=== PATIENT | male | born 1950 | race Caucasian/White ===

== ENCOUNTER 2017-08-28 18:33 | Emergency (ER) | payer MEDICARE, SELFPAY ==
[2017-08-28 20:48] VITALS: BP 115/68; PULSE 116; RESP 24; TEMP 37.7; O2SAT 94; BMI 42.4
--- NOTE | 2017-08-28 20:50 | HMH.EDUTC ---
[facility] – [place] Dis[place] Clinical Impression: Influenza, Bronchitis Disposition: Home, Self-Care Condition on Discharge: Good Instructions: Cough, Influenza, DI for Nasal Congestion Additional Instructions: * Monitor Temp. Tylenol and/or Ibuprofen as needed. ER if fever is no less than 101 despite alternating Tylenol and Ibuprofen * Encourage fluids, water, Gatorade, powerade, pedialyte if infant/toddler/or child * Warm salt water gargles for throat irritation *Warm fluids *Sore throat lozenges *Sleep elevated *humidifier or vaporizer Lots of rest Increase fluids, water, Gatorade, powerade Follow up IMMEDIATELY for new or worsening of symptoms OR no noticeable improvement over the next 48-72 hours. 911 immediately for any life threatening symptoms such as chest pain or difficulty breathing Take medication as prescribed Return if needed Over the counter Motrin or Tylenol as needed for fever or pain Follow up with family doctor if symptoms worsen Prescriptions: Azithromycin [Z-Axel 250mg Tab] 250 mg PO UD DOSE PK #6 tab Oseltamivir Phosphate [Tamiflu 75mg Capsule] 75 mg PO BID #10 capsule Referrals: Abbey Manrique APRN [Primary Care Provider] - Time of Disposition: 21:29 Medical Decision Making Vital Signs: 08/28/17 20:48 Temperature 99.8 F H Temperature Source Oral Pulse Rate [Right Radial] 116 H Respiratory Rate 24 Blood Pressure [Right Arm] 115/68 Blood Pressure Mean [Right Arm] 83 Blood Pressure Source [Right Arm] Automatic Cuff Blood Pressure Position [Right Arm] Sitting 02 Sat by Pulse Oximetry 94 L Oxygen Delivery Method Room Air Orders (Tests/Meds): ORDERS Category Date Time Status Chest XR 2 view (NOT portable) [XR chest 2V] Stat Exams 08/28/17 20:55 Taken - Radiology Data #1 Image(s): Chest Image Reviewed: Yes I reviewed the patient's radiology results Preliminary Findings: No Infiltrates Seen (Discussed with Dr Johnson, possible bronchitis) - Evin Inquiry Pt receiving controlled substance: No Evin was queried for this patient: No [facility] [place] HPI - General Stated complaint: SOB,FLU - History of Present Illness Provider Complaint: Patient state that he thinks he may have the flu Family member was worried that he may have pneumonia again too so they brought him in to get him checked out Onset (ago): day(s) (1) Relieving factors: none Exacerbating factors: none Associated symptoms: cough, fever/chills Treatments prior to arrival: none - Related Data Previous Rx's Medication Instructions Recorded Azithromycin [Z-Axel 250mg Tab] 250 mg PO UD DOSE PK #6 tab 08/28/17 Oseltamivir Phosphate [Tamiflu 75 mg PO BID #10 cap 08/28/17 75mg Capsule] Allergies Allergy/AdvReac Type Severity Reaction Status Date / Time pregabalin [From LYRICA] Allergy Unknown Verified 08/28/17 20:59 - Constitutional Reports body ache(s), Reports chills, Reports fever(s) - ENT Reports sore throat - Respiratory Reports chest congestion, Reports cough Physical Exam - General General appearance: alert, in no apparent distress - Expanded ENT Exam Comment: Throat irritated, red - Chest Chest inspection: Present: normal inspection, symmetric chest wall rise - Respiratory Respiratory exam: Present: normal lung sounds bilaterally. Absent: respiratory distress - Cardiovascular Cardiovascular exam: Present: regular rate. Absent: JVD - Abdominal Exam Abdominal exam: Present: soft, normal bowel sounds. Absent: distention, tenderness, guarding - Neurological Exam Neurological exam: Present: alert, oriented X3 - Skin Skin exam: Present: warm, dry, intact, normal color
--- NOTE | 2017-08-28 20:54 | ED_ITS ---
[facility] [place] Clinical Impression: Influenza, Bronchitis Disposition: Home, Self-Care Condition on Discharge: Good Instructions: Cough, Influenza, DI for Nasal Congestion Additional Instructions: * Monitor Temp. Tylenol and/or Ibuprofen as needed. ER if fever is no less than 101 despite alternating Tylenol and Ibuprofen * Encourage fluids, water, Gatorade, powerade, pedialyte if infant/toddler/or child * Warm salt water gargles for throat irritation *Warm fluids *Sore throat lozenges *Sleep elevated *humidifier or vaporizer Lots of rest Increase fluids, water, Gatorade, powerade Follow up IMMEDIATELY for new or worsening of symptoms OR no noticeable improvement over the next 48-72 hours. 911 immediately for any life threatening symptoms such as chest pain or difficulty breathing Take medication as prescribed Return if needed Over the counter Motrin or Tylenol as needed for fever or pain Follow up with family doctor if symptoms worsen Prescriptions: Azithromycin [Z-Axel 250mg Tab] 250 mg PO UD DOSE PK #6 tab Oseltamivir Phosphate [Tamiflu 75mg Capsule] 75 mg PO BID #10 capsule Referrals: Abbey Manrique APRN [Primary Care Provider] - Time of Disposition: 21:29 Medical Decision Making Vital Signs: 08/28/17 20:48 Temperature 99.8 F H Temperature Source Oral Pulse Rate [Right Radial] 116 H Respiratory Rate 24 Blood Pressure [Right Arm] 115/68 Blood Pressure Mean [Right Arm] 83 Blood Pressure Source [Right Arm] Automatic Cuff Blood Pressure Position [Right Arm] Sitting 02 Sat by Pulse Oximetry 94 L Oxygen Delivery Method Room Air Orders (Tests/Meds): ORDERS Category Date Time Status Chest XR 2 view (NOT portable) [XR chest 2V] Stat Exams 08/28/17 20:55 Taken - Radiology Data #1 Image(s): Chest Image Reviewed: Yes I reviewed the patient's radiology results Preliminary Findings: No Infiltrates Seen (Discussed with Dr Johnson, possible bronchitis) - Evin Inquiry Pt receiving controlled substance: No Evin was queried for this patient: No [facility] [facility] [place] - General Stated complaint: SOB,FLU - History of Present Illness Provider Complaint: Patient state that he thinks he may have the flu Family member was worried that he may have pneumonia again too so they brought him in to get him checked out Onset (ago): day(s) (1) Relieving factors: none Exacerbating factors: none Associated symptoms: cough, fever/chills Treatments prior to arrival: none - Related Data Previous Rx's Medication Instructions Recorded Azithromycin [Z-Axel 250mg Tab] 250 mg PO UD DOSE PK #6 tab 08/28/17 Oseltamivir Phosphate [Tamiflu 75 mg PO BID #10 cap 08/28/17 75mg Capsule] Allergies Allergy/AdvReac Type Severity Reaction Status Date / Time pregabalin [From LYRICA] Allergy Unknown Verified 08/28/17 20:59 - Constitutional Reports body ache(s), Reports chills, Reports fever(s) - ENT Reports sore throat - Respiratory Reports chest congestion, Reports cough Physical Exam - General General appearance: alert, in no apparent distress - Expanded ENT Exam Comment: Throat irritated, red - Chest Chest inspection: Present: normal inspection, symmetric chest wall rise - Respiratory Respiratory exam: Present: normal lung sounds robina
--- NOTE | 2017-08-28 20:55 | XR_ITS ---
XR chest 2V HISTORY: ITS.REASON: COUGH ORDERING PHYSICIAN: Sue Green PATIENT AGE: 66 years COMPARISON: 07/12/2017 FINDINGS: Unremarkable cardiovascular structures. There is chronic coarsening of bronchovascular markings as previously described somewhat more prominent in the left lung compared to the right lung. There is slight increased density in the left lung base in the retrocardiac region. Underlying patchy infiltrate is a consideration. No effusions. No acute bony anomalies. IMPRESSION: Chronic coarsening of the bronchovascular markings suggesting chronic peribronchial inflammatory change with possible infiltrate in the left lung base versus a developing nodule. Follow-up recommended to confirm stability and/or resolution
[2017-08-28 21:39] LABS: UTC Influenza A Antigen Positive (Negative); UTC Influenza B Antigen Negative (Negative)
== END 2017-08-28 21:36 | disposition home or self-care (01) ==
PROVIDERS: Emergency Provider Nurse Practitioner; Family Provider Nurse Practitioner Family; PCP Nurse Practitioner Family
DX: J10.1 Influenza due to other identified influenza virus with other respiratory manifestations (principal)
CPT/HCPCS: 71046; 87276; 87804; 99201

== ENCOUNTER → 2017-09-20 13:45 | Outpatient (CLI) | payer MEDICARE, SELFPAY ==
--- NOTE | 2017-09-20 13:52 | XR_ITS ---
XR chest 2V HISTORY: ITS.REASON: COUGH ORDERING PHYSICIAN: Abbey Manrique PATIENT AGE: 66 years COMPARISON: 08/28/2017 FINDINGS: Unremarkable cardiovascular structures. No lobar consolidation or collapse. There is slight increased density overlying the left chest compared to the right probably technical and somewhat similar appearance on older portable chest 07/12/2017. There is chronic coarsening of the bronchovascular markings as previously described faint opacity is once again noted in the left lower lobe atelectasis millimeters nonspecific and could be related to summation artifact or developing nodule. There is an additional 9 mm nodule just lateral to this overlying the anterior aspect of the fifth rib. Continued follow-up recommended. IMPRESSION: 1. Chronic changes with chronic coarsening of the bronchovascular markings. 2. Possible nodular opacities in the left lung base. Continued follow-up recommended
== END ==
PROVIDERS: PCP Nurse Practitioner Family; Visit Provider Nurse Practitioner Family
DX: R05 Cough (principal)
CPT/HCPCS: 71046

== ENCOUNTER 2019-09-02 10:25 | Outpatient (CLI) | payer MEDICARE, SELFPAY ==
[2019-09-02 10:52] VITALS: BP 91/52; PULSE 104; RESP 18; O2SAT 96
[2019-09-02 11:50] VITALS: BP 96/50; PULSE 91; RESP 18
== END 2019-09-02 11:50 | disposition home or self-care (01) ==
PROVIDERS: Visit Provider Nurse Practitioner Critical Care Medicine
DX: L03.115 Cellulitis of right lower limb (principal)
CPT/HCPCS: 96365

== ENCOUNTER 2019-09-03 16:05 | Outpatient (CLI) | payer MEDICARE, SELFPAY ==
[2019-09-03 16:45] VITALS: BP 94/47; PULSE 98; RESP 20; TEMP 36.6; O2SAT 95
[2019-09-03 17:16] VITALS: BP 113/56; PULSE 97; RESP 18; O2SAT 96
== END 2019-09-03 17:25 | disposition home or self-care (01) ==
LOC: INF 16:09
PROVIDERS: Visit Provider Internal Medicine Infectious Disease
DX: L03.115 Cellulitis of right lower limb (principal)
CPT/HCPCS: 96365

== ENCOUNTER 2019-09-04 10:20 | Outpatient (CLI) | payer MEDICARE, SELFPAY ==
[2019-09-04 10:35] VITALS: BP 100/57; PULSE 96; RESP 20; TEMP 35.8
[2019-09-04 11:05] VITALS: BP 115/69; PULSE 88; RESP 20
== END 2019-09-04 11:20 | disposition home or self-care (01) ==
LOC: INF 10:20
PROVIDERS: Visit Provider Internal Medicine Infectious Disease
DX: L03.115 Cellulitis of right lower limb (principal)
CPT/HCPCS: 96365

== ENCOUNTER 2019-09-05 10:10 | Outpatient (CLI) | payer MEDICARE, SELFPAY ==
[2019-09-05 10:18] VITALS: BMI 37.4
[2019-09-05 10:49] LABS: Basophils # 0.1 K/mm3 (0-0.2); Basophils % 0.7 % (0.1-2.0); Eosinophils # 0.1 K/mm3 (0.0-0.4); Eosinophils % 0.9 % (0.1-12.0); Hematocrit 45.5 % (42.0-52.0); Hemoglobin 14.5 g/dL (14.1-18.0); Lymphocytes # 1.4 K/mm3 (0.7-4.5); Lymphocytes % 14.4 % (10-50); Mean Corpuscular HGB Conc 31.9 g/dL (31.8-35.4); Mean Corpuscular Hemoglobin 29.4 pg (27.0-31.2); Mean Corpuscular Volume 92.2 fl (80-94); Mean Platelet Volume 7.8 fl (7.4-10.4); Monocytes # 0.5 K/mm3 (0.1-1.0); Monocytes % 5.2 % (1.7-9.3); Neutrophils # 7.8 K/mm3 (1.8-7.8); Neutrophils % 78.8 % (37.0-80.0); Platelet Count 302 K/mm3 (142-424); Red Blood Count 4.94 M/mm3 (4.60-6.20); Red Cell Distribution Width 12.5 % (11.5-17.5); White Blood Count 9.9 K/mm3 (4.8-10.8)
[2019-09-05 11:00] VITALS: BP 104/58; PULSE 82; RESP 18; O2SAT 93
[2019-09-05 11:13] LABS: Alanine Aminotransferase 25 U/L (12-78); Albumin Level 2.9 gm/dL (3.4-5.0); Albumin/Globulin Ratio 0.7 (1.1-1.8); Alkaline Phosphatase 84 U/L (46-116); Anion Gap 12.5 mEq/L (5-15); Aspartate Amino Transferase 12 U/L (15-37); Bilirubin,Total 0.5 mg/dL (0.2-1.0); Blood Urea Nitrogen 18 mg/dL (7-18); C-Reactive Protein 2.5 mg/dL (0.0-0.9); Calcium 8.8 mg/dL (8.5-10.1); Carbon Dioxide 27 mmol/L (21.0-32.0); Chloride 104 mmol/L (98-107); Creatinine Clearance Estimated 113 mL/min (50-200); Estimated Glomerular Filt Rate 75 ml/min (>60); GFR (African American) 90 ML/MIN (>60); Globulin 4.2 gm/dl (1.3-3.2); Glucose 102 mg/dL (74-106); Potassium 4.5 mmoL/L (3.5-5.1); Sodium 139 mmol/L (136-145); Total Protein,Serum 7.1 gm/dL (6.4-8.2)
[2019-09-05 11:30] VITALS: BP 116/62; PULSE 79; RESP 18
[2019-09-05 11:37] LABS: Erythrocyte Sedimentation Rate 36 mm/hr (0-20)
--- NOTE | 2019-09-05 14:20 | PC.NURSE ---
1035 - SUZETTE BELTRAN FROM LAB PRESENT TO DRAW CBC, CMP, CRP, ESR AT THIS TIME.
== END 2019-09-05 11:40 | disposition home or self-care (01) ==
LOC: INF 10:15
PROVIDERS: Visit Provider Internal Medicine Infectious Disease
DX: L03.115 Cellulitis of right lower limb (principal)
CPT/HCPCS: 36415; 80053; 85025; 85651; 86140; 96365

== ENCOUNTER 2019-09-12 13:04 | Outpatient (CLI) | payer MEDICARE, SELFPAY ==
[2019-09-12 13:58] VITALS: BMI 38.6
--- NOTE | 2019-09-12 13:58 | XR_ITS ---
PROCEDURE: XR CHEST PORTABLE CLINICAL HISTORY: CHECK PICC PLACEMENT COMPARISON: CXR2V XR chest 2V from 08/28/2017 CXR2V XR chest 2V from 09/20/2017 XR CHEST 2V from 08/23/2019 CT ANGIO CHEST from 08/23/2019 FINDINGS: Right upper extremity PICC line has been inserted. The tip is in good position in the proximal SVC region. Unremarkable cardiovascular structures. There is an opacity noted in the left midline at the end of the 4th rib could be related to costochondral calcification or fibrosis. IMPRESSION: PICC line tip in good position. No acute abnormalities evident Dictated by: Rohit Roper MD 09/12/2019 14:14 Electronically signed by Rohit Roper MD in [place] 09/12/2019 14:14
[2019-09-12 14:20] VITALS: BP 125/45; PULSE 84; RESP 20; O2SAT 98
[2019-09-12 14:50] VITALS: BP 118/52; PULSE 80; RESP 20
== END 2019-09-12 15:10 | disposition home or self-care (01) ==
LOC: INF 13:04
PROVIDERS: Visit Provider Internal Medicine Infectious Disease
DX: L03.115 Cellulitis of right lower limb (principal); I50.22 Chronic systolic (congestive) heart failure; I11.0 Hypertensive heart disease with heart failure; I25.10 Atherosclerotic heart disease of native coronary artery without angina pectoris
CPT/HCPCS: 36569; 71045; 96365; C1751

== ENCOUNTER → 2019-09-13 10:37 | Outpatient (CLI) | payer MEDICARE, SELFPAY ==
[2019-09-13 10:43] VITALS: BP 130/70; PULSE 83; RESP 20; TEMP 36.8; O2SAT 92
[2019-09-13 11:15] VITALS: BP 130/68; PULSE 76; RESP 19; TEMP 36.9; O2SAT 93
== END ==
PROVIDERS: PCP Nurse Practitioner Family; Visit Provider Internal Medicine Infectious Disease
DX: L03.115 Cellulitis of right lower limb (principal)
CPT/HCPCS: 96365; G0463

== ENCOUNTER 2019-09-14 10:36 | Outpatient (CLI) | payer MEDICARE, SELFPAY ==
[2019-09-14 10:47] VITALS: BP 143/76; PULSE 94; RESP 22; TEMP 36.6; O2SAT 97
[2019-09-14 10:53] VITALS: BMI 38.6
[2019-09-14 11:36] VITALS: BP 114/66; PULSE 88; RESP 20; TEMP 36.6; O2SAT 94
== END 2019-09-14 11:40 | disposition home or self-care (01) ==
LOC: INF 10:37
PROVIDERS: PCP Nurse Practitioner Family; Visit Provider Internal Medicine Infectious Disease
DX: L03.115 Cellulitis of right lower limb (principal)
CPT/HCPCS: 96365

== ENCOUNTER 2019-09-15 10:51 | Outpatient (CLI) | payer MEDICARE, SELFPAY ==
[2019-09-15 10:53] VITALS: BP 127/76; PULSE 96; RESP 18; TEMP 36.6; O2SAT 98
[2019-09-15 11:23] VITALS: BP 122/72; PULSE 94; RESP 18; O2SAT 97
[2019-09-15 11:40] VITALS: BP 129/74; PULSE 89; RESP 18; O2SAT 97
== END 2019-09-15 11:40 | disposition home or self-care (01) ==
LOC: INF 10:51
PROVIDERS: Visit Provider Internal Medicine Infectious Disease
DX: L03.115 Cellulitis of right lower limb (principal); I50.22 Chronic systolic (congestive) heart failure; I11.0 Hypertensive heart disease with heart failure; I25.10 Atherosclerotic heart disease of native coronary artery without angina pectoris
CPT/HCPCS: 96365

== ENCOUNTER 2019-09-16 10:41 | Outpatient (CLI) | payer MEDICARE, SELFPAY ==
[2019-09-16 10:56] VITALS: BP 127/69; PULSE 82; RESP 18; TEMP 36.8; O2SAT 96
[2019-09-16 11:35] VITALS: BP 123/68; PULSE 72; RESP 18; TEMP 36.8; O2SAT 95
== END 2019-09-16 11:35 | disposition home or self-care (01) ==
LOC: INF 10:41
PROVIDERS: Visit Provider Internal Medicine Infectious Disease
DX: L03.115 Cellulitis of right lower limb (principal); I50.22 Chronic systolic (congestive) heart failure; I11.0 Hypertensive heart disease with heart failure; I25.10 Atherosclerotic heart disease of native coronary artery without angina pectoris
CPT/HCPCS: 96365

== ENCOUNTER 2019-09-17 10:40 | Outpatient (CLI) | payer MEDICARE, SELFPAY ==
[2019-09-17 10:43] VITALS: BMI 38.6
[2019-09-17 10:55] VITALS: BP 115/67; PULSE 95; RESP 20; TEMP 36.6; O2SAT 94
[2019-09-17 10:57] LABS: Basophils # 0.1 K/mm3 (0-0.2); Basophils % 0.6 % (0.1-2.0); Eosinophils # 0.2 K/mm3 (0.0-0.4); Eosinophils % 2.1 % (0.1-12.0); Hematocrit 43.2 % (42.0-52.0); Hemoglobin 13.9 g/dL (14.1-18.0); Lymphocytes # 1.5 K/mm3 (0.7-4.5); Lymphocytes % 16.3 % (10-50); Mean Corpuscular HGB Conc 32.1 g/dL (31.8-35.4); Mean Corpuscular Hemoglobin 29.2 pg (27.0-31.2); Mean Corpuscular Volume 90.8 fl (80-94); Mean Platelet Volume 7.3 fl (7.4-10.4); Monocytes # 0.5 K/mm3 (0.1-1.0); Monocytes % 5.4 % (1.7-9.3); Neutrophils # 6.9 K/mm3 (1.8-7.8); Neutrophils % 75.6 % (37.0-80.0); Platelet Count 349 K/mm3 (142-424); Red Blood Count 4.76 M/mm3 (4.60-6.20); Red Cell Distribution Width 12.6 % (11.5-17.5); White Blood Count 9.1 K/mm3 (4.8-10.8)
[2019-09-17 11:11] LABS: Alanine Aminotransferase 12 U/L (12-78); Albumin Level 2.9 gm/dL (3.4-5.0); Albumin/Globulin Ratio 0.6 (1.1-1.8); Alkaline Phosphatase 74 U/L (46-116); Anion Gap 12.3 mEq/L (5-15); Aspartate Amino Transferase 10 U/L (15-37); Bilirubin,Total 0.4 mg/dL (0.2-1.0); Blood Urea Nitrogen 12 mg/dL (7-18); C-Reactive Protein 11.9 mg/dL (0.0-0.9); Calcium 8.7 mg/dL (8.5-10.1); Carbon Dioxide 30 mmol/L (21.0-32.0); Chloride 104 mmol/L (98-107); Creatinine Clearance Estimated 109 mL/min (50-200); Creatinine,Serum 1.07 mg/dL (0.70-1.30); Estimated Glomerular Filt Rate 69 ml/min (>60); GFR (African American) 83 ML/MIN (>60); Globulin 4.5 gm/dl (1.3-3.2); Glucose 99 mg/dL (74-106); Potassium 4.3 mmoL/L (3.5-5.1); Sodium 142 mmol/L (136-145); Total Protein,Serum 7.4 gm/dL (6.4-8.2)
[2019-09-17 11:13] LABS: Creatine Kinase 30 U/L (39-308)
[2019-09-17 11:45] VITALS: BP 118/57; PULSE 89; RESP 20; O2SAT 93
[2019-09-17 11:46] LABS: Erythrocyte Sedimentation Rate 100 mm/hr (0-20)
== END 2019-09-17 11:45 | disposition home or self-care (01) ==
LOC: INF 10:40
PROVIDERS: Visit Provider Internal Medicine Infectious Disease
DX: L03.115 Cellulitis of right lower limb (principal); I50.22 Chronic systolic (congestive) heart failure; I25.10 Atherosclerotic heart disease of native coronary artery without angina pectoris
CPT/HCPCS: 80053; 82550; 85025; 85651; 86140; 96365

== ENCOUNTER 2019-09-18 10:43 | Outpatient (CLI) | payer MEDICARE, SELFPAY ==
[2019-09-18 11:01] VITALS: BP 130/85; PULSE 93; RESP 18; TEMP 36.6; O2SAT 95
[2019-09-18 11:50] VITALS: BP 136/79; PULSE 82; RESP 18; TEMP 36.6; O2SAT 95
== END 2019-09-18 11:50 | disposition home or self-care (01) ==
LOC: INF 10:43
PROVIDERS: Visit Provider Internal Medicine Infectious Disease
DX: I89.0 Lymphedema, not elsewhere classified (principal); L03.115 Cellulitis of right lower limb; I50.22 Chronic systolic (congestive) heart failure; I11.0 Hypertensive heart disease with heart failure; I25.10 Atherosclerotic heart disease of native coronary artery without angina pectoris
CPT/HCPCS: 96365

== ENCOUNTER 2019-09-19 10:40 | Outpatient (CLI) | payer MEDICARE, SELFPAY ==
[2019-09-19 10:42] VITALS: BP 133/70; PULSE 92; RESP 20; TEMP 37.1; O2SAT 95
[2019-09-19 11:25] VITALS: BP 135/74; PULSE 68; RESP 20; TEMP 37.1; O2SAT 95
== END 2019-09-19 11:25 | disposition home or self-care (01) ==
LOC: INF 10:40
PROVIDERS: Visit Provider Internal Medicine Infectious Disease
DX: I89.0 Lymphedema, not elsewhere classified (principal); L03.115 Cellulitis of right lower limb; I50.22 Chronic systolic (congestive) heart failure; I25.10 Atherosclerotic heart disease of native coronary artery without angina pectoris; I11.0 Hypertensive heart disease with heart failure
CPT/HCPCS: 96365

== ENCOUNTER → 2019-09-20 10:38 | Outpatient (CLI) | payer MEDICARE, SELFPAY ==
[2019-09-20 10:42] VITALS: BP 137/70; PULSE 104; RESP 16; TEMP 36.7; O2SAT 95
[2019-09-20 11:44] VITALS: BP 122/60; PULSE 60; RESP 16; TEMP 36.8; O2SAT 93
== END ==
PROVIDERS: PCP Nurse Practitioner Family; Visit Provider Internal Medicine Infectious Disease
DX: I89.0 Lymphedema, not elsewhere classified (principal); L03.115 Cellulitis of right lower limb; I50.22 Chronic systolic (congestive) heart failure; I11.0 Hypertensive heart disease with heart failure; I25.10 Atherosclerotic heart disease of native coronary artery without angina pectoris
CPT/HCPCS: 96365

== ENCOUNTER → 2019-09-21 10:30 | Outpatient (CLI) | payer MEDICARE, SELFPAY ==
[2019-09-21 11:05] VITALS: BP 144/73; PULSE 94; RESP 18; TEMP 36.8; O2SAT 96
[2019-09-21 11:44] VITALS: BP 148/75; PULSE 88; RESP 18; TEMP 36.9; O2SAT 97
== END ==
PROVIDERS: PCP Nurse Practitioner Family; Visit Provider Internal Medicine Infectious Disease
DX: L03.115 Cellulitis of right lower limb (principal)
CPT/HCPCS: 96365

== ENCOUNTER 2019-09-22 10:32 | Outpatient (CLI) | payer MEDICARE, SELFPAY ==
[2019-09-22 10:33] VITALS: BMI 37.7
[2019-09-22 10:58] VITALS: BP 152/73; PULSE 98; RESP 20; TEMP 36.8; O2SAT 95
[2019-09-22 11:01] LABS: Basophils % 0.3 % (0.1-2.0); Eosinophils # 0.2 K/mm3 (0.0-0.4); Eosinophils % 1.8 % (0.1-12.0); Hematocrit 42.9 % (42.0-52.0); Hemoglobin 13.8 g/dL (14.1-18.0); Lymphocytes # 1.7 K/mm3 (0.7-4.5); Lymphocytes % 18.6 % (10-50); Mean Corpuscular HGB Conc 32.3 g/dL (31.8-35.4); Mean Corpuscular Hemoglobin 28.8 pg (27.0-31.2); Mean Corpuscular Volume 89.4 fl (80-94); Mean Platelet Volume 7.2 fl (7.4-10.4); Monocytes # 0.4 K/mm3 (0.1-1.0); Monocytes % 4.9 % (1.7-9.3); Neutrophils # 6.6 K/mm3 (1.8-7.8); Neutrophils % 74.4 % (37.0-80.0); Platelet Count 327 K/mm3 (142-424); Red Cell Distribution Width 13.5 % (11.5-17.5); White Blood Count 8.9 K/mm3 (4.8-10.8)
[2019-09-22 11:05] LABS: Alanine Aminotransferase 14 U/L (12-78); Albumin Level 2.9 gm/dL (3.4-5.0); Albumin/Globulin Ratio 0.7 (1.1-1.8); Alkaline Phosphatase 71 U/L (46-116); Anion Gap 14.9 mEq/L (5-15); Aspartate Amino Transferase 11 U/L (15-37); Bilirubin,Total 0.4 mg/dL (0.2-1.0); Blood Urea Nitrogen 16 mg/dL (7-18); Calcium 8.7 mg/dL (8.5-10.1); Carbon Dioxide 29 mmol/L (21.0-32.0); Chloride 105 mmol/L (98-107); Creatinine Clearance Estimated 104 mL/min (50-200); Estimated Glomerular Filt Rate 67 ml/min (>60); GFR (African American) 81 ML/MIN (>60); Globulin 4.4 gm/dl (1.3-3.2); Glucose 135 mg/dL (74-106); Potassium 3.9 mmoL/L (3.5-5.1); Sodium 145 mmol/L (136-145); Total Protein,Serum 7.3 gm/dL (6.4-8.2)
[2019-09-22 11:28] VITALS: BP 150/78; PULSE 94; RESP 20; O2SAT 96
[2019-09-22 11:37] LABS: Erythrocyte Sedimentation Rate 50 mm/hr (0-20)
[2019-09-22 11:40] VITALS: BP 146/67; PULSE 86; RESP 20; O2SAT 95
== END 2019-09-22 11:40 | disposition home or self-care (01) ==
LOC: INF 10:32
PROVIDERS: Visit Provider Internal Medicine Infectious Disease
DX: L03.115 Cellulitis of right lower limb (principal); I50.22 Chronic systolic (congestive) heart failure; I11.0 Hypertensive heart disease with heart failure; I25.10 Atherosclerotic heart disease of native coronary artery without angina pectoris
CPT/HCPCS: 80053; 85025; 85651; 86140; 96365

== ENCOUNTER 2019-09-23 10:30 | Outpatient (CLI) | payer MEDICARE, SELFPAY ==
[2019-09-23 10:49] VITALS: BP 140/82; PULSE 88; RESP 18; TEMP 36.6; O2SAT 95
[2019-09-23 11:19] VITALS: BP 138/80; PULSE 81; RESP 18; O2SAT 95
[2019-09-23 11:35] VITALS: BP 131/69; PULSE 86; RESP 20; O2SAT 97
== END 2019-09-23 11:35 | disposition home or self-care (01) ==
LOC: INF 10:30
PROVIDERS: Visit Provider Internal Medicine Infectious Disease
DX: I89.0 Lymphedema, not elsewhere classified (principal); L03.115 Cellulitis of right lower limb; I50.22 Chronic systolic (congestive) heart failure; I11.0 Hypertensive heart disease with heart failure; I25.10 Atherosclerotic heart disease of native coronary artery without angina pectoris
CPT/HCPCS: 96365

== ENCOUNTER 2019-09-24 10:30 | Outpatient (CLI) | payer MEDICARE, SELFPAY ==
[2019-09-24 10:50] VITALS: BP 122/69; PULSE 89; RESP 20; O2SAT 94
[2019-09-24 11:20] VITALS: BP 135/67; PULSE 80; RESP 20
== END 2019-09-24 11:35 | disposition home or self-care (01) ==
LOC: INF 10:35
PROVIDERS: Visit Provider Internal Medicine Infectious Disease
DX: I89.0 Lymphedema, not elsewhere classified (principal); L03.115 Cellulitis of right lower limb; I50.22 Chronic systolic (congestive) heart failure; I11.0 Hypertensive heart disease with heart failure; I25.10 Atherosclerotic heart disease of native coronary artery without angina pectoris
CPT/HCPCS: 96365

== ENCOUNTER → 2020-03-30 15:26 | Outpatient (CLI) | payer MEDICARE, SELFPAY ==
--- NOTE | 2020-03-30 15:31 | CT_ITS ---
PROCEDURE: CT CHEST W CON CLINCAL INDICATION: 6 M F/UP FOR RML LUNG NODULE Follow-up pulmonary nodule COMPARISON: CT CHWO CT CHEST W/O CONTRAST from 03/04/[address] ANGIO CHEST from 08/23/2019 TECHNIQUE: IV Contrast: 75ml Optiray 350 Axial images obtained with sagittal and coronal reformats. All CT scans at the facility use one or more dose reduction, viz: automated exposure control, ma/kV adjustment per patient size (including targeted exams where dose is matched to indication, i.e. head), or iterative reconstruction technique. FINDINGS: HEART AND MEDIASTINAL STRUCTURES: There is some atherosclerotic calcification of the aortic root. Normal heart size. No evidence mediastinal or hilar adenopathy. LUNGS AND PLEURAL SPACES: Changes of COPD. There remains a 10 mm nodule in the right middle lobe which is not significantly changed. No new nodules are evident. No lobar consolidation or collapse is apparent. BONY STRUCTURES: There are multiple old left-sided rib fractures UPPER ABDOMEN: Nodularity once again noted of the adrenal glands not significantly changed ADDITIONAL FINDINGS: No other significant abnormalities. IMPRESSION: Overall stable CT appearance of the chest. No change in the size of the right middle lobe nodule with COPD and old left-sided rib fractures Dictated b Rohit Roper MD 03/31/2020 12:52 Rohit Roper MD in [place] 03/31/2020 12:52
== END ==
PROVIDERS: PCP Nurse Practitioner Family; Visit Provider Nurse Practitioner Family
DX: R91.1 Solitary pulmonary nodule (principal)
CPT/HCPCS: 71260; Q9967

== ENCOUNTER → 2020-11-11 11:28 | Outpatient (CLI) | payer MEDICARE, SELFPAY ==
[2020-11-11 12:14] LABS: Basophils % 0.4 % (0.1-2.0); Eosinophils # 0.1 K/mm3 (0.0-0.4); Hematocrit 55.3 % (42.0-52.0); Lymphocytes # 1.5 K/mm3 (0.7-4.5); Lymphocytes % 14.9 % (10-50); Mean Corpuscular HGB Conc 32.8 g/dL (31.8-35.4); Mean Corpuscular Hemoglobin 29.7 pg (27.0-31.2); Mean Corpuscular Volume 90.7 fl (80-94); Mean Platelet Volume 8.1 fl (7.4-10.4); Monocytes # 0.4 K/mm3 (0.1-1.0); Monocytes % 4.3 % (1.7-9.3); Neutrophils # 7.9 K/mm3 (1.8-7.8); Neutrophils % 79.4 % (37.0-80.0); Platelet Count 208 K/mm3 (142-424); Red Cell Distribution Width 13.4 % (11.5-17.5)
[2020-11-11 12:38] LABS: Chloride 106 mmol/L (98-107)
[2020-11-11 12:39] LABS: Potassium 4.4 mmoL/L (3.5-5.1); Sodium 142 mmol/L (136-145)
[2020-11-11 12:41] LABS: Alanine Aminotransferase 24 U/L (12-78); Anion Gap 12.4 mEq/L (5-15); Aspartate Amino Transferase 22 U/L (17-59); Blood Urea Nitrogen 13 mg/dl (9-20); Carbon Dioxide 28 mmol/L (22.0-30.0); Estimated Glomerular Filt Rate 84 ml/min (>60); GFR (African American) 102 ML/MIN (>60)
[2020-11-11 12:42] LABS: Albumin Level 4.6 g/dl (3.5-5.0); Albumin/Globulin Ratio 1.5 (1.1-1.8); Alkaline Phosphatase 85 U/L (38-126); Bilirubin,Total 1.6 mg/dl (0.2-1.3); Calcium 9.7 mg/dl (8.4-10.2); Chol/HDL Ratio 4.2 (1-3.5); Cholesterol 183 mg/dl (140-200); Globulin 3.1 g/dL (1.3-3.2); Glucose 109 mg/dl (74-100); HDL Cholesterol 44 mg/dl (40-60); Total Protein,Serum 7.7 g/dl (6.3-8.2); Triglycerides 197 mg/dl (30-150); VLDL Cholesterol 39 mg/dL (0-40)
[2020-11-11 12:51] LABS: NT Pro Brain Natriuretic Pep. 1730 pg/mL (0-125)
[2020-11-11 12:53] LABS: Direct LDL Cholesterol 108.54 mg/dL (100-129)
[2020-11-11 13:13] LABS: Thyroid Stimulating Hormone 2.46 uIU/mL (0.465-4.68)
[2020-11-11 16:14] LABS: Hemoglobin 18.1 g/dL (14.1-18.0)
== END ==
PROVIDERS: Visit Provider Internal Medicine Adolescent Medicine
DX: I42.9 Cardiomyopathy, unspecified (principal); E78.5 Hyperlipidemia, unspecified; J43.9 Emphysema, unspecified; R79.1 Abnormal coagulation profile
CPT/HCPCS: 36415; 80053; 80061; 83880; 84443; 85025

== ENCOUNTER → 2021-01-20 17:01 | Outpatient (CLI) | payer MEDICARE, SELFPAY ==
--- NOTE | 2021-01-20 17:11 | XR_ITS ---
PROCEDURE: XR CHEST 2V CLINICAL HISTORY: BRONCHOPNEUMONIA COMPARISON: DX CXR2V XR chest 2V from 09/20/2017 CR XR CHEST 2V from 08/23/2019 CR XR CHEST PORTABLE from 09/12/[address] CHEST W CON from 03/30/2020 FINDINGS: The cardiomediastinal silhouette and pulmonary vascularity are within normal limits. Slight increased markings are present in the left lower lobe suggestive of pneumonia. There is minimal blunting of the left CP angle which is chronic. No acute bony abnormalities. IMPRESSION: Left lower lobe pneumonia Dictated by: Rohit Roper MD 01/20/2021 17:41 Rohit Roper MD in [place] 01/20/2021 17:41
== END ==
LOC: RAD 17:03
PROVIDERS: PCP Internal Medicine Adolescent Medicine; Visit Provider Internal Medicine Adolescent Medicine
DX: J18.0 Bronchopneumonia, unspecified organism (principal)
CPT/HCPCS: 71046

== ENCOUNTER → 2021-02-09 12:00 | Outpatient (CLI) | payer MEDICARE, SELFPAY ==
[2021-02-09 12:37] LABS: Basophils # 0.1 K/mm3 (0-0.2); Basophils % 0.5 % (0.1-2.0); Eosinophils # 0.1 K/mm3 (0.0-0.4); Eosinophils % 0.5 % (0.1-12.0); Hematocrit 50.8 % (42.0-52.0); Hemoglobin 17.1 g/dL (14.1-18.0); Lymphocytes # 1.9 K/mm3 (0.7-4.5); Lymphocytes % 18.9 % (10-50); Mean Corpuscular HGB Conc 33.6 g/dL (31.8-35.4); Mean Corpuscular Hemoglobin 29.9 pg (27.0-31.2); Mean Platelet Volume 7.7 fl (7.4-10.4); Monocytes # 0.6 K/mm3 (0.1-1.0); Monocytes % 5.8 % (1.7-9.3); Neutrophils # 7.5 K/mm3 (1.8-7.8); Neutrophils % 74.3 % (37.0-80.0); Platelet Count 271 K/mm3 (142-424); Red Blood Count 5.71 M/mm3 (4.60-6.20); Red Cell Distribution Width 13.3 % (11.5-17.5); White Blood Count 10.1 K/mm3 (4.8-10.8)
[2021-02-09 13:08] LABS: Alanine Aminotransferase 23 U/L (12-78); Albumin Level 4.4 g/dl (3.5-5.0); Albumin/Globulin Ratio 1.7 (1.1-1.8); Alkaline Phosphatase 86 U/L (38-126); Anion Gap 14.5 mEq/L (5-15); Aspartate Amino Transferase 26 U/L (17-59); Bilirubin,Total 1.5 mg/dl (0.2-1.3); Blood Urea Nitrogen 23 mg/dl (9-20); Calcium 9.3 mg/dl (8.4-10.2); Carbon Dioxide 24 mmol/L (22.0-30.0); Chloride 105 mmol/L (98-107); Estimated Glomerular Filt Rate 60 ml/min (>60); GFR (African American) 73 ML/MIN (>60); Globulin 2.6 g/dL (1.3-3.2); Glucose 93 mg/dl (74-100); Magnesium 2.1 mg/dl (1.6-2.3); Potassium 5.5 mmoL/L (3.5-5.1); Sodium 138 mmol/L (136-145)
[2021-02-09 13:38] LABS: Thyroid Stimulating Hormone 2.09 uIU/mL (0.465-4.68)
== END ==
PROVIDERS: Visit Provider Internal Medicine Adolescent Medicine
DX: J43.9 Emphysema, unspecified (principal); R63.4 Abnormal weight loss
CPT/HCPCS: 36415; 80053; 83735; 84443; 85025

== ENCOUNTER 2021-06-08 06:21 | Emergency (ER) | payer MEDICARE, SELFPAY ==
[2021-06-08] VITALS (11 sets, daily range): BP systolic 98–161; BP diastolic 57–80; PULSE 81–125; RESP 17–36; TEMP 36.4–36.5; O2SAT 90–94; BMI 36.0
--- NOTE | 2021-06-08 06:31 | XR_ITS ---
PROCEDURE: XR CHEST 2V CLINICAL HISTORY: SOA COMPARISON: CR XR CHEST 2V from 08/23/2019 CR XR CHEST PORTABLE from 09/12/[address] CHEST W CON from 03/30/2020 CR XR CHEST 2V from 01/20/2021 FINDINGS: Borderline cardiomegaly. Pulmonary vessels are somewhat engorged on the left but not on the right. This could be seen with right-sided pulmonary embolus. CT angiogram of the chest could provide further evaluation. There are mild atelectatic changes in the left lower lobe. No lobar consolidation or collapse. No acute bony abnormalities. IMPRESSION: Asymmetry in the pulmonary vessels slightly engorged on the left and unremarkable on the right which could be seen with right-sided pulmonary embolus. CT angiogram may provide further evaluation. Mild left basilar atelectasis Dictated by: Rohit Roper MD 06/08/2021 08:12 Rohit Roper MD in [place] 06/08/2021 08:12
--- NOTE | 2021-06-08 06:37 | PC.NURSE ---
Pt refused to be swabbed. This RN asked why he did not want to be swabbed and he said that stick isn't go up in my nose . MD nicholas
--- NOTE | 2021-06-08 06:41 | ECG_ITS ---
APPROVED REPORT Exam: Resting ECG HR:117 bpm ECG Measurements Heart Rate 117 AXES NV 138 P 45 QRSd 114 QRS 12 QT 350 T 104 QTc 488 Conclusion Sinus tachycardia with premature atrial complexes with aberrant conduction Possible Left atrial enlargement Incomplete left bundle branch block Nonspecific ST and T wave abnormality Abnormal ECG Electronically signed by : Tadeo Moore MD 06/08/2021 21:16:57
[2021-06-08 07:03] LABS: Basophils % 0.4 % (0.1-2.0); Eosinophils # 0.1 K/mm3 (0.0-0.4); Eosinophils % 0.5 % (0.1-12.0); Hematocrit 50.8 % (42.0-52.0); Hemoglobin 16.4 g/dL (14.1-18.0); Lymphocytes # 1.3 K/mm3 (0.7-4.5); Lymphocytes % 15.3 % (10-50); Mean Corpuscular HGB Conc 32.3 g/dL (31.8-35.4); Mean Corpuscular Hemoglobin 30.3 pg (27.0-31.2); Mean Corpuscular Volume 93.7 fl (80-94); Mean Platelet Volume 9.4 fl (7.4-10.4); Monocytes # 0.4 K/mm3 (0.1-1.0); Monocytes % 4.7 % (1.7-9.3); Neutrophils # 6.9 K/mm3 (1.8-7.8); Platelet Count 183 K/mm3 (142-424); Red Blood Count 5.42 M/mm3 (4.60-6.20); Red Cell Distribution Width 12.8 % (11.5-17.5); White Blood Count 8.7 K/mm3 (4.8-10.8)
[2021-06-08 07:15] LABS: Chloride 103 mmol/L (98-107); Potassium 3.9 mmoL/L (3.5-5.1); Sodium 140 mmol/L (136-145)
[2021-06-08 07:17] LABS: Alanine Aminotransferase 25 U/L (12-78); Aspartate Amino Transferase 24 U/L (17-59)
[2021-06-08 07:18] LABS: Alkaline Phosphatase 90 U/L (38-126); Anion Gap 10.9 mEq/L (5-15); Bilirubin,Direct 0.5 mg/dl (0.0-0.4); Bilirubin,Total 1.5 mg/dl (0.2-1.3); Calcium 8.9 mg/dl (8.4-10.2); Carbon Dioxide 30 mmol/L (22.0-30.0); Creatinine Clearance Estimated 106 mL/min (50-200); Estimated Glomerular Filt Rate 96 ml/min (>60); GFR (African American) 116 ML/MIN (>60); Glucose 129 mg/dl (74-100); Total Protein,Serum 7.2 g/dl (6.3-8.2)
[2021-06-08 07:20] LABS: Blood Urea Nitrogen 12 mg/dl (9-20)
[2021-06-08 07:24] LABS: C-Reactive Protein 57.4 mg/L (0-4)
[2021-06-08 07:32] LABS: Erythrocyte Sedimentation Rate 5 mm/hr (0-20)
[2021-06-08 07:33] LABS: NT Pro Brain Natriuretic Pep. 3460 pg/mL (0-125)
[2021-06-08 07:37] LABS: Troponin I < 0.01 ng/ml (0.00-0.034)
--- NOTE | 2021-06-08 07:37 | PC.NURSE ---
contacted radiology about chest xray order, spoke with Sundeep
--- NOTE | 2021-06-08 07:48 | PC.NURSE ---
Pt with rad
--- NOTE | 2021-06-08 07:49 | PC.NURSE ---
pt return from xray
--- NOTE | 2021-06-08 07:56 | HMH.EDSOB ---
ED Disposition Clinical Impression: Acute exacerbation of chronic obstructive airways disease Congestive heart failure Qualifiers: Heart failure type: unspecified Heart failure chronicity: unspecified Qualified Code(s): I50.9 - Heart failure, unspecified Disposition: Home, Self-Care Condition on Discharge: Good Instructions: Heart Failure Additional Instructions: call pcp and card for follow up Referrals: Tadeo Moore MD [Primary Care Provider] - - Critical Care Critical Care Time: No Attestation: On 06/08/21, the high probability of a clinically significant, sudden or life threatening deterioration of the following system(s) required my full and direct attention, intervention and personal management. The time I documented below is in addition to time spent performing reported procedures but includes the following listed in this critical care notation. Medical Decision Making - Medical Records Medical records reviewed: Yes: I reviewed the patient's medical records. - Evin Inquiry Pt receiving controlled substance: No Vital Signs: 06/08/21 06:23 06/08/21 06:45 06/08/21 07:32 Temperature 97.5 F L Temperature Source Oral Pulse Rate 92 H 100 H Pulse Rate [Right Radial] 125 H Respiratory Rate 36 H Blood Pressure 134/77 111/64 Blood Pressure [Right Arm] 161/80 H Blood Pressure Mean 96 79 Blood Pressure Mean [Right Arm] 107 Blood Pressure Source [Right Arm] Automatic Cuff Blood Pressure Position [Right Arm] Sitting 02 Sat by Pulse Oximetry 93 L 92 L 92 L Oxygen Delivery Method Room Air Nasal Cannula Nasal Cannula - Lab Data Lab results reviewed: Yes: I reviewed the patient's lab results. Lab Results 06/08/21 06:38: WBC 8.7, RBC 5.42, Hgb 16.4, Hct 50.8, MCV 93.7, MCH 30.3, MCHC 32.3, RDW 12.8, Plt Count 183, MPV 9.4, Neut % (Auto) 79.0, Lymph % (Auto) 15.3, [place] % (Auto) 4.7, Eos % (Auto) 0.5, Baso % (Auto) 0.4, Neut # (Auto) 6.9, Lymph # (Auto) 1.3, [place] # (Auto) 0.4, Eos # (Auto) 0.1, Baso # (Auto) 0.0, ESR 5 06/08/21 06:38: Sodium 140, Potassium 3.9, Chloride 103, Carbon Dioxide 30, Anion Gap 10.9, BUN 12, Creatinine 0.80, Estimated Creat Clear 106, Estimated GFR 96, Est GFR ( Amer) 116, Glucose 129 H, Calcium 8.9, Troponin I < 0.01, C-Reactive Protein 57.4 H, Procalcitonin 0.046 06/08/21 06:38: Lactate 1.0 06/08/21 06:38: Total Bilirubin 1.5 H, Direct Bilirubin 0.5 H, Conjugated Bilirubin 0.0, Indirect Bilirubin 1.0 H, Unconjugated Bilirubin 1.0, AST 24, ALT 25, Alkaline Phosphatase 90, Total Protein 7.2, Albumin 4.0 06/08/21 06:38: NT-Pro-B Natriuret Pep 3460 H 06/08/21 11:10: Troponin I 0.03 Result diagrams: 06/08/21 06:38 06/08/21 06:38 Orders (Tests/Meds): ED MEDICATIONS Discontinued Medications Generic Name Dose Route Start Last Admin Trade Name Messi PRN Reason Stop Dose Admin Furosemide 40 mg 06/08/21 07:57 06/08/21 08:14 Furosemide 40mg/4ml Vial IV 06/08/21 07:58 40 mg ONCE ONE Administration Iopamidol 70 ml 06/08/21 11:13 06/08/21 11:14 Iopamidol-370 (76%);100ml Bottle IV 06/08/21 11:14 70 ml ONCE ONE Administration Sodium Chloride 10 ml 06/08/21 11:13 06/08/21 11:14 Sodium Chloride 0.9% 10ml Syr (Rad Only) IV 06/08/21 11:14 10 ml ONCE ONE Administration Sodium Chloride 50 ml 06/08/21 11:13 06/08/21 11:14 0.9 % Sodium Chloride 50 Ml Vial IV 06/08/21 11:14 50 ml ONCE ONE Administration ORDERS Category Date Time Status Rapid PCR Covid and Flu A/B Stat Lab 06/08/21 06:31 Ordered Troponin I Q3H Lab 06/08/21 12:45 Ordered Blood Culture Stat Micro 06/08/21 06:38 Received - Radiology Data #1 Image(s): Chest Image Reviewed: Yes I have reviewed radiologist's interpretation Preliminary Findings: Abnormal - CT Data CT Scan: Chest Time Received: 12:[address] Reviewed: Yes: I have viewed the radiologist's interpretation Preliminary Findings: Normal/NAD (no pul emboli) - ECG Data
[2021-06-08 08:16] LABS: Procalcitonin 0.046 ng/mL (0.0-2.0)
--- NOTE | 2021-06-08 10:27 | CT_ITS ---
PROCEDURE: CT ANGIO CHEST PE PROTOCOL CLINCIAL INDICATION: r/o pe Shortness of air, cough, COPD, abnormal chest x-ray COMPARISON: CT CHWO CT CHEST W/O CONTRAST from 03/04/[address] CHEST W CON from 03/30/2020 TECHNIQUE: IV Contrast: 70ML Isovue 370 Axial images obtained with sagittal and coronal reformats. All CT scans at the facility use one or more dose reduction, viz: automated exposure control, ma/kV adjustment per patient size (including targeted exams where dose is matched to indication, i.e. head), or iterative reconstruction technique. FINDINGS: HEART AND MEDIASTINAL STRUCTURES: No evidence of pulmonary embolus, aortic aneurysm, or aortic dissection. No mediastinal or hilar mass. There is a mildly prominent right paratracheal lymph node at 2 x 1 cm nonspecific. Hypodensity is present in the right thyroid lobe at 13 mm suggesting a small nodule. LUNGS AND PLEURAL SPACES: No lobar consolidation or collapse. Minimal atelectatic changes are present in the lung bases with trace right-sided effusion. There is a 10 mm nodule in the right middle lobe medially not significantly changed. There is mild right basilar atelectasis BONY STRUCTURES: Degenerative changes thoracic spine. Hyperostosis with cortical thickening involving the medial aspect of the left 1st through 10th ribs with old ununited fractures of the posterior aspect of the left 10th rib and cortical thickening of the 1st through 10th ribs posteriorly. This is not significantly changed consistent with old multiple rib fractures UPPER ABDOMEN: There is some mild nonspecific thickening at the GE junction. 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 The right adrenal gland is slightly enlarged also consistent with an adenoma. ADDITIONAL FINDINGS: No other significant abnormalities. IMPRESSION: 1. No acute finding. 2. No evidence of pulmonary embolus. 3. Trace right effusion with mild right basilar atelectasis. 4. Stable 10 mm right middle lobe nodule 5. Multiple old left-sided rib fractures. Dictated by: Rohit Roper MD 06/08/2021 11:35 Rohit Roper MD in [place] 06/08/2021 11:35
--- NOTE | 2021-06-08 11:01 | PC.NURSE ---
Pt back from CT.
--- NOTE | 2021-06-08 11:03 | PC.NURSE ---
pt back from CT
[2021-06-08 12:06] LABS: Troponin I 0.03 ng/ml (0.00-0.034)
== END 2021-06-08 13:01 | disposition home or self-care (01) ==
PROVIDERS: Emergency Provider Emergency Medicine; PCP Internal Medicine Adolescent Medicine
DX: J44.9 Chronic obstructive pulmonary disease, unspecified (principal); I25.10 Atherosclerotic heart disease of native coronary artery without angina pectoris; I50.9 Heart failure, unspecified; I10 Essential (primary) hypertension; E78.5 Hyperlipidemia, unspecified; F17.210 Nicotine dependence, cigarettes, uncomplicated; Z79.899 Other long term (current) drug therapy
CPT/HCPCS: 71046; 71275; 80048; 80076; 83605; 83880; 84145; 84484; 85025; 85651; 86140; 87040; 93005; 93041; 96374; 99283; Q9967

== ENCOUNTER → 2021-06-15 13:25 | Outpatient (CLI) | payer MEDICARE, SELFPAY ==
[2021-06-15 15:21] LABS: Anion Gap 12.1 mEq/L (5-15); Blood Urea Nitrogen 22 mg/dl (9-20); Calcium 8.9 mg/dl (8.4-10.2); Carbon Dioxide 28 mmol/L (22.0-30.0); Chloride 104 mmol/L (98-107); Estimated Glomerular Filt Rate 96 ml/min (>60); GFR (African American) 116 ML/MIN (>60); Glucose 93 mg/dl (74-100); Magnesium 1.8 mg/dl (1.6-2.3); Potassium 4.1 mmoL/L (3.5-5.1); Sodium 140 mmol/L (136-145)
== END ==
PROVIDERS: Visit Provider Internal Medicine Adolescent Medicine
DX: I50.9 Heart failure, unspecified (principal)
CPT/HCPCS: 36415; 80048; 83735

== ENCOUNTER → 2021-06-22 13:03 | Outpatient (CLI) | payer MEDICARE, SELFPAY | LOC: RT 13:05 | PROVIDERS: PCP Internal Medicine Adolescent Medicine; Visit Provider Internal Medicine Adolescent Medicine | DX: R06.02 Shortness of breath; I50.23 Acute on chronic systolic (congestive) heart failure | CPT/HCPCS: 93306 ==

== ENCOUNTER 2021-09-07 22:35 | Emergency (ER) | payer MEDICARE, SELFPAY ==
[2021-09-07 22:35] VITALS: O2SAT 87
[2021-09-07 22:36] VITALS: BP 130/95; PULSE 84; RESP 28; TEMP 36.8; O2SAT 97; BMI 37.4
[2021-09-07 22:37] VITALS: BMI 37.4
--- NOTE | 2021-09-07 22:45 | XR_ITS ---
PROCEDURE INFORMATION: Exam: XR Chest Exam date and time: 09/07/2021 10:45 PM Age: 70 years old Clinical indication: Shortness of breath; Additional info: SOA TECHNIQUE: Imaging protocol: XR of the chest. Views: 2 views. COMPARISON: CR XR CHEST 2V 06/08/2021 7:37 AM FINDINGS: Lungs: Bilateral apical scarring. Bibasilar atelectasis. Pleural spaces: Unremarkable. No pleural effusion. No pneumothorax. Heart/Mediastinum: Unremarkable. No cardiomegaly. Bones/joints: Unremarkable. IMPRESSION: No acute findings.
[2021-09-07 23:02] LABS: ABG Base Excess 1.9 mmol/L (-2.4-2.3); ABG HCO3 27.3 mmhg (22.0-26.0); ABG Oxygen Saturation 95 % (90-100); ABG PCO2 48.9 mmhg (35.0-45.0); ABG PH 7.36 mmol/L (7.35-7.45); ABG PO2 74.3 mmhg (80-100); ABG TCO2 28.8 mmhg (23-27); Allen's Test Acceptable; Oxygen 3LPM %; Source Left Radial
--- NOTE | 2021-09-07 23:16 | PC.NURSE ---
PT GONE FOR CXR
[2021-09-07 23:21] VITALS: O2SAT 95
[2021-09-07 23:22] VITALS: BP 121/75; PULSE 114; RESP 20; O2SAT 96
[2021-09-07 23:28] LABS: Chloride 102 mmol/L (98-107); Potassium 3.9 mmoL/L (3.5-5.1); Sodium 136 mmol/L (136-145)
[2021-09-07 23:31] LABS: Anion Gap 11.9 mEq/L (5-15); Blood Urea Nitrogen 14 mg/dl (9-20); Carbon Dioxide 26 mmol/L (22.0-30.0); Creatinine Clearance Estimated 110 mL/min (50-200); Estimated Glomerular Filt Rate 96 ml/min (>60); GFR (African American) 116 ML/MIN (>60)
[2021-09-07 23:32] LABS: Calcium 8.8 mg/dl (8.4-10.2); Glucose 126 mg/dl (74-100); Lactic Acid 0.7 mmol/L (0.7-2.1)
[2021-09-07 23:36] LABS: Basophils # 0.1 K/mm3 (0-0.2); Basophils % 0.7 % (0.1-2.0); C-Reactive Protein 37.1 mg/L (0-4); Eosinophils # 0.1 K/mm3 (0.0-0.4); Hemoglobin 16.1 g/dL (14.1-18.0); Lymphocytes # 1.4 K/mm3 (0.7-4.5); Lymphocytes % 12.1 % (10-50); Mean Corpuscular HGB Conc 32.8 g/dL (31.8-35.4); Mean Corpuscular Hemoglobin 30.4 pg (27.0-31.2); Mean Corpuscular Volume 92.8 fl (80-94); Mean Platelet Volume 8.8 fl (7.4-10.4); Monocytes # 0.6 K/mm3 (0.1-1.0); Monocytes % 5.2 % (1.7-9.3); Neutrophils # 9.1 K/mm3 (1.8-7.8); Platelet Count 269 K/mm3 (142-424); Red Blood Count 5.28 M/mm3 (4.60-6.20); Red Cell Distribution Width 13.9 % (11.5-17.5); White Blood Count 11.2 K/mm3 (4.8-10.8)
--- NOTE | 2021-09-07 23:39 | HMH.EDSOB ---
ED Disposition Clinical Impression: CHF (congestive heart failure) Qualifiers: Heart failure type: unspecified Heart failure chronicity: acute on chronic Qualified Code(s): I50.9 - Heart failure, unspecified Disposition: Left Against Medical Advice Condition on Discharge: Good Instructions: DI for Shortness of Breath Additional Instructions: call pcp for follow up Referrals: Tadeo Moore MD [Primary Care Provider] - - Critical Care Critical Care Time: No Attestation: On 09/07/21, the high probability of a clinically significant, sudden or life threatening deterioration of the following system(s) required my full and direct attention, intervention and personal management. The time I documented below is in addition to time spent performing reported procedures but includes the following listed in this critical care notation. Medical Decision Making - Medical Records Medical records reviewed: Yes: I reviewed the patient's medical records. - Evin Inquiry Pt receiving controlled substance: No Vital Signs: 09/07/21 22:35 09/07/21 22:36 09/07/21 23:21 Temperature 98.3 F Temperature Source Oral Pulse Rate Pulse Rate [Right] 84 Respiratory Rate 28 H Blood Pressure Blood Pressure [Right Arm] 130/95 H Blood Pressure Mean [Right Arm] 106 Blood Pressure Source Blood Pressure Position 02 Sat by Pulse Oximetry 87 L 97 95 Oxygen Delivery Method Room Air Room Air Nasal Cannula Oxygen Flow Rate (LPM) 3 09/07/21 23:22 Temperature Temperature Source Pulse Rate 114 H Pulse Rate [Right] Respiratory Rate 20 Blood Pressure 121/75 Blood Pressure [Right Arm] Blood Pressure Mean [Right Arm] Blood Pressure Source Automatic Cuff Blood Pressure Position Supine 02 Sat by Pulse Oximetry 96 Oxygen Delivery Method Nasal Cannula Oxygen Flow Rate (LPM) 3 - Lab Data Lab results reviewed: Yes: I reviewed the patient's lab results. Lab Results 09/07/21 22:59: Specimen Source Left radial, O2 % 3lpm, ABG pH 7.36, ABG pCO2 48.9 H, ABG pO2 74.3 L, ABG HCO3 27.3 H, ABG Total CO2 28.8 H, ABG O2 Saturation 95, ABG Base Excess 1.9, Rohit Test Acceptable 09/07/21 23:05: Sodium 136, Potassium 3.9, Chloride 102, Carbon Dioxide 26, Anion Gap 11.9, BUN 14, Creatinine 0.80, Estimated Creat Clear 110, Estimated GFR 96, Est GFR ( Amer) 116, Glucose 126 H, Calcium 8.8, Troponin I 0.01 09/07/21 23:05: WBC 11.2 H, RBC 5.28, Hgb 16.1, Hct 49.0, MCV 92.8, MCH 30.4, MCHC 32.8, RDW 13.9, Plt Count 269, MPV 8.8, Neut % (Auto) 81.0 H, Lymph % (Auto) 12.1, [place] % (Auto) 5.2, Eos % (Auto) 1.0, Baso % (Auto) 0.7, Neut # (Auto) 9.1 H, Lymph # (Auto) 1.4, [place] # (Auto) 0.6, Eos # (Auto) 0.1, Baso # (Auto) 0.1 09/07/21 23:05: Lactate 0.7 09/07/21 23:05: C-Reactive Protein 37.1 H, NT-Pro-B Natriuret Pep 4140 H 09/07/21 23:05: Procalcitonin 0.056 Result diagrams: 09/07/21 23:05 09/07/21 23:05 Orders (Tests/Meds): ED MEDICATIONS Generic Name Dose Route Start Last Admin Trade Name Freq PRN Reason Stop Dose Admin Sodium Chloride 3 ml 09/07/21 22:45 Sodium Chloride 3% 15ml [facility] 10/07/21 22:44 ONCE PRN INDUCE SPUTUM COLLECTION Discontinued Medications Generic Name Dose Route Start Last Admin Trade Name Freq PRN Reason Stop Dose Admin Albuterol/Ipratropium 3 ml 09/07/21 22:38 09/07/21 23:21 Ipratropium/Albuterol 3 Ml [facility] 09/07/21 22:39 3 ml ONCE ONE Administration Furosemide 40 mg 09/07/21 23:41 09/07/21 23:48 Furosemide 40mg/4ml Vial IV 09/07/21 23:42 40 mg ONCE ONE Administration Methylprednisolone Sodium Succinate 125 mg 09/07/21 22:38 09/07/21 23:14 Methylprednisolone Sod Succ 125mg Vial IM 09/07/21 22:39 Not Given ONCE ONE Methylprednisolone Sodium Succinate 125 mg 09/07/21 23:14 09/07/21 23:15 Methylprednisolone Sod Succ 125mg Vial IV 09/07/21 23:15 125 mg ONCE ONE Administration ORDERS Category Date Time Status Erythrocyte
[2021-09-07 23:42] LABS: NT Pro Brain Natriuretic Pep. 4140 pg/mL (0-125)
[2021-09-07 23:46] LABS: Troponin I 0.01 ng/ml (0.00-0.034)
[2021-09-07 23:52] LABS: Procalcitonin 0.056 ng/mL (0.0-2.0)
--- NOTE | 2021-09-07 23:57 | ECG_ITS ---
APPROVED REPORT Exam: Resting ECG HR:113 bpm ECG Measurements Heart Rate 113 AXES MS 116 P 84 QRSd 102 QRS 27 QT 370 T 155 QTc 507 Conclusion Sinus tachycardia with occasional premature ventricular complexes Possible Left atrial enlargement Left ventricular hypertrophy ST & T wave abnormality, consider inferolateral ischemia Abnormal ECG Electronically signed by : Tadeo Moore MD 09/08/2021 13:43:43
--- NOTE | 2021-09-08 00:06 | PC.NURSE ---
[facility] CALLED FOR HOME O2
--- NOTE | 2021-09-08 00:10 | PC.NURSE ---
Pt is refusing to be swabbed for COVID as well as being admitted.
--- NOTE | 2021-09-08 00:20 | PC.NURSE ---
Dr. Johnson s/w Dr. Moore
[2021-09-08 00:23] LABS: Erythrocyte Sedimentation Rate 14 mm/hr (0-20)
[2021-09-08 00:36] VITALS: BP 114/61; PULSE 112; RESP 24; TEMP 36.9; O2SAT 96
[2021-09-08 00:38] VITALS: BP 114/61; PULSE 110; RESP 21; TEMP 36.6; O2SAT 96
== END 2021-09-08 00:54 | disposition left against medical advice (07) ==
PROVIDERS: Emergency Provider Emergency Medicine; PCP Internal Medicine Adolescent Medicine
DX: R07.89 Other chest pain (principal); I50.9 Heart failure, unspecified; I10 Essential (primary) hypertension; E78.5 Hyperlipidemia, unspecified; F17.210 Nicotine dependence, cigarettes, uncomplicated; Z79.899 Other long term (current) drug therapy
CPT/HCPCS: 71046; 80048; 82803; 83605; 83880; 84145; 84484; 85025; 85651; 86140; 87040; 93005; 96374; 96375; 99284

== ENCOUNTER 2022-02-07 07:36 | Observation (INO) | payer MEDICARE, SELFPAY ==
[2022-02-07] VITALS (12 sets, daily range): BP systolic 96–126; BP diastolic 42–73; PULSE 83–105; RESP 16–22; TEMP 36.4–36.7; O2SAT 94–98; BMI 36.5; BMI 34.8; BMI 34.7
--- NOTE | 2022-02-07 07:45 | ECG_ITS ---
APPROVED REPORT Exam: Resting ECG HR:100 bpm ECG Measurements Heart Rate 100 AXES MN 152 P 38 QRSd 125 QRS -10 QT 355 T 114 QTc 412 Conclusion SINUS TACHYCARDIA POSSIBLE LEFT ATRIAL ENLARGEMENT [-0.1mV P-WAVE IN V1/V2] MODERATE INTRAVENTRICULAR CONDUCTION DELAY [105+ ms QRS DURATION, 80+ ms Q/S IN V1/V2, NO Q AND 60+ ms R IN I/aVL/V5/V6] MODERATE T-WAVE ABNORMALITY, CONSIDER LATERAL ISCHEMIA [-0.1+ mV T-WAVE IN I/aVL/V5/V6] ABNORMAL ECG UNCONFIRMED REPORT Electronically signed by : Tadeo Moore MD 02/07/2022 22:16:18
--- NOTE | 2022-02-07 08:01 | PC.NURSE ---
ER MD campa at
--- NOTE | 2022-02-07 08:12 | HMH.EDSOB ---
ED Disposition Clinical Impression: CHF exacerbation Qualifiers: Heart failure type: unspecified Qualified Code(s): I50.9 - Heart failure, unspecified Disposition: Admitted as Observation Condition on Discharge: Good Referrals: Tadeo Moore MD [Primary Care Provider] - - Critical Care Critical Care Time: No Attestation: On 02/07/22, the high probability of a clinically significant, sudden or life threatening deterioration of the following system(s) required my full and direct attention, intervention and personal management. The time I documented below is in addition to time spent performing reported procedures but includes the following listed in this critical care notation. Medical Decision Making - Medical Records Medical records reviewed: Yes: I reviewed the patient's medical records. - Evin Inquiry Pt receiving controlled substance: No Vital Signs: 02/07/22 07:37 02/07/22 08:30 Temperature 97.5 F L Temperature Source Oral Pulse Rate 105 H Pulse Rate [Left Radial] 103 H Respiratory Rate 22 22 Blood Pressure 120/73 Blood Pressure [Right Arm] 118/62 Blood Pressure Mean 86 Blood Pressure Mean [Right Arm] 80 Blood Pressure Source [Right Arm] Automatic Cuff Blood Pressure Position [Right Arm] Sitting 02 Sat by Pulse Oximetry 96 98 Oxygen Delivery Method Nasal Cannula Oxygen Flow Rate (LPM) 2 - Lab Data Lab Results 02/07/22 07:55: WBC 9.0, RBC 5.27, Hgb 16.3, Hct 49.1, MCV 93.1, MCH 31.0, MCHC 33.3, RDW 12.4, Plt Count 270, MPV 8.1, Neut % (Auto) 76.1, Lymph % (Auto) 16.3, [place] % (Auto) 5.8, Eos % (Auto) 0.6, Baso % (Auto) 1.2, Neut # (Auto) 6.9, Lymph # (Auto) 1.5, [place] # (Auto) 0.5, Eos # (Auto) 0.1, Baso # (Auto) 0.1 02/07/22 07:55: Sodium 139, Potassium 4.1, Chloride 97 L, Carbon Dioxide 38 H, Anion Gap 8.1, BUN 15, Creatinine 0.90, Estimated Creat Clear 106, Estimated GFR 83, Est GFR ( Amer) 101, Glucose 114 H, Calcium 9.2, Total Bilirubin 1.2, AST 25, ALT 19, Alkaline Phosphatase 84, Troponin I 0.02, Total Protein 7.3, Albumin 4.1, Globulin 3.2, Albumin/Globulin Ratio 1.3 02/07/22 07:55: Lactate 1.8 02/07/22 07:55: NT-Pro-B Natriuret Pep 2990 H Result diagrams: 02/07/22 07:55 02/07/22 07:55 Orders (Tests/Meds): ED MEDICATIONS Generic Name Dose Route Start Last Admin Trade Name Freq PRN Reason Stop Dose Admin Sodium Chloride 10 ml 02/07/22 08:10 Sodium Chloride 0.9% 10ml Flush Syringe IV 03/09/22 08:09 NEEDED PRN Maintain IV Site Discontinued Medications Generic Name Dose Route Start Last Admin Trade Name Freq PRN Reason Stop Dose Admin Albuterol/Ipratropium 3 ml 02/07/22 08:11 02/07/22 08:12 Ipratropium/Albuterol 3 Ml Neb IH 02/07/22 08:12 3 ml ONCE ONE Administration Furosemide 40 mg 02/07/22 08:11 02/07/22 08:34 Furosemide 40mg/4ml Vial IV 02/07/22 08:12 40 mg ONCE ONE Administration Methylprednisolone Sodium Succinate 125 mg 02/07/22 08:11 02/07/22 08:12 Methylprednisolone Sod Succ 125mg Vial IV 02/07/22 08:12 125 mg ONCE ONE Administration ORDERS Category Date Time Status Chest XR -- portable [XR chest portable] Stat Exams 02/07/22 08:59 Taken Rapid PCR Covid and Flu A/B Stat Lab 02/07/22 08:12 Ordered Troponin I Q3H Lab 02/07/22 11:15 Ordered Troponin I Q3H Lab 02/07/22 14:15 Ordered Blood Culture Stat Micro 02/07/22 07:55 Received - ECG Data Tracing #1 I reviewed this ECG and interpreted as documented below: ekg by me sinus 100, poss lae, ns iv delay, no st elev - Physician Consults Physician Consulted: dr guerrier accepts obs Resp/SOB HPI - General Chief Complaint: Shortness of Breath/Dyspnea Stated Complaint: SOA Time Seen by Provider: 02/07/22 08:12 Mode of Arrival: Ambulatory Limitations: No Limitations Description of Symptoms (Recalled from ER Triage Doc. by RN): c/o soa for 2 years but more soa for the past 2-3 days. States his mouth is hurting and he nee
[2022-02-07 08:19] LABS: Chloride 97 mmol/L (98-107); Potassium 4.1 mmoL/L (3.5-5.1); Sodium 139 mmol/L (136-145)
[2022-02-07 08:22] LABS: Alanine Aminotransferase 19 U/L (12-78); Albumin Level 4.1 g/dl (3.5-5.0); Albumin/Globulin Ratio 1.3 (1.1-1.8); Alkaline Phosphatase 84 U/L (38-126); Anion Gap 8.1 mEq/L (5-15); Aspartate Amino Transferase 25 U/L (17-59); Bilirubin,Total 1.2 mg/dl (0.2-1.3); Blood Urea Nitrogen 15 mg/dl (9-20); Calcium 9.2 mg/dl (8.4-10.2); Carbon Dioxide 38 mmol/L (22.0-30.0); Creatinine Clearance Estimated 106 mL/min (50-200); Estimated Glomerular Filt Rate 83 ml/min (>60); GFR (African American) 101 ML/MIN (>60); Globulin 3.2 g/dL (1.3-3.2); Glucose 114 mg/dl (74-100); Total Protein,Serum 7.3 g/dl (6.3-8.2)
[2022-02-07 08:29] LABS: Basophils # 0.1 K/mm3 (0-0.2); Basophils % 1.2 % (0.1-2.0); Eosinophils # 0.1 K/mm3 (0.0-0.4); Eosinophils % 0.6 % (0.1-12.0); Hematocrit 49.1 % (42.0-52.0); Hemoglobin 16.3 g/dL (14.1-18.0); Lactic Acid 1.8 mmol/L (0.7-2.1); Lymphocytes # 1.5 K/mm3 (0.7-4.5); Lymphocytes % 16.3 % (10-50); Mean Corpuscular HGB Conc 33.3 g/dL (31.8-35.4); Mean Corpuscular Volume 93.1 fl (80-94); Mean Platelet Volume 8.1 fl (7.4-10.4); Monocytes # 0.5 K/mm3 (0.1-1.0); Monocytes % 5.8 % (1.7-9.3); Neutrophils # 6.9 K/mm3 (1.8-7.8); Neutrophils % 76.1 % (37.0-80.0); Platelet Count 270 K/mm3 (142-424); Red Blood Count 5.27 M/mm3 (4.60-6.20); Red Cell Distribution Width 12.4 % (11.5-17.5)
[2022-02-07 08:32] LABS: NT Pro Brain Natriuretic Pep. 2990 pg/mL (0-125)
--- NOTE | 2022-02-07 08:33 | PC.NURSE ---
Called for meal tray per Sujey
[2022-02-07 08:34] LABS: Troponin I 0.02 ng/ml (0.00-0.034)
--- NOTE | 2022-02-07 08:59 | XR_ITS ---
FINAL REPORT CLINICAL HISTORY: chf, soa COMPARISON: September 07, 2021 FINDINGS: A single portable view of the chest was obtained. There is cardiomegaly. There is mild pulmonary vascular congestion. The mediastinum is within normal limits. There is worsening bibasilar opacity representing atelectasis or pneumonia. The bony thorax is intact. IMPRESSION: Worsening bibasilar atelectasis or pneumonia. Reviewed, Interpreted and Dictated by Hank Salomon III, MD Transcribed by Leslie Moon Authenticated and [facility]
--- NOTE | 2022-02-07 09:05 | PC.NURSE ---
rad at BS for portable xray
--- NOTE | 2022-02-07 09:17 | PC.NURSE ---
Dr Lux speaking with Dr Lovell
--- NOTE | 2022-02-07 09:43 | PC.NURSE ---
administrative representative currently at speaking with pt, pt refusing covid swab, cussing and yelling at staff. Pt states to staff how do I know your not just going to give me covid . Explained to pt that we are only trying to follow hospital policy by performing covid swab prior to admission. Pt asks for staff to step out of the room he wants to think about it. Myself and ashlyn echols stepped out of room.
--- NOTE | 2022-02-07 09:49 | PC.NURSE ---
pt consented to covid swab at this time, pt swabbed per ashlyn echols and sent to lab at this time.
[2022-02-07 09:51] LABS: Coronavirus 19, PCR Not Detected (NotDetected); Influenza A, PCR Not Detected (NotDetected); Influenza B, PCR Not Detected (NotDetected)
--- NOTE | 2022-02-07 10:03 | HMH.PHAINT ---
MEDICATION RECONCILIATION COMPLETED ON PATIENT USING EXTERNAL FILL HISTORY FROM PHARMACY. -FEI COWAN, NIXOND
--- NOTE | 2022-02-07 11:39 | PC.NURSE ---
ER MD at , pt reporting hand cramping
--- NOTE | 2022-02-07 11:41 | PC.NURSE ---
Report given to Madiha KING
[2022-02-07 12:22] LABS: Troponin I 0.02 ng/ml (0.00-0.034)
--- NOTE | 2022-02-07 14:27 | HMH.HP ---
*Admission Date: 02/07/22 *Chief complaint: SOA, edema *History of present illness: Mariposa Cerda is a 71-year-old male with history of CHF, obesity, COPD, tobacco use disorder, and hypertension who presented to the ER with worsening shortness of breath over the past 1 to 2 weeks. He reports that he has felt more short of breath for the past 2 years, is on chronic oxygen. Has had variable adjustments in his Lasix over the past year. Has noted increased swelling in his legs, weeping from his shins, and dyspnea with any exertion. On arrival, he felt dyspneic with exertion, complained of orthopnea. Labs obtained. Elevated BNP to almost 3000. CXR with worsening bibasilar atelectasis. Normal WBCs. Electrolytes normal. Admitted for CHF exacerbation. Patient initiated on Lasix (IV x1) After arriving to the floor, patient examined after rounds. States he is breathing a little bit better and has had good diuresis response to initial Lasix dose. Having some mild cramping. Feels significant congestion in his nasal passages. Is quite grouchy and frustrated that he has had shortness of breath for over 2 years and is not doing better. Review of chart shows echo obtained June 16 with EF approximately 20%. On lisinopril, carvedilol, Lasix in the outpatient setting. [facility] History I have reviewed the patient's past medical history: Yes Medical History: Reports:: Congestive Heart Failure, Coronary Artery Disease, Hyperlipidemia, Hypertension Denies:: Cancer, Diabetes Mellitus Type 1, Diabetes Mellitus Type 2, MRSA *Have you ever received a pneumonia vaccine?: No *Have you received a flu vaccine this season?: No Other Medical History: Reports: Arthritis, Other (SHORT OF BREATH,HEART PROBLEMS) Other Surgeries: Yes: No Previous Surgery, Colonoscopy Amputation: No Fractures: No - *Social History Smoking Status: Current every day smoker Tobacco Type: cigarettes # Packs/Day (cigarettes): 1 Alcohol Intake: never Substance Use Type: denies use *Occupational Status:: disabled Housing: apartment Household Members: spouse *Travel in the last 8 weeks: None Family Hx:: Unable to obtain Review of Systems - Review of Systems Review of systems:: pertinent systems reviewed and negative unless documented below (14 point review of systems performed, pertinent positives and negatives as per HPI) Meds Home Medications Medication Instructions Recorded Confirmed Type tamsulosin 0.4 mg capsule 0.4 mg PO BID cap 09/20/17 02/07/22 History carvedilol 3.125 mg tablet 3.125 mg PO BID 10/19/20 02/07/22 History Budesonide/Glycopyr/Formoterol 2 puff IH BID 09/07/21 02/07/22 History [Breztri Aerosphere Inhaler] Finasteride [Proscar 5mg Tablet] 5 mg PO DAILY 09/07/21 02/07/22 History Budesonide [Pulmicort 0.5mg/2mL 0.5 mg IH Q6H 02/07/22 02/07/22 History neb] Furosemide [Furosemide 40MG tAB*] 40 mg PO DAILY 02/07/22 02/07/22 History Oxybutynin Chloride [Oxybutynin 10 mg PO DAILY 02/07/22 02/07/22 History Chloride ER] Allergies Allergy/AdvReac Type Severity Reaction Status Date / Time pregabalin [From LYRICA] Allergy Unknown Verified 10/19/20 13:11 Exam Vital signs and Labs for Last 24 Hours: Temp Pulse Resp BP Pulse Ox 97.5 F L 90 22 114/61 96 02/07/22 12:14 02/07/22 12:14 02/07/22 12:14 02/07/22 12:14 02/07/22 12:00 Laboratory Results - last 24 hr 02/07/22 07:55: WBC 9.0, RBC 5.27, Hgb 16.3, Hct 49.1, MCV 93.1, MCH 31.0, MCHC 33.3, RDW 12.4, Plt Count 270, MPV 8.1, Neut % (Auto) 76.1, Lymph % (Auto) 16.3, [place] % (Auto) 5.8, Eos % (Auto) 0.6, Baso % (Auto) 1.2, Neut # (Auto) 6.9, Lymph # (Auto) 1.5, [place] # (Auto) 0.5, Eos # (Auto) 0.1, Baso # (Auto) 0.1 02/07/22 07:55: Sodium 139, Potassium 4.1, Chloride 97 L, Carbon Dioxide 38 H, Anion Gap 8.1, BUN 15, Creatinine 0.90, Estimated Creat Clear 106, Estimated GFR 83, Est GFR ( Amer) 101, Glucose 114 H, Calcium 9.2, Total Bilirubin 1.2, AST 25, ALT 19, Alkaline Phosphatase 84
--- NOTE | 2022-02-07 14:54 | P.CONPHA_ITS ---
[facility] Pharmacy VTE Monitoring - Patient Demographics Admission date: 02/07/22 Report Date: 02/07/22 Time: 14:54 Allergies/Adverse Reactions: Patient Allergies pregabalin [From LYRICA] Allergy (Unknown, Verified 10/19/20 13:11) Height: 1.73 m Weight: 103.873 kg Patient Problems: Current Active Problems CHF exacerbation (Acute) - VTE Risk Labs: VTE Related Lab Results Hgb 16.3 g/dL (14.1-18.0) 02/07/22 07:55 Hct 49.1 % (42.0-52.0) 02/07/22 07:55 Plt Count 270 K/mm3 (142-424) 02/07/22 07:55 BUN 15 mg/dl (9-20) 02/07/22 07:55 Creatinine 0.90 mg/dl (0.66-1.25) 02/07/22 07:55 Estimated Creat Clear 106 mL/min (50-200) 02/07/22 07:55 Was VTE Risk Assessment Performed: Yes VTE Score: 5 VTE Risk Level: Low Risk - Prophylaxis VTE Prophylaxis Ordered?: Yes Types of VTE Prophylaxis: TEDS Knee High Location of Applied Device: Bilateral Lower Extremeties
--- NOTE | 2022-02-07 15:19 | PC.NURSE ---
rounded on patient. some complaints of a stuffed up nose, hands were cramping and cold feet. offered patient humidification for oxygen, and given warm blankets. also retrieved a drink and ice for patient. did ask if they could use a vicks salve for his nose and educated of the risks using petrolium with oxygen and told them to not do that. after education and interventions to improve patient comfort mood improved. asked about home meds and educated that once md made rounds again (usually in the evening) he would reorder any meds that were needed. encouraged to patient to ring out with any questions or needs.
[2022-02-07 18:59] LABS: Alanine Aminotransferase 24 U/L (12-78); Albumin Level 3.6 g/dl (3.5-5.0); Albumin/Globulin Ratio 1.3 (1.1-1.8); Alkaline Phosphatase 71 U/L (38-126); Anion Gap 10.8 mEq/L (5-15); Aspartate Amino Transferase 24 U/L (17-59); Bilirubin,Total 0.8 mg/dl (0.2-1.3); Blood Urea Nitrogen 17 mg/dl (9-20); Calcium 8.8 mg/dl (8.4-10.2); Carbon Dioxide 35 mmol/L (22.0-30.0); Chloride 94 mmol/L (98-107); Creatinine Clearance Estimated 101 mL/min (50-200); Estimated Glomerular Filt Rate 83 ml/min (>60); GFR (African American) 101 ML/MIN (>60); Globulin 2.8 g/dL (1.3-3.2); Glucose 178 mg/dl (74-100); Magnesium 1.7 mg/dl (1.6-2.3); Potassium 3.8 mmoL/L (3.5-5.1); Sodium 136 mmol/L (136-145); Total Protein,Serum 6.4 g/dl (6.3-8.2)
[2022-02-07 21:37] LABS: POC Glucose,Bedside 135 (70-110)
[2022-02-08 03:43] VITALS: BP 91/45; PULSE 84; RESP 18; TEMP 36.6; O2SAT 96
--- NOTE | 2022-02-08 04:24 | PC.NURSE ---
Pt has c/o discomfort to BLE. Describes it as cramping. Pt has 3+ pitting edema with small open area to LLE. DSG placed. MD notified of pt complaint. New orders received and carried out. VSS. No other concerns. Will continue to monitor.
[2022-02-08 05:00] VITALS: BMI 35.4
[2022-02-08 05:58] VITALS: PULSE 87; PULSE 89; O2SAT 98
[2022-02-08 06:04] LABS: POC Glucose,Bedside 104 (70-110)
--- NOTE | 2022-02-08 07:00 | CA_ITS ---
APPROVED REPORT EXAM: Comprehensive 2D, Doppler, and color-flow Echocardiogram Extended Day Teacher: Keeley Sarmiento CRT Ht: 5 ft 8 in Wt: 228lbs BSA: 2.16 BP: 114/61 mmHg Indications: Congestive Heart Failure, COPD, Obesity, Hyperlipidemia, Hypertension/HDD, smoker 2D Dimensions LVOT 1.81 cm (M/F) 1.5-2.5 LA Volume 47.80 mL LA Volume Index 22.10 mL/m2 (M/F) 16-34 M-Mode Dimensions RVDd 3.73 cm (0.9-2.6) LA Diam 3.98 cm (1.9-4.0) LVDd 7.38 cm (3.5-5.7) Ao Diam 4.30 cm (2.0-3.7) LVDs 6.74 cm (3.5-5.7) IVSd 0.92 cm (0.6-1.1) PWd 0.92 cm (0.6-1.1) EF (Teich) 18.50% FS 8.70% EDV (Teich) 287.70 mL TAPSE 1.88 (<1.7) ESV (Teich) 234.50 mL LV Diastology E Decel Time 150.00 (160-240 msec) E/A Ratio 1.20 MED E' 4.30 (< 7 cm/sec) MED A' 7.70 cm/s E'/MED E' Ratio 22.79 (>14) LAT E' 5.50 (<10 cm/sec) LAT A' 6.20 cm/s E/LAT E' Ratio 17.82 (>14) Aortic Valve AO Peak GR. 6.10 mmHg Mitral Valve MV E Max Conner. 98.00 (40-130 cm/s) MV A Velocity 82.00 (40-130 cm/s) E/A Ratio 1.20 MV Decel. Time 150.00 (160-240 ms) MV PHT 44.00 ms Pulmonary Valve PV Peak Velocity 146.00 (50-150 cm/s) Tricuspid Valve TR P. Velocity 233.00 cm/s RAP Estimate 10.00 mmHg RVSP 31.70 mmHg Left Ventricle Left atrium is moderately enlarged, left ventricle is mildly dilated, severe reduced left ventricular systolic function, estimated ejection fraction 25% with left ventricular global hypokinesis, Doppler evidence of raise left atrial pressure. Right Ventricle Right atrium and right ventricle mildly enlarged with normal contractility. Aortic Valve Aortic valve is thickened and calcified without aortic stenosis or aortic insufficiency. Mitral Valve Mitral valve grossly normal, there is mild mitral regurgitation. Tricuspid Valve Tricuspid valve grossly normal, there is mild tricuspid regurgitation, tricuspid regurgitation jet velocity is inadequate for calculation of the right ventricular systolic pressure. Pulmonic Valve Pulmonic valve is poorly visualized. Great Vessels Aortic root is normal size. Inferior vena cava is mildly dilated without significant inspiratory collapse. Pericardium No significant pericardial effusion noted. Conclusion 1. Moderately enlarged left atrium, dilated left ventricle with severely reduced left ventricular systolic function, estimated ejection fraction 45% left ventricle is globally hypokinetic, Doppler evidence of reduced left atrial pressure. 2. Mildly enlarged right ventricle with normal contractility. 3. Mild mitral and and tricuspid regurgitation. 4. No significant pericardial effusion. 5. Inferior vena cava is dilated without significant inspiratory collapse. Electronically signed by : Marcio Palacios MD 02/08/2022 15:58:38
[2022-02-08 07:53] VITALS: BP 107/56; PULSE 64; RESP 17; TEMP 37.1; O2SAT 97
[2022-02-08 07:56] LABS: Chloride 96 mmol/L (98-107); Potassium 4.2 mmoL/L (3.5-5.1); Sodium 135 mmol/L (136-145)
[2022-02-08 07:58] LABS: Alanine Aminotransferase 15 U/L (12-78); Alkaline Phosphatase 54 U/L (38-126); Anion Gap 9.2 mEq/L (5-15); Aspartate Amino Transferase 27 U/L (17-59); Bilirubin,Total 1.3 mg/dl (0.2-1.3); Blood Urea Nitrogen 17 mg/dl (9-20); Carbon Dioxide 34 mmol/L (22.0-30.0); Creatinine Clearance Estimated 103 mL/min (50-200); Estimated Glomerular Filt Rate 96 ml/min (>60); GFR (African American) 116 ML/MIN (>60)
[2022-02-08 07:59] LABS: Albumin Level 3.5 g/dl (3.5-5.0); Albumin/Globulin Ratio 1.3 (1.1-1.8); Calcium 8.7 mg/dl (8.4-10.2); Globulin 2.6 g/dL (1.3-3.2); Glucose 106 mg/dl (74-100); Magnesium 1.9 mg/dl (1.6-2.3); Total Protein,Serum 6.1 g/dl (6.3-8.2)
[2022-02-08 08:07] LABS: Basophils # 0.1 K/mm3 (0-0.2); Eosinophils # 0.1 K/mm3 (0.0-0.4); Eosinophils % 0.7 % (0.1-12.0); Hematocrit 49.1 % (42.0-52.0); Hemoglobin 16.1 g/dL (14.1-18.0); Lymphocytes # 1.2 K/mm3 (0.7-4.5); Lymphocytes % 11.8 % (10-50); Mean Corpuscular HGB Conc 32.7 g/dL (31.8-35.4); Mean Corpuscular Hemoglobin 30.6 pg (27.0-31.2); Mean Corpuscular Volume 93.7 fl (80-94); Mean Platelet Volume 10.3 fl (7.4-10.4); Monocytes # 0.8 K/mm3 (0.1-1.0); Monocytes % 8.4 % (1.7-9.3); Neutrophils # 7.6 K/mm3 (1.8-7.8); Neutrophils % 78.1 % (37.0-80.0); Platelet Count 192 K/mm3 (142-424); Red Blood Count 5.24 M/mm3 (4.60-6.20); Red Cell Distribution Width 12.6 % (11.5-17.5); White Blood Count 9.7 K/mm3 (4.8-10.8)
--- NOTE | 2022-02-08 08:31 | HMH.DCSUM ---
General - General Admission date:: 02/07/22 Discharge date: 02/08/22 HPI HPI: Mariposa Cerda is a 71-year-old male with history of CHF, obesity, COPD, tobacco use disorder, and hypertension who presented to the ER with worsening shortness of breath over the past 1 to 2 weeks. He reports that he has felt more short of breath for the past 2 years, is on chronic oxygen. Has had variable adjustments in his Lasix over the past year. Has noted increased swelling in his legs, weeping from his shins, and dyspnea with any exertion. On arrival, he felt dyspneic with exertion, complained of orthopnea. Labs obtained. Elevated BNP to almost 3000. CXR with worsening bibasilar atelectasis. Normal WBCs. Electrolytes normal. Admitted for CHF exacerbation. Patient initiated on Lasix (IV x1) After arriving to the floor, patient examined after rounds. States he is breathing a little bit better and has had good diuresis response to initial Lasix dose. Having some mild cramping. Feels significant congestion in his nasal passages. Is quite grouchy and frustrated that he has had shortness of breath for over 2 years and is not doing better. Review of chart shows echo obtained June 16 with EF approximately 20%. On lisinopril, carvedilol, Lasix in the outpatient setting. Hospital Course Hospital Course: Patient was admitted, diuresed with IV Lasix along with Bumex. Did well with this. Feeling much better this morning. I had a long talk with him about his heart situation. He has been offered AICD placement in the past and has refused. I also tried to start him on Entresto in the outpatient setting he has declined because of perceived cost issues. He has been intermittently noncompliant with his blood pressure medication and his Lasix. 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 We talked about his poor ejection fraction and his overall poor prognosis. He also has significant lymphedema and I think he would do well with referral to the lymphedema clinic that would enable him to be more ambulatory if his swelling and pain was somewhat relieved. He is willing to do this although his odds of coming back are fairly low based on my experience with his multiple social layers of dysfunction. Objective Vital signs: Temp Pulse Resp BP Pulse Ox 98.8 F 64 17 107/56 L 97 02/08/22 07:53 02/08/22 07:53 02/08/22 07:53 02/08/22 07:53 02/08/22 07:53 Narrative: Alert, pleasant and without respiratory distress mild distress, obese, chronically ill appearing - *Routine HEENT Exam Head: Present: normocephalic Eye: Present: EOMI, PERRL ENT: Present: mucous membranes moist - *Routine Neck Exam Present: supple - *Routine Respiratory Exam Present: rhonchi - *Routine Cardiovascular Exam Present: RRR, murmur, gallop - *Routine Abdominal Exam Present: soft, normoactive bowel sounds. Absent: tenderness - *Routine Extremities Exam Present: edema. Absent: cyanosis, clubbing Comments: Bilateral lymphedema. Only wounds with chronic changes and scarring in both anterior shins, worse on the left - *Routine Skin Exam Present: warm, lesions. Absent: rash - Detailed Eye Exam Eyelids: Bilateral normal inspection Results Labs on day of discharge: Labs from last 24 hours 02/08/22 02/08/22 02/08/22 07:25 07:25 05:24 WBC 9.7 RBC 5.24 Hgb 16.1 Hct 49.1 MCV 93.7 MCH 30.6 MCHC 32.7 RDW 12.6 Plt Count 192 D MPV 10.3 Neut % (Auto) 78.1 Lymph % (Auto) 11.8 [place] % (Auto) 8.4 Eos % (Auto) 0.7 Baso % (Auto) 1.0 Neut # (Auto) 7.6 Lymph # (Auto) 1.2 [place] # (Auto) 0.8 Eos # (Auto) 0.1 Baso # (Auto) 0.1 Sodium 135 L Potassium 4.2 Chloride 96 L Carbon Dioxide 34 H Anion Gap 9.2 BUN 17 Creatinine 0.80 Estimated Creat Clear 103 Estimated GFR 96 Est GFR ( Amer)
[2022-02-08 09:59] VITALS: PULSE 87; PULSE 91; O2SAT 94
--- NOTE | 2022-02-08 10:19 | PC.NURSE ---
patient is to be meds to beds before discharge' eneida brought new tank for patient
--- NOTE | 2022-02-08 10:49 | PC.NURSE ---
pharmacy called stating patient copay would be >100$, patient is unable to afford this. did get patient a free 30 day trial card, pharmacy is running this now.
--- NOTE | 2022-02-08 11:36 | PC.NURSE ---
pharmacy dropped off meds at this time
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
--- NOTE | 2022-02-08 11:55 | PC.NURSE ---
PT IS BEING DISCHARGED HOME WITH [facility] AND FOLLOW UP APPOINTMENT WITH [facility]. PT WILL NEED TO FOLLOW UP WITH LYMPHEDEMA CLINIC 02/15. PT WAS SEEN BY CLINIC AND PHYSICAL THERAPY AT BEDSIDE AND WAS INSTRUCTED ON HOW TO APPLY DRESSINGS TO BLE AND HE STATED SHE WOULD NOT BE ABLE TO REMOVE DRESSINGS ONCE THEY WERE ON. JENNIFER PEREZ STATED IT WOULD NOT BE SAFE TO APPLY DRESSINGS IF PT IS NOT ABLE TO REMOVE THEM. JENNIFER STATED THEY WILL FOLLOW UP WITH PT IN CLINIC ON 02/15.
[2022-02-08 17:00] LABS: POC Glucose,Bedside 109 (70-110)
--- NOTE | 2022-02-09 14:50 | CARE MANAGER ---
Contacted patient related to hospital discharge yesterday. He states he was able to get his Entresto yesterday but not sure if he will be able to continue to afford it. He is taking everything as prescribed. He denies feeling bad. Denies questions but does have concerns regarding affording the food that is best for him. He states he does the best he can. FERNANDO Lin
== END 2022-02-08 12:42 | disposition home or self-care (01) ==
LOC: ER 09:24 → 2ND 09:35
PROVIDERS: Emergency Medicine; Admitting Provider Internal Medicine Adolescent Medicine; Emergency Provider Emergency Medicine; PCP Internal Medicine Adolescent Medicine; Visit Provider Internal Medicine Adolescent Medicine
DX: I11.0 Hypertensive heart disease with heart failure; I50.23 Acute on chronic systolic (congestive) heart failure; J44.1 Chronic obstructive pulmonary disease with (acute) exacerbation; I89.0 Lymphedema, not elsewhere classified; I25.10 Atherosclerotic heart disease of native coronary artery without angina pectoris; F17.200 Nicotine dependence, unspecified, uncomplicated; E78.5 Hyperlipidemia, unspecified; Z79.899 Other long term (current) drug therapy; J20.9 Acute bronchitis, unspecified; Z99.81 Dependence on supplemental oxygen; Z20.822 Contact with and (suspected) exposure to COVID-19
CPT/HCPCS: G0378; 36415; 71045; 80053; 82962; 83605; 83735; 83880; 84484; 85025; 87040; 93005; 93306; 94640; 94760; 99285; C9803; J3475; U0003; U0005

== ENCOUNTER 2022-08-07 14:20 | Emergency (ER) | payer MEDICARE, SELFPAY ==
[2022-08-07 14:30] VITALS: BP 124/50; PULSE 60; RESP 20; TEMP 36.7; O2SAT 97; BMI 36.8
--- NOTE | 2022-08-07 15:09 | EXP.UTC ---
Discharge Plan Disposition Patient Disposition: Home, Self-Care Condition: Good Prescriptions Prescriptions: New doxycycline hyclate [doxycycline hyclate] 100 mg capsule 100 mg PO Q12 10 Days Qty: 20 0RF No Action tamsulosin 0.4 mg capsule,extended release 24hr 0.4 mg PO BID carvedilol 3.125 mg tablet 3.125 mg PO BID spironolactone 25 mg tablet 25 mg PO finasteride 5 MG tablet 5 mg PO DAILY einuahadwx-boaxcyel-nfcslfouix 10.7 GM HFA aerosol inhaler 2 puff IH BID budesonide 0.5 MG/2 ML suspension for nebulization 0.5 mg IH Q6H furosemide 40 MG tablet 40 mg PO DAILY oxybutynin chloride 10 MG tablet extended release 24 hr 10 mg PO DAILY sacubitril-valsartan 1 EACH tablet 1 each PO BID Qty: 60 0RF Referrals Follow up/Referrals: Tadeo Moore MD [Primary Care Provider] - See instructions Activity Restrictions/Add. Instructions Additional Instructions/Restrictions: Drink plenty of fluids. Take tylenol or ibuprofen for pain or fever. Take the medications as directed. Follow up with your regular doctor. GO TO THE ER FOR ANY WORSENING SYMPTOMS Throw your tooth brush away and get a new one. Quarantine until you know the results of your covid-19 test. Notify your school or workplace of your results and follow their instructions regarding return to work/school. Clinical Impressions Clinical Impression: Exposure to STD, Urethritis Instructions Patient Instructions: Chlamydia: The Silent STD Discharge ED Provider: Kyler Darling [facility] General Stated complaint: possible STD Mode of Arrival: Wheelchair Source of Information: Patient Limitations: No Limitations Time Seen by Provider: 08/07/22 15:09 Description of Symptoms (Recalled from Triage Doc. by RN): PT REPORTS RAISED AREAS AND REDNESS TO [place]IN X 2 WEEKS, BURNING WITH URINATION. 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 He denies any fever or chills. He states that he has been exposed to chlamydia. Related Data Home Medications Medication Instructions Recorded Confirmed tamsulosin 0.4 mg capsule 0.4 mg PO BID prostate 09/20/17 02/07/22 carvedilol 3.125 mg tablet 3.125 mg PO BID Hypertension 10/19/20 02/07/22 budesonide 160 mcg-glycopyr 9 2 puff IH BID COPD 09/07/21 02/07/22 mcg-formot 4.8 mcg/actuation HFA inhaler finasteride 5 mg tablet 5 mg PO DAILY PROSTATE 09/07/21 02/07/22 budesonide 0.5 mg/2 mL suspension 0.5 mg inhalation Q6H Breathing 02/07/22 02/07/22 for nebulization problems furosemide 40 mg tablet 40 mg PO DAILY Fluid 02/07/22 02/07/22 oxybutynin chloride 10 mg 10 mg PO DAILY BLADDER 02/07/22 02/07/22 tablet,extended release 24 hr spironolactone 25 mg tablet 25 mg PO 06/09/22 06/09/22 Previous Rx's Medication Instructions Recorded sacubitril 24 mg-valsartan 26 mg 1 each PO BID #60 tabs 02/08/22 tablet doxycycline hyclate 100 mg capsule 100 mg PO Q12 10 days #20 caps 08/07/22 Allergies Allergy/AdvReac Type Severity Reaction Status Date / Time pregabalin [From LYRICA] Allergy Unknown Verified 08/07/22 15:24 [facility] Disclaimer: The information contained in this section may have been updated after the patient was seen, as this information can be updated by other users. Social History Smoking Status: Current every day smoker tobacco type: cigarettes packs per day: 1 alcohol intake: never substance use type: denies use current occupational status: disabled Travel in the last 8 weeks: None household members: spouse housing: apartment caffeine: Yes ROS Obtained: Yes All systems reviewed & no additional complaints except as documented Constitutional Constitutional: Denies chills and Denies fever(s) Eyes Eyes: Denies eye discharge ENT Ea
[2022-08-07 15:21] VITALS: BP 124/50; PULSE 60; RESP 20; TEMP 36.7; O2SAT 97; BMI 36.6
[2022-08-07 15:44] LABS: Apearance,Urine Clear (Clear); Blood, Urine Trace (Negative); Color,Urine Dark Yellow (Yellow); Glucose,Urine (UA) Negative (Negative); Ketones,Urine Negative (Negative); Protein,Urine Negative (Negative); Specific Gravity, Urine 1.015 (1.005-1.030)
[2022-08-07 15:45] LABS: Bilirubin,Urine Negative (Negative); UTC Leukocyte Esterase,Urine 1+ (Negative); UTC Nitrate,Urine Negative (Negative); Urobilinogen,Urine 1 EU/dl (0.2)
[2022-08-07 16:21] VITALS: BP 124/50; PULSE 60; RESP 20; TEMP 36.7
[2022-08-09 22:12] LABS: Neisseria gonorrhoeae, NAA Negative (Negative)
== END 2022-08-07 16:22 | disposition home or self-care (01) ==
PROVIDERS: Emergency Provider Nurse Practitioner Family; PCP Internal Medicine Adolescent Medicine
DX: N34.2 Other urethritis (principal); Z20.2 Contact with and (suspected) exposure to infections with a predominantly sexual mode of transmission
CPT/HCPCS: 81003; 87086; 87491; 87591; 96372; 99212; G0463; J0696

== ENCOUNTER 2022-09-06 11:36 | Emergency (ER) | payer MEDICARE, SELFPAY ==
[2022-09-06 11:36] VITALS: BP 95/56; PULSE 82; RESP 18; TEMP 36.7; O2SAT 99; BMI 36.9
[2022-09-06 12:35] LABS: Basophils # 0.1 K/mm3 (0-0.2); Basophils % 0.9 % (0.1-2.0); Eosinophils # 0.1 K/mm3 (0.0-0.4); Eosinophils % 1.6 % (0.1-12.0); Hematocrit 48.7 % (42.0-52.0); Hemoglobin 15.8 g/dL (14.1-18.0); Lymphocytes # 1.3 K/mm3 (0.7-4.5); Lymphocytes % 18.6 % (10-50); Mean Corpuscular HGB Conc 32.5 g/dL (31.8-35.4); Mean Corpuscular Hemoglobin 30.6 pg (27.0-31.2); Mean Corpuscular Volume 94.2 fl (80-94); Mean Platelet Volume 8.8 fl (7.4-10.4); Monocytes # 0.3 K/mm3 (0.1-1.0); Monocytes % 4.9 % (1.7-9.3); Neutrophils # 5.2 K/mm3 (1.8-7.8); Platelet Count 179 K/mm3 (142-424); Red Blood Count 5.17 M/mm3 (4.60-6.20); Red Cell Distribution Width 14.1 % (11.5-17.5)
--- NOTE | 2022-09-06 12:38 | XR_ITS ---
FINAL REPORT CLINICAL HISTORY: low bp COMPARISON: 12/08/2021 FINDINGS: SINGLE-VIEW CHEST There is mild cardiomegaly. The mediastinum is normal. There are mild left base opacities, may represent atelectasis or pneumonia. There is no pneumothorax. IMPRESSION: Left base atelectasis versus pneumonia. Reviewed, Interpreted and Dictated by Hank Salomon III, MD Transcribed by Ericka Nieto Authenticated and [facility]
[2022-09-06 12:39] LABS: Alanine Aminotransferase 13 U/L (12-78); Albumin Level 3.8 g/dl (3.5-5.0); Albumin/Globulin Ratio 1.4 (1.1-1.8); Alkaline Phosphatase 58 U/L (38-126); Anion Gap 9.3 mEq/L (5-15); Aspartate Amino Transferase 28 U/L (17-59); Bilirubin,Total 1.6 mg/dl (0.2-1.3); Blood Urea Nitrogen 17 mg/dl (9-20); Calcium 8.3 mg/dl (8.4-10.2); Carbon Dioxide 30 mmol/L (22.0-30.0); Chloride 103 mmol/L (98-107); Creatinine Clearance Estimated 97 mL/min (50-200); Estimated Glomerular Filt Rate 66 ml/min (>60); GFR (African American) 80 ML/MIN (>60); Globulin 2.7 g/dL (1.3-3.2); Glucose 96 mg/dl (74-100); Potassium 4.3 mmoL/L (3.5-5.1); Sodium 138 mmol/L (136-145); Total Protein,Serum 6.5 g/dl (6.3-8.2)
--- NOTE | 2022-09-06 12:42 | HMH.EDGENADL ---
Discharge Plan Disposition Patient Disposition: Home, Self-Care Condition: Good Chief Complaint: Recheck/Abnormal Lab/Rx Prescriptions Prescriptions: No Action tamsulosin 0.4 mg capsule,extended release 24hr 0.4 mg PO BID carvedilol 3.125 mg tablet 3.125 mg PO BID spironolactone 25 mg tablet 25 mg PO montelukast 10 mg tablet 10 mg PO DAILY finasteride 5 MG tablet 5 mg PO DAILY bfjkjkhkmm-skcwjdit-rtydovxwbt 10.7 GM HFA aerosol inhaler 2 puff IH BID budesonide 0.5 MG/2 ML suspension for nebulization 0.5 mg IH Q6H furosemide 40 MG tablet 40 mg PO DAILY oxybutynin chloride 10 MG tablet extended release 24 hr 10 mg PO DAILY sacubitril-valsartan 1 EACH tablet 1 each PO BID Qty: 60 0RF doxycycline hyclate [doxycycline hyclate] 100 mg capsule 100 mg PO Q12 10 Days Qty: 20 0RF Referrals Follow up/Referrals: Tadeo Moore MD [Primary Care Provider] - See instructions Activity Restrictions/Add. Instructions Additional Instructions/Restrictions: Do not take spironolactone or furosemide until further instructed by your doctor. See Helga in Dr. Moore's office on Sunday09/09/2022 at 9 AM. Return to the emergency department if dizzy or faint, chest pain, or shortness of breath. Clinical Impressions Clinical Impression: Acute hypotension Discharge ED Provider: Truong Crain General Adult HPI General Chief complaint: Recheck/Abnormal Lab/Rx Stated complaint: Low pulse, low bp Physican referral Time Seen by Provider: 09/06/22 12:34 Mode of Arrival: Wheelchair Limitations: No Limitations Description of Symptoms (Recalled from ER Triage Doc. by RN): PT SENT FROM DR. SELLERS'S OFFICE. PT HAD APPOINTMENT TO HAVE TOENAIL TRIMMED. 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 He said he had an appointment to have his toenails trimmed but they would not do so because his heart rate and blood pressure were low. Patient states that he feels like he normally does, no current complaints. Denies any recent illness, no URI, GI, or UTI symptoms. He is always short of breath, states currently unchanged. States he was taken off of a blood pressure medication a couple of months ago by his primary care provider, he is not sure of the details. Related Data Home Medications Medication Instructions Recorded Confirmed tamsulosin 0.4 mg capsule 0.4 mg PO BID prostate 09/20/17 02/07/22 carvedilol 3.125 mg tablet 3.125 mg PO BID Hypertension 10/19/20 02/07/22 budesonide 160 mcg-glycopyr 9 2 puff IH BID COPD 09/07/21 02/07/22 mcg-formot 4.8 mcg/actuation HFA inhaler finasteride 5 mg tablet 5 mg PO DAILY PROSTATE 09/07/21 02/07/22 budesonide 0.5 mg/2 mL suspension 0.5 mg inhalation Q6H Breathing 02/07/22 02/07/22 for nebulization problems furosemide 40 mg tablet 40 mg PO DAILY Fluid 02/07/22 02/07/22 oxybutynin chloride 10 mg 10 mg PO DAILY BLADDER 02/07/22 02/07/22 tablet,extended release 24 hr spironolactone 25 mg tablet 25 mg PO 06/09/22 06/09/22 montelukast 10 mg tablet 10 mg PO DAILY 09/06/22 09/06/22 Previous Rx's Medication Instructions Recorded sacubitril 24 mg-valsartan 26 mg 1 each PO BID #60 tabs 02/08/22 tablet doxycycline hyclate 100 mg capsule 100 mg PO Q12 10 days #20 caps 08/07/22 Allergies Allergy/AdvReac Type Severity Reaction Status Date / Time pregabalin [From LYRICA] Allergy Unknown Verified 09/06/22 11:12 [facility] Disclaimer: The information contained in this section may have been updated after the patient was seen, as this information can be updated by other users. Medical History Cellulitis of right lower leg CHF exacerbation Congestive heart failure COPD (chronic obstructive pulmonary disease) with acute bronchi
--- NOTE | 2022-09-06 12:50 | ECG_ITS ---
APPROVED REPORT Exam: Resting ECG HR:73 bpm ECG Measurements Heart Rate 73 AXES CO 144 P 10 QRSd 119 QRS 18 QT 391 T 128 QTc 418 Conclusion SINUS RHYTHM WITH FREQUENT VENTRICULAR PREMATURE COMPLEXES MODERATE INTRAVENTRICULAR CONDUCTION DELAY [105+ ms QRS DURATION, 80+ ms Q/S IN V1/V2, NO Q AND 60+ ms R IN I/aVL/V5/V6] NONSPECIFIC T-WAVE ABNORMALITY ABNORMAL ECG UNCONFIRMED REPORT Electronically signed by : Tadeo Moore MD 09/06/2022 21:46:36
[2022-09-06 13:06] LABS: NT Pro Brain Natriuretic Pep. 1340 pg/mL (0-125)
[2022-09-06 13:14] LABS: Troponin I < 0.01 ng/ml (0.00-0.034)
[2022-09-06 13:16] LABS: Lactic Acid 0.7 mmol/L (0.7-2.1)
[2022-09-06 13:31] VITALS: BP 80/45; PULSE 60; RESP 22; O2SAT 98
[2022-09-06 13:44] VITALS: BP 87/51; PULSE 64; RESP 20; O2SAT 98
[2022-09-06 14:00] VITALS: BP 82/59; PULSE 60; RESP 18; O2SAT 98
[2022-09-06 14:31] VITALS: BP 97/48; PULSE 80; RESP 20; O2SAT 98
[2022-09-06 15:50] LABS: Troponin I < 0.01 ng/ml (0.00-0.034)
--- NOTE | 2022-09-06 16:05 | PC.NURSE ---
DR. ARCINIEGA SPEAKING WITH DR. UMANZOR
[2022-09-06 16:15] VITALS: BP 106/51; PULSE 75; RESP 18; TEMP 36.7; O2SAT 98
== END 2022-09-06 16:15 | disposition home or self-care (01) ==
PROVIDERS: Emergency Provider Emergency Medicine; PCP Internal Medicine Adolescent Medicine
DX: I95.9 Hypotension, unspecified (principal); I50.9 Heart failure, unspecified; J44.9 Chronic obstructive pulmonary disease, unspecified; I11.0 Hypertensive heart disease with heart failure; E66.9 Obesity, unspecified; F17.210 Nicotine dependence, cigarettes, uncomplicated
CPT/HCPCS: 71045; 80053; 83605; 83880; 84484; 85025; 87040; 87077; 87186; 93005; 99285

== ENCOUNTER → 2022-09-15 11:04 | Outpatient (CLI) | payer MEDICARE, SELFPAY ==
--- NOTE | 2022-09-15 11:06 | CA_ITS ---
APPROVED REPORT EXAM: Comprehensive 2D, Doppler, and color-flow Echocardiogram Project Planner: Rebeca Purcell RVT Ht: 5 ft 8 in Wt: 228lbs BSA: 2.16 BP: 87/51 mmHg Indications: CHF,BRADYCARDIA,CM,COPD,SMOKER,HOME O2,OBESITY TDS-PT BODY HABITUS 2D Dimensions LVOT 2.48 cm (M/F) 1.5-2.5 LA Volume 56.50 mL LA Volume Index 26.16 mL/m2 (M/F) 16-34 M-Mode Dimensions RVDd 2.61 cm (0.9-2.6) LA Diam 4.32 cm (1.9-4.0) LVDd 7.82 cm (3.5-5.7) Ao Diam 3.33 cm (2.0-3.7) LVDs 6.49 cm (3.5-5.7) IVSd 0.74 cm (0.6-1.1) PWd 0.98 cm (0.6-1.1) EF (Teich) 34.30% FS 17.00% EDV (Teich) 327.50 mL TAPSE 1.91 (<1.7) ESV (Teich) 215.20 mL LV Diastology E Decel Time 197.00 (160-240 msec) E/A Ratio 0.8 MED E' 2.40 (< 7 cm/sec) E'/MED E' Ratio 31.83 (>14) LAT E' 4.50 (<10 cm/sec) E/LAT E' Ratio 16.98 (>14) Aortic Valve AO Peak GR. 3.90 mmHg Mitral Valve MV E Max Conner. 76.00 (40-130 cm/s) MV A Velocity 98.00 (40-130 cm/s) E/A Ratio 0.78 MV Decel. Time 197.00 (160-240 ms) MV PHT 58.00 ms Pulmonary Valve PV Peak Velocity 66.00 (50-150 cm/s) Tricuspid Valve TR P. Velocity 213.00 cm/s RAP Estimate 10.00 mmHg RVSP 28.20 mmHg Left Ventricle Left atrium is mildly enlarged, left ventricle is mildly dilated, severe reduced left ventricular systolic function, estimated ejection fraction 30%, left ventricle is globally hypokinetic. Grade 1 diastolic dysfunction seen with tissue Doppler of raise left atrial pressure, low cardiac output state is also seen. Right Ventricle Right atrium and right ventricle are mildly enlarged with normal contractility. Aortic Valve Aortic valve is minimally thickened and fibrosed there is no aortic stenosis or aortic insufficiency. Mitral Valve Mitral valve leaflets are minimally thickened, there is mild mitral regurgitation. Tricuspid Valve Tricuspid valve grossly normal, there is mild tricuspid regurgitation, tricuspid regurgitation jet velocity is inadequate for calculation of the right ventricular systolic pressure. Pulmonic Valve Pulmonic valve is poorly visualized. Great Vessels Aortic root is normal size. Inferior vena cava is mildly dilated with less than 50% inspiratory collapse. Pericardium No significant pericardial effusion noted. Conclusion 1. Dilated left ventricle, severe reduced left ventricular systolic function, estimated ejection fraction 30% left ventricle is globally hypokinetic, Doppler evidence of raise left atrial pressure, low cardiac output state is also seen. 2. Mild mitral and tricuspid regurgitation. 3. No significant pericardial effusion. 4. Inferior vena cava is mildly dilated with less than 50% inspiratory collapse. Electronically signed by : Marcio Palacios MD 09/15/2022 17:31:56
== END ==
PROVIDERS: PCP Internal Medicine Adolescent Medicine; Visit Provider Nurse Practitioner Family
DX: I50.22 Chronic systolic (congestive) heart failure (principal)
CPT/HCPCS: 93306

== ENCOUNTER 2023-05-18 20:22 | Observation (INO) | payer MEDICARE, SELFPAY ==
--- NOTE | 2023-05-18 20:43 | PC.NURSE ---
blood obtained and sent to lab
--- NOTE | 2023-05-18 20:46 | XR_ITS ---
PROCEDURE INFORMATION: Exam: XR Chest Exam date and time: 05/18/2023 9:36 PM Age: 72 years old Clinical indication: Shortness of breath; Additional info: SOA, cough TECHNIQUE: Imaging protocol: Radiologic exam of the chest. Views: 1 view. COMPARISON: CR XR CHEST PORTABLE 06/27/2023 13:08 FINDINGS: Lungs: Left hemidiaphragm elevation likely related to left lung volume loss. Left lung opacities are new compared to prior study and may represent a combination of pneumonia and atelectasis. Pleural spaces: Unremarkable. No pleural effusion. No pneumothorax. Heart/Mediastinum: Unremarkable. No cardiomegaly. Bones/joints: Unremarkable. IMPRESSION: Left lung opacities are new compared to prior study and may represent a combination of pneumonia and atelectasis. Consider contrast-enhanced CT to exclude underlying mass lesion versus 6 week follow-up chest radiographs to confirm complete resolution.
[2023-05-18 20:48] VITALS: BP 107/49; PULSE 95; RESP 20; O2SAT 95; BMI 36.5
--- NOTE | 2023-05-18 20:49 | HMH.EDGENADL ---
Discharge Plan Disposition Patient Disposition: Admitted Chief Complaint: Shortness of Breath/Dyspnea Prescriptions Prescriptions: No Action tamsulosin 0.4 mg capsule,extended release 24hr 0.4 mg PO BID silver sulfadiazine [Silvadene] 1 % cream 1 applic topical DAILY Qty: 25 0RF Rx Instructions: apply a 1.5 mm thickness carvedilol 3.125 mg tablet 3.125 mg PO BID spironolactone 25 mg tablet 25 mg PO montelukast 10 mg tablet 10 mg PO DAILY finasteride 5 MG tablet 5 mg PO DAILY wronrlsxdi-domiufvf-pnwpmhudle 10.7 GM HFA aerosol inhaler 2 puff inhalation BID budesonide 0.5 MG/2 ML suspension for nebulization 0.5 mg IH Q6H furosemide 40 MG tablet 40 mg PO DAILY oxybutynin chloride 10 MG tablet extended release 24 hr 10 mg PO DAILY sacubitril-valsartan 1 EACH tablet 1 each PO BID Qty: 60 0RF Referrals Follow up/Referrals: Tadeo Moore MD [Primary Care Provider] - See instructions Clinical Impressions Clinical Impression: Pneumonia, Adenopathy, hilar Discharge ED Provider: Bronson Gonzalez General Adult HPI General Chief complaint: Shortness of Breath/Dyspnea Stated complaint: SOB, problems with kidneys Time Seen by Provider: 05/18/23 20:30 History of Present Illness HPI narrative: Patient is a 72-year-old with past medical history of COPD on 2 L nasal cannula at home, hypertension, CHF who presents emergency department for evaluation of shortness of breath. Over the last 24 to 48 hours patient has had worsening shortness of breath at productive cough. Denies chest pain. Patient has had decreased urine output compared to his baseline is concerned about his kidney function. Due to this he presents here for continued evaluation. Related Data Home Medications Medication Instructions Recorded Confirmed tamsulosin 0.4 mg capsule 0.4 mg PO BID prostate 09/20/17 01/31/23 carvedilol 3.125 mg tablet 3.125 mg PO BID Hypertension 10/19/20 01/31/23 budesonide 160 mcg-glycopyr 9 2 puff inhalation BID COPD 09/07/21 01/31/23 mcg-formot 4.8 mcg/actuation HFA inhaler finasteride 5 mg tablet 5 mg PO DAILY PROSTATE 09/07/21 01/31/23 budesonide 0.5 mg/2 mL suspension 0.5 mg inhalation Q6H Breathing 02/07/22 01/31/23 for nebulization problems furosemide 40 mg tablet 40 mg PO DAILY Fluid 02/07/22 01/31/23 oxybutynin chloride 10 mg 10 mg PO DAILY BLADDER 02/07/22 01/31/23 tablet,extended release 24 hr spironolactone 25 mg tablet 25 mg PO 06/09/22 01/31/23 montelukast 10 mg tablet 10 mg PO DAILY 09/06/22 01/31/23 Previous Rx's Medication Instructions Recorded sacubitril 24 mg-valsartan 26 mg 1 each PO BID #60 tabs 02/08/22 tablet silver sulfadiazine 1 % topical 1 applic topical DAILY #25 grams 01/31/23 cream (Silvadene) Allergies Allergy/AdvReac Type Severity Reaction Status Date / Time ceftriaxone [From Rocephin] Allergy Severe Hives Verified 05/18/23 23:28 pregabalin [From LYRICA] Allergy Unknown Verified 05/18/23 20:52 [facility] Disclaimer: The information contained in this section may have been updated after the patient was seen, as this information can be updated by other users. Medical History Cellulitis of right lower leg CHF exacerbation Congestive heart failure COPD (chronic obstructive pulmonary disease) with acute bronchitis Essential hypertension Obesity (BMI 30.0-34.9) Social History Smoking Status: Current every day smoker tobacco type: cigarettes packs per day: 1 alcohol intake: never substance use type: denies use current occupational status: disabled Travel in the last 8 weeks: None household members: spouse housing: apartment caffeine: Yes ROS Obtained: Yes Systems reviewed as appropriate & no additional complaints except as documented Physical Exam General General
--- NOTE | 2023-05-18 20:53 | PC.NURSE ---
called re: nebs 3x and vbg order
[2023-05-18 20:55] LABS: Basophils # 0.1 K/mm3 (0-0.2); Basophils % 0.2 % (0.1-2.0); Chloride 96 mmol/L (98-107); Eosinophils # 0.3 K/mm3 (0.0-0.4); Eosinophils % 1.1 % (0.1-12.0); Hematocrit 54.5 % (42.0-52.0); Hemoglobin 17.7 g/dL (14.1-18.0); Lymphocytes # 0.5 K/mm3 (0.7-4.5); Lymphocytes % 1.6 % (10-50); Mean Corpuscular HGB Conc 32.4 g/dL (31.8-35.4); Mean Corpuscular Hemoglobin 29.4 pg (27.0-31.2); Mean Corpuscular Volume 90.8 fl (80-94); Mean Platelet Volume 9.2 fl (7.4-10.4); Monocytes # 0.8 K/mm3 (0.1-1.0); Neutrophils # 26.2 K/mm3 (1.8-7.8); Platelet Count 188 K/mm3 (142-424); Red Blood Count 6.01 M/mm3 (4.60-6.20); Red Cell Distribution Width 12.6 % (11.5-17.5); Sodium 130 mmol/L (136-145); White Blood Count 27.8 K/mm3 (4.8-10.8)
[2023-05-18 20:56] LABS: MANUAL DIFFERENTIAL MANUAL DIFFERENTIAL (MANUAL DIFF); Potassium 4.4 mmoL/L (3.5-5.1)
[2023-05-18 20:58] LABS: Alanine Aminotransferase 22 U/L (12-78); Albumin Level 4.3 g/dl (3.5-5.0); Albumin/Globulin Ratio 1.4 (1.1-1.8); Alkaline Phosphatase 44 U/L (38-126); Anion Gap 14.4 mEq/L (5-15); Aspartate Amino Transferase 28 U/L (17-59); Bilirubin,Total 2.9 mg/dl (0.2-1.3); Blood Urea Nitrogen 18 mg/dl (9-20); Carbon Dioxide 24 mmol/L (22.0-30.0); Creatinine Clearance Estimated 87 mL/min (50-200); Estimated Glomerular Filt Rate 60 ml/min (>60); GFR (African American) 72 ML/MIN (>60); Globulin 3.1 g/dL (1.3-3.2); Total Protein,Serum 7.4 g/dl (6.3-8.2)
[2023-05-18 20:59] LABS: Calcium 8.9 mg/dl (8.4-10.2); Glucose 119 mg/dl (74-100)
[2023-05-18 21:08] LABS: NT Pro Brain Natriuretic Pep. 5660 pg/mL (0-125)
[2023-05-18 21:11] LABS: Troponin I < 0.01 ng/ml (0.00-0.034)
[2023-05-18 21:18] LABS: VBG Base Excess -2.5 mmol/L (-2.4-2.3); VBG HCO3 24.1 mmol/L (23-30); VBG Oxygen Saturation 57.5 % (50-70); VBG PCO2 50.7 mmol/L (35-51); VBG PH 7.29 mmol/L (7.31-7.41); VBG PO2 30.1 mmol/L (28-40); VBG Total CO2 25.6 mmol/L (23-27)
[2023-05-18 21:18] LABS: Lymphocytes % 9 % (10-50); Monocytes % 1 % (2-9); Neutrophils % 90 % (42-76); Total Cells Counted 100
[2023-05-18 21:19] LABS: Platelet Estimate Normal
--- NOTE | 2023-05-18 21:50 | CT_ITS ---
PROCEDURE INFORMATION: Exam: CTA Chest With Contrast Exam date and time: 05/18/2023 10:52 PM Age: 72 years old Clinical indication: Shortness of breath; Additional info: Atelectasis, concern for post obstructive pna TECHNIQUE: Imaging protocol: Computed tomographic angiography of the chest with contrast. Exam focused on the arteries. 3D rendering (Not supervised by radiologist): MIP and/or 3D reconstructed images were created by the technologist. Radiation optimization: All CT scans at this facility use at least one of these dose optimization techniques: automated exposure control; mA and/or kV adjustment per patient size (includes targeted exams where dose is matched to clinical indication); or iterative reconstruction. Contrast material: ISOVUE; Contrast volume: 70 ml; Contrast route: INTRAVENOUS (IV); REPORTING DATA: Count of CT and Cardiac NM exams in prior 12 months: This patient has received 0 known CTs and 0 known cardiac nuclear medicine studies in the 12 months prior to the current study. COMPARISON: CT ANGIO CHEST PE PROTOCOL 08/06/2021 10:55 FINDINGS: Pulmonary arteries: No pulmonary emboli. Aorta: The aorta demonstrates moderate atherosclerotic disease. Lungs: Left lower lobe and lingula consolidations most likely represent pneumonia. Left hilar lymphadenopathy with mild extrinsic compression of the proximal left lower lobe bronchi. Tree-in-bud right upper lobe nodular opacities are most likely related to aspiration, less likely endobronchial spread of infection. Pleural spaces: Unremarkable. No pneumothorax. No pleural effusion. Heart: Redemonstration of dilated left ventricle. Lymph nodes: See Lungs finding. Gallbladder and bile ducts: Contracted gallbladder. Pancreas: Mild pancreatic atrophy. There is the 1.8 cm right adrenal lipid rich adenoma. Adrenal glands: There is a 3 cm left adrenal lipid rich adenoma. Bones/joints: Subtle cortical thinning of the right 6th rib on image 74 series 5 is unchanged. Soft tissues: Unremarkable. IMPRESSION: 1. No pulmonary emboli. 2. Left lower lobe and lingula consolidations most likely represent pneumonia. 3. Left hilar lymphadenopathy with mild extrinsic compression of the proximal left lower lobe bronchi. This could be reactive to infection. A three-month follow-up contrast-enhanced chest CT is recommended to exclude a component of bronchogenic carcinoma.
--- NOTE | 2023-05-18 21:50 | PC.NURSE ---
call received via vrad for md re: cxr. New orders noted for CT scan. rad notified
--- NOTE | 2023-05-18 22:00 | PC.NURSE ---
Rounded on patient , no needs voiced at this time.
[2023-05-18 22:05] LABS: Coronavirus 19, PCR Not Detected (NotDetected); Influenza A, PCR Not Detected (NotDetected); Influenza B, PCR Not Detected (NotDetected)
--- NOTE | 2023-05-18 22:25 | ECG_ITS ---
APPROVED REPORT Exam: Resting ECG HR:105 bpm ECG Measurements Heart Rate 105 AXES OK 160 P 54 QRSd 120 QRS 12 QT 346 T 119 QTc 407 Conclusion SINUS TACHYCARDIA WITH FREQUENT VENTRICULAR PREMATURE COMPLEXES MODERATE INTRAVENTRICULAR CONDUCTION DELAY [105+ ms QRS DURATION, 80+ ms Q/S IN V1/V2, NO Q AND 60+ ms R IN I/aVL/V5/V6] NONSPECIFIC ST & T-WAVE ABNORMALITY ABNORMAL ECG UNCONFIRMED REPORT Electronically signed by : Tadeo Moore MD 05/20/2023 07:34:56
--- NOTE | 2023-05-18 22:46 | PC.NURSE ---
patient gone to CT at this time.
--- NOTE | 2023-05-18 22:56 | PC.NURSE ---
patient back in room at this time.
[2023-05-19] VITALS (8 sets, daily range): BP systolic 107–136; BP diastolic 51–69; PULSE 81–97; RESP 16–23; TEMP 36.4–37.2; O2SAT 94–98; BMI 36.3
--- NOTE | 2023-05-19 00:16 | EXP.HP ---
History of Present Illness *Admission Date: 05/19/23 *Reason for visit:: SOB *History of present illness: This is a 72-year-old with PMHx of CHF, COPD on 2 L nasal cannula at home, hypertension, tobacco user who presented to emergency department for evaluation of increased shortness of breath. Over the last 24 to 48 hours patient has had worsening shortness of breath at productive cough. Denies chest pain. Patient has had decreased urine output compared to his baseline is concerned about his kidney function. Admitted for further management. [facility] Disclaimer: The information contained in this section may have been updated after the patient was seen, as this information can be updated by other users. Medical History (Updated 05/19/23 @ 06:54 by Joni De Anda APRN) Cellulitis of right lower leg CHF exacerbation Congestive heart failure COPD (chronic obstructive pulmonary disease) with acute bronchitis Essential hypertension Obesity (BMI 30.0-34.9) Prostate enlargement Social History (Updated 05/19/23 @ 01:39 by Lisset Hicks RN) Smoking Status: Current every day smoker tobacco type: cigarettes packs per day: 1 alcohol intake: never substance use type: denies use current occupational status: disabled Travel in the last 8 weeks: None household members: spouse housing: apartment caffeine: Yes Review of Systems Review of Systems Review of systems:: pertinent systems reviewed and negative unless documented below Meds Home Medications and Allergies Home Medications Medication Instructions Recorded Confirmed Type tamsulosin 0.4 mg capsule 0.8 mg PO HS prostate 09/20/17 05/19/23 History carvedilol 3.125 mg tablet 3.125 mg PO BID Hypertension 10/19/20 05/19/23 History finasteride 5 mg tablet 5 mg PO DAILY PROSTATE 09/07/21 05/19/23 History albuterol sulfate 90 mcg/actuation 2 puff inhalation Q6HP PRN 05/19/23 05/19/23 History aerosol inhaler Shortness Of Breath oxybutynin chloride 10 mg 10 mg PO DAILY URINARY SYMPTOMS 05/19/23 05/19/23 History tablet,extended release 24 hr sacubitril 24 mg-valsartan 26 mg 1 tab PO BID High Blood Pressure 05/19/23 05/19/23 History tablet (Entresto) New Prescriptions to Start Prescriptions: Allergies Allergy/AdvReac Type Severity Reaction Status Date / Time ceftriaxone [From Rocephin] Allergy Severe Hives Verified 05/18/23 23:28 pregabalin [From LYRICA] Allergy Unknown Verified 05/18/23 20:52 Exam Data for Last 24 hours Vital signs and Labs for Last 24 Hours: Pulse Resp BP Pulse Ox O2 Del Method O2 Flow Rate 95 H 20 107/49 L 95 Nasal Cannula 2 05/18/23 20:48 05/18/23 20:48 05/18/23 20:48 05/18/23 20:48 05/18/23 20:48 05/18/23 20:48 Laboratory Results - last 24 hr 05/18/23 20:39: WBC 27.8 H*, RBC 6.01, Hgb 17.7, Hct 54.5 H, MCV 90.8, MCH 29.4, MCHC 32.4, RDW 12.6, Plt Count 188, MPV 9.2, Neut % (Auto) 94.0 H, Lymph % (Auto) 1.6 L, [place] % (Auto) 3.0, Eos % (Auto) 1.1, Baso % (Auto) 0.2, Neut # (Auto) 26.2 H, Lymph # (Auto) 0.5 L, [place] # (Auto) 0.8, Eos # (Auto) 0.3, Baso # (Auto) 0.1, Total Counted 100, Neutrophils % (Manual) 90 H, Lymphocytes % (Manual) 9 L, Monocytes % (Manual) 1 L, Platelet Estimate Normal, RBC Morphology Not Reportable, Sodium 130 L, Potassium 4.4, Chloride 96 L, Carbon Dioxide 24, Anion Gap 14.4, BUN 18, Creatinine 1.20, Estimated Creat Clear 87, Estimated GFR 60, Est GFR ( Amer) 72, Glucose 119 H, Calcium 8.9, Total Bilirubin 2.9 H, AST 28, ALT 22, Alkaline Phosphatase 44, Troponin I < 0.01, NT-Pro-B Natriuret Pep 5660 H, Total Protein 7.4, Albumin 4.3, Globulin 3.1, Albumin/Globulin Ratio 1.4 05/18/23 20:46: VBG pH 7.29 L, VBG pCO2 50.7, VBG pO2 30.1, VBG HCO3 24.1, VBG Total CO2 25.6, VBG O2 Saturation 57.5, VBG Base Excess -2.5 L 05/18/23 21:25: SARS-CoV-2 (PCR) Not detected, Influenza A Untype (PCR) Not detected, Influenza Type B (PCR) Not detected I & O for Last 24 hours: Intake & Output
--- NOTE | 2023-05-19 00:48 | PC.NURSE ---
Patient arrived to floor via wheelchair at 00:40.
[2023-05-19 01:04] LABS: Troponin I < 0.01 ng/ml (0.00-0.034)
[2023-05-19 03:12] LABS: Lactic Acid 1.7 mmol/L (0.7-2.1)
[2023-05-19 03:36] LABS: Troponin I < 0.01 ng/ml (0.00-0.034)
--- NOTE | 2023-05-19 08:00 | PC.NURSE ---
COURTESY NOTE: pt provided with fresh ice water. pt had no further requests.
[2023-05-19 08:05] LABS: Basophils % 0.1 % (0.1-2.0); Eosinophils % 0.1 % (0.1-12.0); Hematocrit 49.9 % (42.0-52.0); Hemoglobin 16.3 g/dL (14.1-18.0); Lymphocytes # 0.6 K/mm3 (0.7-4.5); Lymphocytes % 2.5 % (10-50); Mean Corpuscular HGB Conc 32.7 g/dL (31.8-35.4); Mean Corpuscular Hemoglobin 29.8 pg (27.0-31.2); Mean Corpuscular Volume 91.1 fl (80-94); Mean Platelet Volume 8.7 fl (7.4-10.4); Monocytes # 0.4 K/mm3 (0.1-1.0); Monocytes % 1.8 % (1.7-9.3); Neutrophils # 22.7 K/mm3 (1.8-7.8); Neutrophils % 95.5 % (37.0-80.0); Platelet Count 181 K/mm3 (142-424); Red Blood Count 5.48 M/mm3 (4.60-6.20); Red Cell Distribution Width 12.8 % (11.5-17.5); White Blood Count 23.7 K/mm3 (4.8-10.8)
[2023-05-19 08:10] LABS: MANUAL DIFFERENTIAL MANUAL DIFFERENTIAL (MANUAL DIFF)
[2023-05-19 08:12] LABS: Chloride 93 mmol/L (98-107); Potassium 4.6 mmoL/L (3.5-5.1); Sodium 130 mmol/L (136-145)
[2023-05-19 08:15] LABS: Alanine Aminotransferase 18 U/L (12-78); Albumin/Globulin Ratio 1.5 (1.1-1.8); Alkaline Phosphatase 55 U/L (38-126); Anion Gap 16.6 mEq/L (5-15); Aspartate Amino Transferase 18 U/L (17-59); Bilirubin,Total 1.5 mg/dl (0.2-1.3); Blood Urea Nitrogen 22 mg/dl (9-20); Calcium 8.6 mg/dl (8.4-10.2); Carbon Dioxide 25 mmol/L (22.0-30.0); Creatinine Clearance Estimated 80 mL/min (50-200); Estimated Glomerular Filt Rate 54 ml/min (>60); GFR (African American) 66 ML/MIN (>60); Globulin 2.7 g/dL (1.3-3.2); Glucose 115 mg/dl (74-100); Total Protein,Serum 6.7 g/dl (6.3-8.2)
[2023-05-19 08:16] LABS: Magnesium 1.8 mg/dl (1.6-2.3)
[2023-05-19 08:25] LABS: Lymphocytes % 1 % (10-50); Monocytes % 1 % (2-9); Neutrophils % 98 % (42-76); Platelet Estimate Normal; RBC Morphology Normal; Total Cells Counted 100
--- NOTE | 2023-05-19 10:45 | PC.NURSE ---
SRNA NOTE: pt c/o back and neck pain. ordered K-pad for pt. K-pad set up in pt room and educated on usage. Lakshmi SRNA
--- NOTE | 2023-05-19 10:57 | HMH.PHAINT1 ---
Pharmacy Intervention Comments: MEDICATION RECONCILIATION COMPLETE USING LIST FROM MD OFFICE (NOÉ) AND EXTERNAL PHARMACY FILL HISTORY.
--- NOTE | 2023-05-19 12:00 | PC.NURSE ---
COURTESY NOTE: pt provided with lunch tray. pt requested fresh ice water. ice water delivered to pt. no further requests at this time.
--- NOTE | 2023-05-19 16:22 | PC.NURSE ---
A&OX4. TOLERATING 2LNC WELL. PT HAS A VERY AUDIBLE AND WHEEZY BREATHING PATTERN. REMAINS LEANED OVER BEDSIDE TABLE MAJORITY OF SHIFT. STATES THIS IS HOW HE ALWAYS IS AT HOME WELL. PT HAS C/O CONTINUOUS NECK PAIN TO THE L SIDE. TX PER OCT AND K PAD. PT CONTINUES TO C/O NECK PAIN. MD AWARE. PT HAD A SPELL OF NA/VO-ZOFRAN ADMINISTERED PER OCT. EFFECTIVENESS NOTED. HOME MEDS IN DRAWER. NO OTHER NEEDS OR C/O AT THIS MOMENT. VSS.
[2023-05-20] VITALS (10 sets, daily range): BP systolic 89–136; BP diastolic 43–56; PULSE 52–103; RESP 18–22; TEMP 36.7–37.2; O2SAT 91–99; BMI 37.0
--- NOTE | 2023-05-20 05:10 | PC.NURSE ---
notified ezio reid of + blood culture. NNO
--- NOTE | 2023-05-20 07:00 | PC.NURSE ---
0700 paged nataliya sow. verified inital vanc dose. increased to 2g dose and hospital pharm will f/u
[2023-05-20 07:29] LABS: Basophils % 0.1 % (0.1-2.0); Eosinophils # 0.1 K/mm3 (0.0-0.4); Eosinophils % 0.3 % (0.1-12.0); Hematocrit 49.7 % (42.0-52.0); Hemoglobin 16.3 g/dL (14.1-18.0); Lymphocytes # 1.2 K/mm3 (0.7-4.5); Lymphocytes % 7.1 % (10-50); Mean Corpuscular HGB Conc 32.9 g/dL (31.8-35.4); Mean Corpuscular Hemoglobin 29.7 pg (27.0-31.2); Mean Corpuscular Volume 90.5 fl (80-94); Mean Platelet Volume 8.7 fl (7.4-10.4); Monocytes # 0.7 K/mm3 (0.1-1.0); Neutrophils # 15.3 K/mm3 (1.8-7.8); Neutrophils % 88.6 % (37.0-80.0); Platelet Count 205 K/mm3 (142-424); Red Blood Count 5.49 M/mm3 (4.60-6.20); Red Cell Distribution Width 12.6 % (11.5-17.5); White Blood Count 17.3 K/mm3 (4.8-10.8)
[2023-05-20 07:33] LABS: MANUAL DIFFERENTIAL MANUAL DIFFERENTIAL (MANUAL DIFF)
[2023-05-20 07:41] LABS: Alanine Aminotransferase 17 U/L (12-78); Albumin Level 4.1 g/dl (3.5-5.0); Albumin/Globulin Ratio 1.4 (1.1-1.8); Alkaline Phosphatase 58 U/L (38-126); Anion Gap 15.3 mEq/L (5-15); Aspartate Amino Transferase 24 U/L (17-59); Bilirubin,Total 0.9 mg/dl (0.2-1.3); Blood Urea Nitrogen 26 mg/dl (9-20); Calcium 8.7 mg/dl (8.4-10.2); Carbon Dioxide 24 mmol/L (22.0-30.0); Chloride 90 mmol/L (98-107); Creatinine Clearance Estimated 97 mL/min (50-200); Estimated Glomerular Filt Rate 66 ml/min (>60); GFR (African American) 80 ML/MIN (>60); Glucose 90 mg/dl (74-100); Magnesium 1.9 mg/dl (1.6-2.3); Potassium 4.3 mmoL/L (3.5-5.1); Sodium 125 mmol/L (136-145); Total Protein,Serum 7.1 g/dl (6.3-8.2)
[2023-05-20 08:20] LABS: Lymphocytes % 7 % (10-50); Monocytes % 3 % (2-9); Neutrophils % 90 % (42-76); Platelet Estimate Normal; RBC Morphology Normal; Total Cells Counted 100
--- NOTE | 2023-05-20 08:37 | EXP.PHA.CONS ---
Pharmacy Consult Date: 05/20/23 Time: 08:37 Referring provider: dr guerrier Reason for Consult:: VANCOMYCIN DOSING CONSULT Allergies Allergy/AdvReac Type Severity Reaction Status Date / Time ceftriaxone [From Rocephin] Allergy Severe Hives Verified 05/18/23 23:28 pregabalin [From LYRICA] Allergy Unknown Verified 05/18/23 20:52 Home Medications Medication Instructions Recorded Confirmed Type tamsulosin 0.4 mg capsule 0.8 mg PO HS prostate 09/20/17 05/19/23 History carvedilol 3.125 mg tablet 3.125 mg PO BID Hypertension 10/19/20 05/19/23 History finasteride 5 mg tablet 5 mg PO DAILY PROSTATE 09/07/21 05/19/23 History albuterol sulfate 90 mcg/actuation 2 puff inhalation Q6HP PRN 05/19/23 05/19/23 History aerosol inhaler Shortness Of Breath oxybutynin chloride 10 mg 10 mg PO DAILY URINARY SYMPTOMS 05/19/23 05/19/23 History tablet,extended release 24 hr sacubitril 24 mg-valsartan 26 mg 1 tab PO BID High Blood Pressure 05/19/23 05/19/23 History tablet (Entresto) New Prescriptions to Start Prescriptions: Height: 1.73 m Weight: 110.847 kg Laboratory Results:: Laboratory Results - last 24 hr 05/20/23 07:05: WBC 17.3 H D, RBC 5.49, Hgb 16.3, Hct 49.7, MCV 90.5, MCH 29.7, MCHC 32.9, RDW 12.6, Plt Count 205, MPV 8.7, Neut % (Auto) 88.6 H, Lymph % (Auto) 7.1 L, [place] % (Auto) 4.0, Eos % (Auto) 0.3, Baso % (Auto) 0.1, Neut # (Auto) 15.3 H, Lymph # (Auto) 1.2, [place] # (Auto) 0.7, Eos # (Auto) 0.1, Baso # (Auto) 0.0, Total Counted 100, Neutrophils % (Manual) 90 H, Lymphocytes % (Manual) 7 L, Monocytes % (Manual) 3, Platelet Estimate Normal, RBC Morphology Normal, Sodium 125 L, Potassium 4.3, Chloride 90 L, Carbon Dioxide 24, Anion Gap 15.3 H, BUN 26 H, Creatinine 1.10, Estimated Creat Clear 97, Estimated GFR 66, Est GFR ( Amer) 80 D, Glucose 90 D, Calcium 8.7, Magnesium 1.9, Total Bilirubin 0.9, AST 24 D, ALT 17, Alkaline Phosphatase 58, Total Protein 7.1, Albumin 4.1, Globulin 3.0, Albumin/Globulin Ratio 1.4 Medical History: Medical History (Updated 05/19/23 @ 06:54 by Joni De Anda APRN) Cellulitis of right lower leg CHF exacerbation Congestive heart failure COPD (chronic obstructive pulmonary disease) with acute bronchitis Essential hypertension Obesity (BMI 30.0-34.9) Prostate enlargement Assessment and Plan Assessment and plan all Dx Assessment and Plan for all problems:: Pharmacokinetic dosing service Objective: Age: 72 yo Serum creatinine: 1.1 mg/dL Height: 68.1 Inches Weight (kg): 110.847 Diagnosis: PNEUMONIA Assessment: IBW (kg): 68.63 Dosing wt(kg): 110.847 Estimated Creatinine clearance (ml/min): 59.8 CRCL method: Cockcroft and Gault using ibw(default). Drug selected: Vancomycin Loading dose (mg): 2000 MG Vd (liters): 77.6 (factor used: 0.7 L/kg) Justus (hr-1): 0.054 Half life (hrs): 12.84 CLvanco=?? 4.190 L/hr Recommended dose: 1750 mg Interval: 18 hrs Infusion time (hrs): 2.0 Predicted peak (mcg/mL): 34.4 Predicted trough (mcg/mL): 14.50 Total body weight is being used for vancomycin dosing. Recommendations: Give Vancomycin 1750 mg q 18 hrs with an expected Cpeak of 34.4 mcg/ml and an expected Ctrough of 14.50 mcg/ml TO START 05/21/23 AT 0300, FIRST DOSE OF IV VANCOMYCIN 2000 MG GIVEN 05/20/23 AT 0900. AUC 0-24 /ROSA M Data: ROSA M 0.5 mcg/mL:?? AUC/ROSA M:? 1113.8 ROSA M 1.0 mcg/mL:?? AUC/ROSA M:? 556.9 --------- ROSA M 1.5 mcg/mL:?? AUC/ROSA M:? 371.3 ROSA M 2.0 mcg/mL:?? AUC/ROSA M:? 278.4 Thank you for the consult
--- NOTE | 2023-05-20 15:56 | EXP.ACUTE.PN ---
Subjective *Date: 05/20/23 *Time: 15:56 Interval history: Patient more interactive today. Improved distress from yesterday, on 2 L nasal cannula. Tolerating p.o. intake. Diuresing well. White cell count improving but still elevated at 17,000. 1 blood culture returned positive for staph epi. Medical Exam Vital signs and Labs for Last 24 Hours: Vital Signs Temp Pulse Pulse Resp BP Pulse Ox O2 Del Method 05/20/23 15:00 Nasal Cannula 05/20/23 13:00 Nasal Cannula 05/20/23 15:17 98.9 F 100 H 18 111/50 L 96 Nasal Cannula 05/20/23 12:40 102 H 05/20/23 12:40 102 H 05/20/23 12:40 91 L Nasal Cannula 05/20/23 11:00 Nasal Cannula 05/20/23 11:12 98.9 F 91 H 18 109/53 L 96 Nasal Cannula 05/20/23 09:00 Nasal Cannula 05/20/23 08:00 Nasal Cannula 05/20/23 07:39 98.2 F 103 H 18 112/56 L 95 Nasal Cannula 05/20/23 06:53 Nasal Cannula 05/20/23 05:00 Nasal Cannula 05/20/23 03:00 Nasal Cannula 05/20/23 04:00 98.2 F 86 18 93/43 L 99 Nasal Cannula 05/20/23 01:00 Nasal Cannula 05/19/23 23:00 Nasal Cannula 05/20/23 00:00 98.0 F 87 18 89/50 L 92 L Nasal Cannula 05/19/23 21:00 Nasal Cannula 05/19/23 20:00 94 L Nasal Cannula 05/19/23 20:00 97.7 F 97 H 18 136/51 L 98 Nasal Cannula 05/19/23 18:33 Nasal Cannula 05/19/23 17:00 Nasal Cannula 05/19/23 18:18 Nasal Cannula O2 Flow Rate FiO2 05/20/23 15:00 2 05/20/23 13:00 2 05/20/23 15:17 05/20/23 12:40 05/20/23 12:40 05/20/23 12:40 2 05/20/23 11:00 2 05/20/23 11:12 2 05/20/23 09:00 2 05/20/23 08:00 2 05/20/23 07:39 2 05/20/23 06:53 2 05/20/23 05:00 2 05/20/23 03:00 2 05/20/23 04:00 2 05/20/23 01:00 2 05/19/23 23:00 2 05/20/23 00:00 2 05/19/23 21:00 2 05/19/23 20:00 2 05/19/23 20:00 2 05/19/23 18:33 2 05/19/23 17:00 2 05/19/23 18:18 2 28 Intake and Output 05/19/23 05/20/23 05/20/23 23:59 07:59 15:59 Intake Total 550 / 790 240 / 790 Output Total 600 / 2400 900 / 2050 1150 / 2050 Balance -600 / -1120 -350 / -1260 -910 / -1260 Intake: Intake, Oral Amount 360 / 600 240 / 600 Intake, Other Amount 40 / 40 Intake, Total IV Amount 150 / 150 Levofloxacin/D5w 750 mg/150 ml 150 / 150 750 mg In 150 ml @ 100 mls/hr IV Q24H REPLACED BY [facility] Rx#:[id number] Output: Output, Urine Amount 600 / 2400 900 / 2050 1150 / 2050 Other: Intake, Other Source Saline Solution Number of Unmeasured Voids 0 0 0 Weight 110.847 kg 110.847 kg Patient Weight 05/20/23 23:59 Weight 110.847 kg Laboratory Results - last 24 hr 05/20/23 07:05: WBC 17.3 H D, RBC 5.49, Hgb 16.3, Hct 49.7, MCV 90.5, MCH 29.7, MCHC 32.9, RDW 12.6, Plt Count 205, MPV 8.7, Neut % (Auto) 88.6 H, Lymph % (Auto) 7.1 L, [place] % (Auto) 4.0, Eos % (Auto) 0.3, Baso % (Auto) 0.1, Neut # (Auto) 15.3 H, Lymph # (Auto) 1.2, [place] # (Auto) 0.7, Eos # (Auto) 0.1, Baso # (Auto) 0.0, Total Counted 100, Neutrophils % (Manual) 90 H, Lymphocytes % (Manual) 7 L, Monocytes % (Manual) 3, Platelet Estimate Normal, RBC Morphology Normal, Sodium 125 L, Potassium 4.3, Chloride 90 L, Carbon Dioxide 24, Anion Gap 15.3 H, BUN 26 H, Creatinine 1.10, Estimated Creat Clear 97, Estimated GFR 66, Est GFR ( Amer) 80 D, Glucose 90 D, Calcium 8.7, Magnesium 1.9, Total Bilirubin 0.9, AST 24 D, ALT 17, Alkaline Phosphatase 58, Total Protein 7.1, Albumin 4.1, Globulin 3.0, Albumin/Globulin Ratio 1.4 I & O for Labs for Last 24 Hours: Intake & Output 05/17/23 05/18/23 05/19/23 05/20/23 23:59 23:59 23:59 23:59 Intake Total 1090 / 1280 790 / 790 Output Total 2400 / 2400 2049 / 2049 Balance -1310 / -1120 -1260 / -1260 Weight 108.862 kg 108.59 kg 110.847 kg Microbiology Reports for the Last 24 Hours: Microbiology 05/18/23 21:00 Blood Blood Culture - Preliminary 05/19/23 12:50 Sputum
[2023-05-20 16:13] LABS: POC Glucose,Bedside 137 (70-110)
--- NOTE | 2023-05-20 18:45 | PC.NURSE ---
Pt remains on 2L O2 NC, Has not c/o any soa. Pt has c/o neck pain and generalized discomfort. Medicated per oct. Has been up to the chair this afternoon. Has tolerated it well. He is diuresing well. Call light within reach.
[2023-05-20 20:50] LABS: Peripheral Smear Review Scanned Result
[2023-05-21] VITALS: BP 124/64; PULSE 116; RESP 18; TEMP 36.9; O2SAT 96
[2023-05-21 01:19] VITALS: PULSE 93; PULSE 95
[2023-05-21 03:07] VITALS: BP 98/42; PULSE 99; RESP 20; TEMP 37; O2SAT 92
[2023-05-21 04:00] VITALS: BP 104/46; PULSE 79; RESP 18; TEMP 37.2; O2SAT 94; BMI 37.5
--- NOTE | 2023-05-21 04:38 | PC.NURSE ---
pt questioned why his home medications were never restarted. pt questioning his flomax, entresto and carvedilol. did notify ezio juárez who restarted home medications. bp 136/42, hr 89. entresto 24/26 mg given, carvedilol 3.125 mg given. bp at mn 124/64 hr 116, bp @ 0300 98/42, 99. recheck 1 hr later 104/46, 79. pt asymptomatic. remains on 2l/nc. adequate uop.
--- NOTE | 2023-05-21 05:36 | PC.NURSE ---
started infusion of vancomycin 1.75 mg @ 0300. notified by pt at 0430 that bed below iv site was soiled. assess iv site and leaking noted to be coming from iv insertion site. iv d'cd and new iv site obtained. spoke to night pharmacy personnel about infusing and concerns of patient receiving dose. pharmacy staff instructed to finish remainer of the volume not infused and he would speak to the pharmacy here about event
[2023-05-21 05:58] VITALS: PULSE 78; PULSE 80; O2SAT 94
[2023-05-21 06:31] LABS: Basophils % 0.1 % (0.1-2.0); Eosinophils % 0.2 % (0.1-12.0); Hematocrit 46.8 % (42.0-52.0); Hemoglobin 15.4 g/dL (14.1-18.0); Lymphocytes # 0.9 K/mm3 (0.7-4.5); Lymphocytes % 7.3 % (10-50); Mean Corpuscular HGB Conc 32.8 g/dL (31.8-35.4); Mean Corpuscular Hemoglobin 29.7 pg (27.0-31.2); Mean Corpuscular Volume 90.6 fl (80-94); Mean Platelet Volume 9.5 fl (7.4-10.4); Monocytes # 0.6 K/mm3 (0.1-1.0); Monocytes % 4.8 % (1.7-9.3); Neutrophils # 10.8 K/mm3 (1.8-7.8); Neutrophils % 87.7 % (37.0-80.0); Platelet Count 200 K/mm3 (142-424); Red Blood Count 5.17 M/mm3 (4.60-6.20); Red Cell Distribution Width 12.7 % (11.5-17.5); White Blood Count 12.4 K/mm3 (4.8-10.8)
[2023-05-21 06:42] LABS: MANUAL DIFFERENTIAL MANUAL DIFFERENTIAL (MANUAL DIFF)
[2023-05-21 06:47] LABS: Alanine Aminotransferase 15 U/L (12-78); Albumin Level 3.6 g/dl (3.5-5.0); Albumin/Globulin Ratio 1.2 (1.1-1.8); Alkaline Phosphatase 65 U/L (38-126); Anion Gap 11.2 mEq/L (5-15); Aspartate Amino Transferase 20 U/L (17-59); Bilirubin,Total 0.8 mg/dl (0.2-1.3); Blood Urea Nitrogen 28 mg/dl (9-20); Calcium 8.4 mg/dl (8.4-10.2); Carbon Dioxide 26 mmol/L (22.0-30.0); Chloride 97 mmol/L (98-107); Creatinine Clearance Estimated 90 mL/min (50-200); Estimated Glomerular Filt Rate 60 ml/min (>60); GFR (African American) 72 ML/MIN (>60); Glucose 105 mg/dl (74-100); Potassium 4.2 mmoL/L (3.5-5.1); Sodium 130 mmol/L (136-145); Total Protein,Serum 6.6 g/dl (6.3-8.2)
--- NOTE | 2023-05-21 07:40 | EXP.DC.SUM ---
General Admission date:: 05/19/23 Discharge date: 05/21/23 HPI HPI HPI: This is a 72-year-old with PMHx of CHF, COPD on 2 L nasal cannula at home, hypertension, tobacco user who presented to emergency department for evaluation of increased shortness of breath. Over the last 24 to 48 hours patient has had worsening shortness of breath at productive cough. Denies chest pain. Patient has had decreased urine output compared to his baseline is concerned about his kidney function. Admitted for further management. Hospital Course Hospital Course Hospital Course: 72-year-old with PMHx of CHF, COPD on 2 L nasal cannula at home, hypertension, tobacco user who presented to emergency department for evaluation of increased shortness of breath. Over the last 24 to 48 hours patient has had worsening shortness of breath at productive cough. During ER initial work up. CTA of chest was obtained significant for left lower lobe consolidation. parahilar adenopathy. Labs work are remarkable for moderate leukocytosis, hyponatremia and elevated BNP. See improvement leukocytosis to 17,000 today. Continues to require inpatient admission. Anticipate discharge in the next day or 2. Problems addressed as follows -Pneumonia: Presented with stable oxygen requirement but increased white cell count and work of breathing. Leukocytosis improved from 27,002 12,000 by day of discharge. Patient has remained stable on 2 L nasal cannula oxygen. Continue Levaquin to complete 7-day course. Given improvement in respiratory distress, stable for discharge home to complete antibiotics. Of note, blood culture returned for staph epi, consistent with a Adrian organism. No indication for extensive treatment for bacteremia. -Acute exacerbation of the CHF: BNP elevated on admission at 5600. Diuresed daily with good response. -4.7 L for duration of hospitalization. Recommend continuing daily diuretic to maintain euvolemic status. -Hyponatremia: SIADH vs dehydration. Remained stable at 130 during admission. Patient had no neurologic symptoms. Recommend repeat CBC/CMP in 1 week -Hypertension:Patient's held during admission given low blood pressure however improved by day of discharge. Resume home regimen for CAD, heart failure, hypertension. BPH:On tamsulosin. Tobacco abuse:Nicotine patch as needed. 21 mcg Obesity: Complicates all aspects of care Stable for discharge home to continue oral antibiotics. Follow-up with PCP in 1 to 2 weeks Exam Data for Last 24 hours Vital signs and Labs for Last 24 Hours: Temp Pulse Resp BP Pulse Ox O2 Del Method O2 Flow Rate 98.9 F 78 18 104/46 L 94 L Nasal Cannula 2 05/21/23 04:00 05/21/23 05:58 05/21/23 04:00 05/21/23 04:00 05/21/23 05:58 05/21/23 07:00 05/21/23 07:00 FiO2 28 05/20/23 19:14 Laboratory Results - last 24 hr 05/20/23 07:05: Total Counted 100, Neutrophils % (Manual) 90 H, Lymphocytes % (Manual) 7 L, Monocytes % (Manual) 3, Platelet Estimate Normal, RBC Morphology Normal, Sodium 125 L, Potassium 4.3, Chloride 90 L, Carbon Dioxide 24, Anion Gap 15.3 H, BUN 26 H, Creatinine 1.10, Estimated Creat Clear 97, Estimated GFR 66, Est GFR ( Amer) 80 D, Glucose 90 D, Calcium 8.7, Magnesium 1.9, Total Bilirubin 0.9, AST 24 D, ALT 17, Alkaline Phosphatase 58, Total Protein 7.1, Albumin 4.1, Globulin 3.0, Albumin/Globulin Ratio 1.4 05/20/23 15:50: POC Glucose 137 H 05/21/23 05:46: WBC 12.4 H D, RBC 5.17, Hgb 15.4, Hct 46.8, MCV 90.6, MCH 29.7, MCHC 32.8, RDW 12.7, Plt Count 200, MPV 9.5, Neut % (Auto) 87.7 H, Lymph % (Auto) 7.3 L, [place] % (Auto) 4.8, Eos % (Auto) 0.2, Baso % (Auto) 0.1, Neut # (Auto) 10.8 H, Lymph # (Auto) 0.9, [place] # (Auto) 0.6, Eos # (Auto) 0.0, Baso # (Auto) 0.0, Sodium 130 L, Potassium 4.2, Chloride 97 L, Carbon Dioxide 26, Anion Gap 11.2, BUN 28 H, Creatinine 1.20, Estimated Creat Clear 90, Estimated GFR 60, Est GFR ( Amer) 72, Glucose 105 H, Calcium 8.4, Total Bilirubin 0.8, AST 20
[2023-05-21 07:49] VITALS: BP 102/54; PULSE 111; RESP 21; TEMP 36.9; O2SAT 96
[2023-05-21 08:09] LABS: Lymphocytes % 9 % (10-50); Monocytes % 4 % (2-9); Neutrophils % 87 % (42-76); Total Cells Counted 100
[2023-05-21 08:10] LABS: Platelet Estimate Normal; RBC Morphology Normal
--- NOTE | 2023-05-21 09:34 | HMH.PHAINT1 ---
Pharmacy Intervention Comments: DISCHARGE MEDICATION COUNSELING PROVIDED. DISCUSSED THE FOLLOWING NEW MEDICATIONS: -FUROSEMIDE (FLUID PILL, DAILY, TAKE IN THE MORNING, INCREASED URINATION, LOW BP, DIZZINESS, LIGHTHEADEDNESS LOW POTASSIUM POSSIBLE) -LEVAQUIN (ANTIBIOTIC, START TOMORROW, TAKE WITH FOOD, N/V/D POSSIBLE) PATIENT VERBALIZED NO QUESTIONS AT THIS TIME.
--- NOTE | 2023-05-22 12:53 | CARE MANAGER ---
Called and spoke with patient regarding recent discharge. Patient stated that he is feeling a little better. He has started his new medication and is aware of scheduled f/u appt. No concerns voiced at time of call.
== END 2023-05-21 10:03 | disposition home or self-care (01) ==
LOC: ER 23:50 → 2ND 23:59
PROVIDERS: Nurse Practitioner Family; Admitting Provider Family Medicine; Emergency Provider Emergency Medicine; PCP Internal Medicine Adolescent Medicine; Visit Provider Internal Medicine Adolescent Medicine
DX: J18.9 Pneumonia, unspecified organism (principal); I50.43 Acute on chronic combined systolic (congestive) and diastolic (congestive) heart failure; E87.1 Hypo-osmolality and hyponatremia; R59.0 Localized enlarged lymph nodes; I10 Essential (primary) hypertension; N40.0 Benign prostatic hyperplasia without lower urinary tract symptoms; F17.210 Nicotine dependence, cigarettes, uncomplicated; E66.9 Obesity, unspecified
CPT/HCPCS: 36415; 71045; 71275; 80053; 82803; 82962; 83605; 83735; 83880; 84484; 85007; 85025; 87040; 87070; 87077; 87081; 87186; 87205; 87636; 93005; 94640; 94760; 99285; G0378; J0456; J0696; J1956; J2405; J3370; Q9967

== ENCOUNTER 2023-05-31 22:14 | Observation (INO) | payer MEDICARE, SELFPAY ==
[2023-05-31 22:15] VITALS: BP 126/66; PULSE 109; RESP 32; TEMP 36.6; O2SAT 95; BMI 35.7
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
--- NOTE | 2023-05-31 22:22 | ECG_ITS ---
APPROVED REPORT Exam: Resting ECG HR:109 bpm ECG Measurements Heart Rate 109 AXES AZ 153 P 65 QRSd 117 QRS 3 QT 356 T 229 QTc 420 Conclusion SINUS TACHYCARDIA PROBABLE INFERIOR MYOCARDIAL INFARCTION , OF INDETERMINATE AGE [35 ms Q WAVE IN II/aVF] ST DEPRESSION, CONSIDER SUBENDOCARDIAL INJURY [0.1+ mV ST DEPRESSION] ABNORMAL ECG UNCONFIRMED REPORT Electronically signed by : Tadeo Moore MD 06/02/2023 08:00:14
--- NOTE | 2023-05-31 22:31 | XR_ITS ---
PROCEDURE INFORMATION: Exam: XR Chest Exam date and time: 05/31/2023 11:45 PM Age: 72 years old Clinical indication: Shortness of breath; Additional info: SOA, dyspnea TECHNIQUE: Imaging protocol: Radiologic exam of the chest. Views: 2 views. COMPARISON: CR XR CHEST PORTABLE 05/18/2023 9:36 PM FINDINGS: Lungs: There is elevation of the left hemidiaphragm with persistent consolidation of the left lung base. Pleural spaces: No evidence of pleural effusion, pneumothorax, or pleural thickening in the visualized pleural spaces. Heart/Mediastinum: Stable cardiac and mediastinal contours. Vasculature: There are calcifications of the aortic arch. Bones/joints: There are degenerative changes of the thoracic spine. IMPRESSION: There is elevation of the left hemidiaphragm with persistent consolidation of the left lung base.
--- NOTE | 2023-05-31 22:36 | PC.NURSE ---
at bedside at this time.
--- NOTE | 2023-05-31 22:49 | PC.NURSE ---
Blue bracelet applied to patient
[2023-05-31 22:54] LABS: VBG Base Excess -4.3 mmol/L (-2.4-2.3); VBG HCO3 20.5 mmol/L (23-30); VBG Oxygen Saturation 86.8 % (50-70); VBG PCO2 33.5 mmol/L (35-51); VBG PO2 46.4 mmol/L (28-40); VBG Total CO2 21.5 mmol/L (23-27)
[2023-05-31 22:58] LABS: Coronavirus 19, PCR Not Detected (NotDetected); Influenza A, PCR Not Detected (NotDetected); Influenza B, PCR Not Detected (NotDetected)
[2023-05-31 22:59] VITALS: PULSE 103; PULSE 97
[2023-05-31 23:00] LABS: Basophils % 0.3 % (0.1-2.0); Eosinophils # 0.2 K/mm3 (0.0-0.4); Eosinophils % 1.6 % (0.1-12.0); Hematocrit 49.6 % (42.0-52.0); Hemoglobin 16.1 g/dL (14.1-18.0); Lymphocytes # 1.4 K/mm3 (0.7-4.5); Lymphocytes % 13.3 % (10-50); Mean Corpuscular HGB Conc 32.5 g/dL (31.8-35.4); Mean Corpuscular Hemoglobin 29.8 pg (27.0-31.2); Mean Corpuscular Volume 91.6 fl (80-94); Mean Platelet Volume 8.4 fl (7.4-10.4); Monocytes # 0.4 K/mm3 (0.1-1.0); Monocytes % 3.5 % (1.7-9.3); Neutrophils # 8.6 K/mm3 (1.8-7.8); Neutrophils % 81.2 % (37.0-80.0); Platelet Count 208 K/mm3 (142-424); Red Blood Count 5.41 M/mm3 (4.60-6.20); Red Cell Distribution Width 12.7 % (11.5-17.5); White Blood Count 10.5 K/mm3 (4.8-10.8)
[2023-05-31 23:09] VITALS: BP 118/78; PULSE 103; RESP 28; O2SAT 94
[2023-05-31 23:15] LABS: Chloride 103 mmol/L (98-107); Potassium 4.4 mmoL/L (3.5-5.1); Sodium 135 mmol/L (136-145)
--- NOTE | 2023-05-31 23:15 | PC.NURSE ---
Patient provided warm blankets; nothing else needed at this time. Call light within reach of patient
[2023-05-31 23:17] LABS: Blood Urea Nitrogen 19 mg/dl (9-20); Creatinine Clearance Estimated 102 mL/min (50-200); Estimated Glomerular Filt Rate 83 ml/min (>60); GFR (African American) 101 ML/MIN (>60)
[2023-05-31 23:18] LABS: Alanine Aminotransferase 22 U/L (12-78); Albumin Level 3.6 g/dl (3.5-5.0); Albumin/Globulin Ratio 1.2 (1.1-1.8); Alkaline Phosphatase 71 U/L (38-126); Anion Gap 12.4 mEq/L (5-15); Aspartate Amino Transferase 25 U/L (17-59); Bilirubin,Total 0.8 mg/dl (0.2-1.3); Calcium 8.2 mg/dl (8.4-10.2); Carbon Dioxide 24 mmol/L (22.0-30.0); Globulin 2.9 g/dL (1.3-3.2); Glucose 120 mg/dl (74-100); Magnesium 1.9 mg/dl (1.6-2.3); Total Protein,Serum 6.5 g/dl (6.3-8.2)
--- NOTE | 2023-05-31 23:18 | PC.NURSE ---
provided patient with call light and urinal.
[2023-05-31 23:28] LABS: NT Pro Brain Natriuretic Pep. 2470 pg/mL (0-125)
[2023-05-31 23:30] LABS: Troponin I 0.02 ng/ml (0.00-0.034)
[2023-05-31 23:38] VITALS: BP 106/81; PULSE 109; RESP 30; O2SAT 93
--- NOTE | 2023-05-31 23:45 | PC.NURSE ---
patient gone to CT at this time.
--- NOTE | 2023-05-31 23:56 | PC.NURSE ---
Was called back to CT for patient; patient reports he is refusing to do the CT because he can not lay flat. Informed patient we can elevate his head and turn up his oxygen. Patient refused. notified
[2023-06-01] VITALS (8 sets, daily range): BP systolic 103–133; BP diastolic 43–71; PULSE 52–110; RESP 21–28; TEMP 36.5–36.7; O2SAT 95–98; BMI 35.5
--- NOTE | 2023-06-01 00:08 | PC.NURSE ---
Patient stated he was uncomfortable and his neck was hurting. Informed patient if we got him moved to the bed with a pillow supporting his neck he would be more comfortable. Patient refused. Call light within reach of patient.
--- NOTE | 2023-06-01 00:12 | PC.NURSE ---
rounded on patient, patient was being brought back from CT.
--- NOTE | 2023-06-01 00:45 | PC.NURSE ---
Rounded on patient and family. Nothing needed at this time. Call light within reach of patient. Respiratory @ BS at this time
[2023-06-01 00:56] LABS: Troponin I < 0.01 ng/ml (0.00-0.034)
--- NOTE | 2023-06-01 01:09 | PC.NURSE ---
Handed off report to manager night
--- NOTE | 2023-06-01 01:38 | PC.NURSE ---
pt to floor via wheelchair.at 0130
[2023-06-01 03:10] LABS: Troponin I < 0.01 ng/ml (0.00-0.034)
--- NOTE | 2023-06-01 05:10 | PC.NURSE ---
Since arriving to the floor the patient has been able to rest. When first arriving to the floor the patient was SOB and pursed aníbal breathing. The patient has calmed down since arriving to the floor and breathing has slowed significantly. Patient has complained of neck pain, See mar
[2023-06-01 05:24] LABS: Troponin I < 0.01 ng/ml (0.00-0.034)
--- NOTE | 2023-06-01 09:02 | HMH.PHAINT1 ---
Pharmacy Intervention Comments: MEDICATION RECONCILIATION COMPLETED ON PATIENT USING EXTERNAL FILL HISTORY FROM PHARMACY. -FEI COWAN, [place]
--- NOTE | 2023-06-01 09:22 | EXP.HPDC ---
General Admission date:: 06/01/23 Discharge date: 06/01/23 *Admission Date: 06/01/23 *Chief complaint: Dyspnea *History of present illness: 72-year-old male with end-stage COPD, oxygen and neb requiring at home, consistently noncompliant with treatments and continues to smoke heavily. Admitted to hospital last week for COPD exacerbation. Discharged home on antibiotics and I saw him 3 days ago for posthospital visit. He was stable and doing well. We did not continue antibiotics at that point. He states that since that time he has been smoking very heavily and has been short of breath again. He came to the emergency department because the breathing treatments here worked better than the ones at home. Work-up in the ER was essentially unchanged from his admission and discharge at last visit with no elevation of white count, electrolytes were stable and chest x-ray unchanged. Patient refused to lay down for a CT scan because of dyspnea. He refused BiPAP therapy. I made rounds on him this morning in the hospital and he was sitting up on the side of the bed on 2 L nasal cannula with stable vital signs and eating breakfast. [facility] Disclaimer: The information contained in this section may have been updated after the patient was seen, as this information can be updated by other users. Medical History (Updated 06/01/23 @ 01:33 by Carson Unger MD) Cellulitis of right lower leg CHF exacerbation Congestive heart failure COPD (chronic obstructive pulmonary disease) with acute bronchitis Essential hypertension Obesity (BMI 30.0-34.9) Prostate enlargement Social History (Updated 06/01/23 @ 01:57 by Deena Llamas RN) Smoking Status: Current every day smoker tobacco type: cigarettes packs per day: 1 alcohol intake: never substance use type: denies use current occupational status: disabled Travel in the last 8 weeks: None household members: spouse housing: apartment caffeine: Yes Exam Data for Last 24 hours Vital signs and Labs for Last 24 Hours: Temp Pulse Resp BP Pulse Ox O2 Del Method O2 Flow Rate 98.1 F 88 21 121/54 L 97 Nasal Cannula 2 06/01/23 08:00 06/01/23 08:00 06/01/23 08:00 06/01/23 08:00 06/01/23 08:00 06/01/23 08:00 06/01/23 05:00 Laboratory Results - last 24 hr 05/31/23 22:31: VBG pH 7.40, VBG pCO2 33.5 L, VBG pO2 46.4 H, VBG HCO3 20.5 L, VBG Total CO2 21.5 L, VBG O2 Saturation 86.8 H, VBG Base Excess -4.3 L 05/31/23 22:49: WBC 10.5, RBC 5.41, Hgb 16.1, Hct 49.6, MCV 91.6, MCH 29.8, MCHC 32.5, RDW 12.7, Plt Count 208, MPV 8.4, Neut % (Auto) 81.2 H, Lymph % (Auto) 13.3, [place] % (Auto) 3.5, Eos % (Auto) 1.6, Baso % (Auto) 0.3, Neut # (Auto) 8.6 H, Lymph # (Auto) 1.4, [place] # (Auto) 0.4, Eos # (Auto) 0.2, Baso # (Auto) 0.0, Sodium 135 L, Potassium 4.4, Chloride 103, Carbon Dioxide 24, Anion Gap 12.4, BUN 19, Creatinine 0.90, Estimated Creat Clear 102, Estimated GFR 83, Est GFR ( Amer) 101, Glucose 120 H, Calcium 8.2 L, Magnesium 1.9, Total Bilirubin 0.8, AST 25, ALT 22, Alkaline Phosphatase 71, Troponin I 0.02, NT-Pro-B Natriuret Pep 2470 H, Total Protein 6.5, Albumin 3.6, Globulin 2.9, Albumin/Globulin Ratio 1.2 05/31/23 22:54: SARS-CoV-2 (PCR) Not detected, Influenza A Untype (PCR) Not detected, Influenza Type B (PCR) Not detected 06/01/23 00:25: Troponin I < 0.01 06/01/23 02:42: Troponin I < 0.01 06/01/23 04:55: Troponin I < 0.01 I & O for Last 24 hours: Intake & Output 05/29/23 05/30/23 05/31/23 06/01/23 11:59 11:59 11:59 11:59 Intake Total 510 / 510 Output Total 975 / 975 Balance -465 / -465 Weight 234 lb 11.2 oz Constitutional Constitutional: mild distress and cooperative *Routine HEENT Exam Head: Present normocephalic and atraumatic Eye: Present EOMI, PERRL and normal accommodation ENT: Present mucous membranes moist *Routine Neck Exam Neck: Present supple, full ROM and trachea midline *Routine Respiratory Exam Respiratory: Present d
--- NOTE | 2023-06-04 14:05 | SW/DCPLANNER ---
Follow up phone call was made w/ this patient. Patient stated he is doing alright at home at this time. Patient was able to knot picker cloth all new medication since discharge. Patient has no further needs/questions at this time.
== END 2023-06-01 10:40 | disposition home or self-care (01) ==
LOC: ER 06-01 00:55 → 2ND 06-01 01:28
PROVIDERS: Admitting Provider Family Medicine; Emergency Provider Emergency Medicine; PCP Internal Medicine Adolescent Medicine; Visit Provider Internal Medicine Adolescent Medicine
DX: I50.9 Heart failure, unspecified (principal); J44.9 Chronic obstructive pulmonary disease, unspecified; Z99.81 Dependence on supplemental oxygen; I11.0 Hypertensive heart disease with heart failure; F17.210 Nicotine dependence, cigarettes, uncomplicated; Z79.899 Other long term (current) drug therapy; R06.02 Shortness of breath
CPT/HCPCS: 36415; 71046; 80053; 82803; 83735; 83880; 84484; 85025; 87070; 87205; 87636; 93005; 99291; G0378; J0456; J2543; J3475

== ENCOUNTER 2023-06-11 23:03 | Observation (INO) | payer MEDICARE, SELFPAY ==
[2023-06-11 23:04] VITALS: BP 127/60; PULSE 106; RESP 40; TEMP 36.8; O2SAT 97; BMI 35.6; BMI 35.7
--- NOTE | 2023-06-11 23:18 | XR_ITS ---
PROCEDURE INFORMATION: Exam: XR Chest Exam date and time: 06/11/2023 11:47 PM Age: 72 years old Clinical indication: Shortness of breath; Additional info: SOA, cough, h/o copd TECHNIQUE: Imaging protocol: Radiologic exam of the chest. Views: 2 views. COMPARISON: CR XR CHEST 2V 05/31/2023 11:45 PM FINDINGS: Lungs: Airspace disease versus atelectasis in the left lung base similar to the prior exam. Pleural spaces: No pleural effusion. No pneumothorax. Heart/Mediastinum: No acute findings or cardiomegaly. Bones/joints: No acute findings. IMPRESSION: Persistent airspace disease versus atelectasis in the left lung base.
[2023-06-11 23:53] LABS: VBG HCO3 20.5 mmol/L (23-30); VBG Oxygen Saturation 99.4 % (50-70); VBG PCO2 32.2 mmol/L (35-51); VBG PH 7.42 mmol/L (7.31-7.41); VBG PO2 193.1 mmol/L (28-40); VBG Total CO2 21.5 mmol/L (23-27)
[2023-06-11 23:55] VITALS: PULSE 102; PULSE 98
[2023-06-12] VITALS (11 sets, daily range): BP systolic 105–136; BP diastolic 49–85; PULSE 80–95; RESP 16–22; TEMP 35.6–36.9; O2SAT 92–98; BMI 29.4
[2023-06-12 00:04] LABS: Alanine Aminotransferase 41 U/L (12-78); Albumin Level 3.7 g/dl (3.5-5.0); Albumin/Globulin Ratio 1.3 (1.1-1.8); Alkaline Phosphatase 75 U/L (38-126); Anion Gap 11.1 mEq/L (5-15); Aspartate Amino Transferase 31 U/L (17-59); Bilirubin,Total 1.7 mg/dl (0.2-1.3); Blood Urea Nitrogen 25 mg/dl (9-20); Calcium 8.2 mg/dl (8.4-10.2); Carbon Dioxide 23 mmol/L (22.0-30.0); Chloride 97 mmol/L (98-107); Creatinine Clearance Estimated 102 mL/min (50-200); Estimated Glomerular Filt Rate 95 ml/min (>60); GFR (African American) 115 ML/MIN (>60); Globulin 2.8 g/dL (1.3-3.2); Glucose 135 mg/dl (74-100); Potassium 4.1 mmoL/L (3.5-5.1); Sodium 127 mmol/L (136-145); Total Protein,Serum 6.5 g/dl (6.3-8.2)
--- NOTE | 2023-06-12 00:50 | HMH.EDGENADL ---
Discharge Plan Disposition Patient Disposition: Admitted Condition: Fair Clinical Impressions Clinical Impression: Acute exacerbation of chronic obstructive pulmonary disease, Pneumonia, Acute and chronic respiratory failure with hypoxia Discharge ED Provider: Carmela Miller General Adult HPI General Chief complaint: Shortness of Breath/Dyspnea Stated complaint: soa Time Seen by Provider: 06/11/23 23:15 Mode of Arrival: Wheelchair Source of Information: Patient Limitations: No Limitations Description of Symptoms (Recalled from ER Triage Doc. by RN): 72 M presents from home with c/o difficulty breathing. He is well known to our ER for COPD with acute exacerbations at times. He wears 2L/NC at all times. His pulse ox reads 95%-97%; however, he is labored and tachypenic. Patient denies chest pain, but reports right sided neck pain which he relays is chronic, but bothering him today. History of Present Illness HPI narrative: This patient is a 72-year-old male with a history of COPD and chronic respiratory failure requiring 2 L nasal cannula supplemental oxygenation presenting to the emergency department for evaluation with concern for difficulty breathing. Patient reports that this has been intermittent for the last 3 to 4 weeks, but has been acutely worse over the last several days. He denies any fevers, increasing sputum production, abdominal pain, or other concerns. He is complaining of neck pain, which is chronic, at this time. No vision changes, numbness, tingling, or other concerns. Related Data Home Medications Medication Instructions Recorded Confirmed tamsulosin 0.4 mg capsule 0.4 mg PO BID prostate 09/20/17 06/12/23 carvedilol 3.125 mg tablet 3.125 mg PO BID High Blood Pressure 10/19/20 06/12/23 finasteride 5 mg tablet 5 mg PO DAILY prostate 09/07/21 06/12/23 albuterol sulfate 90 mcg/actuation 2 puff inhalation Q6HP PRN 05/19/23 06/12/23 aerosol inhaler Shortness Of Breath oxybutynin chloride 10 mg 10 mg PO DAILY overactive bladder 05/19/23 06/12/23 tablet,extended release 24 hr sacubitril 24 mg-valsartan 26 mg 1 tab PO BID Heart Failure 05/19/23 06/12/23 tablet (Entresto) nicotine 21 mg/24 hr daily 21 mg transdermal DAILY Smoking 06/01/23 06/12/23 transdermal patch Cessation Previous Rx's Medication Instructions Recorded amoxicillin 875 mg-potassium 1 tab PO BID 10 days #20 tabs 06/01/23 clavulanate 125 mg tablet dexamethasone 4 mg tablet 4 mg PO BID #14 tabs 06/01/23 Allergies Allergy/AdvReac Type Severity Reaction Status Date / Time ceftriaxone [From Rocephin] Allergy Severe Hives Verified 05/18/23 23:28 pregabalin [From LYRICA] Allergy Unknown Verified 05/18/23 20:52 [facility] Disclaimer: The information contained in this section may have been updated after the patient was seen, as this information can be updated by other users. Medical History Cellulitis of right lower leg CHF exacerbation Congestive heart failure COPD (chronic obstructive pulmonary disease) with acute bronchitis Essential hypertension Obesity (BMI 30.0-34.9) Prostate enlargement Social History Smoking Status: Current every day smoker tobacco type: cigarettes packs per day: 1 alcohol intake: never substance use type: denies use current occupational status: disabled Travel in the last 8 weeks: None household members: spouse housing: apartment caffeine: Yes ROS Obtained: Yes All systems reviewed & no additional complaints except as documented Physical Exam General General appearance: alert and anxious Comment: In mild respiratory distress Head Head exam: atraumatic and normocephalic Eye Eye exam: Present normal appearance, PERRL and EOMI ENT ENT exam: Present normal exam, normal oropharynx, mucous membranes moist and normal external ear exam Neck Neck exam: Present normal inspection
--- NOTE | 2023-06-12 00:55 | ECG_ITS ---
APPROVED REPORT Exam: Resting ECG HR:95 bpm ECG Measurements Heart Rate 95 AXES WY 155 P 64 QRSd 117 QRS 23 QT 356 T -52 QTc 408 Conclusion SINUS RHYTHM MODERATE INTRAVENTRICULAR CONDUCTION DELAY [110+ ms QRS DURATION] ST DEVIATION AND MODERATE T-WAVE ABNORMALITY, CONSIDER INFERIOR ISCHEMIA [-0.1+ mV T-WAVE IN II/aVF] ABNORMAL ECG UNCONFIRMED REPORT Electronically signed by : Tadeo Moore MD 06/12/2023 19:24:12
--- NOTE | 2023-06-12 01:13 | PC.NURSE ---
Dr. Teresa quiroz for ED MD
--- NOTE | 2023-06-12 01:15 | PC.NURSE ---
called lab for cbc results. stated they couldn't find the purple tube.
--- NOTE | 2023-06-12 01:26 | PC.NURSE ---
purple top sent to lab for cbc
--- NOTE | 2023-06-12 01:28 | PC.NURSE ---
call placed to house calls nurse practitioner for bed assignment
--- NOTE | 2023-06-12 01:30 | PC.NURSE ---
Admitting notified of admission. Teresa Marte, Pneumonia, Room 205
[2023-06-12 01:36] LABS: Basophils % 0.1 % (0.1-2.0); Eosinophils # 0.2 K/mm3 (0.0-0.4); Eosinophils % 1.4 % (0.1-12.0); Hematocrit 44.9 % (42.0-52.0); Hemoglobin 15.4 g/dL (14.1-18.0); Lymphocytes # 1.2 K/mm3 (0.7-4.5); Lymphocytes % 8.2 % (10-50); Mean Corpuscular HGB Conc 34.3 g/dL (31.8-35.4); Mean Corpuscular Hemoglobin 31.6 pg (27.0-31.2); Mean Corpuscular Volume 92.2 fl (80-94); Mean Platelet Volume 8.5 fl (7.4-10.4); Monocytes # 0.6 K/mm3 (0.1-1.0); Monocytes % 4.1 % (1.7-9.3); Neutrophils # 12.2 K/mm3 (1.8-7.8); Neutrophils % 86.2 % (37.0-80.0); Platelet Count 232 K/mm3 (142-424); Red Blood Count 4.87 M/mm3 (4.60-6.20); Red Cell Distribution Width 13.3 % (11.5-17.5); White Blood Count 14.1 K/mm3 (4.8-10.8)
--- NOTE | 2023-06-12 01:42 | PC.NURSE ---
pt given 2 blankets, states IV is hurting RN informed
[2023-06-12 01:43] LABS: MANUAL DIFFERENTIAL MANUAL DIFFERENTIAL (MANUAL DIFF)
[2023-06-12 02:26] LABS: Lymphocytes % 12 % (10-50); Monocytes % 4 % (2-9); Neutrophils % 83 % (42-76); Total Cells Counted 100
[2023-06-12 02:27] LABS: Platelet Estimate Normal; RBC Morphology Normal
--- NOTE | 2023-06-12 05:26 | PC.NURSE ---
since arriving to the floor the patient has not been able to lay down. States it is too difficult to breath that way. Patient has complained of neck pain with no relief in any medication. still on 2L NC. No other issue stated by patient
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
--- NOTE | 2023-06-12 08:22 | EXP.HP ---
History of Present Illness *Admission Date: 06/12/23 *Reason for visit:: Cough/congestion *History of present illness: 72-year-old male with oxygen requiring COPD who struggles with medication and therapy compliance and also has been extremely heavy smoker of 3 to 4 packs a day over the past decades. He is currently trying to quit but has been struggling with several exacerbations over the past couple of months. Has been hospitalized twice before today, and each time has been sent home with steroids and antibiotics. He tells me this morning that he never feels better and he has not felt well for the past 3 weeks. He notes that he has shortness of air, feels like his heart racing and he has to breathe fast. He denies necessarily coughing up sputum but his history is a bit difficult in the context of his frequent tangential conversations. He also has a concern about neck pain. He states he has had neck pain since he was first admitted to the hospital and this occasionally goes down his left arm. No trauma, no falls. No anginal type pain. Also reports nausea when he eats. He came to the ER last night with these complaints, his oxygenation was found to be acceptable, had infiltrate on chest x-ray which is comparable to his previous, significant tachycardia and tachypnea and was admitted to the hospital for pulmonary toilet and further diagnostic testing and was given IV doxycycline. [facility] Disclaimer: The information contained in this section may have been updated after the patient was seen, as this information can be updated by other users. Medical History Cellulitis of right lower leg CHF exacerbation Congestive heart failure COPD (chronic obstructive pulmonary disease) with acute bronchitis Essential hypertension Obesity (BMI 30.0-34.9) Prostate enlargement Social History Smoking Status: Current every day smoker tobacco type: cigarettes packs per day: 1 alcohol intake: never substance use type: denies use current occupational status: disabled Travel in the last 8 weeks: None household members: spouse housing: apartment caffeine: Yes Meds Home Medications and Allergies Home Medications Medication Instructions Recorded Confirmed Type tamsulosin 0.4 mg capsule 0.4 mg PO BID prostate 09/20/17 06/12/23 History carvedilol 3.125 mg tablet 3.125 mg PO BID High Blood Pressure 10/19/20 06/12/23 History finasteride 5 mg tablet 5 mg PO DAILY prostate 09/07/21 06/12/23 History albuterol sulfate 90 mcg/actuation 2 puff inhalation Q6HP PRN 05/19/23 06/12/23 History aerosol inhaler Shortness Of Breath oxybutynin chloride 10 mg 10 mg PO DAILY overactive bladder 05/19/23 06/12/23 History tablet,extended release 24 hr sacubitril 24 mg-valsartan 26 mg 1 tab PO BID Heart Failure 05/19/23 06/12/23 History tablet (Entresto) nicotine 21 mg/24 hr daily 21 mg transdermal DAILY Smoking 06/01/23 06/12/23 History transdermal patch Cessation furosemide 20 mg tablet 20 mg PO DAILY 06/12/23 06/12/23 History New Prescriptions to Start Prescriptions: Allergies Allergy/AdvReac Type Severity Reaction Status Date / Time ceftriaxone [From Rocephin] Allergy Severe Hives Verified 05/18/23 23:28 pregabalin [From LYRICA] Allergy Unknown Verified 05/18/23 20:52 Exam Data for Last 24 hours Vital signs and Labs for Last 24 Hours: Temp Pulse Resp BP Pulse Ox O2 Del Method O2 Flow Rate 98.4 F 90 22 129/70 97 Nasal Cannula 2 06/12/23 08:00 06/12/23 08:00 06/12/23 08:00 06/12/23 08:00 06/12/23 08:00 06/12/23 08:00 06/12/23 06:48 Laboratory Results - last 24 hr 06/11/23 23:19: VBG pH 7.42 H, VBG pCO2 32.2 L, VBG pO2 193.1 H, VBG HCO3 20.5 L, VBG Total CO2 21.5 L, VBG O2 Saturation 99.4 H, VBG Base Excess -4.0 L 06/11/23 23:33: Sodium 127 L, Potassium 4.1, Chloride 97 L, Carbon Dioxide 23, Ani
--- NOTE | 2023-06-12 08:34 | HMH.ITSTN ---
I tried to bring down patient for Xray of his cspine. Patient stated he was in to much pain and wanted to wait for the medicine to start working to take some of the pain away before I bring her down.
--- NOTE | 2023-06-12 09:58 | EXP.PULM.CON ---
History of Present Illness History of present illness: Mr. Holcomb is a 72-year-old male current smoker greater than 20-[id number]-[id number] history carries a history of CHF COPD presented for worsening respiratory's and not feeling well for the last 3 weeks. [facility] Disclaimer: The information contained in this section may have been updated after the patient was seen, as this information can be updated by other users. Medical History Cellulitis of right lower leg CHF exacerbation Congestive heart failure COPD (chronic obstructive pulmonary disease) with acute bronchitis Essential hypertension Obesity (BMI 30.0-34.9) Prostate enlargement Social History Smoking Status: Current every day smoker tobacco type: cigarettes packs per day: 1 alcohol intake: never substance use type: denies use current occupational status: disabled Travel in the last 8 weeks: None household members: spouse housing: apartment caffeine: Yes Review of Systems Constitutional Constitutional: Reports anorexia, Reports body ache(s) and Reports fatigue Eyes Eyes: Denies eye discharge, Denies dry eyes, Denies irritation and Denies itchy eyes ENT Ears, Nose, Mouth, and Throat: Denies epistaxis, Denies facial pain, Denies lip swelling and Denies throat swelling *Cardiovascular Cardiovascular: Reports dyspnea, Reports dyspnea on exertion, Reports leg edema, Reports orthopnea and Reports pedal edema *Respiratory Respiratory: Reports chest congestion, Reports cough, Reports dyspnea, Reports dyspnea on exertion, Denies excessive phlegm production and Denies wheezing *Gastrointestinal Gastrointestinal: Denies abdominal pain, Denies belching and Denies cramping *Musculoskeletal Musculoskeletal: Reports back pain, Reports myalgias and Reports other (No small joint swelling or Pain) Psychiatric Psychiatric: Denies homicidal ideation and Denies suicidal ideation Endocrine Endocrine: Reports fatigue and Denies heat intolerance Hematologic/Lymphatic Hematologic/Lymphatic: Denies easy bleeding and Denies lymphadenopathy Allergic/Immunologic Allergic/Immunologic: Denies itchy eyes, Denies lip swelling, Denies throat swelling and Denies wheezing Pulmonology Exam Inpatient Vital signs and Labs for Last 24 Hours: Temp Pulse Resp BP Pulse Ox O2 Del Method O2 Flow Rate 98.4 F 90 22 129/70 97 Nasal Cannula 2 06/12/23 08:00 06/12/23 08:00 06/12/23 08:00 06/12/23 08:00 06/12/23 08:00 06/12/23 08:49 06/12/23 08:49 Laboratory Results - last 24 hr 06/11/23 23:19: VBG pH 7.42 H, VBG pCO2 32.2 L, VBG pO2 193.1 H, VBG HCO3 20.5 L, VBG Total CO2 21.5 L, VBG O2 Saturation 99.4 H, VBG Base Excess -4.0 L 06/11/23 23:33: Sodium 127 L, Potassium 4.1, Chloride 97 L, Carbon Dioxide 23, Anion Gap 11.1, BUN 25 H, Creatinine 0.80, Estimated Creat Clear 102, Estimated GFR 95, Est GFR ( Amer) 115, Glucose 135 H, Calcium 8.2 L, Total Bilirubin 1.7 H, AST 31, ALT 41, Alkaline Phosphatase 75, Total Protein 6.5, Albumin 3.7, Globulin 2.8, Albumin/Globulin Ratio 1.3 06/12/23 01:24: WBC 14.1 H, RBC 4.87, Hgb 15.4, Hct 44.9, MCV 92.2, MCH 31.6 H, MCHC 34.3, RDW 13.3, Plt Count 232, MPV 8.5, Neut % (Auto) 86.2 H, Lymph % (Auto) 8.2 L, [place] % (Auto) 4.1, Eos % (Auto) 1.4, Baso % (Auto) 0.1, Neut # (Auto) 12.2 H, Lymph # (Auto) 1.2, [place] # (Auto) 0.6, Eos # (Auto) 0.2, Baso # (Auto) 0.0, Total Counted 100, Neutrophils % (Manual) 83 H, Band Neutrophils % 1.0, Lymphocytes % (Manual) 12, Monocytes % (Manual) 4, Platelet Estimate Normal, RBC Morphology Normal I & O for Labs for Last 24 Hours: Intake & Output 06/09/23 06/10/23 06/11/23 06/12/23 23:59 23:59 23:59 23:59 Weight 234 lb 15.992 oz 194 lb 3 oz Constitutional: Present moderate distress Head: Present normocephalic and atraumatic ENT: Present normal exam, normal oropharynx and mucous membranes moist Neck: Present nor
--- NOTE | 2023-06-12 11:17 | HMH.ITSTN ---
WENT UP TO GET PATIENT, HE STATED HE COULDNT LAY FLAT AND DIDNT WANT EXAM DONE AT THIS TIME. TALKED TO NURSE SUZETTE TO LET HER KNOW.
[2023-06-12 12:05] LABS: NT Pro Brain Natriuretic Pep. 4750 pg/mL (0-125)
--- NOTE | 2023-06-12 14:43 | CA_ITS ---
APPROVED REPORT EXAM: Comprehensive 2D, Doppler, and color-flow Echocardiogram [employer] Supervisor: Laura Pickering RT(R) Ht: 5 ft 8 in Wt: 194lbs BSA: 2.02 BP: 129/70 mmHg Indications: pneumonia, hx of CM 30% ef 08/2022, COPD, smoker, JUNIOR, obesity, CHF M-Mode Dimensions RVDd 2.16 cm (0.9-2.6) LVDd 4.76 cm (3.5-5.7) LVDs 4.24 cm (3.5-5.7) IVSd 0.72 cm (0.6-1.1) PWd 1.16 cm (0.6-1.1) EF (Teich) 23.70% FS 10.90% EDV (Teich) 105.40 mL ESV (Teich) 80.40 mL LV Diastology E Decel Time 150.00 (160-240 msec) E/A Ratio 0.6 MED E' 4.70 (< 7 cm/sec) E'/MED E' Ratio 13.32 (>14) LAT E' 6.20 (<10 cm/sec) E/LAT E' Ratio 10.10 (>14) Mitral Valve MV E Max Conner. 63.00 (40-130 cm/s) MV A Velocity 105.00 (40-130 cm/s) E/A Ratio 0.59 MV Decel. Time 150.00 (160-240 ms) MV PHT 44.00 ms Left Ventricle Left ventricle is severely dilated. Left ventricular systolic function is severely reduced. There is normal left ventricular wall thickness. Severe global hypokinesis is present. There is akinesis of the inferior and inferoseptal LV retana. Grade 3 diastolic dysfunction is present. LVEF is 15-20%. Right Ventricle Right ventricle is grossly normal in size. The right ventricular systolic function is normal. Atria The left atrium size is normal. The right atrium size is normal. Lipomatous interatrial septal hypertrophy is present. Aortic Valve The aortic valve opens well. Mitral Valve The mitral valve is normal in structure. No evidence of mitral valve stenosis. Trace mitral regurgitation. Tricuspid Valve The tricuspid valve leaflets are thin and pliable. Trace tricuspid regurgitation. There is insufficient TR jet to estimate RVSP. Pulmonic Valve The pulmonic valve is not well visualized. Great Vessels The aortic root is normal in size. The ascending aorta is not well visualized. IVC is normal in size and collapses >50% with inspiration. Pericardium There is no pericardial effusion. Other Information Study Quality: Technically Difficult Conclusion Technically difficult study due to poor accoustic windows. Severely dilated LV with severe reduction in LV systolic function (LVEF 15-20%). Akinesis of the inferior and inferoseptal LV retana. Grade 3 diastolic dysfunciton. No significant valvular stenosis or regurgitation. Electronically signed by : Carrie Rowland MD 06/12/2023 18:33:49
--- NOTE | 2023-06-12 15:19 | EXP.CARD.CON ---
History of Present Illness History of Present Illness Consult date: 06/12/23 Requesting physician: Tadeo Moore Consult reason: shortness of breath Chief complaint: SOA History of present illness: This is a 72-year-old white gentleman who presented to the emergency department with complaints of shortness of breath. He has a past medical history of HFrEF and COPD. The patient states that he has had worsening shortness of breath for the last 3 weeks. He states his shortness of breath can be severe. He has an associated cough and orthopnea with his shortness of breath as well as bilateral lower extremity edema. The patient is having left-sided neck pain and radiates around to the back of his neck. He states that this has been fairly constant. He denies any chest pain or pressure. He denies any fever, chills, nausea, vomiting or diarrhea. The patient reports that he has been seen by chemistry technologist, Dr. Sorensen, in the past and has been told he has a weak heart muscle. He states that this was approximately 2 or 3 years ago and he does take medications for his heart failure. On review of the patient's medical records it does show that he had a cardiomyopathy back in January 2022 with an ejection fraction of 45% and that worsened to an ejection fraction of 30% in August 2022. The patient does need aggressive treatment for his congestive heart failure/HFrEF. [facility] Disclaimer: The information contained in this section may have been updated after the patient was seen, as this information can be updated by other users. Medical History (Updated 06/12/23 @ 15:27 by Patience Ewing APRN) Abnormal electrocardiogram [ECG] [EKG] Atypical angina Cardiomyopathy Cellulitis of right lower leg CHF exacerbation Congestive heart failure COPD (chronic obstructive pulmonary disease) with acute bronchitis Essential hypertension HFrEF (heart failure with reduced ejection fraction) Neck pain Obesity (BMI 30.0-34.9) Prostate enlargement Shortness of Breath Social History Smoking Status: Current every day smoker tobacco type: cigarettes packs per day: 1 alcohol intake: never substance use type: denies use current occupational status: disabled Travel in the last 8 weeks: None household members: spouse housing: apartment caffeine: Yes Review of Systems Review of Systems Review of systems:: pertinent systems reviewed and negative unless documented below Constitutional Constitutional: Reports system reviewed and no additional complaints, except as documented, Reports fatigue and Reports lethargy Eyes Eyes: Reports system reviewed and no additional complaints, except as documented ENT Ears, Nose, Mouth, and Throat: Reports system reviewed and no additional complaints, except as documented *Cardiovascular Cardiovascular: Reports system reviewed and no additional complaints, except as documented, Denies chest pain, Reports dyspnea, Reports dyspnea on exertion, Reports leg edema and Reports orthopnea *Respiratory Respiratory: Reports system reviewed and no additional complaints, except as documented, Reports cough, Reports dyspnea, Reports dyspnea on exertion and Denies hemoptysis *Gastrointestinal Gastrointestinal: Reports system reviewed and no additional complaints, except as documented *Genitourinary Genitourinary: Reports system reviewed and no additional complaints, except as documented *Musculoskeletal Musculoskeletal: Reports system reviewed and no additional complaints, except as documented Comments: Neck pain Integumentary/Breasts Skin/Breast: Reports system reviewed and no additional complaints, except as documented *Neurologic Neurologic: Reports system reviewed and no additional complaints, except as documented Psychiatric Psychiatric: Reports system reviewed and no additional complaints, except as documented Endocrine Endocrine: Reports system reviewed and no additional complaints, exce
[2023-06-12 16:14] LABS: Troponin I < 0.01 ng/ml (0.00-0.034)
--- NOTE | 2023-06-12 19:01 | PC.NURSE ---
A&OX4. PT TOLERATED RA WELL FOR A WHILE, SAT OF 95-96%. BUT ONCE PT REALIZED O2 WASN'T ON, HE REQUESTED IT BE TURNED BACK ON FOR COMFORT. 2LNC AT THIS TIME. PT HAS REMAINED SITTING UP IN BED LEANING OVER BEDSIDE TABLE, PURSED LIP BREATHING. HAS C/O INTERMITTENT NECK PAIN, TX PER OCT. PT HAS HAD LARGE AMOUNTS OF OUTPUT SINCE MED ADMINISTRATION PER CARDIOLOGY. DID REFUSE HIS CT TODAY. NO OTHER NEEDS AT THIS TIME, VSS.
[2023-06-13] VITALS (21 sets, daily range): BP systolic 95–143; BP diastolic 37–72; PULSE 54–100; RESP 16–20; TEMP 36.6–36.8; O2SAT 86–97; BMI 38.3
[2023-06-13 06:46] LABS: Chloride 97 mmol/L (98-107); Sodium 129 mmol/L (136-145)
[2023-06-13 06:47] LABS: Potassium 4.4 mmoL/L (3.5-5.1)
[2023-06-13 06:50] LABS: Anion Gap 8.4 mEq/L (5-15); Basophils % 0.2 % (0.1-2.0); Blood Urea Nitrogen 27 mg/dl (9-20); Calcium 7.9 mg/dl (8.4-10.2); Carbon Dioxide 28 mmol/L (22.0-30.0); Creatinine Clearance Estimated 110 mL/min (50-200); Eosinophils % 0.2 % (0.1-12.0); Estimated Glomerular Filt Rate 74 ml/min (>60); GFR (African American) 89 ML/MIN (>60); Glucose 89 mg/dl (74-100); Hematocrit 45.5 % (42.0-52.0); Hemoglobin 16.1 g/dL (14.1-18.0); Lymphocytes % 13.5 % (10-50); Mean Corpuscular HGB Conc 35.2 g/dL (31.8-35.4); Mean Corpuscular Hemoglobin 31.5 pg (27.0-31.2); Mean Corpuscular Volume 89.3 fl (80-94); Mean Platelet Volume 8.1 fl (7.4-10.4); Neutrophils # 11.6 K/mm3 (1.8-7.8); Neutrophils % 79.2 % (37.0-80.0); Platelet Count 231 K/mm3 (142-424); Red Cell Distribution Width 13.1 % (11.5-17.5); White Blood Count 14.7 K/mm3 (4.8-10.8)
--- NOTE | 2023-06-13 07:08 | IR_ITS ---
APPROVED REPORT Patient Location: Inpatient PROCEDURES Left heart catheterization Left ventriculogram Selective coronary angiogram INDICATION New onset cardiomyopathy ejection fraction 30 to 35% Informed consent was obtained prior to the procedure. COMPLICATIONS None Estimated Blood Loss: Less than 10 mls TECHNIQUE One percent lidocaine was used to anesthetize the right groin. The right femoral artery was accessed via the Seldinger technique. A 4-Bhutanese sheath was placed in the right femoral artery. The JL-4 and JR-4 catheter was also used to perform left heart catheterization left ventriculogram and selective coronary angiogram. At the end of the procedure the patient was transferred to the post-op holding area in stable condition for arterial sheath removal. ANGIOGRAPHIC RESULTS The left main artery Normal The left anterior descending artery Has a smooth proximal eccentric 30% stenosis with remaining vessel normal The circumflex artery Nondominant normal The right coronary artery Large dominant normal The ARANGO ventriculogram reveals Dilated with global hypokinesis estimate ejection fraction 30% The left ventricular end-diastolic pressure 20 mmHg IMPRESSION Nonflow limiting coronary artery disease Nonischemic cardiomyopathy Left ventricular dilatation with elevated LVEDP PLAN 1. Medical management for coronary disease 2. Medical management for systolic heart failure 3. Recommend CMR for new onset cardiomyopathy Electronically signed by : Deyvi Linder MD 06/13/2023 12:22:40
[2023-06-13 07:13] LABS: Cholesterol 154 mg/dl (140-200); Triglycerides 204 mg/dl (30-150); VLDL Cholesterol 41 mg/dL (0-40)
[2023-06-13 07:14] LABS: Chol/HDL Ratio 4.3 (1-3.5); HDL Cholesterol 36 mg/dl (40-60)
[2023-06-13 07:25] LABS: Direct LDL Cholesterol 88.89 mg/dL (100-129)
--- NOTE | 2023-06-13 07:48 | EXP.ACUTE.PN ---
Subjective *Date: 06/13/23 *Time: 07:48 Interval history: Patient states that he feels better than yesterday. He had a good night sleep. Has been off oxygen overnight. Pulmonary consult and cardiology consult note reviewed and appreciated. Medical Exam Vital signs and Labs for Last 24 Hours: Vital Signs Temp Pulse Pulse Resp BP Pulse Ox O2 Del Method 06/13/23 07:20 98.0 F 94 H 18 143/56 H 95 Room Air 06/13/23 06:10 87 06/13/23 06:10 83 06/13/23 06:10 92 L Room Air 06/13/23 04:00 90 06/13/23 04:00 97.9 F 79 18 101/68 L 93 L Room Air 06/13/23 00:00 100 H 06/13/23 06:17 Room Air 06/13/23 04:37 Room Air 06/13/23 03:00 Room Air 06/13/23 01:00 Room Air 06/13/23 00:00 Room Air 06/13/23 00:00 97.8 F 91 H 18 111/37 L 93 L Room Air 06/12/23 22:56 Room Air 06/12/23 20:00 90 06/12/23 20:59 Room Air 06/12/23 20:00 92 L Room Air 06/12/23 20:00 97.6 F 87 19 108/52 L 92 L Room Air 06/12/23 19:52 80 06/12/23 19:52 87 06/12/23 19:52 94 L Room Air 06/12/23 18:33 Nasal Cannula 06/12/23 16:34 Nasal Cannula 06/12/23 16:00 97 Nasal Cannula 06/12/23 16:00 97.8 F 87 18 106/49 L 97 Nasal Cannula 06/12/23 14:49 Nasal Cannula 06/12/23 13:40 91 H 06/12/23 13:40 87 06/12/23 13:40 98 Nasal Cannula 06/12/23 13:00 Nasal Cannula 06/12/23 12:00 95 Room Air 06/12/23 10:48 Nasal Cannula 06/12/23 08:49 Nasal Cannula 06/12/23 08:00 Nasal Cannula 06/12/23 08:00 98.4 F 90 22 129/70 97 Nasal Cannula O2 Flow Rate 06/13/23 07:20 06/13/23 06:10 06/13/23 06:10 06/13/23 06:10 06/13/23 04:00 06/13/23 04:00 06/13/23 00:00 06/13/23 06:17 06/13/23 04:37 06/13/23 03:00 06/13/23 01:00 06/13/23 00:00 06/13/23 00:00 06/12/23 22:56 06/12/23 20:00 06/12/23 20:59 06/12/23 20:00 06/12/23 20:00 06/12/23 19:52 06/12/23 19:52 06/12/23 19:52 06/12/23 18:33 2 06/12/23 16:34 2 06/12/23 16:00 2 06/12/23 16:00 06/12/23 14:49 2 06/12/23 13:40 06/12/23 13:40 06/12/23 13:40 2 06/12/23 13:00 2 06/12/23 12:00 06/12/23 10:48 2 06/12/23 08:49 2 06/12/23 08:00 2 06/12/23 08:00 Intake and Output 06/12/23 06/13/23 06/13/23 19:59 03:59 11:59 Intake Total 590 / 1382 792 / 1382 Output Total 2325 / 5150 1650 / 5150 1175 / 5150 Balance -1735 / -3768 -858 / -3768 -1175 / -3768 Intake: Intake, Oral Amount 590 / 590 Intake, Total IV Amount 792 / 792 Doxycycline Hyclate 100 mg In 0 261 / 261 .9 % Sodium Chloride 250 ml @ 166.667 mls/hr IV Q12H DOUG Rx#: [id number] Lactated Ringers 1000ML 1,000 531 / 531 ml @ 50 mls/hr IV .Q20H DOUG Rx# :[id number] Output: Output, Urine Amount 2325 / 5150 1650 / 5150 1175 / 5150 Other: Number of Unmeasured Voids 1 0 1 Weight 194 lb 0.108 oz 253 lb 3.2 oz Patient Weight 06/13/23 11:59 Weight 253 lb 3.2 oz Laboratory Results - last 24 hr 06/12/23 11:28: NT-Pro-B Natriuret Pep 4750 H 06/12/23 15:20: Troponin I < 0.01 06/13/23 06:10: WBC 14.7 H, RBC 5.10, Hgb 16.1, Hct 45.5, MCV 89.3, MCH 31.5 H, MCHC 35.2, RDW 13.1, Plt Count 231, MPV 8.1, Neut % (Auto) 79.2, Lymph % (Auto) 13.5, [place] % (Auto) 7.0, Eos % (Auto) 0.2, Baso % (Auto) 0.2, Neut # (Auto) 11.6 H, Lymph # (Auto) 2.0, [place] # (Auto) 1.0, Eos # (Auto) 0.0, Baso # (Auto) 0.0, Sodium 129 L, Potassium 4.4, Chloride 97 L, Carbon Dioxide 28, Anion Gap 8.4, BUN 27 H, Creatinine 1.00 D, Estimated Creat Clear 110, Estimated GFR 74, Est GFR ( Amer) 89 D, Glucose 89, Calcium 7.9 L, Triglycerides 204 H, Cholesterol 154, LDL Cholesterol Direct 88.89 L, VLDL Cholesterol 41 H, HDL Cholesterol 36 L, Cholesterol/HDL Ratio 4.3 H I & O for Labs for Last 24 Hours: Intake & Output 06/10/23 06/11/23 1
--- NOTE | 2023-06-13 09:12 | EXP.PULM.PN ---
Subjective *Date: 06/13/23 *Time: 09:57 Interval history: No acute respiratory events overnight. Continued to remain on room air. Patient with improving respiratory symptoms. Pulmonology Exam Inpatient Vital signs and Labs for Last 24 Hours: Temp Pulse Resp BP Pulse Ox O2 Del Method O2 Flow Rate 98.0 F 95 H 18 143/56 H 95 Room Air 2 06/13/23 07:20 06/13/23 08:00 06/13/23 07:20 06/13/23 07:20 06/13/23 07:20 06/13/23 07:20 06/12/23 18:33 Laboratory Results - last 24 hr 06/12/23 11:28: NT-Pro-B Natriuret Pep 4750 H 06/12/23 15:20: Troponin I < 0.01 06/13/23 06:10: WBC 14.7 H, RBC 5.10, Hgb 16.1, Hct 45.5, MCV 89.3, MCH 31.5 H, MCHC 35.2, RDW 13.1, Plt Count 231, MPV 8.1, Neut % (Auto) 79.2, Lymph % (Auto) 13.5, [place] % (Auto) 7.0, Eos % (Auto) 0.2, Baso % (Auto) 0.2, Neut # (Auto) 11.6 H, Lymph # (Auto) 2.0, [place] # (Auto) 1.0, Eos # (Auto) 0.0, Baso # (Auto) 0.0, Sodium 129 L, Potassium 4.4, Chloride 97 L, Carbon Dioxide 28, Anion Gap 8.4, BUN 27 H, Creatinine 1.00 D, Estimated Creat Clear 110, Estimated GFR 74, Est GFR ( Amer) 89 D, Glucose 89, Calcium 7.9 L, Triglycerides 204 H, Cholesterol 154, LDL Cholesterol Direct 88.89 L, VLDL Cholesterol 41 H, HDL Cholesterol 36 L, Cholesterol/HDL Ratio 4.3 H I & O for Labs for Last 24 Hours: Intake & Output 06/10/23 06/11/23 06/12/23 06/13/23 23:59 23:59 23:59 23:59 Intake Total 590 / 1382 792 / 792 Output Total 3125 / 3925 2175 / 2175 Balance -2535 / -2543 -1383 / -1383 Weight 234 lb 15.992 oz 194 lb 0.108 oz 253 lb 3.2 oz Constitutional: Present mild distress Head: Present normocephalic and atraumatic ENT: Present normal exam, normal oropharynx and mucous membranes moist Neck: Present normal inspection and full ROM Respiratory: Present prolonged expiratory phase, respiratory distress, crackles, diminished air movement and able to speak in complete sentences; Absent wheezes Cardiac: Present S1/S2, Tachycardia and radial pulses present GI: Present soft and distention; Absent tenderness or guarding Skin: Present intact; Absent cyanosis or jaundice Neuro: Present alert, awake and oriented x 3 Extremities: Present normal inspection and edema; Absent clubbing or cyanosis Psychiatric: Present normal affect and cooperative Assessment and Plan *Assessment and plan (1) Respiratory failure: Status: Acute Qualifiers: Chronicity: acute on chronic Respiratory failure complication: hypoxia Qualified Code(s): J96.21 - Acute and chronic respiratory failure with hypoxia Category: Medical Code(s): J96.90 - Respiratory failure, unspecified, unspecified whether with hypoxia or hypercapnia (2) Pneumonia: Status: Acute Qualifiers: Pneumonia type: due to unspecified organism Laterality: left Lung location: lower lobe of lung Qualified Code(s): J18.9 - Pneumonia, unspecified organism Category: Medical Code(s): J18.9 - Pneumonia, unspecified organism (3) Acute and chronic respiratory failure with hypoxia: Status: Acute Category: Medical Code(s): J96.21 - Acute and chronic respiratory failure with hypoxia Plan Reported history of COPD on long-term 2 L nasal supplementation, CHF. Presented with worsening respiratory distress. Admitted to the hospital 05/19/2023, managed for pneumonia and discharged home on levofloxacin, CTA on that admission April 2023 no pulmonary embolism, left lower lobe airspace disease along with left hilar lymphadenopathy with possible extrinsic compression/endobronchial lesion with narrowing of the left lower lobe bronchial lumen. Right upper lobe airspace disease noted. Patient presented to the ER again on 06/01/2023 secondary to noncompliance with his medications and worsening respiratory distress. He presented to the hospital again today complaining of worsening respiratory distress and has not been feeling well for the last 3 weeks as per the notes. Patient al
--- NOTE | 2023-06-13 09:19 | PC.NURSE ---
per leslie calvert, stop ivmf
--- NOTE | 2023-06-13 09:55 | CT_ITS ---
FINAL REPORT TECHNIQUE: Axial images were obtained from the lung apex to the mid abdomen by computed tomography. Coronal reformatted images were obtained. This study was performed with techniques to keep radiation doses as low as reasonably achievable, (ALARA). Individualized dose reduction techniques using automated exposure control or adjustment of mA and/or kV according to the patient''s size were employed. CLINICAL HISTORY: LLL endobronchial lesion/ lt hilar adenopathy COMPARISON: 05/18/2023 FINDINGS: There is no axillary adenopathy. Lower right paratracheal adenopathy measuring 24 mm is stable. Heart size is normal. There is no pericardial or pleural effusion. There is a stable right upper lobe tree-in-bud opacity consistent with infectious process. There has been interval improvement in the left lower lobe opacities consistent with improving pneumonia. There are multiple chronic left rib fractures. There is a partially improved nodular opacity posterior to the heart. Persistent nodule measures 13 mm and is best seen on image 49. Limited images of the upper abdomen are unremarkable. Bilateral adrenal adenopathy is stable. IMPRESSION: Improved left lower lobe pneumonia. Stable right paratracheal adenopathy. Stable right upper lobe tree-in-bud opacity, likely infectious etiology. No new abnormality identified. Reviewed, Interpreted and Dictated by Hank Salomon III, MD Transcribed by Angela Valdez Authenticated and [facility]
--- NOTE | 2023-06-13 10:08 | PC.NURSE ---
Courtesy Round Patient awake and sitting up . Trash emptied and linens emptied. Patient has no requests at this time. Call light left within reach.
--- NOTE | 2023-06-13 10:35 | EXP.CARD.PN ---
Subjective Subjective Date: 06/13/23 Time: 09:00 Principal diagnosis: HFrEF Interval history: This is a 72-year-old white gentleman who presented to the emergency department with shortness of breath. The patient has worsening cardiomyopathy and HFrEF. His ejection fraction is down to 15 to 20%. This morning he is still complaining of shortness of breath. He states that he essentially feels short of breath all the time. He is unable to lie flat and states that he stay sitting up on the side of the bed because he cannot breathe. He denies any chest pain or pressure. He does have an associated cough with the shortness of breath as well. He has significant bilateral lower extremity edema but this is somewhat improved from yesterday. He denies any fever, chills, nausea, vomiting or diarrhea. Exam Data for Last 24 hours Vital signs and Labs for Last 24 Hours: Temp Pulse Resp BP Pulse Ox O2 Del Method O2 Flow Rate 98.0 F 95 H 18 143/56 H 95 Room Air 2 06/13/23 07:20 06/13/23 08:00 06/13/23 07:20 06/13/23 07:20 06/13/23 07:20 06/13/23 09:00 06/12/23 18:33 Laboratory Results - last 24 hr 06/12/23 11:28: NT-Pro-B Natriuret Pep 4750 H 06/12/23 15:20: Troponin I < 0.01 06/13/23 06:10: WBC 14.7 H, RBC 5.10, Hgb 16.1, Hct 45.5, MCV 89.3, MCH 31.5 H, MCHC 35.2, RDW 13.1, Plt Count 231, MPV 8.1, Neut % (Auto) 79.2, Lymph % (Auto) 13.5, [place] % (Auto) 7.0, Eos % (Auto) 0.2, Baso % (Auto) 0.2, Neut # (Auto) 11.6 H, Lymph # (Auto) 2.0, [place] # (Auto) 1.0, Eos # (Auto) 0.0, Baso # (Auto) 0.0, Sodium 129 L, Potassium 4.4, Chloride 97 L, Carbon Dioxide 28, Anion Gap 8.4, BUN 27 H, Creatinine 1.00 D, Estimated Creat Clear 110, Estimated GFR 74, Est GFR ( Amer) 89 D, Glucose 89, Calcium 7.9 L, Triglycerides 204 H, Cholesterol 154, LDL Cholesterol Direct 88.89 L, VLDL Cholesterol 41 H, HDL Cholesterol 36 L, Cholesterol/HDL Ratio 4.3 H I & O for Last 24 hours: Intake & Output 06/10/23 06/11/23 06/12/23 06/13/23 23:59 23:59 23:59 23:59 Intake Total 590 / 1382 792 / 792 Output Total 3125 / 3925 2425 / 2425 Balance -2535 / -2543 -1633 / -1633 Weight 234 lb 15.992 oz 194 lb 0.108 oz 253 lb 3.2 oz Narrative: EKG is sinus rhythm with a rate of 95 bpm. Echocardiogram shows: Technically difficult study due to poor accoustic windows. Severely dilated LV with severe reduction in LV systolic function (LVEF 15-20%). Akinesis of the inferior and inferoseptal LV retana. Grade 3 diastolic dysfunciton. No significant valvular stenosis or regurgitation. Constitutional Constitutional: no acute distress and average body habitus *Routine HEENT Exam Head: Present normocephalic and atraumatic ENT: Present mucous membranes moist *Routine Neck Exam Neck: Present supple, full ROM and normal carotid upstroke; Absent JVD, carotid bruit or lymphadenopathy *Routine Respiratory Exam Respiratory: Present CTA bilaterally, normal respiratory effort, able to speak in complete sentences and symmetric chest movement *Routine Cardiovascular Exam Cardiovascular: Present RRR, Normal S1, Normal S2 and murmur (3 out of 6 systolic ejection murmur); Absent gallop *Routine Abdominal Exam Abdominal: Present soft and normoactive bowel sounds; Absent tenderness, distended or organomegaly *Routine Extremities Exam Extremities: Present edema (2-3+ BLE edema), full ROM, pulses intact and normal capillary refill; Absent cyanosis or clubbing *Routine Skin Exam Skin: Present intact and warm; Absent erythema *Routine Neurological Exam Neurological: Present alert, oriented X3 and CN II-XII intact; Absent sensory deficit or motor deficit Routine Psychiatric Exam Psychiatric: Present normal affect Progress Note: A&P Assessment and plan (1) Atypical angina: Status: Acute (2) Shortness of Breath: Status: Acute (3) HFrEF (heart failure with reduced ejection fraction): Status: Acute (4) Cardiomyopathy: Status: Acute (5) Respiratory failure
--- NOTE | 2023-06-13 10:35 | PC.NURSE ---
PER RAD: WHEN PT WAS DOWN FOR CT, PT BEGAN DRY HEAVING AND WANTED A DRINK. PT IS NPO FOR A HEART CATH TODAY. AIR POLLUTION SPECIALIST STATED PT THEN WENT AND STARTED DRINKING FROM THE SINK, PT STATED I SPIT IT OUT .
--- NOTE | 2023-06-13 11:33 | PC.NURSE ---
PT TO VALVE ASSEMBLER
--- NOTE | 2023-06-13 15:44 | PC.NURSE ---
EDUCATED PT TO NOT USE RT ARM DUE TO CATH SITE AND RADIAL BAND IN PLACE. REMOVED 6ML OF AIR, PT CONT TO USE HAND, BEND WRIST, CATH SITE BEGAN TO BLEED, AIR PUT BACK IN RADIAL BAND. REEDUCATED PT, PT REF V/S AT THIS TIME. RT GROIN CATH SITE HAS A DSG CDI, NO ISSUES NOTED.
--- NOTE | 2023-06-13 17:35 | PC.NURSE ---
RADIAL BAND OFF AROUND 1700. PT REQUESTING FLONASE, NOTIFIED . PTS C/O OF IV SITE HURTING, PER NOÉ OKAY TO DC IV, HOLD IV STERIODS, VO TO CHANGE IV ABX TO PO. PT HAS DONE WELL ON RA T/O THE SHIFT, ONLY USING 1L NC FOR COMFORT. PT REF POST OP V/S. ATIVAN ADMIN. PT CURRENTLY SITTING UP IN CHAIR. CB WITHIN REACH. PT DOING WELL AT THIS TIME. NO NEEDS OR CONCERNS.
--- NOTE | 2023-06-13 18:55 | PC.NURSE ---
PT REF TO WEAR HEART MONITOR
--- NOTE | 2023-06-13 19:26 | PC.NURSE ---
gabriella Gonzales @ [facility] r/t IV protonix - route was changed to PO r/t pt refusing IV
[2023-06-14 04:00] VITALS: BP 109/51; PULSE 95; RESP 17; TEMP 36.7; O2SAT 90; BMI 36.5
--- NOTE | 2023-06-14 05:43 | PC.NURSE ---
REFUSES IV AND TELEMETRY MONITORING, MD AWARE. pt has not c/o pain as much as he did the night prior, pain managed with ibuprofen. 2+ edema in BLE. had heart cath yesterday, right radial and right femoral site are dressed with gauze and tegaderm and free of drainage. denies soa and cp. room air. held coreg 06/13 @2100 r/t hypotension (SBP 90's). voiding per urinal t/o night with increased output. pt was able to lay down flat and sleep t/o most of the night. bed locked and in lowest position, cb in reach. POC ongoing.
[2023-06-14 06:13] VITALS: PULSE 88; PULSE 91; O2SAT 88
[2023-06-14 06:34] LABS: Basophils % 0.1 % (0.1-2.0); Eosinophils % 0.2 % (0.1-12.0); Hematocrit 44.1 % (42.0-52.0); Hemoglobin 15.5 g/dL (14.1-18.0); Lymphocytes # 1.9 K/mm3 (0.7-4.5); Lymphocytes % 15.8 % (10-50); Mean Corpuscular HGB Conc 35.1 g/dL (31.8-35.4); Mean Corpuscular Hemoglobin 31.8 pg (27.0-31.2); Mean Corpuscular Volume 90.6 fl (80-94); Mean Platelet Volume 8.1 fl (7.4-10.4); Monocytes # 0.9 K/mm3 (0.1-1.0); Monocytes % 7.6 % (1.7-9.3); Neutrophils % 76.3 % (37.0-80.0); Platelet Count 203 K/mm3 (142-424); Red Blood Count 4.86 M/mm3 (4.60-6.20); Red Cell Distribution Width 13.3 % (11.5-17.5); White Blood Count 11.8 K/mm3 (4.8-10.8)
[2023-06-14 06:36] LABS: Chloride 97 mmol/L (98-107); Potassium 4.1 mmoL/L (3.5-5.1); Sodium 128 mmol/L (136-145)
[2023-06-14 06:39] LABS: Anion Gap 7.1 mEq/L (5-15); Blood Urea Nitrogen 31 mg/dl (9-20); Calcium 7.8 mg/dl (8.4-10.2); Carbon Dioxide 28 mmol/L (22.0-30.0); Creatinine Clearance Estimated 105 mL/min (50-200); Estimated Glomerular Filt Rate 83 ml/min (>60); GFR (African American) 101 ML/MIN (>60); Glucose 89 mg/dl (74-100)
[2023-06-14 07:32] VITALS: BP 81/54; PULSE 73; RESP 18; TEMP 36.7; O2SAT 95
--- NOTE | 2023-06-14 08:01 | EXP.DC.SUM ---
General Admission date:: 06/12/23 Discharge date: 06/14/23 HPI HPI HPI: 72-year-old male with oxygen requiring COPD who struggles with medication and therapy compliance and also has been extremely heavy smoker of 3 to 4 packs a day over the past decades. He is currently trying to quit but has been struggling with several exacerbations over the past couple of months. Has been hospitalized twice before today, and each time has been sent home with steroids and antibiotics. He tells me this morning that he never feels better and he has not felt well for the past 3 weeks. He notes that he has shortness of air, feels like his heart racing and he has to breathe fast. He denies necessarily coughing up sputum but his history is a bit difficult in the context of his frequent tangential conversations. He also has a concern about neck pain. He states he has had neck pain since he was first admitted to the hospital and this occasionally goes down his left arm. No trauma, no falls. No anginal type pain. Also reports nausea when he eats. He came to the ER last night with these complaints, his oxygenation was found to be acceptable, had infiltrate on chest x-ray which is comparable to his previous, significant tachycardia and tachypnea and was admitted to the hospital for pulmonary toilet and further diagnostic testing and was given IV doxycycline. Hospital Course Hospital Course Hospital Course: Patient was admitted, given IV antibiotics and 1 dose of steroids from his diagnosis of COPD exacerbation from the ER. He improved slightly. Pulmonary consult reviewed. Cardiology consult obtained because of his history of chest pain and history of HFrEF. Please see cardiology notes and details of echocardiogram and catheterization which basically showed significant hypokinesis and EF of 30% on catheterization data and 15 to 20% on echo. Cardiology recommended ramping up HFrEF therapy and a LifeVest. Patient was agreeable with new medications but was not agreeable to the LifeVest. Apparently his brother had 1 and caused lots of trouble. Patient refused treatment with a LifeVest. He did agree to come back to see me early next week and discuss further therapy options such as defibrillator. Currently he does not appear to be agreeable to a defibrillator. He was comfortable this morning and doing better with very minimal oxygen requirements and eating well. He also had improved in the hospital in regards to shortness of air and his anxiety with low-dose Ativan. His is currently in the hospital [place], and he has significant underlying anxiety problems. Plan will be to discharge home with new prescriptions for Jardiance and spironolactone. Other heart failure medications will continue. We will also prescribe low-dose Ativan and I will see him in my office on Sunday for hospital follow-up. Exam Data for Last 24 hours Vital signs and Labs for Last 24 Hours: Temp Pulse Resp BP Pulse Ox O2 Del Method O2 Flow Rate 98.0 F 73 18 81/54 L 95 Room Air 1 06/14/23 07:32 06/14/23 07:32 06/14/23 07:32 06/14/23 07:32 06/14/23 07:32 06/14/23 07:32 06/13/23 13:15 Laboratory Results - last 24 hr 06/14/23 06:00: WBC 11.8 H, RBC 4.86, Hgb 15.5, Hct 44.1, MCV 90.6, MCH 31.8 H, MCHC 35.1, RDW 13.3, Plt Count 203, MPV 8.1, Neut % (Auto) 76.3, Lymph % (Auto) 15.8, [place] % (Auto) 7.6, Eos % (Auto) 0.2, Baso % (Auto) 0.1, Neut # (Auto) 9.0 H, Lymph # (Auto) 1.9, [place] # (Auto) 0.9, Eos # (Auto) 0.0, Baso # (Auto) 0.0, Sodium 128 L, Potassium 4.1, Chloride 97 L, Carbon Dioxide 28, Anion Gap 7.1, BUN 31 H, Creatinine 0.90, Estimated Creat Clear 105, Estimated GFR 83, Est GFR ( Amer) 101, Glucose 89, Calcium 7.8 L I & O for Last 24 hours: Intake & Output 06/11/23 06/12/23 06/13/23 06/14/23 11:59 11:59 11:59 11:59 Intake Total 1382 / 1382 830 / 830 Output Total 150 / 400 5400 / 5400 2500 / 2500 Balance -150 / -400 -4018 / -4018
--- NOTE | 2023-06-14 09:30 | EXP.PULM.PN ---
Subjective *Date: 06/14/23 *Time: 11:00 Interval history: No acute respiratory vents overnight. Pulmonology Exam Inpatient Vital signs and Labs for Last 24 Hours: Temp Pulse Resp BP Pulse Ox O2 Del Method O2 Flow Rate 98.0 F 73 18 81/54 L 95 Room Air 1 06/14/23 07:32 06/14/23 07:32 06/14/23 07:32 06/14/23 07:32 06/14/23 07:32 06/14/23 07:32 06/13/23 13:15 Laboratory Results - last 24 hr 06/14/23 06:00: WBC 11.8 H, RBC 4.86, Hgb 15.5, Hct 44.1, MCV 90.6, MCH 31.8 H, MCHC 35.1, RDW 13.3, Plt Count 203, MPV 8.1, Neut % (Auto) 76.3, Lymph % (Auto) 15.8, [place] % (Auto) 7.6, Eos % (Auto) 0.2, Baso % (Auto) 0.1, Neut # (Auto) 9.0 H, Lymph # (Auto) 1.9, [place] # (Auto) 0.9, Eos # (Auto) 0.0, Baso # (Auto) 0.0, Sodium 128 L, Potassium 4.1, Chloride 97 L, Carbon Dioxide 28, Anion Gap 7.1, BUN 31 H, Creatinine 0.90, Estimated Creat Clear 105, Estimated GFR 83, Est GFR ( Amer) 101, Glucose 89, Calcium 7.8 L I & O for Labs for Last 24 Hours: Intake & Output 06/11/23 06/12/23 06/13/23 06/14/23 23:59 23:59 23:59 23:59 Intake Total 590 / 1382 1382 / 1382 240 / 240 Output Total 3125 / 3925 4225 / 4225 700 / 700 Balance -2535 / -2543 -2843 / -2843 -460 / -460 Weight 234 lb 15.992 oz 194 lb 0.108 oz 253 lb 3.2 oz 240 lb 14.4 oz Constitutional: Present mild distress Head: Present normocephalic and atraumatic ENT: Present normal exam, normal oropharynx and mucous membranes moist Neck: Present normal inspection and full ROM Respiratory: Present prolonged expiratory phase, respiratory distress, crackles, diminished air movement and able to speak in complete sentences; Absent wheezes Cardiac: Present S1/S2, Tachycardia and radial pulses present GI: Present soft and distention; Absent tenderness or guarding Skin: Present intact; Absent cyanosis or jaundice Neuro: Present alert, awake and oriented x 3 Extremities: Present normal inspection and edema; Absent clubbing or cyanosis Psychiatric: Present normal affect and cooperative Assessment and Plan *Assessment and plan (1) Respiratory failure: Status: Acute Qualifiers: Chronicity: acute on chronic Respiratory failure complication: hypoxia Qualified Code(s): J96.21 - Acute and chronic respiratory failure with hypoxia Category: Medical Code(s): J96.90 - Respiratory failure, unspecified, unspecified whether with hypoxia or hypercapnia (2) Pneumonia: Status: Acute Qualifiers: Laterality: left Lung location: lower lobe of lung Pneumonia type: due to unspecified organism Qualified Code(s): J18.9 - Pneumonia, unspecified organism Category: Medical Code(s): J18.9 - Pneumonia, unspecified organism (3) Acute and chronic respiratory failure with hypoxia: Status: Acute Category: Medical Code(s): J96.21 - Acute and chronic respiratory failure with hypoxia Plan Reported history of COPD on long-term 2 L nasal supplementation, CHF. Presented with worsening respiratory distress. Admitted to the hospital 05/19/2023, managed for pneumonia and discharged home on levofloxacin, CTA on that admission April 2023 no pulmonary embolism, left lower lobe airspace disease along with left hilar lymphadenopathy with possible extrinsic compression/endobronchial lesion with narrowing of the left lower lobe bronchial lumen. Right upper lobe airspace disease noted. Patient presented to the ER again on 06/01/2023 secondary to noncompliance with his medications and worsening respiratory distress. He presented to the hospital again today complaining of worsening respiratory distress and has not been feeling well for the last 3 weeks as per the notes. Patient also received Augmentin as an outpatient basis. Prior nasal MRSA PCR negative. Sputum culture normal respiratory vega on both his previous admissions. Prior echocardiogram EF 30% global hypokinesis. His chest x-ray continues to show left lower lobe airspace disea
--- NOTE | 2023-06-14 09:36 | EXP.CARD.PN ---
Subjective Subjective Date: 06/14/23 Time: 08:30 Principal diagnosis: HFrEF Interval history: This is a 72-year-old white gentleman who presented to the emergency department with shortness of breath. The patient was found to have worsening of his cardiomyopathy and HFrEF. His ejection fraction is down to around 15 to 20%. He did undergo a left cardiac catheterization yesterday and was found to have mild nonocclusive coronary artery disease. This morning he states that he is still short of breath and has orthopnea. His bilateral lower extremities are still edematous. But these things have improved. He denies any chest pain or pressure. He denies any fever, chills, nausea, vomiting or diarrhea. Exam Data for Last 24 hours Vital signs and Labs for Last 24 Hours: Temp Pulse Resp BP Pulse Ox O2 Del Method O2 Flow Rate 98.0 F 73 18 81/54 L 95 Room Air 1 06/14/23 07:32 06/14/23 07:32 06/14/23 07:32 06/14/23 07:32 06/14/23 07:32 06/14/23 07:32 06/13/23 13:15 Laboratory Results - last 24 hr 06/14/23 06:00: WBC 11.8 H, RBC 4.86, Hgb 15.5, Hct 44.1, MCV 90.6, MCH 31.8 H, MCHC 35.1, RDW 13.3, Plt Count 203, MPV 8.1, Neut % (Auto) 76.3, Lymph % (Auto) 15.8, [place] % (Auto) 7.6, Eos % (Auto) 0.2, Baso % (Auto) 0.1, Neut # (Auto) 9.0 H, Lymph # (Auto) 1.9, [place] # (Auto) 0.9, Eos # (Auto) 0.0, Baso # (Auto) 0.0, Sodium 128 L, Potassium 4.1, Chloride 97 L, Carbon Dioxide 28, Anion Gap 7.1, BUN 31 H, Creatinine 0.90, Estimated Creat Clear 105, Estimated GFR 83, Est GFR ( Amer) 101, Glucose 89, Calcium 7.8 L I & O for Last 24 hours: Intake & Output 06/11/23 06/12/23 06/13/23 06/14/23 23:59 23:59 23:59 23:59 Intake Total 590 / 1382 1382 / 1382 240 / 240 Output Total 3125 / 3925 4225 / 4225 700 / 700 Balance -2535 / -2543 -2843 / -2843 -460 / -460 Weight 234 lb 15.992 oz 194 lb 0.108 oz 253 lb 3.2 oz 240 lb 14.4 oz Narrative: Left heart cath shows: The left main artery Normal The left anterior descending artery Has a smooth proximal eccentric 30% stenosis with remaining vessel normal The circumflex artery Nondominant normal The right coronary artery Large dominant normal The ARANGO ventriculogram reveals Dilated with global hypokinesis estimate ejection fraction 30% The left ventricular end-diastolic pressure 20 mmHg IMPRESSION Nonflow limiting coronary artery disease Nonischemic cardiomyopathy Left ventricular dilatation with elevated LVEDP PLAN 1. Medical management for coronary disease 2. Medical management for systolic heart failure 3. Recommend CMR for new onset cardiomyopathy Constitutional Constitutional: no acute distress and average body habitus *Routine HEENT Exam Head: Present normocephalic and atraumatic ENT: Present mucous membranes moist *Routine Neck Exam Neck: Present supple, full ROM and normal carotid upstroke; Absent JVD, carotid bruit or lymphadenopathy *Routine Respiratory Exam Respiratory: Present CTA bilaterally, normal respiratory effort, able to speak in complete sentences and symmetric chest movement *Routine Cardiovascular Exam Cardiovascular: Present RRR, Normal S1, Normal S2 and murmur (3 out of 6 systolic ejection murmur); Absent gallop *Routine Abdominal Exam Abdominal: Present soft and normoactive bowel sounds; Absent tenderness, distended or organomegaly *Routine Extremities Exam Extremities: Present edema (2+ BLE edema), full ROM, pulses intact and normal capillary refill; Absent cyanosis or clubbing *Routine Skin Exam Skin: Present intact and warm; Absent erythema *Routine Neurological Exam Neurological: Present alert, oriented X3 and CN II-XII intact; Absent sensory deficit or motor deficit Routine Psychiatric Exam Psychiatric: Present normal affect Progress Note: A&P Assessment and plan (1) HFrEF (heart failure with reduced ejection fraction): Status: Acute (2) Cardiomyopathy: Status: Acute (3) Shortness of Breath: Status: Acute (4) CAD in [place]
--- NOTE | 2023-06-14 11:08 | PC.NURSE ---
pt was walking around room and became very lightheaded and called out to let this nurse know. bp 88/43, portillo made aware, no interventions at this time. pt instructed to call out for help when ambulating. pt is waiting for ride home.
--- NOTE | 2023-06-15 11:12 | CARE MANAGER ---
Contacted patient related to hospital discharge. He states he does not feel well and needs help fixing meals. I told him we would look into it. I attempted to contact a brother, but no answer to phone number. Social work will follow up with patient. FERNANDO Lin
--- NOTE | 2023-06-15 11:17 | SW/DCPLANNER ---
I called and spoke w/ this patient regarding resources at home. Patient stated that he is not interested in placement and does not want home health services at this time. I have reached out to [facility] regarding meal services and will follow back up w/ this patient. Patient stated that he was not interested in talking w/ anyone at this time.
--- NOTE | 2023-06-18 12:48 | SW/DCPLANNER ---
Addendum entered by Maru Guillen 06/18/23 13:23: Rosalinda hernandez/ [facility] stated that home health services will start tomorrow 06/19/23 for this patient. Original Note: Patient expressed to Dr Moore at follow up appointment an interest in home health at this time. Patient information/order will be faxed to [facility] (patient preference). I will follow up w/ [facility] once information is reviewed. Patient d/c home on 06/14/23.
== END 2023-06-14 11:56 | disposition home or self-care (01) ==
LOC: ER 06-12 01:20 → 2ND 06-12 01:32
PROVIDERS: Internal Medicine; Internal Medicine Pulmonary Disease; Nurse Practitioner Family; Admitting Provider Internal Medicine Adolescent Medicine; Emergency Provider Emergency Medicine; PCP Internal Medicine Adolescent Medicine; Visit Provider Internal Medicine Adolescent Medicine
DX: J18.9 Pneumonia, unspecified organism (principal); I50.43 Acute on chronic combined systolic (congestive) and diastolic (congestive) heart failure; I11.0 Hypertensive heart disease with heart failure; F17.210 Nicotine dependence, cigarettes, uncomplicated; E66.9 Obesity, unspecified; F41.9 Anxiety disorder, unspecified; J96.21 Acute and chronic respiratory failure with hypoxia; R06.02 Shortness of breath; I42.9 Cardiomyopathy, unspecified; J44.1 Chronic obstructive pulmonary disease with (acute) exacerbation; R94.31 Abnormal electrocardiogram [ECG] [EKG]; M54.2 Cervicalgia; I25.118 Atherosclerotic heart disease of native coronary artery with other forms of angina pectoris; E78.5 Hyperlipidemia, unspecified; Z68.35 Body mass index [BMI] 35.0-35.9, adult; Z99.81 Dependence on supplemental oxygen; Z79.899 Other long term (current) drug therapy
CPT/HCPCS: 36415; 71046; 71250; 72052; 80048; 80053; 80061; 82803; 83880; 84484; 85007; 85025; 87070; 87205; 93005; 93306; 93308; 93458; 94640; 99152; 99153; 99285; C1725; C1760; C1769; G0378; J0131; J1644; J2405; Q9967

== ENCOUNTER 2023-08-09 21:02 | Emergency (ER) | payer MEDICARE, SELFPAY ==
[2023-08-09 21:03] VITALS: BP 134/58; PULSE 115; RESP 28; TEMP 36.7; O2SAT 97; BMI 35.9
[2023-08-09 21:08] VITALS: BP 134/58; PULSE 74; RESP 19; O2SAT 97
--- NOTE | 2023-08-09 21:09 | ECG_ITS ---
APPROVED REPORT Exam: Resting ECG HR:116 bpm ECG Measurements Heart Rate [address] 152 P 68 QRSd 120 QRS 18 QT 329 T 58 QTc 398 Conclusion SINUS TACHYCARDIA MODERATE INTRAVENTRICULAR CONDUCTION DELAY [105+ ms QRS DURATION, 80+ ms Q/S IN V1/V2, NO Q AND 60+ ms R IN I/aVL/V5/V6] NONSPECIFIC ST & T-WAVE ABNORMALITY ABNORMAL ECG INTERPRETATION BASED ON A DEFAULT AGE OF 40 YEARS UNCONFIRMED REPORT Electronically signed by : Tadeo Moore MD 08/10/2023 14:43:58
--- NOTE | 2023-08-09 21:23 | XR_ITS ---
PROCEDURE INFORMATION: Exam: XR Chest Exam date and time: 08/09/2023 9:50 PM Age: 72 years old Clinical indication: Shortness of breath; Additional info: Rll wheezes, SOA TECHNIQUE: Imaging protocol: Radiologic exam of the chest. Views: 2 views. COMPARISON: CT CHEST WO CON 06/13/2023 10:18 AM FINDINGS: Lungs: Lung volumes are low with crowding of the pulmonary vasculature. No acute infiltrate. Pleural spaces: Unremarkable. No pleural effusion. No pneumothorax. Heart/Mediastinum: Unremarkable. No cardiomegaly. Bones/joints: Mild multilevel anterior osteophyte formation throughout the thoracic spine. No acute fracture. IMPRESSION: Mild hypoaeration changes. No significant infiltrate.
[2023-08-09 21:30] VITALS: BP 137/63; PULSE 115; RESP 19; O2SAT 97
[2023-08-09 21:30] LABS: Basophils % 0.3 % (0.1-2.0); Eosinophils # 0.1 K/mm3 (0.0-0.4); Eosinophils % 1.1 % (0.1-12.0); Hematocrit 47.9 % (42.0-52.0); Hemoglobin 15.9 g/dL (14.1-18.0); Lymphocytes # 1.3 K/mm3 (0.7-4.5); Lymphocytes % 16.6 % (10-50); Mean Corpuscular HGB Conc 33.2 g/dL (31.8-35.4); Mean Corpuscular Volume 93.4 fl (80-94); Mean Platelet Volume 7.9 fl (7.4-10.4); Monocytes # 0.4 K/mm3 (0.1-1.0); Monocytes % 4.9 % (1.7-9.3); Neutrophils # 6.2 K/mm3 (1.8-7.8); Platelet Count 215 K/mm3 (142-424); Red Blood Count 5.13 M/mm3 (4.60-6.20); Red Cell Distribution Width 13.1 % (11.5-17.5)
--- NOTE | 2023-08-09 21:39 | HMH.EDCP ---
Discharge Plan Disposition Patient Disposition: Home, Self-Care Prescriptions Prescriptions: New amoxicillin-pot clavulanate 875-125 mg tablet 1 tab PO BID 10 Days Qty: 20 0RF No Action tamsulosin 0.4 mg capsule,extended release 24hr 0.4 mg PO BID carvedilol 3.125 mg tablet 3.125 mg PO BID finasteride 5 MG tablet 5 mg PO DAILY nicotine 21 mg/24 hr patch 24 hour 21 mg transdermal DAILY oxybutynin chloride 10 mg tablet extended release 24hr 10 mg PO DAILY albuterol sulfate 90 mcg/actuation HFA aerosol inhaler 2 puff INHALATION Q6HP PRN (Reason: Shortness Of Breath) Entresto 24-26 mg tablet 1 tab PO BID furosemide 20 mg tablet 20 mg PO DAILY Jardiance 10 mg tablet 10 mg PO DAILY Qty: 30 0RF spironolactone 25 mg tablet 25 mg PO BID Qty: 60 0RF lorazepam [Ativan] 0.5 mg tablet 0.5 mg PO BID PRN (Reason: anxiety) Qty: 20 0RF Referrals Follow up/Referrals: Tadeo Moore MD [Primary Care Provider] - See instructions Activity Restrictions/Add. Instructions Additional Instructions/Restrictions: Call your family doctor to establish care for this visit to the emergency department and schedule follow-up within 48 hours to ensure improvement. If you have any worsening of your condition or any other concerning signs or symptoms, return to the emergency department or your primary care doctor for further evaluation. Clinical Impressions Clinical Impression: Acute exacerbation of chronic obstructive pulmonary disease (COPD) Discharge ED Provider: Seb Louis HPI General Chief Complaint: Shortness of Breath/Dyspnea Stated Complaint: shortness of breath Time Seen by Provider: 08/09/23 21:06 Mode of Arrival: Wheelchair Source of Information: Patient Limitations: No Limitations Description of Symptoms (Recalled from ER Triage Doc. by RN): pt c/o SOA x days that has gotten worse today. History of Present Illness HPI narrative: 72-year-old male history of hypertension, hyperlipidemia, CAD, CHF, COPD currently on 2 L nasal cannula still smoking presenting with shortness of breath. This been going on for about 2 days. Got worse today. Denies worsening cough or productive cough. Has not had fevers or chills. States that he has difficulty breathing when he lays on his left side more so than his right. Not having any further difficulty lying flat for extended periods of time. Patient states that he has been intermittently breaking out in sweats, but does not know if he has been objectively febrile and sweats or not associated with exertion or flareups of shortness of breath. Tried breathing treatments, minimal relief. Related Data Home Medications Medication Instructions Recorded Confirmed tamsulosin 0.4 mg capsule 0.4 mg PO BID prostate 09/20/17 06/12/23 carvedilol 3.125 mg tablet 3.125 mg PO BID High Blood Pressure 10/19/20 06/12/23 finasteride 5 mg tablet 5 mg PO DAILY prostate 09/07/21 06/12/23 albuterol sulfate 90 mcg/actuation 2 puff inhalation Q6HP PRN 05/19/23 06/12/23 aerosol inhaler Shortness Of Breath oxybutynin chloride 10 mg 10 mg PO DAILY overactive bladder 05/19/23 06/12/23 tablet,extended release 24 hr sacubitril 24 mg-valsartan 26 mg 1 tab PO BID Heart Failure 05/19/23 06/12/23 tablet (Entresto) nicotine 21 mg/24 hr daily 21 mg transdermal DAILY Smoking 06/01/23 06/12/23 transdermal patch Cessation furosemide 20 mg tablet 20 mg PO DAILY 06/12/23 06/12/23 Previous Rx's Medication Instructions Recorded empagliflozin 10 mg tablet 10 mg PO DAILY #30 tabs 06/14/23 (Jardiance) lorazepam 0.5 mg tablet (Ativan) 0.5 mg PO BID PRN anxiety #20 tabs 06/14/23 spironolactone 25 mg tablet 25 mg PO BID #60 tabs 06/14/23 amoxicillin 875 mg-potassium 1 tab PO BID 10 days #20 tabs 08/09/23 clavulanate 125 mg tablet Allergies Allergy/AdvReac Type Severity Reaction Status Date / Time ceftriaxone [From Rocephin] Allergy Severe Hives
[2023-08-09 21:56] LABS: Alanine Aminotransferase 20 U/L (12-78); Albumin Level 4.3 g/dl (3.5-5.0); Albumin/Globulin Ratio 1.5 (1.1-1.8); Alkaline Phosphatase 87 U/L (38-126); Anion Gap 9.7 mEq/L (5-15); Aspartate Amino Transferase 29 U/L (17-59); Bilirubin,Total 0.9 mg/dl (0.2-1.3); Blood Urea Nitrogen 10 mg/dl (9-20); Calcium 8.4 mg/dl (8.4-10.2); Carbon Dioxide 27 mmol/L (22.0-30.0); Chloride 97 mmol/L (98-107); Creatinine Clearance Estimated 103 mL/min (50-200); Estimated Glomerular Filt Rate 74 ml/min (>60); GFR (African American) 89 ML/MIN (>60); Globulin 2.9 g/dL (1.3-3.2); Glucose 113 mg/dl (74-100); Lactic Acid 1.4 mmol/L (0.7-2.1); Potassium 3.7 mmoL/L (3.5-5.1); Sodium 130 mmol/L (136-145); Total Protein,Serum 7.2 g/dl (6.3-8.2)
--- NOTE | 2023-08-09 22:03 | PC.NURSE ---
Unable to collect blood cultures at this time. Unsuccessful in IV access. Md and Charge aware. Lab called to collect blood
[2023-08-09 22:08] LABS: NT Pro Brain Natriuretic Pep. 1750 pg/mL (0-125); Troponin I < 0.01 ng/ml (0.00-0.034)
--- NOTE | 2023-08-09 22:16 | PC.NURSE ---
called and spoke with ashlyn isaacs for iv attempt
--- NOTE | 2023-08-09 22:20 | PC.NURSE ---
lab at bedside to attempt culture collection
[2023-08-09 22:30] VITALS: BP 121/71; PULSE 113; RESP 22; O2SAT 94
--- NOTE | 2023-08-09 22:44 | PC.NURSE ---
Rounded on patient; call light within reach of patient. Provided a drink. RT @ BS cara stewart
[2023-08-09 23:01] VITALS: BP 126/50; PULSE 111; RESP 27; O2SAT 98
--- NOTE | 2023-08-09 23:08 | PC.NURSE ---
Rounded on patient; patient requesting urinal. Urinal provided call light within reach of patient
[2023-08-09 23:41] VITALS: BP 134/62; PULSE 111; RESP 20; TEMP 36.7; O2SAT 98
== END 2023-08-09 23:43 | disposition home or self-care (01) ==
PROVIDERS: Emergency Provider Emergency Medicine; PCP Internal Medicine Adolescent Medicine
DX: J44.1 Chronic obstructive pulmonary disease with (acute) exacerbation (principal); I11.0 Hypertensive heart disease with heart failure; I50.20 Unspecified systolic (congestive) heart failure; E78.5 Hyperlipidemia, unspecified; I25.119 Atherosclerotic heart disease of native coronary artery with unspecified angina pectoris; F17.210 Nicotine dependence, cigarettes, uncomplicated; R00.0 Tachycardia, unspecified
CPT/HCPCS: 36415; 71046; 80053; 83605; 83880; 84484; 85025; 87040; 93005; 96374; 99285

== ENCOUNTER 2023-08-13 22:02 | Observation (INO) | payer MEDICARE, SELFPAY ==
[2023-08-13 22:03] VITALS: BP 110/49; PULSE 121; RESP 47; TEMP 36.1; O2SAT 97; BMI 35.9
--- NOTE | 2023-08-13 22:15 | XR_ITS ---
PROCEDURE INFORMATION: Exam: XR Chest Exam date and time: 08/13/2023 11:07 PM Age: 72 years old Clinical indication: Shortness of breath; Patient HX: Continued SOA from visit on 08/09 TECHNIQUE: Imaging protocol: Radiologic exam of the chest. Views: 1 view. COMPARISON: CR XR CHEST 2V 08/09/2023 9:50 PM FINDINGS: Lungs: Mild bibasilar ground-glass densities are probably atelectasis. No consolidation. Pleural spaces: Normal No pleural effusion. No pneumothorax. Heart/Mediastinum: Normal. No cardiomegaly. Vasculature: Tortuous atherosclerotic thoracic aorta. Bones/joints: Mild thoracic spine degenerative change. IMPRESSION: 1. Mild bibasilar ground-glass densities are probably atelectasis. 2. No consolidation.
--- NOTE | 2023-08-13 22:15 | CT_ITS ---
PROCEDURE INFORMATION: Exam: CTA Chest With Contrast Exam date and time: 08/13/2023 11:50 PM Age: 72 years old Clinical indication: Shortness of breath; Patient HX: Continued SOA since previous visit; Additional info: Rule out pe TECHNIQUE: Imaging protocol: Computed tomographic angiography of the chest with contrast. Exam focused on the arteries. 3D rendering (Not supervised by radiologist): MIP and/or 3D reconstructed images were created by the technologist. Radiation optimization: All CT scans at this facility use at least one of these dose optimization techniques: automated exposure control; mA and/or kV adjustment per patient size (includes targeted exams where dose is matched to clinical indication); or iterative reconstruction. Contrast material: ISOVUE; Contrast volume: 70 ml; Contrast route: INTRAVENOUS (IV); REPORTING DATA: Count of CT and Cardiac NM exams in prior 12 months: This patient has received 2 known CTs and 0 known cardiac nuclear medicine studies in the 12 months prior to the current study. COMPARISON: 1. CT ANGIO CHEST PE PROTOCOL 05/18/2023 10:[address] CHEST WO CON 06/13/2023 10:18 AM FINDINGS: Limitations: Mild motion artifact could obscure small segmental or subsegmental pulmonary emboli. Pulmonary arteries: Normal caliber pulmonary arteries without visible pulmonary emboli. Aorta: Mild atherosclerotic plaque in the thoracic aorta and arch vessels without aneurysm or significant stenosis. Lungs: New 2.3 cm nodule at the right lung apex with surrounding centrilobular nodules. Previously in this area there were only centrilobular nodules. Unchanged 1.0 cm noncalcified nodule in the right middle lobe adjacent to the heart border. Unchanged 1.3 cm noncalcified nodule in the lingula adjacent to the left heart border. Mild linear scar versus atelectasis in the lingula. Mild mucoid debris in the trachea. Pleural spaces: New right trace pleural effusion. Heart: See Lungs finding. Lymph nodes: Enlarging right paratracheal adenopathy now measuring 3.6 x 2.5 cm (previously 2.5 x 1.7 cm). Enlarging right superior hilar adenopathy measuring 3.3 x 3.0 cm (previously 2.4 x 2.1 cm). New lymph node anterior to the ascending thoracic aorta measuring 1.1 cm in short axis. Bones/joints: Multiple old left rib fractures. [id number] thoracic spine degenerative change. Soft tissues: Unremarkable. IMPRESSION: 1. Mildly limited by motion artifact which could obscure small segmental or subsegmental pulmonary emboli. 2. No visible pulmonary emboli. 3. Previously in the right upper lobe there was a cluster of centrilobular nodules. There is now a new nodular focus of consolidation with surrounding centrilobular nodules which is presumably due to progressive atypical infection. Follow-up navigational bronchoscopy may be warranted to exclude a neoplastic process. 4. Enlarging mediastinal and right hilar adenopathy. 5. Development of a trace right pleural effusion.
[2023-08-13 22:40] LABS: Basophils % 0.1 % (0.1-2.0); Eosinophils # 0.1 K/mm3 (0.0-0.4); Eosinophils % 1.7 % (0.1-12.0); Hematocrit 44.8 % (42.0-52.0); Hemoglobin 15.2 g/dL (14.1-18.0); Lymphocytes # 1.5 K/mm3 (0.7-4.5); Mean Corpuscular HGB Conc 33.8 g/dL (31.8-35.4); Mean Corpuscular Hemoglobin 31.1 pg (27.0-31.2); Mean Corpuscular Volume 91.8 fl (80-94); Mean Platelet Volume 7.4 fl (7.4-10.4); Monocytes # 0.4 K/mm3 (0.1-1.0); Monocytes % 4.6 % (1.7-9.3); Neutrophils # 5.9 K/mm3 (1.8-7.8); Neutrophils % 74.6 % (37.0-80.0); Platelet Count 227 K/mm3 (142-424); Red Blood Count 4.88 M/mm3 (4.60-6.20); Red Cell Distribution Width 12.9 % (11.5-17.5); White Blood Count 7.8 K/mm3 (4.8-10.8)
[2023-08-13 22:46] LABS: Alanine Aminotransferase 21 U/L (12-78); Albumin Level 4.1 g/dl (3.5-5.0); Albumin/Globulin Ratio 1.5 (1.1-1.8); Alkaline Phosphatase 69 U/L (38-126); Anion Gap 9.2 mEq/L (5-15); Aspartate Amino Transferase 30 U/L (17-59); Blood Urea Nitrogen 16 mg/dl (9-20); Calcium 8.3 mg/dl (8.4-10.2); Carbon Dioxide 29 mmol/L (22.0-30.0); Chloride 98 mmol/L (98-107); Creatinine Clearance Estimated 103 mL/min (50-200); Estimated Glomerular Filt Rate 111 ml/min (>60); GFR (African American) 135 ML/MIN (>60); Globulin 2.8 g/dL (1.3-3.2); Glucose 108 mg/dl (74-100); Lactic Acid 1.1 mmol/L (0.7-2.1); Potassium 3.2 mmoL/L (3.5-5.1); Sodium 133 mmol/L (136-145); Total Protein,Serum 6.9 g/dl (6.3-8.2)
[2023-08-13 22:54] VITALS: PULSE 118
[2023-08-13 22:56] LABS: VBG Base Excess 1.4 mmol/L (-2.4-2.3); VBG HCO3 26.1 mmol/L (23-30); VBG Oxygen Saturation 97.2 % (50-70); VBG PCO2 42.7 mmol/L (35-51); VBG PO2 84.5 mmol/L (28-40); VBG Total CO2 27.4 mmol/L (23-27)
--- NOTE | 2023-08-13 23:01 | HMH.EDGENADL ---
Discharge Plan Disposition Patient Disposition: Admitted Chief Complaint: Upper Respiratory Infection Clinical Impressions Clinical Impression: Lesion of right lung, Volume overload, Heart failure, Tachycardia Pneumonia Qualifiers: Pneumonia type: due to unspecified organism Laterality: right Lung location: upper lobe of lung Qualified Code(s): J18.9 - Pneumonia, unspecified organism Discharge ED Provider: Carson Unger General Adult HPI <Seb Louis MD - Last Filed: 08/13/23 23:24> General Chief complaint: Upper Respiratory Infection Stated complaint: SOA Time Seen by Provider: 08/13/23 22:07 Mode of Arrival: Family Vehicle Source of Information: Patient Limitations: No Limitations Description of Symptoms (Recalled from ER Triage Doc. by RN): 72 yo male presents with CC of continued shortness of air. History of Present Illness HPI narrative: 72-year-old male with a hypertension, hyperlipidemia, COPD on 2 L home oxygen, CHF diabetes, presenting with shortness of breath. Patient states that he has not gotten any less short of breath since leaving the hospital. Was just here couple days prior, discharged with COPD exacerbation without complication. Today, presenting with worsening shortness of breath with exertion. Denies fevers or chills, nausea or vomiting, but has had productive cough. Lower extremity edema is worse than usual as well. Has not needed to increase his home oxygen. Related Data Home Medications Medication Instructions Recorded Confirmed tamsulosin 0.4 mg capsule 0.4 mg PO BID prostate 09/20/17 06/12/23 carvedilol 3.125 mg tablet 3.125 mg PO BID High Blood Pressure 10/19/20 06/12/23 finasteride 5 mg tablet 5 mg PO DAILY prostate 09/07/21 06/12/23 albuterol sulfate 90 mcg/actuation 2 puff inhalation Q6HP PRN 05/19/23 06/12/23 aerosol inhaler Shortness Of Breath oxybutynin chloride 10 mg 10 mg PO DAILY overactive bladder 05/19/23 06/12/23 tablet,extended release 24 hr sacubitril 24 mg-valsartan 26 mg 1 tab PO BID Heart Failure 05/19/23 06/12/23 tablet (Entresto) nicotine 21 mg/24 hr daily 21 mg transdermal DAILY Smoking 06/01/23 06/12/23 transdermal patch Cessation furosemide 20 mg tablet 20 mg PO DAILY 06/12/23 06/12/23 Previous Rx's Medication Instructions Recorded empagliflozin 10 mg tablet 10 mg PO DAILY #30 tabs 06/14/23 (Jardiance) lorazepam 0.5 mg tablet (Ativan) 0.5 mg PO BID PRN anxiety #20 tabs 06/14/23 spironolactone 25 mg tablet 25 mg PO BID #60 tabs 06/14/23 amoxicillin 875 mg-potassium 1 tab PO BID 10 days #20 tabs 08/09/23 clavulanate 125 mg tablet Allergies Allergy/AdvReac Type Severity Reaction Status Date / Time ceftriaxone [From Rocephin] Allergy Severe Hives Verified 05/18/23 23:28 pregabalin [From LYRICA] Allergy Unknown Verified 05/18/23 20:52 PFSH <Seb Louis MD - Last Filed: 08/13/23 23:24> PFS Disclaimer: The information contained in this section may have been updated after the patient was seen, as this information can be updated by other users. Medical History (Updated 08/14/23 @ 01:53 by Carson Unger MD) Abnormal electrocardiogram [ECG] [EKG] Atypical angina CAD in [place] artery Cardiomyopathy Cellulitis of right lower leg CHF exacerbation Congestive heart failure COPD (chronic obstructive pulmonary disease) with acute bronchitis Essential hypertension HFrEF (heart failure with reduced ejection fraction) Hyperlipidemia Neck pain Obesity (BMI 30.0-34.9) Prostate enlargement Shortness of Breath Social History Smoking Status: Unknown if ever smoked alcohol intake: never substance use type: denies use current occupational status: disabled Travel in the last 8 weeks: None household members: spouse housing: apartment caffeine: Yes <Seb Louis MD - Last Filed: 08/13/23 23:24> ROS Obtained: Yes All systems reviewed & no additional complaints except as d
[2023-08-13 23:02] LABS: Troponin I < 0.01 ng/ml (0.00-0.034)
[2023-08-13 23:04] LABS: NT Pro Brain Natriuretic Pep. 2160 pg/mL (0-125)
--- NOTE | 2023-08-13 23:27 | PC.NURSE ---
at bedside to attempt us iv
--- NOTE | 2023-08-13 23:50 | PC.NURSE ---
pt to CT
[2023-08-14] VITALS (10 sets, daily range): BP systolic 115–121; BP diastolic 57–65; PULSE 87–120; RESP 18–30; TEMP 36–37.1; O2SAT 90–98; BMI 35.4
--- NOTE | 2023-08-14 01:24 | EXP.HP ---
History of Present Illness *Admission Date: 08/14/23 *Reason for visit:: SOB *History of present illness: This is a 72-year-old male with a hypertension, hyperlipidemia, COPD on 2 L home oxygen, CHF diabetes, presenting with increased shortness of breath. Patient stated that he has not gotten any less short of breath since leaving the hospital. Was just here couple days prior, discharged with COPD exacerbation without complication. Today, presenting with worsening shortness of breath with exertion. Denies fevers or chills, nausea or vomiting, but has had productive cough. Lower extremity edema is worse than usual as well. Has not needed to increase his home oxygen. Admitted for treatment and management. [facility] Disclaimer: The information contained in this section may have been updated after the patient was seen, as this information can be updated by other users. Medical History (Updated 08/14/23 @ 11:29 by Savannah Huang MD) Abnormal electrocardiogram [ECG] [EKG] Atypical angina CAD in [place] artery Cardiomyopathy Cellulitis of right lower leg CHF exacerbation Congestive heart failure COPD (chronic obstructive pulmonary disease) with acute bronchitis COPD mixed type Essential hypertension HFrEF (heart failure with reduced ejection fraction) Hyperlipidemia Lung nodule Neck pain Obesity (BMI 30.0-34.9) Prostate enlargement Shortness of Breath Social History (Updated 08/14/23 @ 02:28 by Lisset Hicks RN) Smoking Status: Current every day smoker tobacco type: cigarettes packs per day: 1 alcohol intake: never substance use type: denies use current occupational status: disabled Travel in the last 8 weeks: None household members: spouse housing: apartment caffeine: Yes Review of Systems Review of Systems Review of systems:: pertinent systems reviewed and negative unless documented below Meds Home Medications and Allergies Home Medications Medication Instructions Recorded Confirmed Type tamsulosin 0.4 mg capsule 0.4 mg PO BID prostate 09/20/17 08/14/23 History finasteride 5 mg tablet 5 mg PO DAILY prostate 09/07/21 08/14/23 History albuterol sulfate 90 mcg/actuation 2 puff inhalation Q6HP PRN 05/19/23 08/14/23 History aerosol inhaler Shortness Of Breath oxybutynin chloride 10 mg 10 mg PO DAILY overactive bladder 05/19/23 08/14/23 History tablet,extended release 24 hr sacubitril 24 mg-valsartan 26 mg 1 tab PO BID Heart Failure 05/19/23 08/14/23 History tablet (Entresto) lorazepam 0.5 mg tablet (Ativan) 0.5 mg PO BID PRN anxiety #20 tabs 06/14/23 08/14/23 Rx amoxicillin 875 mg-potassium 1 tab PO BID 08/14/23 08/14/23 History clavulanate 125 mg tablet carvedilol 3.125 mg tablet 30,125 mg PO BID 08/14/23 08/14/23 History New Prescriptions to Start Prescriptions: Allergies Allergy/AdvReac Type Severity Reaction Status Date / Time ceftriaxone [From Rocephin] Allergy Severe Hives Verified 05/18/23 23:28 pregabalin [From LYRICA] Allergy Unknown Verified 05/18/23 20:52 Exam Data for Last 24 hours Vital signs and Labs for Last 24 Hours: Temp Pulse Resp BP Pulse Ox O2 Del Method 97.0 F L 118 H 47 H 110/49 L 97 Room Air 08/13/23 22:03 08/13/23 22:54 08/13/23 22:03 08/13/23 22:03 08/13/23 22:03 08/13/23 22:03 Laboratory Results - last 24 hr 08/13/23 22:16: VBG pH 7.40, VBG pCO2 42.7, VBG pO2 84.5 H, VBG HCO3 26.1, VBG Total CO2 27.4 H, VBG O2 Saturation 97.2 H, VBG Base Excess 1.4 08/13/23 22:20: WBC 7.8, RBC 4.88, Hgb 15.2, Hct 44.8, MCV 91.8, MCH 31.1, MCHC 33.8, RDW 12.9, Plt Count 227, MPV 7.4, Neut % (Auto) 74.6, Lymph % (Auto) 19.0, [place] % (Auto) 4.6, Eos % (Auto) 1.7, Baso % (Auto) 0.1, Neut # (Auto) 5.9, Lymph # (Auto) 1.5, [place] # (Auto) 0.4, Eos # (Auto) 0.1, Baso # (Auto) 0.0, Sodium 133 L, Potassium 3.2 L, Chloride 98, Carbon Dioxide 29, Anion Gap 9.2, BUN 16, Creatinine 0.70, Estimated Creat Clear 103, Estimated GFR 111, Est GFR ( Amer) 135, G
--- NOTE | 2023-08-14 01:39 | PC.NURSE ---
Lab to come draw BC x 2 before abx starts. Pt provided with sandwich and chips, ok per Dr Unger
--- NOTE | 2023-08-14 01:45 | ECG_ITS ---
APPROVED REPORT Exam: Resting ECG HR:118 bpm ECG Measurements Heart Rate 118 AXES OR 138 P 64 QRSd 122 QRS 15 QT 290 T 196 QTc 360 Conclusion SINUS TACHYCARDIA LEFT VENTRICULAR HYPERTROPHY AND ST-T CHANGE [VOLTAGE CRITERIA PLUS ST/T ABNORMALITY] ABNORMAL ECG UNCONFIRMED REPORT Electronically signed by : Tadeo Moore MD 08/15/2023 18:41:26
[2023-08-14 03:13] LABS: Troponin I 0.01 ng/ml (0.00-0.034)
[2023-08-14 06:01] LABS: Basophils % 0.3 % (0.1-2.0); Eosinophils # 0.2 K/mm3 (0.0-0.4); Eosinophils % 1.4 % (0.1-12.0); Hematocrit 44.5 % (42.0-52.0); Hemoglobin 15.3 g/dL (14.1-18.0); Lymphocytes # 1.5 K/mm3 (0.7-4.5); Lymphocytes % 14.8 % (10-50); Mean Corpuscular HGB Conc 34.4 g/dL (31.8-35.4); Mean Corpuscular Hemoglobin 31.6 pg (27.0-31.2); Mean Corpuscular Volume 91.6 fl (80-94); Mean Platelet Volume 7.4 fl (7.4-10.4); Monocytes # 0.6 K/mm3 (0.1-1.0); Monocytes % 5.5 % (1.7-9.3); Platelet Count 239 K/mm3 (142-424); Red Blood Count 4.86 M/mm3 (4.60-6.20); White Blood Count 10.3 K/mm3 (4.8-10.8)
[2023-08-14 06:09] LABS: Chloride 98 mmol/L (98-107); Potassium 3.6 mmoL/L (3.5-5.1); Sodium 136 mmol/L (136-145)
[2023-08-14 06:12] LABS: Alanine Aminotransferase 18 U/L (12-78); Albumin Level 3.9 g/dl (3.5-5.0); Albumin/Globulin Ratio 1.6 (1.1-1.8); Alkaline Phosphatase 78 U/L (38-126); Anion Gap 9.6 mEq/L (5-15); Aspartate Amino Transferase 23 U/L (17-59); Bilirubin,Total 0.8 mg/dl (0.2-1.3); Blood Urea Nitrogen 17 mg/dl (9-20); Calcium 8.5 mg/dl (8.4-10.2); Carbon Dioxide 32 mmol/L (22.0-30.0); Creatinine Clearance Estimated 101 mL/min (50-200); Estimated Glomerular Filt Rate 83 ml/min (>60); GFR (African American) 101 ML/MIN (>60); Globulin 2.4 g/dL (1.3-3.2); Glucose 100 mg/dl (74-100); Magnesium 1.8 mg/dl (1.6-2.3); Total Protein,Serum 6.3 g/dl (6.3-8.2)
[2023-08-14 06:52] LABS: Troponin I < 0.01 ng/ml (0.00-0.034)
--- NOTE | 2023-08-14 08:27 | HMH.PHAINT1 ---
Pharmacy Intervention Comments: HOME MEDICATION LIST VERIFIED USING LIST FROM OUTPATIENT PHARMACY AND PT INTERVIEW
--- NOTE | 2023-08-14 09:52 | EXP.PULM.CON ---
History of Present Illness History of present illness: Mr. Holcomb is a 72-year-old male history of COPD on 2 L long-term oxygen therapy, CHF, dyslipidemia, hypertension presents with worsening shortness of breath. [facility] Disclaimer: The information contained in this section may have been updated after the patient was seen, as this information can be updated by other users. Medical History (Updated 08/14/23 @ 11:29 by Savannah Huang MD) Abnormal electrocardiogram [ECG] [EKG] Atypical angina CAD in [place] artery Cardiomyopathy Cellulitis of right lower leg CHF exacerbation Congestive heart failure COPD (chronic obstructive pulmonary disease) with acute bronchitis COPD mixed type Essential hypertension HFrEF (heart failure with reduced ejection fraction) Hyperlipidemia Lung nodule Neck pain Obesity (BMI 30.0-34.9) Prostate enlargement Shortness of Breath Social History (Updated 08/14/23 @ 02:28 by Lisset Hicks RN) Smoking Status: Current every day smoker tobacco type: cigarettes packs per day: 1 alcohol intake: never substance use type: denies use current occupational status: disabled Travel in the last 8 weeks: None household members: spouse housing: apartment caffeine: Yes Review of Systems Constitutional Constitutional: Reports anorexia, Reports body ache(s) and Reports fatigue Eyes Eyes: Denies eye discharge, Denies dry eyes, Denies irritation and Denies itchy eyes ENT Ears, Nose, Mouth, and Throat: Denies epistaxis, Denies facial pain, Denies lip swelling and Denies throat swelling *Cardiovascular Cardiovascular: Reports dyspnea, Reports dyspnea on exertion, Reports leg edema, Reports orthopnea and Reports pedal edema *Respiratory Respiratory: Reports chest congestion, Reports cough, Reports dyspnea, Reports dyspnea on exertion, Denies excessive phlegm production and Denies wheezing *Gastrointestinal Gastrointestinal: Denies abdominal pain, Denies belching and Denies cramping *Musculoskeletal Musculoskeletal: Reports back pain, Reports myalgias and Reports other (No small joint swelling or Pain) Psychiatric Psychiatric: Denies homicidal ideation and Denies suicidal ideation Endocrine Endocrine: Reports fatigue and Denies heat intolerance Hematologic/Lymphatic Hematologic/Lymphatic: Denies easy bleeding and Denies lymphadenopathy Allergic/Immunologic Allergic/Immunologic: Denies itchy eyes, Denies lip swelling, Denies throat swelling and Denies wheezing Pulmonology Exam Inpatient Vital signs and Labs for Last 24 Hours: Temp Pulse Resp BP Pulse Ox O2 Del Method O2 Flow Rate 98.0 F 103 H 20 116/65 98 Nasal Cannula 2 08/14/23 08:00 08/14/23 08:00 08/14/23 08:00 08/14/23 08:00 08/14/23 08:00 08/14/23 09:11 08/14/23 09:11 Laboratory Results - last 24 hr 08/13/23 22:16: VBG pH 7.40, VBG pCO2 42.7, VBG pO2 84.5 H, VBG HCO3 26.1, VBG Total CO2 27.4 H, VBG O2 Saturation 97.2 H, VBG Base Excess 1.4 08/13/23 22:20: WBC 7.8, RBC 4.88, Hgb 15.2, Hct 44.8, MCV 91.8, MCH 31.1, MCHC 33.8, RDW 12.9, Plt Count 227, MPV 7.4, Neut % (Auto) 74.6, Lymph % (Auto) 19.0, [place] % (Auto) 4.6, Eos % (Auto) 1.7, Baso % (Auto) 0.1, Neut # (Auto) 5.9, Lymph # (Auto) 1.5, [place] # (Auto) 0.4, Eos # (Auto) 0.1, Baso # (Auto) 0.0, Sodium 133 L, Potassium 3.2 L, Chloride 98, Carbon Dioxide 29, Anion Gap 9.2, BUN 16, Creatinine 0.70, Estimated Creat Clear 103, Estimated GFR 111, Est GFR ( Amer) 135, Glucose 108 H, Lactate 1.1, Calcium 8.3 L, Total Bilirubin 1.0, AST 30, ALT 21, Alkaline Phosphatase 69, Troponin I < 0.01, NT-Pro-B Natriuret Pep 2160 H, Total Protein 6.9, Albumin 4.1, Globulin 2.8, Albumin/Globulin Ratio 1.5 08/14/23 02:30: Troponin I 0.01 08/14/23 05:39: WBC 10.3 D, RBC 4.86, Hgb 15.3, Hct 44.5, MCV 91.6, MCH 31.6 H, MCHC 34.4, RDW 13.0, Plt Count 239, MPV 7.4, Neut % (Auto) 78.0, Lymph % (Auto) 14.8, [place] % (Auto) 5.5, Eos % (Auto) 1.4, Baso % (Auto) 0.3, Neut # (Auto) 8.0 H, Lymph # (Auto) 1.5, M
[2023-08-14 12:42] LABS: C-Reactive Protein 9.1 mg/L (0-4)
--- NOTE | 2023-08-14 18:02 | PC.NURSE ---
Patient alert and oriented. VSS. On 2L O2 via NC prn. Up with 1 to chair. Voiding per urinal. Tylenol one time for chronic shoulder pain. Patient states he is feeling better today. Home meds in drawer pending pharmacy verification
--- NOTE | 2023-08-14 18:43 | PC.NURSE ---
Patient with complaint of increased dyspnea after duoneb. RT at bedside
--- NOTE | 2023-08-14 23:30 | ECG_ITS ---
APPROVED REPORT Exam: Resting ECG HR:97 bpm ECG Measurements Heart Rate 97 AXES MT 157 P 71 QRSd 121 QRS 15 QT 364 T 111 QTc 419 Conclusion SINUS RHYTHM MODERATE INTRAVENTRICULAR CONDUCTION DELAY [105+ ms QRS DURATION, 80+ ms Q/S IN V1/V2, NO Q AND 60+ ms R IN I/aVL/V5/V6] ST DEVIATION AND MODERATE T-WAVE ABNORMALITY, CONSIDER LATERAL ISCHEMIA [-0.1+ mV T-WAVE IN I/aVL/V5/V6] ABNORMAL ECG UNCONFIRMED REPORT Electronically signed by : Tadeo Moore MD 08/15/2023 18:39:21
[2023-08-15] VITALS (9 sets, daily range): BP systolic 84–111; BP diastolic 51–64; PULSE 80–110; RESP 17–19; TEMP 36.6–36.7; O2SAT 94–98; BMI 36.3; BMI 36.1
--- NOTE | 2023-08-15 09:37 | EXP.PULM.PN ---
Subjective *Date: 08/15/23 *Time: 11:22 Interval history: No acute respiratory events overnight. Patient denies any new respiratory complaints. Pulmonology Exam Inpatient Vital signs and Labs for Last 24 Hours: Temp Pulse Resp BP Pulse Ox O2 Del Method O2 Flow Rate 97.8 F 101 H 18 111/64 98 Room Air 2 08/15/23 07:56 08/15/23 07:56 08/15/23 07:56 08/15/23 07:56 08/15/23 07:56 08/15/23 07:56 08/15/23 06:34 FiO2 28 08/14/23 19:09 Laboratory Results - last 24 hr 08/14/23 11:59: C-Reactive Protein 9.1 H I & O for Labs for Last 24 Hours: Intake & Output 08/12/23 08/13/23 08/14/23 08/15/23 23:59 23:59 23:59 23:59 Intake Total 2280 / 2280 240 / 240 Output Total 350 / 350 2500 / 2600 350 / 350 Balance -350 / -350 -220 / -320 -110 / -110 Weight 236 lb 233 lb 6 oz 240 lb 3 oz Constitutional: Present mild distress Head: Present normocephalic and atraumatic ENT: Present normal exam, normal oropharynx and mucous membranes moist Neck: Present normal inspection and full ROM Respiratory: Present normal respiratory effort and able to speak in complete sentences; Absent prolonged expiratory phase, wheezes or diminished air movement Cardiac: Present S1/S2, Tachycardia and radial pulses present GI: Present soft and distention; Absent tenderness or guarding Skin: Present intact; Absent cyanosis or jaundice Neuro: Present alert, awake and oriented x 3 Extremities: Present normal inspection and edema; Absent clubbing or cyanosis Psychiatric: Present normal affect and cooperative Assessment and Plan *Assessment and plan (1) Mediastinal adenopathy: Status: Acute Category: Medical Code(s): R59.0 - Localized enlarged lymph nodes (2) Lung nodule: Status: Acute Category: Medical Code(s): R91.1 - Solitary pulmonary nodule (3) Adenopathy, hilar: Status: Resolved Category: Medical Code(s): R59.0 - Localized enlarged lymph nodes (4) COPD mixed type: Status: Acute Category: Medical Code(s): J44.9 - Chronic obstructive pulmonary disease, unspecified Plan Mr. Holcomb is a 72-year-old male history of COPD on 2 L long-term oxygen therapy, CHF, dyslipidemia, hypertension presents with worsening shortness of breath. # COPD: # Exertional dyspnea Greater than 80-[id number]-llix smoker is on baseline 2 L oxygen supplementation at home. Auscultation no significant wheezing Oxygen saturations on room air were at 94%. CT chest other than the noted right upper lobe nodule no other airspace disease/dense consolidation noted. Interval update: No acute respiratory vents overnight. Continued to remain on room air. Plan: Continue Trelegy 100 inhaler along with DuoNebs every 6 hours on as-needed basis Oxygen supplementation as needed to maintain O2 saturation goal of 90% unable Doxycycline 100 mg twice daily x 5 days No need for steroids at this point of time # Right upper lobe nodule: # Mediastinal and hilar lymphadenopathy: Current smoker, greater than 30 PPD Initially seen on his CAT scan from April 2023 relatively stable in May however significantly worsened with more dense along with worsening lymphadenopathy on his CAT scan from this admission in July 2023. CRP slightly elevated at 9.1 Plan: Serum fungal serologies, and TB QuantiFERON Bronchoscopy EBUS FNA transbronchial lung biopsy tentatively scheduled for 09/10/2023 pending patient's decision. Patient also needs a cardiology clearance for this procedure. Again reiterated the need for bronchoscopy to patient today.. Have extensively discussed the patient regarding the need to keep his follow-up appointments and to proceed with bronchoscopy procedure for the noted lung nodule and lymphadenopathy. Risks and benefit of the bronchoscopy procedure explained in detail including but nit limited to sore throat, difficult breathing, airway injury, vocal cord injury, respiratory failure, lung ap
[2023-08-15 10:32] LABS: Basophils % 0.3 % (0.1-2.0); Chloride 95 mmol/L (98-107); Eosinophils # 0.1 K/mm3 (0.0-0.4); Eosinophils % 0.9 % (0.1-12.0); Hematocrit 41.9 % (42.0-52.0); Hemoglobin 14.3 g/dL (14.1-18.0); Lymphocytes # 1.7 K/mm3 (0.7-4.5); Lymphocytes % 22.4 % (10-50); Mean Corpuscular HGB Conc 34.1 g/dL (31.8-35.4); Mean Corpuscular Hemoglobin 31.2 pg (27.0-31.2); Mean Corpuscular Volume 91.6 fl (80-94); Mean Platelet Volume 7.1 fl (7.4-10.4); Monocytes # 0.5 K/mm3 (0.1-1.0); Monocytes % 6.1 % (1.7-9.3); Neutrophils # 5.4 K/mm3 (1.8-7.8); Neutrophils % 70.4 % (37.0-80.0); Platelet Count 212 K/mm3 (142-424); Potassium 3.2 mmoL/L (3.5-5.1); Red Blood Count 4.58 M/mm3 (4.60-6.20); Red Cell Distribution Width 12.8 % (11.5-17.5); Sodium 134 mmol/L (136-145); White Blood Count 7.7 K/mm3 (4.8-10.8)
[2023-08-15 10:35] LABS: Anion Gap 8.2 mEq/L (5-15); Blood Urea Nitrogen 19 mg/dl (9-20); Calcium 8.2 mg/dl (8.4-10.2); Carbon Dioxide 34 mmol/L (22.0-30.0); Creatinine Clearance Estimated 95 mL/min (50-200); Estimated Glomerular Filt Rate 66 ml/min (>60); GFR (African American) 80 ML/MIN (>60); Glucose 106 mg/dl (74-100)
--- NOTE | 2023-08-15 16:41 | EXP.PN ---
Subjective *Date: 08/15/23 *Time: 16:41 Interval history: patient was seen and evaluated at the bedside. mentions he had an episode of trouble breathing last night, denies chest pain, nausea, vomiting, abdominal pain. Exam Data for Last 24 hours Vital signs and Labs for Last 24 Hours: Temp Pulse Resp BP Pulse Ox O2 Del Method O2 Flow Rate 98.1 F 90 17 109/58 L 97 Nasal Cannula 2 08/15/23 15:17 08/15/23 15:17 08/15/23 15:17 08/15/23 15:17 08/15/23 15:17 08/15/23 15:17 08/15/23 15:17 FiO2 28 08/14/23 19:09 Laboratory Results - last 24 hr 08/15/23 10:08: WBC 7.7 D, RBC 4.58 L, Hgb 14.3, Hct 41.9 L, MCV 91.6, MCH 31.2, MCHC 34.1, RDW 12.8, Plt Count 212, MPV 7.1 L, Neut % (Auto) 70.4, Lymph % (Auto) 22.4, [place] % (Auto) 6.1, Eos % (Auto) 0.9, Baso % (Auto) 0.3, Neut # (Auto) 5.4, Lymph # (Auto) 1.7, [place] # (Auto) 0.5, Eos # (Auto) 0.1, Baso # (Auto) 0.0, Sodium 134 L, Potassium 3.2 L, Chloride 95 L, Carbon Dioxide 34 H, Anion Gap 8.2, BUN 19, Creatinine 1.10 D, Estimated Creat Clear 95, Estimated GFR 66, Est GFR ( Amer) 80 D, Glucose 106 H, Calcium 8.2 L I & O for Last 24 hours: Intake & Output 08/12/23 08/13/23 08/14/23 08/15/23 23:59 23:59 23:59 23:59 Intake Total 2280 / 2280 730 / 730 Output Total 350 / 350 2500 / 2600 800 / 800 Balance -350 / -350 -220 / -320 -70 / -70 Weight 107.048 kg 105.857 kg 108 kg Constitutional Constitutional: no acute distress *Routine HEENT Exam Head: Present normocephalic Eye: Present EOMI and PERRL ENT: Present mucous membranes moist *Routine Neck Exam Neck: Present supple; Absent lymphadenopathy *Routine Respiratory Exam Respiratory: Present CTA bilaterally *Routine Cardiovascular Exam Cardiovascular: Present RRR *Routine Abdominal Exam Abdominal: Present soft and normoactive bowel sounds; Absent tenderness *Routine Extremities Exam Extremities: Absent cyanosis, clubbing or edema *Routine Skin Exam Skin: Present warm; Absent rash *Routine Neurological Exam Neurological: Present alert and oriented X3 Assessment and Plan *Assessment and plan (1) Pneumonia: Status: Resolved Qualifiers: Laterality: right Lung location: upper lobe of lung Pneumonia type: due to unspecified organism Qualified Code(s): J18.9 - Pneumonia, unspecified organism Category: Medical Code(s): J18.9 - Pneumonia, unspecified organism (2) Mediastinal adenopathy: Status: Acute Category: Medical Code(s): R59.0 - Localized enlarged lymph nodes (3) Acute exacerbation of CHF (congestive heart failure): Status: Resolved Qualifiers: Heart failure type: combined systolic and diastolic Qualified Code(s): I50.43 - Acute on chronic combined systolic (congestive) and diastolic (congestive) heart failure Category: Medical Code(s): I50.9 - Heart failure, unspecified (4) Essential hypertension: Status: Chronic Category: Medical Code(s): I10 - Essential (primary) hypertension (5) Anxiety: Status: Acute Category: Medical Code(s): F41.9 - Anxiety disorder, unspecified (6) Tobacco abuse: Status: Acute Category: Medical Code(s): Z72.0 - Tobacco use (7) Obesity (BMI 30-39.9): Status: Acute Category: Medical Code(s): E66.9 - Obesity, unspecified Plan 72-year-old male with a hypertension, hyperlipidemia, COPD on 2 L home oxygen, CHF diabetes, presenting with increased shortness of breath. patient was recent hospitalized. On imaging, there has been a concern for a right upper lobe lung lesion, that new showed a new nodular consolidation. The rest of the labs are grossly unremarkable except for slightly elevation of the BNP and some electrolytes disturbance. patient on visible breathing difficulty. Findings discussed with ER provider. Agreed for admission. Plan as follow: -Right upper lobe consolidation pneumonia with mediast
--- NOTE | 2023-08-15 17:36 | PC.NURSE ---
Pt alert and oriented. Pt has complained of pain 2 times this shift, treated per oct. Pt lung sounds throughout, inspiratory wheezing. Pt abdomen soft and nontender. Pt remains on 2L NC, baseline at home. Pt occasionally takes O2 off when he gets tired of it being in his nose . Pt O2 sat >90%. Pt bilateral lower extremities 2+ pitting edema. Pt has used the urinal independently. Call light in reach.
--- NOTE | 2023-08-15 22:57 | PC.NURSE ---
Pt C/O trouble breathing and is anxious, O2 is 96 on 2L, advised a breathing treatment and to raise HOB while sleeping .Pt refuses a breathing treatment and states he cannot sleep like that and that he is cold, multiple attempts of making pt comfortable are unsuccessful. Notified RT of Pt complaints of SOB. Administered lorazepam 0.5 mg at this time for anxiety.
[2023-08-16] VITALS (13 sets, daily range): BP systolic 85–107; BP diastolic 45–62; PULSE 75–120; RESP 16–22; TEMP 36.4–36.9; O2SAT 91–96; BMI 36.5
--- NOTE | 2023-08-16 04:43 | PC.NURSE ---
Pt is A/O x4 and currently tolerating 2L of O2 well sating in the mid 90s. Pt has C/O of discomfort, and SOB periodically throughout this shift, RT was notified and inhaler given. Pt refuses attempts for comfort, breathing treats and a shower. Pt has C/O pain once this shift which was relieved with pain medication. Pt denies needs and pain at this time.
[2023-08-16 07:05] LABS: Basophils % 0.3 % (0.1-2.0); Eosinophils # 0.1 K/mm3 (0.0-0.4); Eosinophils % 1.5 % (0.1-12.0); Hematocrit 44.8 % (42.0-52.0); Hemoglobin 15.4 g/dL (14.1-18.0); Lymphocytes # 2.2 K/mm3 (0.7-4.5); Lymphocytes % 25.3 % (10-50); Mean Corpuscular HGB Conc 34.3 g/dL (31.8-35.4); Mean Corpuscular Hemoglobin 31.4 pg (27.0-31.2); Mean Corpuscular Volume 91.6 fl (80-94); Mean Platelet Volume 8.5 fl (7.4-10.4); Monocytes # 0.5 K/mm3 (0.1-1.0); Monocytes % 5.7 % (1.7-9.3); Neutrophils # 5.8 K/mm3 (1.8-7.8); Neutrophils % 67.3 % (37.0-80.0); Platelet Count 234 K/mm3 (142-424); Red Blood Count 4.89 M/mm3 (4.60-6.20); Red Cell Distribution Width 13.1 % (11.5-17.5); White Blood Count 8.6 K/mm3 (4.8-10.8)
[2023-08-16 07:06] LABS: Chloride 91 mmol/L (98-107); Potassium 3.3 mmoL/L (3.5-5.1); Sodium 131 mmol/L (136-145)
[2023-08-16 07:09] LABS: Anion Gap 7.3 mEq/L (5-15); Blood Urea Nitrogen 23 mg/dl (9-20); Calcium 8.7 mg/dl (8.4-10.2); Carbon Dioxide 36 mmol/L (22.0-30.0); Creatinine Clearance Estimated 105 mL/min (50-200); Estimated Glomerular Filt Rate 83 ml/min (>60); GFR (African American) 101 ML/MIN (>60); Glucose 103 mg/dl (74-100)
--- NOTE | 2023-08-16 09:40 | XR_ITS ---
FINAL REPORT CLINICAL HISTORY: Shortness of breath COMPARISON: 08/13/2023 FINDINGS: The patient is rotated to the right. The heart size is normal. The mediastinum is normal. The lungs are underinflated. Stable abnormal opacity left upper lobe may represent acute pneumonia. There are chronic changes in the lung bases. There are no pleural effusions. There is no pneumothorax. There is no osseous abnormality. IMPRESSION: Stable left upper lobe opacity may represent acute pneumonia. Reviewed, Interpreted and Dictated by Leonel French MD Transcribed by Angela Valdez Authenticated and [facility]
--- NOTE | 2023-08-16 11:36 | EXP.PULM.PN ---
Subjective *Date: 08/16/23 *Time: 11:36 Interval history: No acute respiratory events overnight. Patient denies any new respiratory complaints. Pulmonology Exam Inpatient Vital signs and Labs for Last 24 Hours: Temp Pulse Resp BP Pulse Ox O2 Del Method O2 Flow Rate 98.4 F 95 H 20 107/62 L 94 L Nasal Cannula 1 08/16/23 08:00 08/16/23 08:00 08/16/23 08:00 08/16/23 08:00 08/16/23 11:25 08/16/23 11:25 08/16/23 11:25 FiO2 28 08/14/23 19:09 Laboratory Results - last 24 hr 08/16/23 06:43: WBC 8.6, RBC 4.89, Hgb 15.4, Hct 44.8, MCV 91.6, MCH 31.4 H, MCHC 34.3, RDW 13.1, Plt Count 234, MPV 8.5, Neut % (Auto) 67.3, Lymph % (Auto) 25.3, [place] % (Auto) 5.7, Eos % (Auto) 1.5, Baso % (Auto) 0.3, Neut # (Auto) 5.8, Lymph # (Auto) 2.2, [place] # (Auto) 0.5, Eos # (Auto) 0.1, Baso # (Auto) 0.0, Sodium 131 L, Potassium 3.3 L, Chloride 91 L, Carbon Dioxide 36 H, Anion Gap 7.3, BUN 23 H, Creatinine 0.90, Estimated Creat Clear 105, Estimated GFR 83, Est GFR ( Amer) 101 D, Glucose 103 H, Calcium 8.7 I & O for Labs for Last 24 Hours: Intake & Output 08/13/23 08/14/23 08/15/23 08/16/23 23:59 23:59 23:59 23:59 Intake Total 2280 / 2280 1200 / 1560 840 / 840 Output Total 350 / 350 2500 / 2600 1950 / 1950 403 / 403 Balance -350 / -350 -220 / -320 -750 / -390 437 / 437 Weight 236 lb 233 lb 6 oz 238 lb 1.588 oz 241 lb 1.737 oz Microbiology Reports for the Last 24 Hours: Microbiology 08/14/23 02:40 Sputum - Expectorated Sputum Gram Stain - Final Constitutional: Present mild distress Head: Present normocephalic and atraumatic ENT: Present normal exam, normal oropharynx and mucous membranes moist Neck: Present normal inspection and full ROM Respiratory: Present normal respiratory effort and able to speak in complete sentences; Absent prolonged expiratory phase, wheezes or diminished air movement Cardiac: Present S1/S2, Tachycardia and radial pulses present GI: Present soft and distention; Absent tenderness or guarding Skin: Present intact; Absent cyanosis or jaundice Neuro: Present alert, awake and oriented x 3 Extremities: Present normal inspection and edema; Absent clubbing or cyanosis Psychiatric: Present normal affect and cooperative Assessment and Plan *Assessment and plan (1) Mediastinal adenopathy: Status: Acute Category: Medical Code(s): R59.0 - Localized enlarged lymph nodes (2) Lung nodule: Status: Acute Category: Medical Code(s): R91.1 - Solitary pulmonary nodule (3) Adenopathy, hilar: Status: Resolved Category: Medical Code(s): R59.0 - Localized enlarged lymph nodes (4) COPD mixed type: Status: Acute Category: Medical Code(s): J44.9 - Chronic obstructive pulmonary disease, unspecified Plan Mr. Holcomb is a 72-year-old male history of COPD on 2 L long-term oxygen therapy, CHF, dyslipidemia, hypertension presents with worsening shortness of breath. # COPD: # Exertional dyspnea Greater than [id number] smoker is on baseline 2 L oxygen supplementation at home. Auscultation no significant wheezing Oxygen saturations on room air were at 94%. CT chest other than the noted right upper lobe nodule no other airspace disease/dense consolidation noted. Interval update: No acute respiratory vents overnight. Continued to remain on room air. Plan: Continue Trelegy 100 inhaler along with DuoNebs every 6 hours on as-needed basis Oxygen supplementation as needed to maintain O2 saturation goal of 90% unable Doxycycline 100 mg twice daily x 5 days No need for steroids at this point of time # Right upper lobe nodule: # Mediastinal and hilar lymphadenopathy: Current smoker, greater than 30 PPD Initially seen on his CAT scan from April 2023 relatively stable in May however significantly worsened with more dense along with worsening lymphadenopathy on his CAT scan from this admission in July 2023. CRP slightly elevated at 9.1
--- NOTE | 2023-08-16 16:45 | EXP.PN ---
Subjective *Date: 08/16/23 *Time: 16:45 Interval history: patient was seen and evaluated at the bedside. no acute events overnight,, denies chest pain, nausea, vomiting, abdominal pain. Exam Data for Last 24 hours Vital signs and Labs for Last 24 Hours: Temp Pulse Resp BP Pulse Ox O2 Del Method O2 Flow Rate 97.7 F 110 H 16 85/49 L 94 L Nasal Cannula 1 08/16/23 15:30 08/16/23 16:00 08/16/23 15:30 08/16/23 15:30 08/16/23 15:30 08/16/23 15:30 08/16/23 15:30 FiO2 28 08/14/23 19:09 Laboratory Results - last 24 hr 08/16/23 06:43: WBC 8.6, RBC 4.89, Hgb 15.4, Hct 44.8, MCV 91.6, MCH 31.4 H, MCHC 34.3, RDW 13.1, Plt Count 234, MPV 8.5, Neut % (Auto) 67.3, Lymph % (Auto) 25.3, [place] % (Auto) 5.7, Eos % (Auto) 1.5, Baso % (Auto) 0.3, Neut # (Auto) 5.8, Lymph # (Auto) 2.2, [place] # (Auto) 0.5, Eos # (Auto) 0.1, Baso # (Auto) 0.0, Sodium 131 L, Potassium 3.3 L, Chloride 91 L, Carbon Dioxide 36 H, Anion Gap 7.3, BUN 23 H, Creatinine 0.90, Estimated Creat Clear 105, Estimated GFR 83, Est GFR ( Amer) 101 D, Glucose 103 H, Calcium 8.7 I & O for Last 24 hours: Intake & Output 08/13/23 08/14/23 08/15/23 08/16/23 23:59 23:59 23:59 23:59 Intake Total 2280 / 2280 1200 / 1560 1090 / 1090 Output Total 350 / 350 2500 / 2600 1950 / 1950 728 / 728 Balance -350 / -350 -220 / -320 -750 / -390 362 / 362 Weight 107.048 kg 105.857 kg 108 kg 109.365 kg Microbiology Reports for the Last 24 Hours: Microbiology 08/14/23 02:40 Sputum - Expectorated Sputum Gram Stain - Final 08/14/23 02:40 Sputum - Expectorated Sputum Sputum Culture - Preliminary Constitutional Constitutional: no acute distress *Routine HEENT Exam Head: Present normocephalic Eye: Present EOMI and PERRL ENT: Present mucous membranes moist *Routine Neck Exam Neck: Present supple; Absent lymphadenopathy *Routine Respiratory Exam Respiratory: Present CTA bilaterally *Routine Cardiovascular Exam Cardiovascular: Present RRR *Routine Abdominal Exam Abdominal: Present soft and normoactive bowel sounds; Absent tenderness *Routine Extremities Exam Extremities: Present edema; Absent cyanosis or clubbing Comments: has b/l pitting edema *Routine Skin Exam Skin: Present warm; Absent rash *Routine Neurological Exam Neurological: Present alert and oriented X3 Assessment and Plan *Assessment and plan (1) Pneumonia: Status: Resolved Qualifiers: Laterality: right Lung location: upper lobe of lung Pneumonia type: due to unspecified organism Qualified Code(s): J18.9 - Pneumonia, unspecified organism Category: Medical Code(s): J18.9 - Pneumonia, unspecified organism (2) Mediastinal adenopathy: Status: Acute Category: Medical Code(s): R59.0 - Localized enlarged lymph nodes (3) Acute exacerbation of CHF (congestive heart failure): Status: Resolved Qualifiers: Heart failure type: combined systolic and diastolic Qualified Code(s): I50.43 - Acute on chronic combined systolic (congestive) and diastolic (congestive) heart failure Category: Medical Code(s): I50.9 - Heart failure, unspecified (4) Essential hypertension: Status: Chronic Category: Medical Code(s): I10 - Essential (primary) hypertension (5) Anxiety: Status: Acute Category: Medical Code(s): F41.9 - Anxiety disorder, unspecified (6) Tobacco abuse: Status: Acute Category: Medical Code(s): Z72.0 - Tobacco use (7) Obesity (BMI 30-39.9): Status: Acute Category: Medical Code(s): E66.9 - Obesity, unspecified Plan 72-year-old male with a hypertension, hyperlipidemia, COPD on 2 L home oxygen, CHF diabetes, presenting with increased shortness of breath. patient was recent hospitalized. On imaging, there has been a concern for a right upper lobe lung lesion, that new showed a new nodular consolidation. The rest of the labs are grossl
--- NOTE | 2023-08-16 18:16 | PC.NURSE ---
Pt is alert and oriented x4. Pt has sit up on the side of the bed most of the day. Pt is on 1L NC O2 sat >90%. Pt has complained of pain this shift, treated per mar. Pt is on strict I&Os 1 liter, pt is having good urine output. Lung sounds bilateral inspiratory wheezing. Pt has 3+ pitting edeme bilateral lower extremities. Pt abdomen soft and nontender, bowel sounds active. Pt did get a bed bath today. Pt refused to walk to the restroom. Call light in reach and working.
[2023-08-16 19:46] LABS: QuantiFERON-TB Gold Plus Negative (Negative)
--- NOTE | 2023-08-16 22:31 | PC.NURSE ---
Pt rang call light C/O pain and burning at IV site on left upper arm. IV antibiotic stopped and removed from hub. Checked both arms for vein to start new IV attempts unsuccessful, previous IV was ultrasound guided. Notified supervisor carbon paper coating of need for ultrasound guided IV.
[2023-08-17] VITALS: BP 100/50; PULSE 100; PULSE 102; RESP 20; TEMP 36.4; O2SAT 97
[2023-08-17 00:03] VITALS: PULSE 97; PULSE 99
--- NOTE | 2023-08-17 03:44 | PC.NURSE ---
Pt is alert and oriented x4 and currently on 1L of oxygen, attempt to wean pt off of O2 unsuccessful as sats dropped to mid 80s and had to replace 1 L of O2. Pt has complained of pain multiple times this shift with pain medication to follow. Pt ultrasound guided IV in left upper arm became infiltrated and was removed, New IV placed via ultrasound in the right AC. Pt C/O of placement and inconvenience and was rude to staff. Pt denies needs at this time.
[2023-08-17 04:00] VITALS: BP 92/43; PULSE 90; PULSE 97; RESP 22; TEMP 36.7; O2SAT 92; BMI 36.3
[2023-08-17 06:07] LABS: Chloride 89 mmol/L (98-107)
[2023-08-17 06:08] LABS: Potassium 3.1 mmoL/L (3.5-5.1); Sodium 130 mmol/L (136-145)
[2023-08-17 06:09] LABS: Basophils % 0.3 % (0.1-2.0); Eosinophils # 0.1 K/mm3 (0.0-0.4); Eosinophils % 1.7 % (0.1-12.0); Hematocrit 41.9 % (42.0-52.0); Lymphocytes # 1.8 K/mm3 (0.7-4.5); Lymphocytes % 21.7 % (10-50); Mean Corpuscular HGB Conc 33.4 g/dL (31.8-35.4); Mean Corpuscular Hemoglobin 30.8 pg (27.0-31.2); Mean Corpuscular Volume 92.4 fl (80-94); Mean Platelet Volume 8.3 fl (7.4-10.4); Monocytes # 0.5 K/mm3 (0.1-1.0); Neutrophils # 5.7 K/mm3 (1.8-7.8); Neutrophils % 70.2 % (37.0-80.0); Platelet Count 194 K/mm3 (142-424); Red Blood Count 4.54 M/mm3 (4.60-6.20); White Blood Count 8.1 K/mm3 (4.8-10.8)
[2023-08-17 06:10] LABS: Blood Urea Nitrogen 30 mg/dl (9-20); Creatinine Clearance Estimated 87 mL/min (50-200); Estimated Glomerular Filt Rate 60 ml/min (>60); GFR (African American) 72 ML/MIN (>60)
[2023-08-17 06:11] LABS: Anion Gap 8.1 mEq/L (5-15); Calcium 8.2 mg/dl (8.4-10.2); Carbon Dioxide 36 mmol/L (22.0-30.0); Glucose 102 mg/dl (74-100)
[2023-08-17 08:00] VITALS: BP 111/48; PULSE 115; PULSE 53; RESP 20; TEMP 36.8; O2SAT 93
--- NOTE | 2023-08-17 11:09 | EXP.DC.SUM ---
General Admission date:: 08/14/23 Discharge date: 08/17/23 HPI HPI HPI: This is a 72-year-old male with a hypertension, hyperlipidemia, COPD on 2 L home oxygen, CHF diabetes, presenting with increased shortness of breath. Patient stated that he has not gotten any less short of breath since leaving the hospital. Was just here couple days prior, discharged with COPD exacerbation without complication. Today, presenting with worsening shortness of breath with exertion. Denies fevers or chills, nausea or vomiting, but has had productive cough. Lower extremity edema is worse than usual as well. Has not needed to increase his home oxygen. Admitted for treatment and management. Hospital Course Hospital Course Hospital Course: Patient was seen and evaluated at the bedside on the day of discharge. Patient is stable for discharge. Patient wishes to be discharged. All patient questions were answered and patient was given time to ask questions. Patient was discharged in stable condition. Patient understands that she can return to ER in case of any sudden changes in health. Total time spent on DC - 38 mins 72-year-old male with a hypertension, hyperlipidemia, COPD on 2 L home oxygen, CHF diabetes, presenting with increased shortness of breath. patient was recent hospitalized. On imaging, there has been a concern for a right upper lobe lung lesion, that new showed a new nodular consolidation. The rest of the labs are grossly unremarkable except for slightly elevation of the BNP and some electrolytes disturbance. patient on visible breathing difficulty. Findings discussed with ER provider. Agreed for admission. Plan as follow: -Right upper lobe consolidation pneumonia with mediastinal adenopathy DC on PO doxycylin he needs bronchoscopy as OP per sejal almeida was given Pulmonary office information and referral - Elavated BNP, in the setting of CHF: - improved HTN resume home meds anxiety on ativan tobacco abuse nicotin pacth Protonix for stress ulcer prophylaxis, Lovenox for DVT prophylaxis. Full code Exam Data for Last 24 hours Vital signs and Labs for Last 24 Hours: Temp Pulse Resp BP Pulse Ox O2 Del Method O2 Flow Rate 98.2 F 53 L 20 111/48 L 93 L Nasal Cannula 1 08/17/23 08:00 08/17/23 08:00 08/17/23 08:00 08/17/23 08:00 08/17/23 08:00 08/17/23 08:00 12/22/23 08:00 FiO2 28 08/14/23 19:09 Laboratory Results - last 24 hr 08/14/23 11:59: TB Test (QFT) Nil 0.00, TB Test (QFT) Mitogen >10.00, TB Test (QFT) Ag 1 0.00, TB Test (QFT) Ag 2 0.00, TB Positive Criteria Comment, TB Test (QFT) Interp Negative 08/17/23 05:48: WBC 8.1, RBC 4.54 L, Hgb 14.0 L, Hct 41.9 L, MCV 92.4, MCH 30.8, MCHC 33.4, RDW 13.0, Plt Count 194, MPV 8.3, Neut % (Auto) 70.2, Lymph % (Auto) 21.7, [place] % (Auto) 6.0, Eos % (Auto) 1.7, Baso % (Auto) 0.3, Neut # (Auto) 5.7, Lymph # (Auto) 1.8, [place] # (Auto) 0.5, Eos # (Auto) 0.1, Baso # (Auto) 0.0, Sodium 130 L, Potassium 3.1 L, Chloride 89 L, Carbon Dioxide 36 H, Anion Gap 8.1, BUN 30 H D, Creatinine 1.20 D, Estimated Creat Clear 87, Estimated GFR 60, Est GFR ( Amer) 72 D, Glucose 102 H, Calcium 8.2 L I & O for Last 24 hours: Intake & Output 08/14/23 08/15/23 08/16/23 08/17/23 23:59 23:59 23:59 23:59 Intake Total 2280 / 2280 1200 / 1560 1550 / 1550 240 / 240 Output Total 2500 / 2600 1950 / 1950 928 / 1228 1600 / 1600 Balance -220 / -320 -750 / -390 622 / 322 -1360 / -1360 Weight 105.857 kg 108 kg 109.365 kg 108.862 kg Microbiology Reports for the Last 24 Hours: Microbiology 08/14/23 01:46 Blood Blood Culture - Preliminary 08/14/23 01:46 Blood Blood Culture - Preliminary 08/14/23 02:40 Sputum - Expectorated Sputum Gram Stain - Final 08/14/23 02:40 Sputum - Expectorated Sputum Sputum Culture - Preliminary Constitutional Constitutional: no acute distress *Routine HEENT Exam Head: Present normocephalic Eye: Present EOMI and PERRL ENT: Pre
[2023-08-17 11:20] VITALS: BP 101/64; PULSE 64; RESP 18; TEMP 37.1; O2SAT 93
[2023-08-17 17:09] LABS: Aspergillus flavus Negative (Neg:<1:1); Aspergillus fumigatus Negative (Neg:<1:1); Aspergillus niger Negative (Neg:<1:1); Blastomyces Antibody Negative (Neg:<1:1); Histoplasma Antibody Quant Negative (Neg:<1:1)
--- NOTE | 2023-08-21 13:37 | SW/DCPLANNER ---
Follow up phone call w/ this patient: patient stated that he is doing well at home and does not have any needs/questions at this time.
== END 2023-08-17 12:06 | disposition home or self-care (01) ==
LOC: ER 22:16 → 2ND 08-14 01:36
PROVIDERS: Emergency Medicine; Internal Medicine; Internal Medicine Pulmonary Disease; Nurse Practitioner Family; Admitting Provider Internal Medicine Adolescent Medicine; Emergency Provider Emergency Medicine; PCP Internal Medicine Adolescent Medicine; Visit Provider Internal Medicine Adolescent Medicine
DX: J18.9 Pneumonia, unspecified organism (principal); I11.0 Hypertensive heart disease with heart failure; Z99.81 Dependence on supplemental oxygen; R59.0 Localized enlarged lymph nodes; R91.1 Solitary pulmonary nodule; I50.43 Acute on chronic combined systolic (congestive) and diastolic (congestive) heart failure; F41.9 Anxiety disorder, unspecified; E66.9 Obesity, unspecified; J44.0 Chronic obstructive pulmonary disease with (acute) lower respiratory infection; E78.5 Hyperlipidemia, unspecified; F17.210 Nicotine dependence, cigarettes, uncomplicated; Z68.36 Body mass index [BMI] 36.0-36.9, adult
CPT/HCPCS: 36415; 71045; 71275; 80048; 80053; 82803; 83605; 83735; 83880; 84484; 85025; 86140; 86480; 86606; 86612; 86698; 87040; 87070; 87205; 93005; 94640; 94760; 99291; G0378; J1956; Q9967

== ENCOUNTER 2023-09-05 10:19 | Observation (INO) | payer MEDICARE, SELFPAY ==
[2023-09-05] VITALS (11 sets, daily range): BP systolic 96–135; BP diastolic 43–90; PULSE 53–108; RESP 17–24; TEMP 36.6–36.7; O2SAT 93–99; BMI 43.0; BMI 35.4
--- NOTE | 2023-09-05 10:26 | ECG_ITS ---
APPROVED REPORT Exam: Resting ECG HR:105 bpm ECG Measurements Heart Rate 105 AXES RI 152 P 68 QRSd 122 QRS 38 QT 365 T 185 QTc 426 Conclusion SINUS TACHYCARDIA MODERATE INTRAVENTRICULAR CONDUCTION DELAY [110+ ms QRS DURATION] NONSPECIFIC ST & T-WAVE ABNORMALITY ABNORMAL ECG UNCONFIRMED REPORT Electronically signed by : Tadeo Moore MD 09/06/2023 20:13:05
--- NOTE | 2023-09-05 10:38 | XR_ITS ---
FINAL REPORT CLINICAL HISTORY: soa COMPARISON: 08/16/2023 FINDINGS: SINGLE-VIEW CHEST The heart size is normal. The mediastinum is normal. There is worsening bibasilar atelectasis or pneumonia. There is no pneumothorax. IMPRESSION: Worsening bibasilar atelectasis or pneumonia. Reviewed, Interpreted and Dictated by Hank Salomon III, MD Transcribed by Ericka Nieto Authenticated and [facility]
[2023-09-05] MEDS: ASPIRIN 81MG CHEWABLE TABLET 324 MG PO (11:08)
--- NOTE | 2023-09-05 11:11 | [facility].EDCP ---
Discharge Plan Disposition Patient Disposition: Admitted Chief Complaint: Shortness of Breath/Dyspnea Prescriptions Prescriptions: No Action tamsulosin 0.4 mg capsule,extended release 24hr 0.4 mg PO BID finasteride 5 MG tablet 5 mg PO DAILY carvedilol 3.125 mg tablet 30,125 mg PO BID furosemide [Lasix] 40 mg tablet 40 mg PO DAILY Qty: 30 0RF doxycycline hyclate 100 mg capsule 100 mg PO BID 5 Days Qty: 10 0RF oxybutynin chloride 10 mg tablet extended release 24hr 10 mg PO DAILY albuterol sulfate 90 mcg/actuation HFA aerosol inhaler 2 puff INHALATION Q6HP PRN (Reason: Shortness Of Breath) Entresto 24-26 mg tablet 1 tab PO BID lorazepam [Ativan] 0.5 mg tablet 0.5 mg PO BID PRN (Reason: anxiety) Qty: 20 0RF Referrals Follow up/Referrals: Tadeo Moore MD [Primary Care Provider] - See instructions Clinical Impressions Clinical Impression: Acute exacerbation of chronic obstructive airways disease, Pneumonia, CHF exacerbation Discharge ED Provider: Seb Louis HPI General Chief Complaint: Shortness of Breath/Dyspnea Stated Complaint: Soa Time Seen by Provider: 09/05/23 10:30 Mode of Arrival: Wheelchair Source of Information: Patient Limitations: No Limitations Description of Symptoms (Recalled from ER Triage Doc. by RN): Patient reports worsening SOB and swelling in BLE. Reports recent PNA diagnosis and has not felt better since. Patient on chronic 02 at 2L. Denies other symptoms at this time History of Present Illness HPI narrative: 72-year-old male who Hyperlipidemia, COPD, 2 L nasal cannula at home, CHF, chronic shortness of breath presenting with worsening shortness of breath. Is been going on since recently diagnosed with pneumonia couple of days ago. Patient states he is short of breath has not needed to increase his oxygen. Coughing up brown phlegm and more so than usual. Denies fevers or chills, nausea or vomiting, diarrhea, or any sick contacts. Related Data Home Medications Medication Instructions Recorded Confirmed tamsulosin 0.4 mg capsule 0.4 mg PO BID prostate 09/20/17 08/14/23 finasteride 5 mg tablet 5 mg PO DAILY prostate 09/07/21 08/14/23 albuterol sulfate 90 mcg/actuation 2 puff inhalation Q6HP PRN 05/19/23 08/14/23 aerosol inhaler Shortness Of Breath oxybutynin chloride 10 mg 10 mg PO DAILY overactive bladder 05/19/23 08/14/23 tablet,extended release 24 hr sacubitril 24 mg-valsartan 26 mg 1 tab PO BID Heart Failure 05/19/23 08/14/23 tablet (Entresto) carvedilol 3.125 mg tablet 30,125 mg PO BID 08/14/23 08/14/23 Previous Rx's Medication Instructions Recorded lorazepam 0.5 mg tablet (Ativan) 0.5 mg PO BID PRN anxiety #20 tabs 06/14/23 doxycycline hyclate 100 mg capsule 100 mg PO BID 5 days #10 caps 08/17/23 furosemide 40 mg tablet (Lasix) 40 mg PO DAILY #30 tabs 08/17/23 Allergies Allergy/AdvReac Type Severity Reaction Status Date / Time ceftriaxone [From Rocephin] Allergy Severe Hives Verified 05/18/23 23:28 pregabalin [From LYRICA] Allergy Unknown Verified 05/18/23 20:52 [facility] Disclaimer: The information contained in this section may have been updated after the patient was seen, as this information can be updated by other users. Medical History (Updated 09/05/23 @ 13:56 by Seb Louis MD) Abnormal electrocardiogram [ECG] [EKG] Acute and chronic respiratory failure with hypoxia Acute exacerbation of chronic obstructive pulmonary disease Acute exacerbation of chronic obstructive pulmonary disease (COPD) Anxiety Atypical angina BPH (benign prostatic hyperplasia) CAD in [place] artery Cardiomyopathy Cellulitis of right lower leg CHF exacerbation Congestive heart failure COPD (chronic obstructive pulmonary disease) with acute bronchitis COPD mixed type Essential hypertension Heart failure HFrEF (heart failure with reduced ejection fraction) Hyperlipidemia Lesion of right lung Lung nodule Mediastinal adenopathy Neck pain Obesity (BMI 30-39.9) Obesity (BMI 30.0-34.9) Pneumonia Prostate enlargement Respiratory failure Shortness of Breath Supplemental oxygen dependent Tachycardia Tobacco abuse Volume overload Social History (Updated 08/14/23 @ 02:28 by Lisset Hicks RN) Smoking Status: Current every day smoker tobacco type: cigarettes packs per day: 1 alcohol intake: never substance use type: denies use current occupational status: disabled Travel in the last 8 weeks: None household members: spouse housing: apartment caffeine: Yes ROS Obtained: Yes All systems reviewed & no additional complaints except as documented Physical Exam General General appearance: alert Neck Neck exam: Present trachea midline Chest Chest inspection: Present normal inspection and symmetric chest wall rise Respiratory Respiratory exam: Present normal lung sounds bilaterally, prolonged expiratory phase and other (Decreased breath sounds inferiorly); Absent respiratory distress, wheezes, stridor or accessory muscle use Cardiovascular Cardiovascular exam: Present regular rate and normal rhythm Extremities Exam Extremities exam: Present edema Neurological Exam Neurological exam: Present alert, oriented X3 and CN II-XII intact Skin Skin exam: Present warm and dry; Absent cyanosis, diaphoresis or pallor HEART Score HEART Score HEART Score assessment performed?: Yes History (anamnesis): Slightly suspicious ECG: Normal Age: >65 years Risk factors: 3 or more risk factors Troponin: </= normal limit HEART Score: 4 Critical Care Critical Care Time Critical Care Time: No Medical Decision Making Medical Records Medical records reviewed: Yes I reviewed the patient's medical records. Evin Inquiry Pt receiving controlled substance: No Evin was queried for this patient: No Vital Signs Vital Signs: 09/05/23 10:20 09/05/23 10:30 09/05/23 11:06 Temperature 98.1 F Temperature Source Oral Pulse Rate 60 108 H Pulse Rate [Right] 108 H Respiratory Rate 24 Blood Pressure 134/62 115/65 Blood Pressure [Right Arm] 135/57 L Blood Pressure Mean Blood Pressure Mean [Right Arm] 83 Blood Pressure Source [Right Arm] Automatic Cuff 02 Sat by Pulse Oximetry 95 96 96 Oxygen Delivery Method Room Air Nasal Cannula Nasal Cannula Oxygen Flow Rate (LPM) 2 09/05/23 11:30 09/05/23 12:01 09/05/23 12:31 Temperature Temperature Source Pulse Rate 69 81 53 L Pulse Rate [Right] Respiratory Rate Blood Pressure 130/67 109/43 L 113/90 Blood Pressure [Right Arm] Blood Pressure Mean 95 Blood Pressure Mean [Right Arm] Blood Pressure Source [Right Arm] 02 Sat by Pulse Oximetry 93 L 93 L 94 L Oxygen Delivery Method Nasal Cannula Nasal Cannula Oxygen Flow Rate (LPM) 09/05/23 13:30 Temperature Temperature Source Pulse Rate 105 H Pulse Rate [Right] Respiratory Rate Blood Pressure 112/64 Blood Pressure [Right Arm] Blood Pressure Mean Blood Pressure Mean [Right Arm] Blood Pressure Source [Right Arm] 02 Sat by Pulse Oximetry 97 Oxygen Delivery Method Oxygen Flow Rate (LPM) Lab Data Labs: Lab Results 09/05/23 10:27: WBC 9.1, RBC 4.63, Hgb 14.4, Hct 42.5, MCV 91.9, MCH 31.1, MCHC 33.8, RDW 12.7, Plt Count 244, MPV 8.2, Neut % (Auto) 84.7 H, Lymph % (Auto) 9.7 L, [place] % (Auto) 4.5, Eos % (Auto) 0.8, Baso % (Auto) 0.2, Neut # (Auto) 7.7, Lymph # (Auto) 0.9, [place] # (Auto) 0.4, Eos # (Auto) 0.1, Baso # (Auto) 0.0, Sodium 133 L, Potassium 3.0 L, Chloride 96 L, Carbon Dioxide 30, Anion Gap 10.0, BUN 11, Creatinine 0.80, Estimated Creat Clear 66, Estimated GFR 95, Est GFR ( Amer) 115, Glucose 112 H, Calcium 8.5, Total Bilirubin 1.0, AST 34, ALT 24, Alkaline Phosphatase 76, Troponin I < 0.01, NT-Pro-B Natriuret Pep 1930 H, Total Protein 6.5, Albumin 3.8, Globulin 2.7, Albumin/Globulin Ratio 1.4 09/05/23 10:27 09/05/23 10:27 Response Orders (Tests/Meds): ED MEDICATIONS Generic Name Dose Route Start Last Admin Trade Name Freq PRN Reason Stop Dose Admin Potassium Chloride/Water 100 mls @ 100 mls/hr 09/05/23 12:30 09/05/23 13:35 Potassium Chloride 10meq/100ml Ivpb IV 09/05/23 14:29 Not Given Q1H DOUG Discontinued Medications Generic Name Dose Route Start Last Admin Trade Name Freq PRN Reason Stop Dose Admin Albuterol/Ipratropium 6 ml 09/05/23 10:38 09/05/23 11:13 Ipratropium/Albuterol 3 Ml Neb IH 09/05/23 10:39 3 ml ONCE ONE Administration Amoxicillin/Clavulanate Potassium 1 each 09/05/23 12:05 09/05/23 12:20 Amoxicillin/Clavulanate Potassium 875/125mg Tablet PO 09/05/23 12:06 1 each ONCE ONE Administration Aspirin 324 mg 09/05/23 10:38 09/05/23 11:08 Aspirin 81mg Chewable Tablet PO 09/05/23 10:39 324 mg ONCE ONE Administration Azithromycin 500 mg 09/05/23 12:05 09/05/23 12:20 Azithromycin 250mg Tablet PO 09/05/23 12:06 500 mg ONCE ONE Administration Furosemide 80 mg 09/05/23 13:45 09/05/23 13:51 Furosemide 100mg/10ml Vial IV 09/05/23 13:46 80 mg ONCE ONE Administration Potassium Chloride 60 meq 09/05/23 12:05 09/05/23 12:20 Potassium Chloride 20meq Tab PO 09/05/23 12:06 60 meq ONCE ONE Administration ORDERS Category Date Time Status Cardiology Consult [Consult to Cardiology] [CONS] Cons 09/05/23 13:45 Active Routine Pulmonology Consult [Consult to Pulmonology] [CONS] Cons 09/05/23 13:41 Active Routine CXR --portable [XR chest portable] Stat Exams 09/05/23 10:38 Completed Brain Natriuretic Peptide Stat Lab 09/05/23 10:27 Completed CBC w/Auto Diff [Complete Blood Count Auto Diff] Stat Lab 09/05/23 10:27 Completed CMP [Comprehensive Metabolic Panel] Stat Lab 09/05/23 10:27 Completed Complete Blood Count Auto Diff AMLAB Lab 09/06/23 06:00 Ordered Comprehensive Metabolic Panel AMLAB Lab 09/06/23 06:00 Ordered Magnesium AMLAB Lab 09/06/23 06:00 Ordered Trop I [Troponin I] Stat Lab 09/05/23 10:27 Completed Troponin I Q3H Lab 09/05/23 13:45 Received Troponin I Q3H Lab 09/05/23 16:45 Ordered CA echo doppler complete Routine Y 09/05/23 13:43 Ordered MDM Narrative Medical Decision Narrative: 72-year-old male who Hyperlipidemia, COPD, 2 L nasal cannula at home, CHF, chronic shortness of breath presenting with worsening shortness of breath. Is been going on since recently diagnosed with pneumonia couple of days ago. Patient states he is short of breath has not needed to increase his oxygen. Coughing up brown phlegm and more so than usual. Denies fevers or chills, nausea or vomiting, diarrhea, or any sick contacts. history was obtained via conversation with patient and family. On arrival, patient hemodynamically stable, alert, oriented x4, appropriate, GCS 15, moving all extremities spontaneously, pupils equal and reactive to light. Full physical exam performed and significant for chronically ill-appearing male no acute distress. 2 L no cannula in place. Quiet lung base sounds. No discrete wheezes or rales. Lower extremity edema, appears chronic. Differential includes pneumonia, COPD exacerbation, bronchitis, pneumothorax, PE, CHF, ACS, [place], among others. Patient was given DuoNeb, aspirin, potassium, Augmentin, azithromycin for symptomatic management and correction of underlying abnormalities. Workup independently interpreted and significant for no leukocytosis. Patient is persistently hypokalemic, this was repleted. Troponin negative, BNP nonactionable. Chest x-ray with concern for bilateral basilar infections. See radiology read for full review of final results. Independent interpretation of EKG shows sinus tachycardia [address] or T wave changes concerning for acute ischemia. [place], QRS, QT intervals within normal limits. [place] normal. Heart score 4. On reevaluation, patient still continues to work hard to breathe. Conversation was had with patient guarding home-going versus admission. Patient does not feel comfortable going home with further treatment. He states he was just on doxycycline and that did not seem to help his breathing for the pneumonia. He just wants to improve. Hospital medicine contacted and case was discussed at length, patient amenable to admission. Because patient high risk for clinical decompensation, deemed appropriate for inpatient admission. Results were relayed to patient who voiced understanding and patient was agreeable to inpatient admission and management. Patient was admitted to the hospital for further definitive management.
[2023-09-05] MEDS: IPRATROPIUM/ALBUTEROL 3 ML NEB 6 ML IH (11:13)
[2023-09-05 11:17] LABS: Basophils % 0.2 % (0.1-2.0); Eosinophils # 0.1 K/mm3 (0.0-0.4); Eosinophils % 0.8 % (0.1-12.0); Hematocrit 42.5 % (42.0-52.0); Hemoglobin 14.4 g/dL (14.1-18.0); Lymphocytes # 0.9 K/mm3 (0.7-4.5); Lymphocytes % 9.7 % (10-50); Mean Corpuscular HGB Conc 33.8 g/dL (31.8-35.4); Mean Corpuscular Hemoglobin 31.1 pg (27.0-31.2); Mean Corpuscular Volume 91.9 fl (80-94); Mean Platelet Volume 8.2 fl (7.4-10.4); Monocytes # 0.4 K/mm3 (0.1-1.0); Monocytes % 4.5 % (1.7-9.3); Neutrophils # 7.7 K/mm3 (1.8-7.8); Neutrophils % 84.7 % (37.0-80.0); Platelet Count 244 K/mm3 (142-424); Red Blood Count 4.63 M/mm3 (4.60-6.20); Red Cell Distribution Width 12.7 % (11.5-17.5); White Blood Count 9.1 K/mm3 (4.8-10.8)
[2023-09-05 11:20] LABS: Chloride 96 mmol/L (98-107); Sodium 133 mmol/L (136-145)
[2023-09-05 11:22] LABS: Blood Urea Nitrogen 11 mg/dl (9-20); Creatinine Clearance Estimated 66 mL/min (50-200); Estimated Glomerular Filt Rate 95 ml/min (>60); GFR (African American) 115 ML/MIN (>60)
[2023-09-05 11:23] LABS: Alanine Aminotransferase 24 U/L (12-78); Albumin Level 3.8 g/dl (3.5-5.0); Albumin/Globulin Ratio 1.4 (1.1-1.8); Alkaline Phosphatase 76 U/L (38-126); Aspartate Amino Transferase 34 U/L (17-59); Calcium 8.5 mg/dl (8.4-10.2); Carbon Dioxide 30 mmol/L (22.0-30.0); Globulin 2.7 g/dL (1.3-3.2); Glucose 112 mg/dl (74-100); Total Protein,Serum 6.5 g/dl (6.3-8.2)
[2023-09-05 11:32] LABS: NT Pro Brain Natriuretic Pep. 1930 pg/mL (0-125)
[2023-09-05 11:39] LABS: Troponin I < 0.01 ng/ml (0.00-0.034)
[2023-09-05] MEDS: KCl 10mEq/100ml 100 ML 100 MEQ IV (12:19)
[2023-09-05] MEDS: POTASSIUM CHLORIDE 20MEQ TAB 60 MEQ PO (12:20)
[2023-09-05] MEDS: AMOXICILLIN/CLAVULANATE POTASSIUM 875/125MG TABLET 1 EACH PO (12:20)
[2023-09-05] MEDS: AZITHROMYCIN 250MG TABLET 500 MG PO (12:20)
--- NOTE | 2023-09-05 13:35 | PC.NURSE ---
on phone with hospitalist
--- NOTE | 2023-09-05 13:36 | PC.NURSE ---
Patient refuses IV potassium MD aware.
--- NOTE | 2023-09-05 13:43 | CA_ITS ---
APPROVED REPORT EXAM: Comprehensive 2D, Doppler, and color-flow Echocardiogram Fishing Vessel Mate: VILMA Barker, RVS Ht: 5 ft 8 in Wt: 283lbs BSA: 2.37 BP: 112/64 mmHg Indications: copd, cad, hX-cm LAST EF 15% Echo Enhancing Agent Comments: Extremely limited exam due to patient termination of exam as well as body habitus and lung impedance: Scanned upright in wheelchair 2D Dimensions IVSd 1.05 cm LVEF (Visual) 14.00 % PWd 1.16 cm LVDd 5.75 cm LVDs 5.56 cm Left Atrium 3.18 cm M-Mode Dimensions LA Diam 3.23 cm (1.9-4.0) EPSs 4.44 cm LV Diastology E Decel Time 150 (160-240 msec) MED A' 6.60 cm/s Mitral Valve MV E Max Conner. 105.0 (40-130 cm/s) MV PHT 44.0 ms Left Ventricle Left ventricle is severely dilated. Left ventricular systolic function is severely decreased. There is normal left ventricular wall thickness. There is severe global hypokinesis present. Evaluation of regional wall motion abnormalities is difficult due to technically difficult study. Grade 3 diastolic dysfunction is present. LVEF is 15-20%. Right Ventricle Accurate estimation of the RV size is difficult due to inability to fully visualize the RV free wall. Right ventricle is mildly hypokinetic. Atria The left atrium is severely dilated. THe right atrium is severely dilated. The interatrial septum is not well visualized. Aortic Valve The aortic valve opens well. Transaortic Doppler evaluation not performed in this study. Mitral Valve The mitral valve is normal in structure. Transmitral Doppler evaluation not performed in this study. Tricuspid Valve The tricuspid valve is not well visualized. Pulmonic Valve The pulmonic valve is not well visualized. Great Vessels The aortic root is not well visualized. The IVC is not well visualized. Pericardium There is no pericardial effusion. Other Information Study Quality: Technically Difficult. Technically limited study due to inability to position patient. Conclusion Technically difficult and technically limited study. Severely dilated LV with severe reduction in LV systolic function (LVEF 15--20%). The RV appears dilated with mild reduction in RV function. The valves are not well assessed or visualized in this study due to technically difficult study. Electronically signed by : Carrie Rowland MD 09/08/2023 15:43:11
--- NOTE | 2023-09-05 13:43 | PC.NURSE ---
Care management notified of admission.
[2023-09-05] MEDS: FUROSEMIDE 100MG/10ML VIAL 80 MG IV (13:51)
[2023-09-05] MEDS: KETOROLAC 30MG/ML VIAL 15 MG IV (14:00)
[2023-09-05] MEDS: ACETAMINOPHEN 1,000MG/100ML VIAL 1000 MG IV (14:00)
[2023-09-05] MEDS: MORPHINE 4MG/ML SYRINGE 4 MG IV (14:00)
--- NOTE | 2023-09-05 14:16 | PC.NURSE ---
Report called to FERNANDO Dewitt
--- NOTE | 2023-09-05 14:25 | PC.NURSE ---
arrived by w/c from ED
[2023-09-05 14:27] LABS: Troponin I 0.01 ng/ml (0.00-0.034)
--- NOTE | 2023-09-05 17:14 | P.HP_ITS ---
History of Present Illness *Admission Date: 09/05/23 *Reason for visit:: dyspnea *History of present illness: Mr. Holcomb is a 72-year-old male with COPD, CHF, pneumonia, class II obesity, oxygen dependent, tobacco use disorder. Presented to the ER with persistent shortness of breath and swelling in his lower extremities. Was recently admitted in July for pneumonia but has not felt better since that discharge. Chronically on 2 L nasal cannula oxygen. Denies any chest pain, confusion, headache, nausea or vomiting at this time. At last admission, discharge plan included bronchoscopy next week to evaluate pneumonia and abnormal/atypical findings on chest CT. Patient completed a course of doxycycline.Given his dyspnea and tachycardia, ER consulted medicine for admission. White cell count stable at 9.1. Does have a neutrophil predominance however at 85%. Potassium low at 3.0. BNP elevated at almost 2000. Given a dose of diuretic in the ER. Initiated on antibiotics with Augmentin and azithromycin. On arrival to the floor, patient states he continues to smoke. History is not felt better. Wants to feel better but is not sure he wants to go through bronchoscopy for evaluation. Does not know why he is not breathing any better even though he is on his baseline 2 L of oxygen at this time. Has had intermittent sputum production of brown phlegm. States may be more than normal. Denies any fever or chills. Has not followed up with cardiology or pulmonology since last admission last month. [facility] Disclaimer: The information contained in this section may have been updated after the patient was seen, as this information can be updated by other users. Medical History (Updated 09/05/23 @ 17:20 by Kyler Lovell MD) Abnormal electrocardiogram [ECG] [EKG] Acute and chronic respiratory failure with hypoxia Acute exacerbation of chronic obstructive pulmonary disease Acute exacerbation of chronic obstructive pulmonary disease (COPD) Anxiety Atypical angina BPH (benign prostatic hyperplasia) CAD in [place] artery Cardiomyopathy Cellulitis of right lower leg CHF exacerbation Congestive heart failure COPD (chronic obstructive pulmonary disease) with acute bronchitis COPD mixed type Essential hypertension Heart failure HFrEF (heart failure with reduced ejection fraction) Hyperlipidemia Lesion of right lung Lung nodule Mediastinal adenopathy Neck pain Obesity (BMI 30-39.9) Obesity (BMI 30.0-34.9) Pneumonia Prostate enlargement Respiratory failure Shortness of Breath Supplemental oxygen dependent Tachycardia Tobacco abuse Volume overload Social History Smoking Status: Current every day smoker tobacco type: cigarettes packs per day: 1 alcohol intake: never substance use type: denies use current occupational status: disabled Travel in the last 8 weeks: None household members: spouse housing: apartment caffeine: Yes Review of Systems Review of Systems Review of systems (narrative): 14 point review of systems performed, pertinent positives and negatives as per [facility] Meds Home Medications and Allergies Home Medications Medication Instructions Recorded Confirmed Type tamsulosin 0.4 mg capsule 0.4 mg PO BID prostate 09/20/17 09/05/23 History finasteride 5 mg tablet 5 mg PO DAILY prostate 09/07/21 08/14/23 History albuterol sulfate 90 mcg/actuation 2 puff inhalation Q6HP PRN 05/19/23 08/14/23 History aerosol inhaler Shortness Of Breath oxybutynin chloride 10 mg 10 mg PO DAILY overactive bladder 05/19/23 08/14/23 History tablet,extended release 24 hr sacubitril 24 mg-valsartan 26 mg 1 tab PO BID Heart Failure 05/19/23 08/14/23 History tablet (Entresto) lorazepam 0.5 mg tablet (Ativan) 0.5 mg PO BID PRN anxiety #20 tabs 06/14/23 08/14/23 Rx carvedilol 3.125 mg tablet 30,125 mg PO BID 08/14/23 08/14/23 History doxycycline hyclate 100 mg capsule 100 mg PO BID 5 days #10 caps 08/17/23 Rx furosemide 40 mg tablet (Lasix) 40 mg PO DAILY #30 tabs 08/17/23 Rx New Prescriptions to Start Prescriptions: Allergies Allergy/AdvReac Type Severity Reaction Status Date / Time ceftriaxone [From Rocephin] Allergy Severe Hives Verified 05/18/23 23:28 pregabalin [From LYRICA] Allergy Unknown Verified 05/18/23 20:52 Exam Data for Last 24 hours Vital signs and Labs for Last 24 Hours: Temp Pulse Resp BP Pulse Ox O2 Del Method O2 Flow Rate 98.1 F 106 H 20 117/61 98 Nasal Cannula 2 09/05/23 14:30 09/05/23 14:30 09/05/23 14:30 09/05/23 14:30 09/05/23 14:30 09/05/23 15:00 09/05/23 15:00 Laboratory Results - last 24 hr 09/05/23 10:27: WBC 9.1, RBC 4.63, Hgb 14.4, Hct 42.5, MCV 91.9, MCH 31.1, MCHC 33.8, RDW 12.7, Plt Count 244, MPV 8.2, Neut % (Auto) 84.7 H, Lymph % (Auto) 9.7 L, [place] % (Auto) 4.5, Eos % (Auto) 0.8, Baso % (Auto) 0.2, Neut # (Auto) 7.7, Lymph # (Auto) 0.9, [place] # (Auto) 0.4, Eos # (Auto) 0.1, Baso # (Auto) 0.0, Sodium 133 L, Potassium 3.0 L, Chloride 96 L, Carbon Dioxide 30, Anion Gap 10.0, BUN 11, Creatinine 0.80, Estimated Creat Clear 66, Estimated GFR 95, Est GFR ( Amer) 115, Glucose 112 H, Calcium 8.5, Total Bilirubin 1.0, AST 34, ALT 24, Alkaline Phosphatase 76, Troponin I < 0.01, NT-Pro-B Natriuret Pep 1930 H, Total Protein 6.5, Albumin 3.8, Globulin 2.7, Albumin/Globulin Ratio 1.4 09/05/23 13:45: Troponin I 0.01 I & O for Last 24 hours: Intake & Output 09/02/23 09/03/23 09/04/23 09/05/23 23:59 23:59 23:59 23:59 Output Total 500 / 500 Balance -500 / -500 Weight 105.687 kg Constitutional Constitutional: mild distress, obese, chronically ill appearing and cooperative *Routine HEENT Exam Head: Present normocephalic and atraumatic Eye: Present EOMI, PERRL and normal accommodation ENT: Present mucous membranes moist *Routine Neck Exam Neck: Present supple, full ROM and trachea midline *Routine Respiratory Exam Respiratory: Present accessory muscle use, prolonged expiratory phase, rhonchi, wheezes and symmetric chest movement; Absent crackles or able to speak in complete sentences *Routine Cardiovascular Exam Cardiovascular: Present Normal S1, Normal S2 and tachycardia *Routine Abdominal Exam Abdominal: Present soft and normoactive bowel sounds; Absent organomegaly *Routine Rectal Exam Rectal:: deferred *Routine Genitalia Exam Genitalia:: deferred *Routine Extremities Exam Extremities: Present clubbing, edema (2-3+ bilateral lower extremities to knees), full ROM and pulses intact; Absent cyanosis *Routine Skin Exam Skin: Present intact, dry and warm *Routine Neurological Exam Neurological: Present alert, oriented X3, normal reflexes, moving all extremities and normal speech Routine Psychiatric Exam Psychiatric: Present normal thought process, cooperative, good judgment and anxious Assessment and Plan *Assessment and plan (1) Acute exacerbation of chronic obstructive airways disease: Status: Acute Category: Medical Code(s): J44.1 - Chronic obstructive pulmonary disease with (acute) exacerbation (2) Pneumonia: Status: Acute Category: Medical Code(s): J18.9 - Pneumonia, unspecified organism (3) CHF exacerbation: Status: Acute Category: Medical Code(s): I50.9 - Heart failure, unspecified (4) HFrEF (heart failure with reduced ejection fraction): Status: Chronic Category: Medical Code(s): I50.20 - Unspecified systolic (congestive) heart failure (5) BPH (benign prostatic hyperplasia): Status: Chronic Qualifiers: Lower urinary tract symptom presence: symptoms absent Qualified Code(s): N40.0 - Benign prostatic hyperplasia without lower urinary tract symptoms Category: Medical Code(s): N40.0 - Benign prostatic hyperplasia without lower urinary tract symptoms (6) COPD mixed type: Status: Chronic Category: Medical Code(s): J44.9 - Chronic obstructive pulmonary disease, unspecified (7) Tobacco abuse: Status: Chronic Category: Medical Code(s): Z72.0 - Tobacco use (8) Obesity (BMI 30-39.9): Status: Chronic Category: Medical Code(s): E66.9 - Obesity, unspecified Plan Mr. Holcomb is a 72-year-old male with multiple comorbidities. He presented to the ER with persistent dyspnea. Just does not feel he is gotten better since his last admission for pneumonia. ER consulted medicine to for admission due to persistent shortness of breath, need for further workup, initiation of antibiotics. Medicine agreed to admit for evaluation by pulmonology. Previous concern for atypical pneumonia. Pulmonology and cardiology consulted to assist with care. Problems addressed as follows: Pneumonia Acute exacerbation of COPD -Continue supplemental oxygen, goal saturation greater 90%. Currently on 2 L. -Broaden antibiotics to levofloxacin. Continue 750 mg daily IV. - Pulmonology consulted, appreciate their recommendations. Patient was supposed to have bronc on 09/10, he is unsure if he wants to move forward with this. Needs further discussion and possible evaluation. Given persistence of possible pneumonia, atypical findings on CT of chest in July, explained to patient that his workup is not complete and it is hard to address the exact cause of what is going on if we do not have an identifying etiology. Will obtain sputum culture in the meantime. -DuoNebs scheduled every 6 hours CHF exacerbation Heart failure with reduced ejection fraction - Echo from August 2022 with a EF of 30%. Grade 1 diastolic dysfunction. Will obtain repeat echocardiogram. - Resume Entresto, carvedilol -BNP elevated almost 1999. Will diurese with Lasix x 1, given response, anticipate Lasix 40 mg IV twice daily for negative fluid status. -Consulted to assist with management of CHF as well as clearance for possible bronchoscopy BPH: Continue finasteride 5 mg daily, oxybutynin 10 mg daily, tamsulosin 0.4 mg twice daily. Tobacco use disorder: Counseled on smoking cessation for 10 minutes, patient has tried but has a hard time stopping at home. Nicotine patch as needed. Full code Cardiac diet
--- NOTE | 2023-09-05 17:31 | PC.NURSE ---
pt is sitting up in wheelchair. Pt was asked if he wanted to go to bed. pt refused. call light is within reach, wheels on wheelchair are locked.
[2023-09-05 18:00] LABS: Troponin I 0.02 ng/ml (0.00-0.034)
[2023-09-05] MEDS: IPRATROPIUM/ALBUTEROL 3 ML NEB IH (18:26)
[2023-09-05] MEDS: LEVOFLOXACIN/D5W 750 MG/150 ML 750 MG/150 ML PIGGYBACK 100 MG IV (18:49)
[2023-09-05] MEDS: TAMSULOSIN 0.4MG CAPSULE 0.400000000000000022 MG PO (20:22)
[2023-09-05] MEDS: ACETAMINOPHEN 325MG TAB 650 MG PO (20:22)
[2023-09-05] MEDS: OXYBUTYNIN 5MG TAB 5 MG PO (20:23)
[2023-09-05] MEDS: CARVEDILOL 3.125MG TABLET 3.125 MG PO (20:23)
[2023-09-05] MEDS: SACUBITRIL/VALSARTAN 24-26MG TABLET 1 EACH PO (20:29)
[2023-09-05] MEDS: NYSTATIN SUSP 500,000 UNITS/5ML UDC 500000 UNIT PO (22:08)
[2023-09-06] VITALS (9 sets, daily range): BP systolic 75–108; BP diastolic 42–60; PULSE 78–102; RESP 17–20; TEMP 36.4–37; O2SAT 92–97; BMI 36.1
--- NOTE | 2023-09-06 01:01 | PC.NURSE ---
Pt rings out stating he is not feeling well and has a headache. PRN tylenol not due at this time. Notified Chanda Mike APRN and states she will order ultram for pt. coffee shop aide then made this RN aware of soft 0000 bp 94/48. Manual bp taken by this RN is 75/50. Pt is asymptomatic. Chanda Mike APRN made aware. States to give 250ml bolus to pt. Holding ultram at this time. Fluid bolus currently running.
[2023-09-06 01:34] LABS: Basophils % 0.3 % (0.1-2.0); Eosinophils # 0.1 K/mm3 (0.0-0.4); Eosinophils % 1.1 % (0.1-12.0); Lymphocytes # 1.1 K/mm3 (0.7-4.5); Lymphocytes % 16.2 % (10-50); Mean Corpuscular HGB Conc 33.9 g/dL (31.8-35.4); Mean Corpuscular Hemoglobin 30.4 pg (27.0-31.2); Mean Corpuscular Volume 89.8 fl (80-94); Mean Platelet Volume 8.3 fl (7.4-10.4); Monocytes # 0.4 K/mm3 (0.1-1.0); Monocytes % 5.7 % (1.7-9.3); Neutrophils # 5.3 K/mm3 (1.8-7.8); Neutrophils % 76.6 % (37.0-80.0); Platelet Count 199 K/mm3 (142-424); Red Blood Count 4.23 M/mm3 (4.60-6.20); Red Cell Distribution Width 12.9 % (11.5-17.5); White Blood Count 6.9 K/mm3 (4.8-10.8)
[2023-09-06 01:38] LABS: Chloride 97 mmol/L (98-107); Potassium 3.2 mmoL/L (3.5-5.1); Sodium 132 mmol/L (136-145)
[2023-09-06 01:41] LABS: Anion Gap 7.2 mEq/L (5-15); Blood Urea Nitrogen 13 mg/dl (9-20); Calcium 7.8 mg/dl (8.4-10.2); Carbon Dioxide 31 mmol/L (22.0-30.0); Creatinine Clearance Estimated 101 mL/min (50-200); Estimated Glomerular Filt Rate 83 ml/min (>60); GFR (African American) 101 ML/MIN (>60); Glucose 95 mg/dl (74-100)
[2023-09-06 01:42] LABS: Lactic Acid 0.7 mmol/L (0.7-2.1)
[2023-09-06] MEDS: POTASSIUM CHLORIDE 20MEQ TAB 40 MEQ PO (06:00)
[2023-09-06] MEDS: IPRATROPIUM/ALBUTEROL 3 ML NEB IH (06:15)
[2023-09-06 07:18] LABS: Basophils % 0.3 % (0.1-2.0); Eosinophils # 0.1 K/mm3 (0.0-0.4); Eosinophils % 0.9 % (0.1-12.0); Hematocrit 41.5 % (42.0-52.0); Hemoglobin 13.9 g/dL (14.1-18.0); Lymphocytes # 1.2 K/mm3 (0.7-4.5); Lymphocytes % 16.2 % (10-50); Mean Corpuscular HGB Conc 33.6 g/dL (31.8-35.4); Mean Corpuscular Hemoglobin 31.1 pg (27.0-31.2); Mean Corpuscular Volume 92.5 fl (80-94); Mean Platelet Volume 8.4 fl (7.4-10.4); Monocytes # 0.4 K/mm3 (0.1-1.0); Monocytes % 5.7 % (1.7-9.3); Neutrophils # 5.6 K/mm3 (1.8-7.8); Neutrophils % 76.9 % (37.0-80.0); Platelet Count 226 K/mm3 (142-424); Red Blood Count 4.48 M/mm3 (4.60-6.20); Red Cell Distribution Width 12.8 % (11.5-17.5); White Blood Count 7.3 K/mm3 (4.8-10.8)
[2023-09-06 07:20] LABS: Alanine Aminotransferase 20 U/L (12-78); Albumin Level 3.4 g/dl (3.5-5.0); Albumin/Globulin Ratio 1.3 (1.1-1.8); Alkaline Phosphatase 65 U/L (38-126); Anion Gap 8.2 mEq/L (5-15); Aspartate Amino Transferase 28 U/L (17-59); Bilirubin,Total 0.9 mg/dl (0.2-1.3); Blood Urea Nitrogen 10 mg/dl (9-20); Calcium 8.1 mg/dl (8.4-10.2); Carbon Dioxide 30 mmol/L (22.0-30.0); Chloride 96 mmol/L (98-107); Creatinine Clearance Estimated 104 mL/min (50-200); Estimated Glomerular Filt Rate 95 ml/min (>60); GFR (African American) 115 ML/MIN (>60); Globulin 2.6 g/dL (1.3-3.2); Glucose 92 mg/dl (74-100); Magnesium 1.5 mg/dl (1.6-2.3); Potassium 3.2 mmoL/L (3.5-5.1); Sodium 131 mmol/L (136-145)
--- NOTE | 2023-09-06 07:36 | HMH.PHAINT1 ---
Pharmacy Intervention Comments: Home med list verified with patient at bedside and with external pharmacy list.
[2023-09-06] MEDS: FINASTERIDE 5MG TABLET 5 MG PO (08:15)
[2023-09-06] MEDS: FUROSEMIDE 40MG/4ML VIAL 80 MG IV ×2 (08:16→17:22)
[2023-09-06] MEDS: TAMSULOSIN 0.4MG CAPSULE 0.400000000000000022 MG PO ×2 (08:16→21:24)
[2023-09-06] MEDS: OXYBUTYNIN 5MG TAB 5 MG PO ×2 (08:16→21:24)
[2023-09-06] MEDS: ACETAMINOPHEN 325MG TAB 650 MG PO (08:16)
[2023-09-06] MEDS: CARVEDILOL 3.125MG TABLET 3.125 MG PO (08:17)
[2023-09-06] MEDS: LORazepam 0.5MG TABLET 0.5 MG PO ×2 (08:17→19:07)
[2023-09-06] MEDS: SACUBITRIL/VALSARTAN 24-26MG TABLET 1 EACH PO ×2 (08:17→21:30)
--- NOTE | 2023-09-06 09:23 | P.CONS_ITS ---
History of Present Illness History of present illness: Mr. Holcomb is a 72-year-old male history of COPD CHF pneumonia lung nodules/lymphadenopathy recently seen in the hospital for worsening respiratory failure COPD CHF exacerbation s/p completion of doxycycline with no need for steroids scheduled for bronchoscopy as an outpatient basis presented to the hospital again with worsening respiratory symptoms pulmonary was called for furt her evaluation and management. Patient denies any worsening cough or any worsening productive phlegm/worsening wheezing. [facility] Disclaimer: The information contained in this section may have been updated after the patient was seen, as this information can be updated by other users. Medical History (Updated 09/06/23 @ 10:58 by Savannah Huang MD) Abnormal electrocardiogram [ECG] [EKG] Acute and chronic respiratory failure with hypoxia Acute and chronic respiratory failure with hypoxia Acute exacerbation of chronic obstructive pulmonary disease Acute exacerbation of chronic obstructive pulmonary disease (COPD) Anxiety Atypical angina BPH (benign prostatic hyperplasia) CAD in [place] artery Cardiomyopathy Cellulitis of right lower leg CHF exacerbation Congestive heart failure COPD (chronic obstructive pulmonary disease) with acute bronchitis COPD mixed type Essential hypertension Heart failure HFrEF (heart failure with reduced ejection fraction) Hyperlipidemia Lesion of right lung Lung nodule Mediastinal adenopathy Neck pain Obesity (BMI 30-39.9) Obesity (BMI 30.0-34.9) Pneumonia Prostate enlargement Respiratory failure Shortness of Breath Supplemental oxygen dependent Tachycardia Tobacco abuse Volume overload Social History Smoking Status: Current every day smoker tobacco type: cigarettes packs per day: 1 alcohol intake: never substance use type: denies use current occupational status: disabled Travel in the last 8 weeks: None household members: spouse housing: apartment caffeine: Yes Review of Systems Constitutional Constitutional: Reports anorexia, Reports body ache(s) and Reports fatigue Eyes Eyes: Denies eye discharge, Denies dry eyes, Denies irritation and Denies itchy eyes ENT Ears, Nose, Mouth, and Throat: Denies epistaxis, Denies facial pain, Denies lip swelling and Denies throat swelling *Cardiovascular Cardiovascular: Reports dyspnea, Reports dyspnea on exertion, Reports leg edema, Reports orthopnea and Reports pedal edema *Respiratory Respiratory: Reports chest congestion, Reports cough, Reports dyspnea, Reports dyspnea on exertion, Denies excessive phlegm production and Denies wheezing *Gastrointestinal Gastrointestinal: Denies abdominal pain, Denies belching and Denies cramping *Musculoskeletal Musculoskeletal: Reports back pain, Reports myalgias and Reports other (No small joint swelling or Pain) Psychiatric Psychiatric: Denies homicidal ideation and Denies suicidal ideation Endocrine Endocrine: Reports fatigue and Denies heat intolerance Hematologic/Lymphatic Hematologic/Lymphatic: Denies easy bleeding and Denies lymphadenopathy Allergic/Immunologic Allergic/Immunologic: Denies itchy eyes, Denies lip swelling, Denies throat swelling and Denies wheezing Pulmonology Exam Inpatient Vital signs and Labs for Last 24 Hours: Temp Pulse Resp BP Pulse Ox O2 Del Method O2 Flow Rate 98.0 F 102 H 20 100/52 L 94 L Nasal Cannula 2 09/06/23 08:00 09/06/23 08:00 09/06/23 08:00 09/06/23 08:00 09/06/23 08:00 09/06/23 08:00 09/06/23 08:00 Laboratory Results - last 24 hr 09/05/23 10:27: WBC 9.1, RBC 4.63, Hgb 14.4, Hct 42.5, MCV 91.9, MCH 31.1, MCHC 33.8, RDW 12.7, Plt Count 244, MPV 8.2, Neut % (Auto) 84.7 H, Lymph % (Auto) 9.7 L, [place] % (Auto) 4.5, Eos % (Auto) 0.8, Baso % (Auto) 0.2, Neut # (Auto) 7.7, Lymph # (Auto) 0.9, [place] # (Auto) 0.4, Eos # (Auto) 0.1, Baso # (Auto) 0.0, Sodium 133 L, Potassium 3.0 L, Chloride 96 L, Carbon Dioxide 30, Anion Gap 10.0, BUN 11, Creatinine 0.80, Estimated Creat Clear 66, Estimated GFR 95, Est GFR ( Amer) 115, Glucose 112 H, Calcium 8.5, Total Bilirubin 1.0, AST 34, ALT 24, Alkaline Phosphatase 76, Troponin I < 0.01, NT-Pro-B Natriuret Pep 1930 H, Total Protein 6.5, Albumin 3.8, Globulin 2.7, Albumin/Globulin Ratio 1.4 09/05/23 13:45: Troponin I 0.01 09/05/23 17:02: Troponin I 0.02 01/11/24 01:25: WBC 6.9, RBC 4.23 L, Hgb 13.0 L, Hct 38.0 L, MCV 89.8, MCH 30.4, MCHC 33.9, RDW 12.9, Plt Count 199, MPV 8.3, Neut % (Auto) 76.6, Lymph % (Auto) 16.2, [place] % (Auto) 5.7, Eos % (Auto) 1.1, Baso % (Auto) 0.3, Neut # (Auto) 5.3, Lymph # (Auto) 1.1, [place] # (Auto) 0.4, Eos # (Auto) 0.1, Baso # (Auto) 0.0, Sodium 132 L, Potassium 3.2 L, Chloride 97 L, Carbon Dioxide 31 H, Anion Gap 7.2, BUN 13, Creatinine 0.90, Estimated Creat Clear 101, Estimated GFR 83, Est GFR ( Amer) 101, Glucose 95, Lactate 0.7, Calcium 7.8 L 09/06/23 05:31: WBC 7.3, RBC 4.48 L, Hgb 13.9 L, Hct 41.5 L, MCV 92.5, MCH 31.1, MCHC 33.6, RDW 12.8, Plt Count 226, MPV 8.4, Neut % (Auto) 76.9, Lymph % (Auto) 16.2, [place] % (Auto) 5.7, Eos % (Auto) 0.9, Baso % (Auto) 0.3, Neut # (Auto) 5.6, Lymph # (Auto) 1.2, [place] # (Auto) 0.4, Eos # (Auto) 0.1, Baso # (Auto) 0.0, Sodium 131 L, Potassium 3.2 L, Chloride 96 L, Carbon Dioxide 30, Anion Gap 8.2, BUN 10, Creatinine 0.80, Estimated Creat Clear 104, Estimated GFR 95, Est GFR ( Amer) 115, Glucose 92, Calcium 8.1 L, Magnesium 1.5 L, Total Bilirubin 0.9, AST 28, ALT 20, Alkaline Phosphatase 65, Total Protein 6.0 L, Albumin 3.4 L D, Globulin 2.6, Albumin/Globulin Ratio 1.3 I & O for Labs for Last 24 Hours: Intake & Output 09/03/23 09/04/23 09/05/23 09/06/23 23:59 23:59 23:59 23:59 Intake Total 360 / 360 820 / 820 Output Total 1300 / 1300 550 / 550 Balance -940 / -940 270 / 270 Weight 233 lb 238 lb 9.6 oz Microbiology Reports for the Last 24 Hours: Microbiology 08/14/23 02:40 Sputum - Expectorated Sputum Gram Stain - Final Constitutional: Present mild distress Head: Present normocephalic and atraumatic ENT: Present normal exam, normal oropharynx and mucous membranes moist Neck: Present normal inspection and full ROM Respiratory: Present respiratory distress, normal respiratory effort and able to speak in complete sentences; Absent prolonged expiratory phase, wheezes or diminished air movement Cardiac: Present S1/S2, Tachycardia and radial pulses present GI: Present soft and distention; Absent tenderness or guarding Skin: Present intact; Absent cyanosis or jaundice Neuro: Present alert, awake and oriented x 3 Extremities: Present normal inspection and edema; Absent clubbing or cyanosis Psychiatric: Present normal affect and cooperative Meds Home Medications and Allergies Home Medications Medication Instructions Recorded Confirmed Type tamsulosin 0.4 mg capsule 0.4 mg PO BID 09/20/17 09/05/23 History finasteride 5 mg tablet 5 mg PO DAILY 09/07/21 09/06/23 History albuterol sulfate 90 mcg/actuation 2 puff inhalation Q6H PRN 05/19/23 09/06/23 History aerosol inhaler Shortness Of Breath oxybutynin chloride 10 mg 10 mg PO DAILY 05/19/23 09/06/23 History tablet,extended release 24 hr sacubitril 24 mg-valsartan 26 mg 0.5 tab PO BID 05/19/23 09/05/23 History tablet (Entresto) furosemide 40 mg tablet (Lasix) 40 mg PO DAILY #30 tabs 08/17/23 09/06/23 Rx budesonide 0.5 mg/2 mL suspension 0.5 mg inhalation BID PRN 09/06/23 09/06/23 History for nebulization Shortness Of Breath Or Wheezing lorazepam 0.5 mg tablet 0.5 mg PO BID PRN Anxiety 09/06/23 09/06/23 History New Prescriptions to Start Prescriptions: Allergies Allergy/AdvReac Type Severity Reaction Status Date / Time ceftriaxone [From Rocephin] Allergy Severe Hives Verified 05/18/23 23:28 pregabalin [From LYRICA] Allergy Unknown Verified 05/18/23 20:52 Results Laboratory Findings 09/06/23 05:31 09/06/23 05:31 Abnormal lab findings: Abnormal Labs 09/05/23 09/06/23 09/06/23 10:27 01:25 05:31 RBC 4.23 L 4.48 L Hgb 13.0 L 13.9 L Hct 38.0 L 41.5 L Neut % (Auto) 84.7 H Lymph % (Auto) 9.7 L Sodium 133 L 132 L 131 L Potassium 3.0 L 3.2 L 3.2 L Chloride 96 L 97 L 96 L Carbon Dioxide 31 H Glucose 112 H Calcium 7.8 L 8.1 L Magnesium 1.5 L NT-Pro-B Natriuret Pep 1930 H Total Protein 6.0 L Albumin 3.4 L D Assessment and Plan *Assessment and plan (1) Pneumonia: Status: Acute Qualifiers: Pneumonia type: due to unspecified organism Laterality: right Lung location: lower lobe of lung Qualified Code(s): J18.9 - Pneumonia, unspecified organism Category: Medical Code(s): J18.9 - Pneumonia, unspecified organism (2) Acute and chronic respiratory failure with hypoxia: Status: Acute Category: Medical Code(s): J96.21 - Acute and chronic respiratory failure with hypoxia Plan Mr. Holcomb is a 72-year-old male history of COPD CHF pneumonia lung nodules/lymphadenopathy recently seen in the hospital for worsening respiratory failure COPD CHF exacerbation s/p completion of doxycycline with no need for steroids scheduled for bronchoscopy as an outpatient basis presented to the hospital again with worsening respiratory symptoms pulmonary was called for further evaluation and management. Chest x-ray upon admission concerning for bilateral lower lobe atelectasis/airspace disease. Afebrile. No evidence of leukocytosis. Patient was initiated on levofloxacin upon admission for possible pneumonia coverage for the questionable lower lobe infiltrates. On initial examination auscultation no significant wheezing noted. Patient is any worsening cough or any productive phlegm. Plan: -Initiate Trelegy 100 inhaler -DuoNebs every 6 hours on as-needed basis -Continue levofloxacin daily x 5 days for the presumed lower lobe pneumonia -No need for steroids at this point of time next # Right upper lobe nodule: # Mediastinal and hilar lymphadenopathy: Current smoker, greater than 30 PPD CAT scan from April 2023 relatively stable in May however significantly worsened with more dense along with worsening lymphadenopathy on his CAT scan from this admission in July 2023. CRP slightly elevated at 9.1 Serum fungal serologies and TB QuantiFERON negative Plan: Bronchoscopy EBUS FNA transbronchial lung biopsy tentatively scheduled for 09/17/2023 pending patient's decision. Patient also needs a cardiology clearance for this procedure. I have again today reiterated the need for bronchoscopy to the patient . He expresses complete understanding of the possible risk benefits morbidity and mortality associated with not getting a procedure done and he would still want some time to think about it. He did not have any questions at the end of the conversation again today. Will continue to follow. If patient continues to refuse the procedure will follow with a 3-month CT chest without contrast
[2023-09-06] MEDS: MAGNESIUM SULFATE IN WATER 2 GM/50 ML PIGGYBACK IV ×2 (10:21→17:22)
--- NOTE | 2023-09-06 12:27 | P.CONCA_ITS ---
History of Present Illness History of Present Illness Consult date: 09/06/23 Requesting physician: Kyler Lovell Consult reason: shortness of breath Chief complaint: SOB History of present illness: This is a 72-year-old white gentleman who presented to the emergency department with complaints of shortness of breath and swelling in the bilateral lower extremities. Patient has a known history of dilated cardiomyopathy, CHF, COPD and tobacco use disorder. The patient was recently admitted to the hospital in July for pneumonia and states that he has not felt any better since the time of discharge. He states he has had progressively worsening shortness of breath and bilateral lower extremity edema. His symptoms are worse with exertion and they do improve with rest. He denies any chest pain or pressure. He denies any fever, chills, nausea, vomiting, diarrhea, PND or orthopnea. The patient denies an associated cough. The patient states that he continues to smoke. It has been recommended that he proceed with a bronchoscopy but he is not sure if he wants to do this at this time. Cardiology was previously consulted on this patient back in May for cardiomyopathy. He did refuse to wear a LifeVest at that time. He has not followed up with cardiology since then. [facility] Disclaimer: The information contained in this section may have been updated after the patient was seen, as this information can be updated by other users. Medical History (Updated 09/06/23 @ 12:35 by Patience Ewing APRN) Abnormal electrocardiogram [ECG] [EKG] Acute and chronic respiratory failure with hypoxia Acute and chronic respiratory failure with hypoxia Acute exacerbation of chronic obstructive pulmonary disease Acute exacerbation of chronic obstructive pulmonary disease (COPD) Anxiety Atypical angina BPH (benign prostatic hyperplasia) CAD in [place] artery Cardiomyopathy Cellulitis of right lower leg CHF exacerbation Congestive heart failure COPD (chronic obstructive pulmonary disease) with acute bronchitis COPD mixed type Essential hypertension Heart failure HFrEF (heart failure with reduced ejection fraction) Hyperlipidemia Lesion of right lung Lung nodule Mediastinal adenopathy Neck pain Obesity (BMI 30-39.9) Obesity (BMI 30.0-34.9) Pneumonia Prostate enlargement Respiratory failure Shortness of Breath SOB (shortness of breath) on exertion Supplemental oxygen dependent Tachycardia Tobacco abuse Volume overload Social History Smoking Status: Current every day smoker tobacco type: cigarettes packs per day: 1 alcohol intake: never substance use type: denies use current occupational status: disabled Travel in the last 8 weeks: None household members: spouse housing: apartment caffeine: Yes Review of Systems Review of Systems Review of systems:: pertinent systems reviewed and negative unless documented below Constitutional Constitutional: Reports system reviewed and no additional complaints, except as documented Eyes Eyes: Reports system reviewed and no additional complaints, except as documented ENT Ears, Nose, Mouth, and Throat: Reports system reviewed and no additional complaints, except as documented *Cardiovascular Cardiovascular: Reports system reviewed and no additional complaints, except as documented, Denies chest pain, Reports dyspnea, Reports dyspnea on exertion, Reports edema, Reports leg edema, Denies orthopnea and Reports pedal edema *Respiratory Respiratory: Reports system reviewed and no additional complaints, except as documented, Reports chest congestion, Denies cough, Reports dyspnea and Reports dyspnea on exertion *Gastrointestinal Gastrointestinal: Reports system reviewed and no additional complaints, except as documented *Genitourinary Genitourinary: Reports system reviewed and no additional complaints, except as documented *Musculoskeletal Musculoskeletal: Reports system reviewed and no additional complaints, except as documented Integumentary/Breasts Skin/Breast: Reports system reviewed and no additional complaints, except as documented *Neurologic Neurologic: Reports system reviewed and no additional complaints, except as documented Psychiatric Psychiatric: Reports system reviewed and no additional complaints, except as documented Endocrine Endocrine: Reports system reviewed and no additional complaints, except as documented Hematologic/Lymphatic Hematologic/Lymphatic: Reports system reviewed and no additional complaints, except as documented Allergic/Immunologic Allergic/Immunologic: Reports system reviewed and no additional complaints, except as documented Exam Data for Last 24 hours Vital signs and Labs for Last 24 Hours: Temp Pulse Resp BP Pulse Ox O2 Del Method O2 Flow Rate 98.6 F 89 18 92/54 L 92 L Nasal Cannula 2 09/06/23 11:29 09/06/23 11:29 09/06/23 11:29 09/06/23 11:29 09/06/23 11:29 09/06/23 11:29 09/06/23 11:29 Laboratory Results - last 24 hr 09/05/23 13:45: Troponin I 0.01 09/05/23 17:02: Troponin I 0.02 09/06/23 01:25: WBC 6.9, RBC 4.23 L, Hgb 13.0 L, Hct 38.0 L, MCV 89.8, MCH 30.4, MCHC 33.9, RDW 12.9, Plt Count 199, MPV 8.3, Neut % (Auto) 76.6, Lymph % (Auto) 16.2, [place] % (Auto) 5.7, Eos % (Auto) 1.1, Baso % (Auto) 0.3, Neut # (Auto) 5.3, Lymph # (Auto) 1.1, [place] # (Auto) 0.4, Eos # (Auto) 0.1, Baso # (Auto) 0.0, Sodium 132 L, Potassium 3.2 L, Chloride 97 L, Carbon Dioxide 31 H, Anion Gap 7.2, BUN 13, Creatinine 0.90, Estimated Creat Clear 101, Estimated GFR 83, Est GFR ( Amer) 101, Glucose 95, Lactate 0.7, Calcium 7.8 L 09/06/23 05:31: WBC 7.3, RBC 4.48 L, Hgb 13.9 L, Hct 41.5 L, MCV 92.5, MCH 31.1, MCHC 33.6, RDW 12.8, Plt Count 226, MPV 8.4, Neut % (Auto) 76.9, Lymph % (Auto) 16.2, [place] % (Auto) 5.7, Eos % (Auto) 0.9, Baso % (Auto) 0.3, Neut # (Auto) 5.6, Lymph # (Auto) 1.2, [place] # (Auto) 0.4, Eos # (Auto) 0.1, Baso # (Auto) 0.0, Sodium 131 L, Potassium 3.2 L, Chloride 96 L, Carbon Dioxide 30, Anion Gap 8.2, BUN 10, Creatinine 0.80, Estimated Creat Clear 104, Estimated GFR 95, Est GFR ( Amer) 115, Glucose 92, Calcium 8.1 L, Magnesium 1.5 L, Total Bilirubin 0.9, AST 28, ALT 20, Alkaline Phosphatase 65, Total Protein 6.0 L, Albumin 3.4 L D, Globulin 2.6, Albumin/Globulin Ratio 1.3 I & O for Last 24 hours: Intake & Output 09/03/23 09/04/23 09/05/23 09/06/23 23:59 23:59 23:59 23:59 Intake Total 360 / 360 1360 / 1360 Output Total 1300 / 1300 1450 / 1450 Balance -940 / -940 -90 / -90 Weight 233 lb 238 lb 9.6 oz Constitutional Constitutional: no acute distress and obese *Routine HEENT Exam Head: Present normocephalic and atraumatic ENT: Present mucous membranes moist *Routine Neck Exam Neck: Present supple, full ROM and normal carotid upstroke; Absent JVD, carotid bruit or lymphadenopathy *Routine Respiratory Exam Respiratory: Present CTA bilaterally, normal respiratory effort, able to speak in complete sentences and symmetric chest movement *Routine Cardiovascular Exam Cardiovascular: Present RRR, Normal S1 and Normal S2; Absent murmur or gallop *Routine Abdominal Exam Abdominal: Present soft and normoactive bowel sounds; Absent tenderness, distended or organomegaly *Routine Extremities Exam Extremities: Present full ROM, pulses intact and normal capillary refill; Absent cyanosis, clubbing or edema *Routine Skin Exam Skin: Present intact and warm; Absent erythema *Routine Neurological Exam Neurological: Present alert, oriented X3 and CN II-XII intact; Absent sensory deficit or motor deficit Routine Psychiatric Exam Psychiatric: Present normal affect Meds Home Medications and Allergies Home Medications Medication Instructions Recorded Confirmed Type tamsulosin 0.4 mg capsule 0.4 mg PO BID 09/20/17 09/05/23 History finasteride 5 mg tablet 5 mg PO DAILY 09/07/21 09/06/23 History albuterol sulfate 90 mcg/actuation 2 puff inhalation Q6H PRN 05/19/23 09/06/23 History aerosol inhaler Shortness Of Breath oxybutynin chloride 10 mg 10 mg PO DAILY 05/19/23 09/06/23 History tablet,extended release 24 hr sacubitril 24 mg-valsartan 26 mg 0.5 tab PO BID 05/19/23 09/05/23 History tablet (Entresto) furosemide 40 mg tablet (Lasix) 40 mg PO DAILY #30 tabs 08/17/23 09/06/23 Rx budesonide 0.5 mg/2 mL suspension 0.5 mg inhalation BID PRN 09/06/23 09/06/23 History for nebulization Shortness Of Breath Or Wheezing lorazepam 0.5 mg tablet 0.5 mg PO BID PRN Anxiety 09/06/23 09/06/23 History New Prescriptions to Start Prescriptions: Allergies Allergy/AdvReac Type Severity Reaction Status Date / Time ceftriaxone [From Rocephin] Allergy Severe Hives Verified 05/18/23 23:28 pregabalin [From LYRICA] Allergy Unknown Verified 05/18/23 20:52 Assessment and Plan *Assessment and plan (1) SOB (shortness of breath) on exertion: Status: Acute Category: Medical Code(s): R06.02 - Shortness of breath (2) HFrEF (heart failure with reduced ejection fraction): Status: Chronic Category: Medical Code(s): I50.20 - Unspecified systolic (congestive) heart failure (3) Acute and chronic respiratory failure with hypoxia: Status: Acute Category: Medical Code(s): J96.21 - Acute and chronic respiratory failure with hypoxia (4) Tobacco abuse: Status: Chronic Category: Medical Code(s): Z72.0 - Tobacco use (5) Obesity (BMI 30-39.9): Status: Chronic Category: Medical Code(s): E66.9 - Obesity, unspecified (6) COPD mixed type: Status: Chronic Category: Medical Code(s): J44.9 - Chronic obstructive pulmonary disease, unspecified Plan Plan: 1. This is a 72-year-old gentleman who is admitted to the hospital with an acute COPD exacerbation as well as acute on chronic HFrEF. The patient has a known cardiomyopathy with an ejection fraction of 30%. Will repeat an echocardiogram now to reevaluate his ejection fraction as his last echo was in August 2022. LV gram in May 2023 did show persistent ejection fraction at 30%. Continue IV diuretics with Lasix 80 mg IV twice daily. 2. The patient denies any chest pain or pressure. He ruled out for an MS. No plans for invasive left cardiac catheterization. He has known mild nonocclusive disease. 3. The patient has an acute COPD exacerbation. This is being managed by pulmonology. Will defer. 4. Continue Entresto and carvedilol for HFrEF. 5. Once the patient is euvolemic we do recommend starting Jardiance 10 mg daily. 6. Will start spironolactone 25 mg p.o. daily. 7. We still do recommend a LifeVest due to his severe LV dysfunction. He is at increased risk for sudden cardiac . The patient still declines a LifeVest at this time. 8. The patient will need a bronchoscopy with pulmonology. Dr. Butler would like for the patient to be diuresed today with IV Lasix and then tomorrow he will likely be in a more euvolemic state to proceed with bronchoscopy. But ultimately this will be left up to pulmonology. 9. Further recommendations were made pending the patient's response to treatment. Thank you for the opportunity to help participate in the care of this patient. All recommendations and orders are per Dr. Rowland.
[2023-09-06] MEDS: SPIRONOLACTONE 25MG TABLET 25 MG PO (13:20)
--- NOTE | 2023-09-06 16:54 | EXP.ACUTE.PN ---
Subjective *Date: 09/06/23 *Time: 16:54 Interval history: States he is breathing a little bit better today. Slept poorly however. No chest pain, nausea, vomiting. Medical Exam Vital signs and Labs for Last 24 Hours: Vital Signs Temp Pulse Pulse Resp BP Pulse Ox O2 Del Method 09/06/23 08:00 Nasal Cannula 09/06/23 15:00 Nasal Cannula 09/06/23 15:22 97.6 F 90 20 81/42 L 96 Nasal Cannula 09/06/23 13:00 Nasal Cannula 09/06/23 11:00 Nasal Cannula 09/06/23 11:29 98.6 F 89 18 92/54 L 92 L Nasal Cannula 09/06/23 09:00 Nasal Cannula 09/06/23 08:00 Nasal Cannula 09/06/23 08:00 98.0 F 102 H 20 100/52 L 94 L Nasal Cannula 09/06/23 06:15 96 H 09/06/23 06:15 100 H 09/06/23 06:15 97 Nasal Cannula 09/06/23 06:07 Nasal Cannula 09/06/23 04:00 97.9 F 94 H 17 95/42 L 96 Nasal Cannula 09/06/23 04:48 Room Air 09/06/23 03:00 Room Air 09/06/23 01:00 Room Air 09/06/23 01:14 90/60 L 09/06/23 00:57 75/50 L 09/06/23 00:00 97.8 F 92 H 18 94/48 L 94 L Nasal Cannula 09/05/23 22:51 Room Air 09/05/23 21:00 Room Air 09/05/23 20:00 Room Air 09/05/23 20:00 97.9 F 69 17 96/45 L 93 L Nasal Cannula 09/05/23 18:38 Nasal Cannula 09/05/23 17:00 Nasal Cannula 09/05/23 18:26 89 09/05/23 18:26 107 H 09/05/23 18:26 99 Nasal Cannula O2 Flow Rate 09/06/23 08:00 2 09/06/23 15:00 2 09/06/23 15:22 2 09/06/23 13:00 2 09/06/23 11:00 2 09/06/23 11:29 2 09/06/23 09:00 2 09/06/23 08:00 2 09/06/23 08:00 2 09/06/23 06:15 09/06/23 06:15 09/06/23 06:15 2 09/06/23 06:07 2 09/06/23 04:00 09/06/23 04:48 09/06/23 03:00 09/06/23 01:00 09/06/23 01:14 09/06/23 00:57 09/06/23 00:00 09/05/23 22:51 09/05/23 21:00 09/05/23 20:00 09/05/23 20:00 2 09/05/23 18:38 2 09/05/23 17:00 2 09/05/23 18:26 09/05/23 18:26 09/05/23 18:26 2 Intake and Output 09/06/23 09/06/23 09/06/23 07:59 15:59 23:59 Intake Total 250 / 1360 1110 / 1360 Output Total 300 / 1450 1150 / 1450 Balance -50 / -90 -40 / -90 Intake: Intake, Oral Amount 1110 / 1110 Intake, Other Amount 250 / 250 Output: Output, Urine Amount 300 / 1450 1150 / 1450 Other: Intake, Other Source Saline Solution Number of Unmeasured Voids 0 Weight 108.227 kg Patient Weight 09/06/23 23:59 Weight 108.227 kg Laboratory Results - last 24 hr 09/05/23 17:02: Troponin I 0.02 09/06/23 01:25: WBC 6.9, RBC 4.23 L, Hgb 13.0 L, Hct 38.0 L, MCV 89.8, MCH 30.4, MCHC 33.9, RDW 12.9, Plt Count 199, MPV 8.3, Neut % (Auto) 76.6, Lymph % (Auto) 16.2, [place] % (Auto) 5.7, Eos % (Auto) 1.1, Baso % (Auto) 0.3, Neut # (Auto) 5.3, Lymph # (Auto) 1.1, [place] # (Auto) 0.4, Eos # (Auto) 0.1, Baso # (Auto) 0.0, Sodium 132 L, Potassium 3.2 L, Chloride 97 L, Carbon Dioxide 31 H, Anion Gap 7.2, BUN 13, Creatinine 0.90, Estimated Creat Clear 101, Estimated GFR 83, Est GFR ( Amer) 101, Glucose 95, Lactate 0.7, Calcium 7.8 L 09/06/23 05:31: WBC 7.3, RBC 4.48 L, Hgb 13.9 L, Hct 41.5 L, MCV 92.5, MCH 31.1, MCHC 33.6, RDW 12.8, Plt Count 226, MPV 8.4, Neut % (Auto) 76.9, Lymph % (Auto) 16.2, [place] % (Auto) 5.7, Eos % (Auto) 0.9, Baso % (Auto) 0.3, Neut # (Auto) 5.6, Lymph # (Auto) 1.2, [place] # (Auto) 0.4, Eos # (Auto) 0.1, Baso # (Auto) 0.0, Sodium 131 L, Potassium 3.2 L, Chloride 96 L, Carbon Dioxide 30, Anion Gap 8.2, BUN 10, Creatinine 0.80, Estimated Creat Clear 104, Estimated GFR 95, Est GFR ( Amer) 115, Glucose 92, Calcium 8.1 L, Magnesium 1.5 L, Total Bilirubin 0.9, AST 28, ALT 20, Alkaline Phosphatase 65, Total Protein 6.0 L, Albumin 3.4 L D, Globulin 2.6, Albumin/Globulin Ratio 1.3 I & O for Labs for Last 24 Hours: Intake & Output 09/03/23 09/04/23 09/05/23 09/06/23 23:59 23:59 23:59 23:59 Intake Total 360 / 360 1360 / 1360 Output Total 1300 / 1300 1450 / 1450 Balance -940 / -940 -90 / -90 Weight 105.687 kg 108.227 kg Assessment and Plan *Assessment and plan (1) Acute exacerbation of chronic obstructive airways disease: Status: Acute Category: Medical Code(s): J44.1 - Chronic obstructive pulmonary disease with (acute) exacerbation (2) Pneumonia: Status: Acute Qualifiers: Laterality: right Lung location: lower lobe of lung Pneumonia type: due to unspecified organism Qualified Code(s): J18.9 - Pneumonia, unspecified organism Category: Medical Code(s): J18.9 - Pneumonia, unspecified organism (3) CHF exacerbation: Status: Acute Category: Medical Code(s): I50.9 - Heart failure, unspecified (4) HFrEF (heart failure with reduced ejection fraction): Status: Chronic Category: Medical Code(s): I50.20 - Unspecified systolic (congestive) heart failure (5) BPH (benign prostatic hyperplasia): Status: Chronic Qualifiers: Lower urinary tract symptom presence: symptoms absent Qualified Code(s): N40.0 - Benign prostatic hyperplasia without lower urinary tract symptoms Category: Medical Code(s): N40.0 - Benign prostatic hyperplasia without lower urinary tract symptoms (6) COPD mixed type: Status: Chronic Category: Medical Code(s): J44.9 - Chronic obstructive pulmonary disease, unspecified (7) Tobacco abuse: Status: Chronic Category: Medical Code(s): Z72.0 - Tobacco use (8) Obesity (BMI 30-39.9): Status: Chronic Category: Medical Code(s): E66.9 - Obesity, unspecified Plan Mr. Holcomb is a 72-year-old male with multiple comorbidities. He presented to the ER with persistent dyspnea. Just does not feel he is gotten better since his last admission for pneumonia. ER consulted medicine to for admission due to persistent shortness of breath, need for further workup, initiation of antibiotics. Medicine agreed to admit for evaluation by pulmonology. Previous concern for atypical pneumonia. Pulmonology and cardiology consulted to assist with care. Diuresing well. -1 L since admission. Continues to require inpatient management. Problems addressed as follows: Pneumonia Acute exacerbation of COPD -Continue supplemental oxygen, goal saturation greater 90%. Currently on 2 L. -Continue levofloxacin 750 mg daily - Pulmonology consulted, appreciate their recommendations. Recommend bronchoscopy in 09/17, will need cardiology clearance prior to procedure. Cardiology consulted, appreciate their recommendations. sputum culture pending -DuoNebs scheduled every 6 hours -Monitoring electrolytes with diuresis, potassium 3.2, magnesium 1.5. Will replace IV today magnesium and oral potassium. Hemoglobin 13 and white cell count 17. Repeat CBC, CMP, magnesium ordered for the morning. CHF exacerbation Heart failure with reduced ejection fraction - Echo from August 2022 with a EF of 30%. Grade 1 diastolic dysfunction. Repeat echo still pending. - Resume Entresto, carvedilol -BNP elevated almost 1999. -Continue Lasix 80 mg twice daily IV. -Discussed case with cardiology, continue diuresis. No indication or plan for invasive procedure at this time. Will need LifeVest prior to discharge if patient amenable. BPH: Continue finasteride 5 mg daily, oxybutynin 10 mg daily, tamsulosin 0.4 mg twice daily. Tobacco use disorder: Counseled on smoking cessation for 10 minutes, patient has tried but has a hard time stopping at home. Nicotine patch as needed. Full code Cardiac diet
[2023-09-06] MEDS: LEVOFLOXACIN/D5W 750 MG/150 ML 750 MG/150 ML PIGGYBACK 100 MG IV (17:21)
[2023-09-07] VITALS: BP 100/58; PULSE 90; RESP 18; TEMP 37.2; O2SAT 99
[2023-09-07] MEDS: ACETAMINOPHEN 325MG TAB 650 MG PO (00:13)
[2023-09-07 04:00] VITALS: BP 92/40; PULSE 88; RESP 17; TEMP 36.6; O2SAT 94; BMI 36.1
[2023-09-07 06:37] LABS: Basophils % 0.3 % (0.1-2.0); Eosinophils # 0.1 K/mm3 (0.0-0.4); Eosinophils % 1.2 % (0.1-12.0); Hematocrit 40.7 % (42.0-52.0); Hemoglobin 13.9 g/dL (14.1-18.0); Lymphocytes # 1.3 K/mm3 (0.7-4.5); Lymphocytes % 18.4 % (10-50); Mean Corpuscular HGB Conc 34.2 g/dL (31.8-35.4); Mean Corpuscular Hemoglobin 31.4 pg (27.0-31.2); Mean Platelet Volume 8.8 fl (7.4-10.4); Monocytes # 0.5 K/mm3 (0.1-1.0); Monocytes % 7.1 % (1.7-9.3); Platelet Count 212 K/mm3 (142-424); Red Blood Count 4.42 M/mm3 (4.60-6.20); Red Cell Distribution Width 12.9 % (11.5-17.5); White Blood Count 6.8 K/mm3 (4.8-10.8)
[2023-09-07 06:47] LABS: Alanine Aminotransferase 20 U/L (12-78); Albumin Level 3.5 g/dl (3.5-5.0); Albumin/Globulin Ratio 1.3 (1.1-1.8); Alkaline Phosphatase 72 U/L (38-126); Anion Gap 4.5 mEq/L (5-15); Aspartate Amino Transferase 27 U/L (17-59); Bilirubin,Total 0.6 mg/dl (0.2-1.3); Blood Urea Nitrogen 13 mg/dl (9-20); Calcium 7.7 mg/dl (8.4-10.2); Carbon Dioxide 34 mmol/L (22.0-30.0); Chloride 95 mmol/L (98-107); Creatinine Clearance Estimated 104 mL/min (50-200); Estimated Glomerular Filt Rate 74 ml/min (>60); GFR (African American) 89 ML/MIN (>60); Globulin 2.6 g/dL (1.3-3.2); Glucose 97 mg/dl (74-100); Magnesium 2.2 mg/dl (1.6-2.3); Potassium 3.5 mmoL/L (3.5-5.1); Sodium 130 mmol/L (136-145); Total Protein,Serum 6.1 g/dl (6.3-8.2)
[2023-09-07 08:00] VITALS: BP 114/62; PULSE 100; RESP 20; TEMP 36.7; O2SAT 94
--- NOTE | 2023-09-07 08:08 | PC.NURSE ---
Pt states he wears 2L O2 NC at home.
[2023-09-07] MEDS: EMPAGLIFLOZIN 10MG TABLET 10 MG PO (09:46)
[2023-09-07] MEDS: SACUBITRIL/VALSARTAN 24-26MG TABLET 1 EACH PO (09:46)
[2023-09-07] MEDS: SPIRONOLACTONE 25MG TABLET 25 MG PO (09:46)
[2023-09-07] MEDS: OXYBUTYNIN 5MG TAB 5 MG PO (09:47)
[2023-09-07] MEDS: FINASTERIDE 5MG TABLET 5 MG PO (09:47)
[2023-09-07] MEDS: TAMSULOSIN 0.4MG CAPSULE 0.400000000000000022 MG PO (09:47)
[2023-09-07] MEDS: FUROSEMIDE 40MG/4ML VIAL 80 MG IV (09:48)
--- NOTE | 2023-09-07 10:02 | P.PN_ITS ---
Subjective *Date: 09/07/23 *Time: 11:44 Interval history: No acute respiratory events overnight. Patient denies any new respiratory complaints. Pulmonology Exam Inpatient Vital signs and Labs for Last 24 Hours: Temp Pulse Resp BP Pulse Ox O2 Del Method O2 Flow Rate 98.1 F 100 H 20 114/62 94 L Nasal Cannula 2 09/07/23 08:00 09/07/23 08:00 09/07/23 08:00 09/07/23 08:00 09/07/23 08:00 09/07/23 08:00 09/07/23 07:40 Laboratory Results - last 24 hr 09/07/23 05:32: WBC 6.8, RBC 4.42 L, Hgb 13.9 L, Hct 40.7 L, MCV 92.0, MCH 31.4 H, MCHC 34.2, RDW 12.9, Plt Count 212, MPV 8.8, Neut % (Auto) 73.0, Lymph % (Auto) 18.4, [place] % (Auto) 7.1, Eos % (Auto) 1.2, Baso % (Auto) 0.3, Neut # (Auto) 5.0, Lymph # (Auto) 1.3, [place] # (Auto) 0.5, Eos # (Auto) 0.1, Baso # (Auto) 0.0, Sodium 130 L, Potassium 3.5, Chloride 95 L, Carbon Dioxide 34 H, Anion Gap 4.5 L, BUN 13 D, Creatinine 1.00 D, Estimated Creat Clear 104, Estimated GFR 74, Est GFR ( Amer) 89 D, Glucose 97, Calcium 7.7 L, Magnesium 2.2 D, Total Bilirubin 0.6, AST 27, ALT 20, Alkaline Phosphatase 72, Total Protein 6.1 L, Albumin 3.5, Globulin 2.6, Albumin/Globulin Ratio 1.3 I & O for Labs for Last 24 Hours: Intake & Output 09/04/23 09/05/23 09/06/23 09/07/23 23:59 23:59 23:59 23:59 Intake Total 360 / 360 1940 / 1940 240 / 240 Output Total 1300 / 1300 2750 / 2950 200 / 200 Balance -940 / -940 -810 / -1010 40 / 40 Weight 233 lb 238 lb 9.6 oz 238 lb 9.665 oz Microbiology Reports for the Last 24 Hours: Microbiology 08/14/23 02:40 Sputum - Expectorated Sputum Gram Stain - Final Constitutional: Present mild distress Head: Present normocephalic and atraumatic ENT: Present normal exam, normal oropharynx and mucous membranes moist Neck: Present normal inspection and full ROM Respiratory: Present respiratory distress, normal respiratory effort and able to speak in complete sentences; Absent prolonged expiratory phase, wheezes or diminished air movement Cardiac: Present S1/S2, Tachycardia and radial pulses present GI: Present soft and distention; Absent tenderness or guarding Skin: Present intact; Absent cyanosis or jaundice Neuro: Present alert, awake and oriented x 3 Extremities: Present normal inspection and edema; Absent clubbing or cyanosis Psychiatric: Present normal affect and cooperative Assessment and Plan *Assessment and plan (1) Pneumonia: Status: Acute Qualifiers: Laterality: right Lung location: lower lobe of lung Pneumonia type: due to unspecified organism Qualified Code(s): J18.9 - Pneumonia, unspecified organism Category: Medical Code(s): J18.9 - Pneumonia, unspecified organism (2) Acute and chronic respiratory failure with hypoxia: Status: Acute Category: Medical Code(s): J96.21 - Acute and chronic respiratory failure with hypoxia Plan Mr. Holcomb is a 72-year-old male history of COPD CHF pneumonia lung nodules/lymphadenopathy recently seen in the hospital for worsening respiratory failure COPD CHF exacerbation s/p completion of doxycycline with no need for steroids scheduled for bronchoscopy as an outpatient basis presented to the hospital again with worsening respiratory symptoms pulmonary was called for further evaluation and management. Chest x-ray upon admission concerning for bilateral lower lobe atelectasis/airspace disease. Afebrile. No evidence of leukocytosis. Patient was initiated on levofloxacin upon admission for possible pneumonia coverage for the questionable lower lobe infiltrates. On initial examination auscultation no significant wheezing noted. Patient is any worsening cough or any productive phlegm. Interval update: Stable leukocytosis. Stable oxygen requirements. Sputum cultures pending. Continue to receive Trelegy inhaler along with levofloxacin. Plan: -Continue Trelegy 100 inhaler -DuoNebs every 6 hours on as-needed basis -Continue levofloxacin daily x 5 days for the presumed lower lobe pneumonia -No need for steroids at this point of time next # Right upper lobe nodule: # Mediastinal and hilar lymphadenopathy: Current smoker, greater than 30 PPD CAT scan from April 2023 relatively stable in May however significantly worsened with more dense along with worsening lymphadenopathy on his CAT scan from this admission in July 2023. CRP slightly elevated at 9.1 Serum fungal serologies and TB QuantiFERON negative Plan: Bronchoscopy EBUS FNA transbronchial lung biopsy tentatively scheduled for 09/17/2023 pending patient's decision. Patient also needs a cardiology clearance for this procedure. I have again today reiterated the need for bronchoscopy to the patient . He expresses complete understanding of the possible risk benefits morbidity and mortality associated with not getting a procedure done and he would still want some time to think about it. He did not have any questions at the end of the conversation again today. Will continue to follow. Patient today agreed to follow the repeat CT chest without contrast in 3 months and continue to think on his acceptance for the procedure, reschedule the 3- month follow-up CT chest prior to discharge. Thank you for involving pulmonary in this patient care. Pulmonary services will be unavailable to provide for both inpatient and outpatient patient care services starting 09/08/2022 until 09/16/2022. We will resume direct inpatient and pulmonary services starting 09/17/2022, 8AM.
--- NOTE | 2023-09-07 11:01 | P.PN_ITS ---
Subjective Subjective Date: 09/07/23 Time: 08:30 Principal diagnosis: SOB, HFrEF Interval history: This is a 72-year-old gentleman who was admitted to the hospital with an acute exacerbation of HFrEF. The patient has known dilated cardiomyopathy with an ejection fraction of 30%. The patient is now following with Dr. Sorensen for his HFrEF. He was really not interested in being evaluated by cardiology here at [facility]. He did let us perform a repeat echocardiogram which is currently pending and he did answer some of my questions. But he states that it is not up to cardiology here to make any decisions about his care and he gets his cardiology care by Dr. Lino. However he did have a cardiology workup completed here at our facility. This morning he states his shortness of breath is better and his lower extremity edema is better. He denies any chest pain or pressure. Exam Data for Last 24 hours Vital signs and Labs for Last 24 Hours: Temp Pulse Resp BP Pulse Ox O2 Del Method O2 Flow Rate 98.1 F 100 H 20 114/62 94 L Nasal Cannula 2 09/07/23 08:00 09/07/23 08:00 09/07/23 08:00 09/07/23 08:00 09/07/23 08:00 09/07/23 08:00 09/07/23 07:40 Laboratory Results - last 24 hr 09/07/23 05:32: WBC 6.8, RBC 4.42 L, Hgb 13.9 L, Hct 40.7 L, MCV 92.0, MCH 31.4 H, MCHC 34.2, RDW 12.9, Plt Count 212, MPV 8.8, Neut % (Auto) 73.0, Lymph % (Auto) 18.4, Yancey % (Auto) 7.1, Eos % (Auto) 1.2, Baso % (Auto) 0.3, Neut # (Auto) 5.0, Lymph # (Auto) 1.3, Yancey # (Auto) 0.5, Eos # (Auto) 0.1, Baso # (Auto) 0.0, Sodium 130 L, Potassium 3.5, Chloride 95 L, Carbon Dioxide 34 H, Anion Gap 4.5 L, BUN 13 D, Creatinine 1.00 D, Estimated Creat Clear 104, Estimated GFR 74, Est GFR ( Amer) 89 D, Glucose 97, Calcium 7.7 L, Magnesium 2.2 D, Total Bilirubin 0.6, AST 27, ALT 20, Alkaline Phosphatase 72, Total Protein 6.1 L, Albumin 3.5, Globulin 2.6, Albumin/Globulin Ratio 1.3 I & O for Last 24 hours: Intake & Output 09/04/23 09/05/23 09/06/23 09/07/23 23:59 23:59 23:59 23:59 Intake Total 360 / 360 1940 / 1940 240 / 240 Output Total 1300 / 1300 2750 / 2950 200 / 200 Balance -940 / -940 -810 / -1010 40 / 40 Weight 233 lb 238 lb 9.6 oz 238 lb 9.665 oz Constitutional Constitutional: no acute distress and obese *Routine HEENT Exam Head: Present normocephalic and atraumatic ENT: Present mucous membranes moist *Routine Neck Exam Neck: Present supple, full ROM and normal carotid upstroke; Absent JVD, carotid bruit or lymphadenopathy *Routine Respiratory Exam Respiratory: Present CTA bilaterally, normal respiratory effort, able to speak in complete sentences and symmetric chest movement *Routine Cardiovascular Exam Cardiovascular: Present RRR, Normal S1 and Normal S2; Absent murmur or gallop *Routine Abdominal Exam Abdominal: Present soft and normoactive bowel sounds; Absent tenderness, distended or organomegaly *Routine Extremities Exam Extremities: Present full ROM, pulses intact and normal capillary refill; Absent cyanosis, clubbing or edema *Routine Skin Exam Skin: Present intact and warm; Absent erythema *Routine Neurological Exam Neurological: Present alert, oriented X3 and CN II-XII intact; Absent sensory deficit or motor deficit Routine Psychiatric Exam Psychiatric: Present normal affect Progress Note: A&P Assessment and plan (1) HFrEF (heart failure with reduced ejection fraction): Status: Chronic (2) Pneumonia: Status: Acute (3) Acute and chronic respiratory failure with hypoxia: Status: Acute (4) Obesity (BMI 30-39.9): Status: Chronic (5) Tobacco abuse: Status: Chronic (6) SOB (shortness of breath) on exertion: Status: Acute Assessment and Plan Assessment and Plan for All Diagnoses:: Plan: 1. This is a 72-year-old gentleman admitted to the hospital with pneumonia and HFrEF. The patient has known cardiomyopathy with an ejection fraction around 30%. He had a repeat echocardiogram which is pending a preliminary report. The patient states that his HFrEF is managed by Dr. Lino in [place] and he does not want us to managing that here. 2. Cardiology was consulted for risk stratification prior to proceeding with bronchoscopy. The patient also reported to me that that is not our call to radha nunes. He gets to choose who gives him clearance for cardiac surgery and Dr. Lino is who will make that call. However, the patient has been diuresed with IV Lasix. He has not had any worsening of his ejection fraction on the preliminary echocardiogram. He is at elevated risk due to his underlying dilated cardiomyopathy however no further modifiable interventions are needed at this time so he is acceptable risk to proceed with bronchoscopy. 3. He denies any chest pain or pressure. He was ruled out for an [place]. No plans for invasive left cardiac catheterization. His mild nonocclusive coronary disease is likely stable. 4. The patient does have a COPD exacerbation and pneumonia. This is being managed by pulmonology. Will defer. 5. Continue Entresto and carvedilol for his HFrEF. 6. We do recommend Jardiance once he is euvolemic. However we will leave this up to Dr. Jiménez. 7. Continue spironolactone for HFrEF and we do recommend sending him home on Lasix 80 mg p.o. twice daily for his HFrEF. 8. The patient has severe LV dysfunction. We do recommend a LifeVest due to his severe LV dysfunction which places him at increased risk for sudden cardiac . The patient continues to decline a LifeVest. 9. No further recommendations at this time from a cardiac standpoint. The patient is stable for discharge home today from a cardiac standpoint. The patient will need to follow-up with Dr. Sorensen's office on an outpatient basis. Thank you for the opportunity to Hel participate in the care of this patient. All recommendations and orders are per Dr. Rowland.
--- NOTE | 2023-09-07 11:12 | HMH.PTEV ---
Physical Therapy Evaluation Rehab PT IP Evaluation Start: 09/07/23 07:42 Freq: ONCE Status: Active Protocol: Document 09/07/23 11:08 DARRENYadiraHECTOR (Rec: 09/07/23 11:11 DARRENMARIA G [id number]) Subjective/History History History 72 yowm adm to [facility] with PNA. He has PMH of COPD, CHF, CAD. He reports he lives with his , he is generally independent with all mobility using rolator, no RICKY the home , and he has [place] oxygen at home . Subjective Subjective He reports no new c/o at this time and is agreeable to OOB mobility assessment. New diagnosis of cancer in past 12 No months? Rehab PT IP Eval Objective Appearance Patient Behavior Appropriate Patient Orientation Person,Place,Time Difficulty following instructions none Speech Pattern Clear Ambulation Patient Able to Ambulate Yes Ambulation Observation IP General Gait Pattern Observation No Deviations/Normal Ambulation Distance (feet) 50 Ambulation Assistive Device Rolling Walker Ambulation Ability Independent Balance Ability to Arise Able, uses arms to help Sitting Balance Steady, safe Standing Balance Steady, wide stance Dynamic Sitting Balance Ability Good Dynamic Standing Balance Ability Good Transfers Bed Transfer Ability Independent Chair Transfer Ability Independent Sit to Stand Bed Transfer Ability Independent Sit to Stand Chair Transfer Ability Independent ROM All Extremities PT ROM Status WFL MMT All Extremities PT MMT WFL Rehab PT IP prob,goals,plan Problems Date of Evaluation: 09/07/23 Discharge Plan PT Discharge Plan Pt is currently at baseline for all mobility and is appropriate to return home once medically stable. He may benefit from Home Health therapy after d/c. Eval Complexity Eval Charge Codes 51480 - High Complexity PHYSICIAN CERTIFICATION: I certify the specified therapy services for Hussein Holcomb are required, authorized, and reviewed every 30 days.
--- NOTE | 2023-09-07 11:20 | P.DS_ITS ---
General Admission date:: 09/05/23 Discharge date: 09/07/23 HPI HPI HPI: Mr. Holcomb is a 72-year-old male with COPD, CHF, pneumonia, class II obesity, oxygen dependent, tobacco use disorder. Presented to the ER with persistent shortness of breath and swelling in his lower extremities. Was recently admitted in July for pneumonia but has not felt better since that discharge. Chronically on 2 L nasal cannula oxygen. Denies any chest pain, confusion, headache, nausea or vomiting at this time. At last admission, discharge plan included bronchoscopy next week to evaluate pneumonia and abnormal/atypical findings on chest CT. Patient completed a course of doxycycline.Given his dyspnea and tachycardia, ER consulted medicine for admission. White cell count stable at 9.1. Does have a neutrophil predominance however at 85%. Potassium low at 3.0. BNP elevated at almost 2000. Given a dose of diuretic in the ER. Initiated on antibiotics with Augmentin and azithromycin. On arrival to the floor, patient states he continues to smoke. History is not felt better. Wants to feel better but is not sure he wants to go through bronchoscopy for evaluation. Does not know why he is not breathing any better even though he is on his baseline 2 L of oxygen at this time. Has had intermittent sputum production of brown phlegm. States may be more than normal. Denies any fever or chills. Has not followed up with cardiology or pulmonology since last admission last month. Hospital Course Hospital Course Hospital Course: Mr. Holcomb is a 72-year-old male with multiple comorbidities. He presented to the ER with persistent dyspnea. Just does not feel he is gotten better since his last admission for pneumonia. ER consulted medicine to for admission due to persistent shortness of breath, need for further workup, initiation of antibiotics. Medicine agreed to admit for evaluation by pulmonology. Previous concern for atypical pneumonia. Pulmonology and cardiology consulted to assist with care. Patient was diuresed during admission and is on baseline oxygen. Negative at least 2 L since admission. Tolerating antibiotics. Echo still pending at time of discharge. At this point meeting criteria for discharge home. Patient appears to be breathing better. Concerned that his shortness of breath is related to his heart failure. He is adamant that he wants to follow- up with his ear nose and throat specialist Dr. Lino. Problems addressed during hospitalization as follows: Pneumonia Acute exacerbation of COPD -Tolerating 2 L nasal cannula oxygen which is his baseline. Goal sats greater 90%. Pulmonology was consulted to assist with care, patient initiated on levofloxacin. Will complete course orally at time of discharge. Pulmonology recommends bronchoscopy on 09/17. Cardiology has recommended moving forward with bronchoscopy however patient states he wants clearance from his ear nose and throat specialist at [facility] [place]. Afebrile during admission. Tolerating inhalers and nebs. Continue regimen at discharge. CHF exacerbation Heart failure with reduced ejection fraction - Echo from August 2022 with a EF of 30%. Grade 1 diastolic dysfunction. Repeat echo still pending. Cardiology was consulted. Continuing patient's Entresto and carvedilol. Initiated on Jardiance during admission however at time of discharge, patient refused to fill the medication due to cost. Recommend continuing diuresis with Lasix, continue twice daily. Stable for discharge home. BPH: Continue finasteride 5 mg daily, oxybutynin 10 mg daily, tamsulosin 0.4 mg twice daily. Tobacco use disorder: Counseled on smoking cessation for 10 minutes, patient has tried but has a hard time stopping at home. Nicotine patch as needed. Spent 30 minutes in discharge counseling, documentation, chart review, and direct care with patient. Exam Data for Last 24 hours Vital signs and Labs for Last 24 Hours: Temp Pulse Resp BP Pulse Ox O2 Del Method O2 Flow Rate 98.1 F 100 H 20 114/62 94 L Nasal Cannula 2 09/07/23 08:00 09/07/23 08:00 09/07/23 08:00 09/07/23 08:00 09/07/23 08:00 09/07/23 11:00 09/07/23 11:00 Laboratory Results - last 24 hr 09/07/23 05:32: WBC 6.8, RBC 4.42 L, Hgb 13.9 L, Hct 40.7 L, MCV 92.0, MCH 31.4 H, MCHC 34.2, RDW 12.9, Plt Count 212, MPV 8.8, Neut % (Auto) 73.0, Lymph % (Auto) 18.4, Mineral % (Auto) 7.1, Eos % (Auto) 1.2, Baso % (Auto) 0.3, Neut # (Auto) 5.0, Lymph # (Auto) 1.3, Mineral # (Auto) 0.5, Eos # (Auto) 0.1, Baso # (Auto) 0.0, Sodium 130 L, Potassium 3.5, Chloride 95 L, Carbon Dioxide 34 H, Anion Gap 4.5 L, BUN 13 D, Creatinine 1.00 D, Estimated Creat Clear 104, Estimated GFR 74, Est GFR ( Amer) 89 D, Glucose 97, Calcium 7.7 L, Magnesium 2.2 D, Total Bilirubin 0.6, AST 27, ALT 20, Alkaline Phosphatase 72, Total Protein 6.1 L, Albumin 3.5, Globulin 2.6, Albumin/Globulin Ratio 1.3 I & O for Last 24 hours: Intake & Output 09/04/23 09/05/23 09/06/23 09/07/23 23:59 23:59 23:59 23:59 Intake Total 360 / 360 1940 / 1940 240 / 240 Output Total 1300 / 1300 2750 / 2950 550 / 550 Balance -940 / -940 -810 / -1010 -310 / -310 Weight 105.687 kg 108.227 kg 108.229 kg Constitutional Constitutional: no acute distress, obese and chronically ill appearing *Routine HEENT Exam Head: Present normocephalic Eye: Present EOMI and PERRL ENT: Present mucous membranes moist *Routine Neck Exam Neck: Present supple; Absent lymphadenopathy *Routine Respiratory Exam Respiratory: Present prolonged expiratory phase and normal respiratory effort; Absent rhonchi, wheezes or crackles *Routine Cardiovascular Exam Cardiovascular: Present RRR *Routine Abdominal Exam Abdominal: Present soft and normoactive bowel sounds; Absent tenderness *Routine Extremities Exam Extremities: Present edema (2-3+ in BLE, scaring of legs); Absent cyanosis or clubbing *Routine Skin Exam Skin: Present warm; Absent rash *Routine Neurological Exam Neurological: Present alert, oriented X3 and moving all extremities; Absent altered mental status Results Data Completed and Pending Labs on day of discharge: Labs from last 24 hours 09/07/23 05:32 WBC 6.8 RBC 4.42 L Hgb 13.9 L Hct 40.7 L MCV 92.0 MCH 31.4 H MCHC 34.2 RDW 12.9 Plt Count 212 MPV 8.8 Neut % (Auto) 73.0 Lymph % (Auto) 18.4 Mineral % (Auto) 7.1 Eos % (Auto) 1.2 Baso % (Auto) 0.3 Neut # (Auto) 5.0 Lymph # (Auto) 1.3 Mineral # (Auto) 0.5 Eos # (Auto) 0.1 Baso # (Auto) 0.0 Sodium 130 L Potassium 3.5 Chloride 95 L Carbon Dioxide 34 H Anion Gap 4.5 L BUN 13 D Creatinine 1.00 D Estimated Creat Clear 104 Estimated GFR 74 Est GFR ( Amer) 89 D Glucose 97 Calcium 7.7 L Magnesium 2.2 D Total Bilirubin 0.6 AST 27 ALT 20 Alkaline Phosphatase 72 Total Protein 6.1 L Albumin 3.5 Globulin 2.6 Albumin/Globulin Ratio 1.3 DS: Diagnosis Discharge Diagnosis (1) Pneumonia: Status: Acute Code(s): J18.9 - Pneumonia, unspecified organism Qualifiers: Laterality: right Lung location: lower lobe of lung Pneumonia type: due to unspecified organism Qualified Code(s): J18.9 - Pneumonia, unspecified organism (2) Acute and chronic respiratory failure with hypoxia: Status: Acute Code(s): J96.21 - Acute and chronic respiratory failure with hypoxia Meds Home Medications and Allergies Home Medications Medication Instructions Recorded Confirmed Type tamsulosin 0.4 mg capsule 0.4 mg PO BID 09/20/17 09/05/23 History finasteride 5 mg tablet 5 mg PO DAILY 09/07/21 09/06/23 History albuterol sulfate 90 mcg/actuation 2 puff inhalation Q6H PRN 05/19/23 09/06/23 History aerosol inhaler Shortness Of Breath oxybutynin chloride 10 mg 10 mg PO DAILY 05/19/23 09/06/23 History tablet,extended release 24 hr sacubitril 24 mg-valsartan 26 mg 0.5 tab PO BID 05/19/23 09/05/23 History tablet (Entresto) budesonide 0.5 mg/2 mL suspension 0.5 mg inhalation BID PRN 09/06/23 09/06/23 History for nebulization Shortness Of Breath Or Wheezing lorazepam 0.5 mg tablet 0.5 mg PO BID PRN Anxiety 09/06/23 09/06/23 History carvedilol 3.125 mg tablet 3.125 mg PO BID #0 tabs 09/07/23 Rx empagliflozin 10 mg tablet 10 mg PO DAILY 30 days #30 tabs 09/07/23 Rx (Jardiance) fluticasone fur. 100 mcg-umeclid 1 inh inhalation DAILY 30 days #1 09/07/23 Rx 62.5 mcg-vilant 25 mcg ea inhalat.powder (Trelegy Ellipta) furosemide 40 mg tablet (Lasix) 40 mg PO BID 30 days #60 tabs 09/07/23 09/06/23 Rx levofloxacin 750 mg tablet 750 mg PO 1100 2 days #2 tabs 09/07/23 Rx spironolactone 25 mg tablet 25 mg PO DAILY 30 days #30 tabs 09/07/23 Rx New Prescriptions to Start Prescriptions: empagliflozin [Jardiance] Kyler Lovell [id number] [Trelegy Ellipta] Kyler Lovell levofloxacin Kyler Lovell spironolactone Kyler Lovell Allergies Allergy/AdvReac Type Severity Reaction Status Date / Time ceftriaxone [From Rocephin] Allergy Severe Hives Verified 05/18/23 23:28 pregabalin [From LYRICA] Allergy Unknown Verified 05/18/23 20:52 Discharge Plan Disposition Patient Disposition: Home, Self-Care Condition: Fair Follow up Plan Follow up with: Kyler Lino [Referring] - 09/14/23 11:30 am (in [place] office) Savannah Huang MD [Physician] - 09/20/23 10:15 am Tadeo Moore MD [Primary Care Provider] - 09/12/23 2:00 pm Prescriptions/Medication Reconciliation: New carvedilol 3.125 mg Tablet 3.125 mg PO BID Qty: 0 0RF spironolactone 25 mg Tablet 25 mg PO DAILY 30 Days Qty: 30 0RF levofloxacin 750 mg Tablet 750 mg PO 1100 2 Days Qty: 2 0RF Rx Instructions: start 09/08/23 Jardiance 10 mg Tablet 10 mg PO DAILY 30 Days Qty: 30 0RF Trelegy Ellipta 100-62.5-25 mcg Blister With Device 1 inh inhalation DAILY 30 Days Qty: 1 0RF Continued tamsulosin 0.4 mg capsule,extended release 24hr 0.4 mg PO BID finasteride 5 MG tablet 5 mg PO DAILY lorazepam 0.5 mg tablet 0.5 mg PO BID PRN (Reason: Anxiety) budesonide 0.5 mg/2 mL suspension for nebulization 0.5 mg inhalation BID PRN (Reason: Shortness Of Breath Or Wheezing) oxybutynin chloride 10 mg tablet extended release 24hr 10 mg PO DAILY albuterol sulfate 90 mcg/actuation HFA aerosol inhaler 2 puff INHALATION Q6H PRN (Reason: Shortness Of Breath) Entresto 24-26 mg tablet 0.5 tab PO BID Changed furosemide [Lasix] 40 mg tablet 40 mg PO BID 30 Days Qty: 60 0RF Other Ambulatory Orders: CT chest wo con (Routine) Timeframe: 2 Months Facility: [facility] - Location: Radiology Ordered By: Savannah Huang Problem Reconciliation Problems Reviewed?: Yes Patient Discharge Instructions ACTIVITY: Continue current activity DIET: continue same diet Patient Instructions: Congestive Heart Failure (Alternative Therapy), Heart Failure, DI for Shortness of Breath, Respiratory Failure Providers Primary Care Provider: Tadeo Moore Admit Provider: Kyler Lovell Attending Provider: Kyler Lovell
[2023-09-07] MEDS: levoFLOXacin 750 MG TABLET PO (11:51)
--- NOTE | 2023-09-07 13:09 | SW/DCPLANNER ---
Addendum entered by [facility] 09/13/23 14:04: Per Hermelinda hernandez/ [facility] patient will not answer phone. At this time patient will continue home health services w/ [facility]. Addendum entered by Maru [place] 09/12/23 13:20: Patient requested a change of home health agencies: information/order has been faxed to [facility]. Addendum entered by [facility] 09/07/23 15:22: Rosalinda hernandez/ [facility] stated that services will begin first of next week for this patient. Addendum entered by [facility] 09/07/23 14:25: Patient is NOT currently established w/ [facility]: new information/order have been faxed to begin services. Original Note: This patient is currently established w/ [facility]. Patient information/order to resume home health services has been faxed to [facility]. Patient will discharge home today.
--- NOTE | 2023-09-12 11:35 | CARE MANAGER ---
Contacted patient related to hospital discharge. He states that he feels the same. He got some of his medication from the pharmacy but can't remember which he did and which he didn't. He cancelled his appointment with PCP today and states he is not following up with pulmonology. He is not happy with the home health and would like a different home health agency. Will speak with SW about this. FERNANDO Lin
== END 2023-09-07 12:58 | disposition home health service (06) ==
LOC: ER 13:56 → 2ND 14:14
PROVIDERS: Nurse Practitioner Acute Care; Admitting Provider Internal Medicine Adolescent Medicine; Emergency Provider Emergency Medicine; PCP Internal Medicine Adolescent Medicine; Visit Provider Internal Medicine Adolescent Medicine
DX: J44.1 Chronic obstructive pulmonary disease with (acute) exacerbation (principal); J18.9 Pneumonia, unspecified organism; I50.20 Unspecified systolic (congestive) heart failure; N40.0 Benign prostatic hyperplasia without lower urinary tract symptoms; E66.9 Obesity, unspecified; J96.21 Acute and chronic respiratory failure with hypoxia; R91.1 Solitary pulmonary nodule; J44.0 Chronic obstructive pulmonary disease with (acute) lower respiratory infection; F17.210 Nicotine dependence, cigarettes, uncomplicated; Z68.36 Body mass index [BMI] 36.0-36.9, adult
CPT/HCPCS: 36415; 71045; 80048; 80053; 83605; 83735; 83880; 84484; 85025; 87070; 87205; 93005; 93306; 94640; 94761; 97163; 99285; G0378; J0131; J1956; J3475

== ENCOUNTER 2023-09-19 17:40 | Inpatient (IN) | payer MEDICARE, SELFPAY ==
[2023-09-19] VITALS (12 sets, daily range): BP systolic 61–114; BP diastolic 41–55; PULSE 58–122; RESP 22–24; TEMP 36.4–36.9; O2SAT 92–97; BMI 35.4
--- NOTE | 2023-09-19 18:09 | ECG_ITS ---
APPROVED REPORT Exam: Resting ECG HR:117 bpm ECG Measurements Heart Rate 117 AXES PA 149 P 59 QRSd 124 QRS 23 QT 284 T 164 QTc 354 Conclusion SINUS TACHYCARDIA WITH OCCASIONAL VENTRICULAR PREMATURE COMPLEXES WITH OCCASIONAL SUPRAVENTRICULAR PREMATURE COMPLEXES MODERATE INTRAVENTRICULAR CONDUCTION DELAY [105+ ms QRS DURATION, 80+ ms Q/S IN V1/V2, NO Q AND 60+ ms R IN I/aVL/V5/V6] NONSPECIFIC ST & T-WAVE ABNORMALITY ABNORMAL ECG UNCONFIRMED REPORT Electronically signed by : Tadeo Moore MD 09/21/2023 14:39:33
--- NOTE | 2023-09-19 18:13 | PC.NURSE ---
Patient reusing to get in the bed.
--- NOTE | 2023-09-19 18:44 | XR_ITS ---
PROCEDURE INFORMATION: Exam: XR Chest Exam date and time: 09/19/2023 6:46 PM Age: 72 years old Clinical indication: Shortness of breath TECHNIQUE: Imaging protocol: Radiologic exam of the chest. Views: 1 view. COMPARISON: CR XR CHEST PORTABLE 09/05/2023 10:38 AM FINDINGS: Lungs: Low lung volumes with increasing bibasilar opacities. Pleural spaces: Normal No pleural effusion. No pneumothorax. Heart/Mediastinum: Normal. No cardiomegaly. Vasculature: Atherosclerotic thoracic aorta. Bones/joints: Unremarkable. IMPRESSION: Low lung volumes with increasing bibasilar opacities. Findings could be due to atelectasis or pneumonia.
[2023-09-19 18:58] LABS: Basophils % 0.2 % (0.1-2.0); Eosinophils % 0.3 % (0.1-12.0); Hematocrit 41.6 % (42.0-52.0); Hemoglobin 14.5 g/dL (14.1-18.0); Lymphocytes # 0.9 K/mm3 (0.7-4.5); Lymphocytes % 10.6 % (10-50); Mean Corpuscular HGB Conc 34.9 g/dL (31.8-35.4); Mean Corpuscular Hemoglobin 31.2 pg (27.0-31.2); Mean Corpuscular Volume 89.3 fl (80-94); Mean Platelet Volume 8.6 fl (7.4-10.4); Monocytes # 0.5 K/mm3 (0.1-1.0); Monocytes % 6.1 % (1.7-9.3); Neutrophils # 6.8 K/mm3 (1.8-7.8); Neutrophils % 82.8 % (37.0-80.0); Platelet Count 219 K/mm3 (142-424); Red Blood Count 4.66 M/mm3 (4.60-6.20); Red Cell Distribution Width 12.3 % (11.5-17.5); White Blood Count 8.2 K/mm3 (4.8-10.8)
[2023-09-19 18:59] LABS: Alanine Aminotransferase 30 U/L (12-78); Albumin Level 3.8 g/dl (3.5-5.0); Albumin/Globulin Ratio 1.4 (1.1-1.8); Alkaline Phosphatase 87 U/L (38-126); Anion Gap 9.4 mEq/L (5-15); Aspartate Amino Transferase 37 U/L (17-59); Bilirubin,Total 0.9 mg/dl (0.2-1.3); Blood Urea Nitrogen 13 mg/dl (9-20); Calcium 8.5 mg/dl (8.4-10.2); Carbon Dioxide 31 mmol/L (22.0-30.0); Chloride 90 mmol/L (98-107); Creatinine Clearance Estimated 101 mL/min (50-200); Estimated Glomerular Filt Rate 95 ml/min (>60); GFR (African American) 115 ML/MIN (>60); Globulin 2.7 g/dL (1.3-3.2); Glucose 126 mg/dl (74-100); Potassium 3.4 mmoL/L (3.5-5.1); Sodium 127 mmol/L (136-145); Total Protein,Serum 6.5 g/dl (6.3-8.2)
[2023-09-19 20:06] LABS: NT Pro Brain Natriuretic Pep. 861 pg/mL (0-125)
[2023-09-19 20:37] LABS: Troponin I < 0.01 ng/ml (0.00-0.034)
[2023-09-19] MEDS: IPRATROPIUM/ALBUTEROL 3 ML NEB 6 ML IH (20:49)
--- NOTE | 2023-09-19 20:50 | ED_ITS ---
Discharge Plan Disposition Patient Disposition: Admitted Clinical Impressions Clinical Impression: Pneumonia, Hypoxic respiratory failure, Chronic hyponatremia Discharge ED Provider: Bronson Gonzalez HPI General Chief Complaint: Shortness of Breath/Dyspnea Stated Complaint: SOA Time Seen by Provider: 09/19/23 20:00 Mode of Arrival: Wheelchair Source of Information: Patient Limitations: No Limitations Description of Symptoms (Recalled from ER Triage Doc. by RN): Patient complaint of increased shortness of breath over the past 3 months. Today he had to increase his home O2 from 2l to 4l. Patient is visibly short of breath. History of Present Illness HPI narrative: Patient is a 72-year-old male with past medical history of coronary artery disease, CHF, COPD on 2 L nasal cannula at home, congestive heart failure who presents emergency department for evaluation of shortness of breath. Patient has chronic shortness of breath at baseline however last 24 hours he states that is acutely worsened. Related Data Home Medications Medication Instructions Recorded Confirmed tamsulosin 0.4 mg capsule 0.4 mg PO BID 09/20/17 09/19/23 finasteride 5 mg tablet 5 mg PO DAILY 09/07/21 09/19/23 albuterol sulfate 90 mcg/actuation 2 puff inhalation Q6H PRN 05/19/23 09/19/23 aerosol inhaler Shortness Of Breath oxybutynin chloride 10 mg 10 mg PO DAILY 05/19/23 09/19/23 tablet,extended release 24 hr sacubitril 24 mg-valsartan 26 mg 0.5 tab PO BID 05/19/23 09/19/23 tablet (Entresto) budesonide 0.5 mg/2 mL suspension 0.5 mg inhalation BID PRN 09/06/23 09/19/23 for nebulization Shortness Of Breath Or Wheezing lorazepam 0.5 mg tablet 0.5 mg PO BID PRN Anxiety 09/06/23 09/19/23 Previous Rx's Medication Instructions Recorded carvedilol 3.125 mg tablet 3.125 mg PO BID #0 tabs 09/07/23 empagliflozin 10 mg tablet 10 mg PO DAILY 30 days #30 tabs 09/07/23 (Jardiance) fluticasone fur. 100 mcg-umeclid 1 inh inhalation DAILY 30 days #1 09/07/23 62.5 mcg-vilant 25 mcg ea inhalat.powder (Trelegy Ellipta) furosemide 40 mg tablet (Lasix) 40 mg PO BID 30 days #60 tabs 09/07/23 levofloxacin 750 mg tablet 750 mg PO 1100 2 days #2 tabs 09/07/23 spironolactone 25 mg tablet 25 mg PO DAILY 30 days #30 tabs 09/07/23 Allergies Allergy/AdvReac Type Severity Reaction Status Date / Time ceftriaxone [From Rocephin] Allergy Severe Hives Verified 05/18/23 23:28 pregabalin [From LYRICA] Allergy Unknown Verified 05/18/23 20:52 [facility] Disclaimer: The information contained in this section may have been updated after the patient was seen, as this information can be updated by other users. Medical History (Updated 09/20/23 @ 00:29 by Bronson Gonzalez MD) Abnormal electrocardiogram [ECG] [EKG] Acute and chronic respiratory failure with hypoxia Acute and chronic respiratory failure with hypoxia Acute exacerbation of chronic obstructive pulmonary disease Acute exacerbation of chronic obstructive pulmonary disease (COPD) Anxiety Atypical angina BPH (benign prostatic hyperplasia) CAD in [place] artery Cardiomyopathy Cellulitis of right lower leg CHF exacerbation Congestive heart failure COPD (chronic obstructive pulmonary disease) with acute bronchitis COPD mixed type Essential hypertension Heart failure HFrEF (heart failure with reduced ejection fraction) Hyperlipidemia Lesion of right lung Lung nodule Mediastinal adenopathy Neck pain Obesity (BMI 30-39.9) Obesity (BMI 30.0-34.9) Pneumonia Prostate enlargement Respiratory failure Shortness of Breath SOB (shortness of breath) on exertion Supplemental oxygen dependent Tachycardia Tobacco abuse Volume overload Family History (Updated 09/19/23 @ 22:21 by [place]ia Haskins RN) Other No significant family history Social History (Updated 09/19/23 @ 22:21 by [place] Haskins RN) Smoking Status: Current every day smoker tobacco type: cigarettes packs per day: 1 alcohol intake: never substance use type: denies use current occupational status: disabled Travel in the last 8 weeks: None household members: spouse housing: apartment caffeine: Yes ROS Obtained: Yes Systems reviewed as appropriate & no additional complaints except as documented Physical Exam General General appearance: alert and in no apparent distress Head Head exam: atraumatic and normocephalic Eye Eye exam: Present PERRL and EOMI ENT ENT exam: Present mucous membranes moist Neck Neck exam: Present normal inspection Chest Chest inspection: Present normal inspection and symmetric chest wall rise Respiratory Respiratory exam: Present wheezes; Absent normal lung sounds bilaterally Cardiovascular Cardiovascular exam: Present normal rhythm and tachycardia Abdominal Exam Abdominal exam: Present soft; Absent tenderness Extremities Exam Extremities exam: Present normal inspection Neurological Exam Neurological exam: Present alert Psychiatric Psychiatric exam: Present normal affect Skin Skin exam: Present warm and dry HEART Score HEART Score HEART Score assessment performed?: No History (anamnesis): Slightly suspicious ECG: Non-specific disturbance Age: >65 years Risk factors: 3 or more risk factors Troponin: </= normal limit HEART Score: 5 Critical Care Critical Care Time Critical Care Time: No Medical Decision Making Evin Inquiry Pt receiving controlled substance: No Vital Signs Vital Signs: 09/19/23 17:42 09/19/23 18:31 09/19/23 20:50 Temperature 98.4 F Temperature Source Oral Pulse Rate 122 H Pulse Rate [Radial] 121 H Respiratory Rate 24 Blood Pressure 61/45 L Blood Pressure [Right Arm] 94/53 L Blood Pressure Mean Blood Pressure Mean [Right Arm] 66 Blood Pressure Source [Right Arm] Automatic Cuff Blood Pressure Position [Right Arm] Sitting 02 Sat by Pulse Oximetry 95 92 L 95 Oxygen Delivery Method Nasal Cannula Nasal Cannula Nasal Cannula Oxygen Flow Rate (LPM) 4 3 09/19/23 20:50 09/19/23 20:50 09/19/23 18:54 Temperature Temperature Source Pulse Rate 113 H 113 H 107 H Pulse Rate [Radial] Respiratory Rate Blood Pressure 95/42 L Blood Pressure [Right Arm] Blood Pressure Mean 62 Blood Pressure Mean [Right Arm] Blood Pressure Source [Right Arm] Blood Pressure Position [Right Arm] 02 Sat by Pulse Oximetry 96 Oxygen Delivery Method Oxygen Flow Rate (LPM) 09/19/23 19:00 09/19/23 20:00 09/19/23 20:27 Temperature Temperature Source Pulse Rate 108 H 109 H 109 H Pulse Rate [Radial] Respiratory Rate Blood Pressure 90/55 L 98/50 L 89/50 L Blood Pressure [Right Arm] Blood Pressure Mean 61 68 59 Blood Pressure Mean [Right Arm] Blood Pressure Source [Right Arm] Blood Pressure Position [Right Arm] 02 Sat by Pulse Oximetry 97 96 96 Oxygen Delivery Method Oxygen Flow Rate (LPM) 3 3 3 09/19/23 20:31 09/19/23 20:39 09/19/23 21:43 Temperature 98.4 F Temperature Source Oral Pulse Rate 111 H 115 H 110 H Pulse Rate [Radial] Respiratory Rate 24 Blood Pressure 103/41 L 96/53 L 97/54 L Blood Pressure [Right Arm] Blood Pressure Mean 62 72 Blood Pressure Mean [Right Arm] Blood Pressure Source [Right Arm] Blood Pressure Position [Right Arm] 02 Sat by Pulse Oximetry 96 95 Oxygen Delivery Method Nasal Cannula Oxygen Flow Rate (LPM) 3 3 3 Lab Data Labs: Lab Results 09/19/23 18:10: WBC 8.2, RBC 4.66, Hgb 14.5, Hct 41.6 L, MCV 89.3, MCH 31.2, MCHC 34.9, RDW 12.3, Plt Count 219, MPV 8.6, Neut % (Auto) 82.8 H, Lymph % (Auto) 10.6, [place] % (Auto) 6.1, Eos % (Auto) 0.3, Baso % (Auto) 0.2, Neut # (Auto) 6.8, Lymph # (Auto) 0.9, [place] # (Auto) 0.5, Eos # (Auto) 0.0, Baso # (Auto) 0.0, Sodium 127 L, Potassium 3.4 L, Chloride 90 L, Carbon Dioxide 31 H, Anion Gap 9.4, BUN 13, Creatinine 0.80, Estimated Creat Clear 101, Estimated GFR 95, Est GFR ( Amer) 115, Glucose 126 H, Calcium 8.5, Total Bilirubin 0.9, AST 37, ALT 30, Alkaline Phosphatase 87, NT-Pro-B Natriuret Pep 861 H, Total Protein 6.5, Albumin 3.8, Globulin 2.7, Albumin/Globulin Ratio 1.4 09/19/23 19:10: Troponin I < 0.01 09/19/23 20:42: VBG pH 7.39, VBG pCO2 40.1, VBG pO2 40.0, VBG HCO3 23.7, VBG Total CO2 24.9, VBG O2 Saturation 77.9 H, VBG Base Excess -1.3 09/19/23 18:10 09/19/23 18:10 Response Orders (Tests/Meds): ED MEDICATIONS Generic Name Dose Route Start Last Admin Trade Name Freq PRN Reason Stop Dose Admin Acetaminophen 650 mg 01/24/24 21:01 Acetaminophen 325mg Tab PO 10/19/23 21:00 Q4HP PRN Fever or Mild Pain (1-3) Enoxaparin Sodium 40 mg 09/20/23 09:00 Enoxaparin 40mg/0.4ml Syringe SQ 10/20/23 08:59 DAILY DOUG Furosemide 80 mg 09/19/23 22:49 09/19/23 23:09 Furosemide 100mg/10ml Vial IV 09/19/23 22:50 80 mg ONCE ONE Administration Levofloxacin/Dextrose 750 mg in 150 mls @ 100 mls/hr 09/19/23 20:45 09/19/23 21:27 Levofloxacin 750mg/150ml Premix IV 09/29/23 20:44 100 mls/hr Q24H DOUG Administration Potassium Chloride/Water 100 mls @ 50 mls/hr 09/19/23 22:49 09/19/23 23:09 Potassium Chloride 20meq/100ml Ivpb IV 09/20/23 04:48 50 mls/hr Q2H DOUG Administration Morphine Sulfate 2 mg 09/19/23 21:01 Morphine 2mg/Ml Syringe IV 10/19/23 21:00 Q2HP PRN Severe Pain (7-10) Nicotine 21 mg 09/19/23 21:01 Nicotine 21mg/24hr Patch TD 10/19/23 21:00 DAILYP PRN Nicotine Cravings Pantoprazole Sodium 40 mg 09/20/23 09:00 Pantoprazole 40mg Tablet PO 10/20/23 08:59 DAILY DOUG Promethazine HCl 25 mg 09/19/23 21:01 Promethazine Hcl 25mg/Ml 1ml Vial IV 10/19/23 21:00 Q6HP PRN Nausea And Vomiting Sodium Chloride 10 ml 09/19/23 18:44 Sodium Chloride 0.9% 10ml Flush Syringe IV 10/19/23 18:43 NEEDED PRN Maintain IV Site Sodium Chloride 25 ml 09/19/23 21:01 09/19/23 22:01 Sodium Chloride 0.9% 25ml Bag IV 09/19/23 21:02 Not Given ONCE ONE Discontinued Medications Generic Name Dose Route Start Last Admin Trade Name Freq PRN Reason Stop Dose Admin Albuterol/Ipratropium 6 ml 09/19/23 20:43 09/19/23 20:49 Ipratropium/Albuterol 3 Ml Neb IH 09/19/23 20:44 6 ml ONCE ONE Administration Lactated Ringer's 500 mls @ 999 mls/hr 09/19/23 20:49 09/19/23 21:27 Lactated Ringer's 500ml IV 09/19/23 21:19 999 mls/hr .Q31M ONE Administration Methylprednisolone Sodium Succinate 125 mg 09/19/23 20:43 09/19/23 21:27 Methylprednisolone Sod Succ 125mg Vial IV 09/19/23 20:44 125 mg ONCE ONE Administration ORDERS Category Date Time Status Chest XR -- portable [XR chest portable] Stat Exams 09/19/23 18:44 Completed BNP [Brain Natriuretic Peptide] Stat Lab 09/19/23 18:10 Completed Complete Blood Count Auto Diff AMLAB Lab 09/20/23 06:00 Ordered Complete Blood Count Auto Diff Stat Lab 09/19/23 18:10 Completed Comprehensive Metabolic Panel AMLAB Lab 09/20/23 06:00 Ordered Comprehensive Metabolic Panel Stat Lab 09/19/23 18:10 Completed Magnesium AMLAB Lab 09/20/23 06:00 Ordered Troponin I Q3H Lab 09/19/23 22:00 Completed Troponin I Q3H Lab 09/20/23 02:00 Ordered Troponin I Stat Lab 09/19/23 19:10 Completed VBG [Venous Blood Gas] Stat RT 09/19/23 20:42 Completed ECG initial [place] Routine Y 09/19/23 18:09 Completed ECG Data Tracing #1: ECG Narrative: Independently interpreted by me, rate is 117, rhythm is regular, sinus tachycardia with an isolated PVC, slightly widened QRS, no ST elevation or depression in anatomical contiguous leads. MDM Narrative Medical Decision Narrative: In summary patient is 72-year-old male with past medical history described above presents emergency department for evaluation of shortness of breath. Patient is hemodynamically stable, tachycardic upon arrival, wheezing on 4 L nasal cannula to maintain oxygen saturations greater than 90%. Differential includes COPD exacerbation, pneumonia, among others. Workup will be conducted with hematologic labs, chest x-ray, EKG. Initial interventions include DuoNeb's x 3, methylprednisolone, levofloxacin. Aggressive volume resuscitation will be deferred given severe heart failure and will be limited to 500 cc of LR. Initial workup reviewed by me, hematologic labs are largely nonactionable, patient does have acute on chronic hyponatremia, slightly elevated BNP. Chest x-ray informally interpreted by me, bilateral opacities, worse at the right base. Given shortness of breath and cough concerning for pneumonia. Patient will be started on IV Levaquin given his allergy to ceftriaxone. Given increa sed oxygen requirement in the setting of COPD case was discussed with hospital medicine who admit the patient their service for continued evaluation at this time.
[2023-09-19 20:57] LABS: VBG Base Excess -1.3 mmol/L (-2.4-2.3); VBG HCO3 23.7 mmol/L (23-30); VBG Oxygen Saturation 77.9 % (50-70); VBG PCO2 40.1 mmol/L (35-51); VBG PH 7.39 mmol/L (7.31-7.41); VBG Total CO2 24.9 mmol/L (23-27)
--- NOTE | 2023-09-19 21:03 | EXP.HP ---
History of Present Illness *Admission Date: 09/19/23 *Reason for visit:: SOB *History of present illness: This is 72-year-old obese male with PMHx of coronary artery disease, HFrEF, COPD on 2 L nasal cannula at home, BPH, current smoker, who presents emergency department for evaluation of shortness of breath. Patient stated that he is been having dame symptoms since April 2023. Patient stated This is a same pneumonia, I has not been able to cure, I come to hospital, they kept me for couple days and send me home . Patient has been admitted multiples time in the last three to four months. Today he reported that in the last 24 hours is acutely worsened. Admitted for management. [facility] Disclaimer: The information contained in this section may have been updated after the patient was seen, as this information can be updated by other users. Medical History Abnormal electrocardiogram [ECG] [EKG] Acute and chronic respiratory failure with hypoxia Acute and chronic respiratory failure with hypoxia Acute exacerbation of chronic obstructive pulmonary disease Acute exacerbation of chronic obstructive pulmonary disease (COPD) Anxiety Atypical angina BPH (benign prostatic hyperplasia) CAD in [place] artery Cardiomyopathy Cellulitis of right lower leg CHF exacerbation Congestive heart failure COPD (chronic obstructive pulmonary disease) with acute bronchitis COPD mixed type Essential hypertension Heart failure HFrEF (heart failure with reduced ejection fraction) Hyperlipidemia Lesion of right lung Lung nodule Mediastinal adenopathy Neck pain Obesity (BMI 30-39.9) Obesity (BMI 30.0-34.9) Pneumonia Prostate enlargement Respiratory failure Shortness of Breath SOB (shortness of breath) on exertion Supplemental oxygen dependent Tachycardia Tobacco abuse Volume overload Family History Other No significant family history Social History Smoking Status: Current every day smoker tobacco type: cigarettes packs per day: 1 alcohol intake: never substance use type: denies use current occupational status: disabled Travel in the last 8 weeks: None household members: spouse housing: apartment caffeine: Yes Review of Systems Review of Systems Review of systems:: pertinent systems reviewed and negative unless documented below Meds Home Medications and Allergies Home Medications Medication Instructions Recorded Confirmed Type tamsulosin 0.4 mg capsule 0.4 mg PO BID 09/20/17 09/19/23 History finasteride 5 mg tablet 5 mg PO DAILY 09/07/21 09/19/23 History albuterol sulfate 90 mcg/actuation 2 puff inhalation Q6H PRN 05/19/23 09/19/23 History aerosol inhaler Shortness Of Breath oxybutynin chloride 10 mg 10 mg PO DAILY 05/19/23 09/19/23 History tablet,extended release 24 hr sacubitril 24 mg-valsartan 26 mg 0.5 tab PO BID 05/19/23 09/19/23 History tablet (Entresto) budesonide 0.5 mg/2 mL suspension 0.5 mg inhalation BID PRN 09/06/23 09/19/23 History for nebulization Shortness Of Breath Or Wheezing lorazepam 0.5 mg tablet 0.5 mg PO BID PRN Anxiety 09/06/23 09/19/23 History empagliflozin 10 mg tablet 10 mg PO DAILY 30 days #30 tabs 09/07/23 09/19/23 Rx (Jardiance) fluticasone fur. 100 mcg-umeclid 1 inh inhalation DAILY 30 days #1 09/07/23 09/19/23 Rx 62.5 mcg-vilant 25 mcg ea inhalat.powder (Trelegy Ellipta) spironolactone 25 mg tablet 25 mg PO DAILY 30 days #30 tabs 09/07/23 09/19/23 Rx nystatin 100,000 unit/mL oral 10 ml PO QID PRN Thrush 09/20/23 09/20/23 History suspension New Prescriptions to Start Prescriptions: Allergies Allergy/AdvReac Type Severity Reaction Status Date / Time ceftriaxone [From Rocephin] Allergy Severe Hives Verified 05/18/23 23:28 pregabalin [From LYRICA] Allergy Unknown Verified 05/18/23 20:52 Exam Data for Last 24 hours Vital signs and Labs for Last 24 Hours: Temp Pulse Resp BP Pulse Ox O2 Del Method O2 Flow Rate 98.4 F 113 H 24 96/53 L 95 Nasal Cannula 3 09/19/23 17:42 09/19/23 20:50 09/19/23 17:42 09/19/23 20:39 09/19/23 20:50 09/19/23 20:50 09/19/23 20:50 Laboratory Results - last 24 hr 09/19/23 18:10: WBC 8.2, RBC 4.66, Hgb 14.5, Hct 41.6 L, MCV 89.3, MCH 31.2, MCHC 34.9, RDW 12.3, Plt Count 219, MPV 8.6, Neut % (Auto) 82.8 H, Lymph % (Auto) 10.6, [place] % (Auto) 6.1, Eos % (Auto) 0.3, Baso % (Auto) 0.2, Neut # (Auto) 6.8, Lymph # (Auto) 0.9, [place] # (Auto) 0.5, Eos # (Auto) 0.0, Baso # (Auto) 0.0, Sodium 127 L, Potassium 3.4 L, Chloride 90 L, Carbon Dioxide 31 H, Anion Gap 9.4, BUN 13, Creatinine 0.80, Estimated Creat Clear 101, Estimated GFR 95, Est GFR ( Amer) 115, Glucose 126 H, Calcium 8.5, Total Bilirubin 0.9, AST 37, ALT 30, Alkaline Phosphatase 87, NT-Pro-B Natriuret Pep 861 H, Total Protein 6.5, Albumin 3.8, Globulin 2.7, Albumin/Globulin Ratio 1.4 09/19/23 19:10: Troponin I < 0.01 09/19/23 20:42: VBG pH 7.39, VBG pCO2 40.1, VBG pO2 40.0, VBG HCO3 23.7, VBG Total CO2 24.9, VBG O2 Saturation 77.9 H, VBG Base Excess -1.3 I & O for Last 24 hours: Intake & Output 09/16/23 09/17/23 09/18/23 09/19/23 23:59 23:59 23:59 23:59 Weight 105.687 kg Constitutional Constitutional: mild distress, obese, chronically ill appearing and cooperative *Routine HEENT Exam Head: Present normocephalic and atraumatic Eye: Present EOMI, PERRL and normal accommodation ENT: Present mucous membranes moist *Routine Neck Exam Neck: Present supple, full ROM and trachea midline *Routine Respiratory Exam Respiratory: Present accessory muscle use, prolonged expiratory phase, rhonchi, wheezes and symmetric chest movement; Absent crackles or able to speak in complete sentences *Routine Cardiovascular Exam Cardiovascular: Present Normal S1, Normal S2 and tachycardia *Routine Abdominal Exam Abdominal: Present soft and normoactive bowel sounds; Absent organomegaly *Routine Rectal Exam Rectal:: deferred *Routine Genitalia Exam Genitalia:: deferred *Routine Extremities Exam Extremities: Present clubbing, edema (2-3+ bilateral lower extremities to knees), full ROM and pulses intact; Absent cyanosis *Routine Skin Exam Skin: Present intact, dry and warm *Routine Neurological Exam Neurological: Present alert, oriented X3, normal reflexes, moving all extremities and normal speech Routine Psychiatric Exam Psychiatric: Present normal thought process, cooperative, good judgment and anxious H&P: Result Imaging and Cardiology EKG: Status: image reviewed by me and Preliminary report Chest x-ray: Status: image reviewed by me, Preliminary report and final report Assessment and Plan *Assessment and plan (1) Acute on chronic HFrEF (heart failure with reduced ejection fraction): Status: Acute Category: Medical Code(s): I50.23 - Acute on chronic systolic (congestive) heart failure (2) Dyspnea: Status: Acute Qualifiers: Dyspnea type: shortness of breath Qualified Code(s): R06.02 - Shortness of breath Category: Medical Code(s): R06.00 - Dyspnea, unspecified (3) Pneumonia: Status: Acute Qualifiers: Laterality: bilateral Lung location: lower lobe of lung Pneumonia type: due to unspecified organism Qualified Code(s): J18.9 - Pneumonia, unspecified organism Category: Medical Code(s): J18.9 - Pneumonia, unspecified organism (4) Chronic hyponatremia: Status: Acute Category: Medical Code(s): E87.1 - Hypo-osmolality and hyponatremia (5) COPD mixed type: Status: Chronic Category: Medical Code(s): J44.9 - Chronic obstructive pulmonary disease, unspecified (6) HFrEF (heart failure with reduced ejection fraction): Status: Chronic Category: Medical Code(s): I50.20 - Unspecified systolic (congestive) heart failure (7) BPH (benign prostatic hyperplasia): Status: Chronic Qualifiers: Lower urinary tract symptom presence: symptoms absent Qualified Code(s): N40.0 - Benign prostatic hyperplasia without lower urinary tract symptoms Category: Medical Code(s): N40.0 - Benign prostatic hyperplasia without lower urinary tract symptoms (8) Tobacco abuse: Status: Chronic Category: Medical Code(s): Z72.0 - Tobacco use (9) Obesity (BMI 30-39.9): Status: Chronic Category: Medical Code(s): E66.9 - Obesity, unspecified Plan 72-year-old obese male with PMHx of coronary artery disease, HFrEF, COPD on 2 L nasal cannula at home, BPH, current smoker, who presents emergency department for evaluation of shortness of breath. On arrival patient presented to be tachypneic , on respiratory distress with shortness of breath. Hemodynamically stable, tachycardic. Was placed on 4 L nasal cannula. X-ray was obtained. Concerning for worsening opacity on the right side. Lab are grossly unremarkable, except for some electrolyte disturbances like hyponatremia hypokalemia. BNP slightly elevated. Last time patient was discharged on Levaquin. ER started on IV Levaquin. Findings discussed with the ER for admission. Plan as follow: -Worsening dyspnea, presented with recurrent bilateral lower lobe opacity: To rule out pneumonia, during last admission patient denied to have a bronchoscopy. Encouraged patient to have procedure done because of the persistence of the symptoms. Admit patient for medical services. Dispo MedSurg Will be discussed with pulmonology. Further recommendation may be implemented based on the course of clinical presentation, including new pulmonary consult. All recent sputum are being negative. White count normal Continued on IV Levaquin Added doxycycline empirically DuoNeb every 6h One-time Lasix 80 mg given. Checks x-ray reviewed. -Chronic hyponatremia, likely secondary to diuresis Hypokalemia: Potassium replaced at the ER. Monitor CBC CMP in the morning. Watch for electrolyte imbalance hospital monitor -COPD: Does not seems to be on exacerbation at this time VBG at ER obtained reviewed. Resume home regimen Patient on albuterol and Ellipta -Heart failure with reduced ejection: Last echo was done this month. Showed Grade 3 diastolic dysfunction is present. LVEF is 15-20%. Patient on strength Entresto and spironolactone. Will review dose before resume -BPH: Resume finasteride and tamsulosin -current tobacco abuse: On nicotine patch. Not interested in quitting. -Obesity: Fluid overload and comorbidities were complicate all aspects of care. Lovenox for DVT prophylaxis. Protonix for GI bleed protection Full code. Plan extensively discussed with the patient. Rounded on patient after nurse practitioner. Personally examined and interviewed patient. Agree with exam findings and care plan as documented.
--- NOTE | 2023-09-19 21:14 | PC.NURSE ---
notified maid housekeeper of admission
[2023-09-19] MEDS: RINGERS SOLUTION,LACTATED 500 ML 999 ML IV (21:27)
[2023-09-19] MEDS: METHYLPREDNISOLONE SOD SUCC 125MG VIAL 125 MG IV (21:27)
[2023-09-19] MEDS: LEVOFLOXACIN/D5W 750 MG/150 ML 750 MG/150 ML PIGGYBACK 100 MG IV (21:27)
--- NOTE | 2023-09-19 21:51 | PC.NURSE ---
Patient arrived to floor via wheelchair from ED at 21:40.
[2023-09-19 23:09] LABS: Troponin I < 0.01 ng/ml (0.00-0.034)
[2023-09-19] MEDS: FUROSEMIDE 100MG/10ML VIAL 80 MG IV (23:09)
[2023-09-19] MEDS: KCl 20mEq/100ml 100 ML 50 MEQ IV (23:09)
[2023-09-20] VITALS (9 sets, daily range): BP systolic 101–112; BP diastolic 52–61; PULSE 100–115; RESP 18–26; TEMP 36.5–36.8; O2SAT 92–97; BMI 36.1
[2023-09-20] MEDS: ACETAMINOPHEN 325MG TAB 650 MG PO ×3 (00:32→14:24)
[2023-09-20] MEDS: KCl 20mEq/100ml 100 ML 50 MEQ IV ×2 (01:14→03:54)
[2023-09-20] MEDS: ALBUTEROL-HFA 90MCG/PUFF INHALER 8GM 2 PUFF IH (01:26)
[2023-09-20] MEDS: MORPHINE 2MG/ML SYRINGE 2 MG IV ×4 (02:41→23:24)
[2023-09-20 02:54] LABS: Troponin I < 0.01 ng/ml (0.00-0.034)
[2023-09-20] MEDS: DOXYCYCLINE HYCLATE 100 MG in 0.9 % SODIUM CHLORIDE 250 ML 166.667000000000002 MG IV (03:02)
--- NOTE | 2023-09-20 04:35 | PC.NURSE ---
Patient was admitted to [facility] from emergency department after patient has complained of increased shortness of air for the last two days. Patient states he has been admitted several times recent for same issues but this time seems worse. Since arrival to floor patient has been unable to lay down but in increments of 15-20 minutes patient states he gets to winded and his neck hurts to bad. PRN pain medication has been administer as ordered with only mild improvement per patient report. Patient has been receiving runs of KCL, currently on 3 of 3. Cardiac monitoring is on and showing sinus tach with occasional PVC. Patients lungs are diminshed throughout with fine crackles heard at bases. Patient is currently on 2LNC, pursed lip breathing is noted. Patient has been tachpneic. BLE have +2 pitting edema. Patient has been using urinal with minimal assistance. New IV was placed in LFA (20G, one stick). IV in RAC was removed no s/sx of complications. Patient has bedside table, urinal, personal belongings, water pitcher, and call nichols all within reach.
--- NOTE | 2023-09-20 04:57 | PC.NURSE ---
Patient refusing to let remaining KCL infuse, states it abel too bad despite NS being added to help dilute. Patient was explained the importance of finishing infusion. Patient did not want to continue and was demanding this nurse to turn it off. Approximately 20 ML was remaining.
[2023-09-20] MEDS: BUDESONIDE 0.5MG/2ML NEB 0.5 MG IH (06:00)
[2023-09-20 06:56] LABS: Basophils % 0.4 % (0.1-2.0); Eosinophils % 0.2 % (0.1-12.0); Hematocrit 39.9 % (42.0-52.0); Hemoglobin 13.8 g/dL (14.1-18.0); Lymphocytes # 0.4 K/mm3 (0.7-4.5); Lymphocytes % 7.2 % (10-50); Mean Corpuscular HGB Conc 34.5 g/dL (31.8-35.4); Mean Corpuscular Volume 89.8 fl (80-94); Mean Platelet Volume 8.2 fl (7.4-10.4); Monocytes # 0.1 K/mm3 (0.1-1.0); Monocytes % 1.2 % (1.7-9.3); Neutrophils # 4.8 K/mm3 (1.8-7.8); Neutrophils % 90.9 % (37.0-80.0); Platelet Count 203 K/mm3 (142-424); Red Blood Count 4.45 M/mm3 (4.60-6.20); Red Cell Distribution Width 12.4 % (11.5-17.5); White Blood Count 5.3 K/mm3 (4.8-10.8)
[2023-09-20 06:58] LABS: MANUAL DIFFERENTIAL MANUAL DIFFERENTIAL (MANUAL DIFF)
[2023-09-20 07:05] LABS: Alanine Aminotransferase 25 U/L (12-78); Albumin Level 3.8 g/dl (3.5-5.0); Albumin/Globulin Ratio 1.5 (1.1-1.8); Alkaline Phosphatase 82 U/L (38-126); Anion Gap 11.7 mEq/L (5-15); Aspartate Amino Transferase 31 U/L (17-59); Bilirubin,Total 0.8 mg/dl (0.2-1.3); Blood Urea Nitrogen 13 mg/dl (9-20); Calcium 8.3 mg/dl (8.4-10.2); Carbon Dioxide 27 mmol/L (22.0-30.0); Chloride 93 mmol/L (98-107); Creatinine Clearance Estimated 104 mL/min (50-200); Estimated Glomerular Filt Rate 83 ml/min (>60); GFR (African American) 101 ML/MIN (>60); Globulin 2.6 g/dL (1.3-3.2); Glucose 128 mg/dl (74-100); Magnesium 1.7 mg/dl (1.6-2.3); Potassium 4.7 mmoL/L (3.5-5.1); Sodium 127 mmol/L (136-145); Total Protein,Serum 6.4 g/dl (6.3-8.2)
--- NOTE | 2023-09-20 08:09 | HMH.PHAINT1 ---
Pharmacy Intervention Comments: Home med list verified with patient at bedside and with external pharmacy list.
[2023-09-20 09:00] LABS: Lymphocytes % 6 % (10-50); Monocytes % 4 % (2-9); Neutrophils % 90 % (42-76); Platelet Estimate Normal; RBC Morphology Normal; Total Cells Counted 100
[2023-09-20] MEDS: TAMSULOSIN 0.4MG CAPSULE 0.400000000000000022 MG PO ×2 (09:30→20:41)
[2023-09-20] MEDS: OXYBUTYNIN 5MG TAB 5 MG PO ×2 (09:30→20:41)
[2023-09-20] MEDS: PANTOPRAZOLE 40MG TABLET 40 MG PO (09:30)
[2023-09-20] MEDS: EMPAGLIFLOZIN 10MG TABLET 10 MG PO (09:30)
[2023-09-20] MEDS: FINASTERIDE 5MG TABLET 5 MG PO (09:31)
[2023-09-20] MEDS: ENOXAPARIN 40MG/0.4ML SYRINGE 40 MG SQ (09:31)
[2023-09-20] MEDS: FLUTICASONE/UMECLIDIN/VILANTER 100/62.5/25MCG INHALER 1 PUFF IH (09:40)
--- NOTE | 2023-09-20 10:01 | HMH.OTEV ---
OT Inpatient Evaluation Rehab OT IP Evaluation Start: 09/20/23 07:27 Freq: ONCE Status: Active Protocol: Document 09/20/23 09:55 ANMARIA ELENA (Rec: 09/20/23 10:00 DANIEL [id number]) Rehab OT IP Assessment Subjective History This is 72-year-old obese male with PMHx of coronary artery disease, HFrEF, COPD on 2 L nasal cannula at home, BPH, current smoker, who presents emergency department for evaluation of shortness of breath. Patient stated that he is been having dame symptoms since April 2023. Patient stated This is a same pneumonia, I has not been able to cure, I come to hospital, they kept me for couple days and send me home . Patient has been admitted multiples time in the last three to four months. Today he reported that in the last 24 hours is acutely worsened. Admitted for management. Patient lives with in a 1 story home with 1-2 RICKY. Independent with ADLs and fx'l mobility prior to hospitalization. Uses a RW to ambulate. Subjective I can get up. Analysis patient's safety and fx'l mobility to participate in bed mobility, transfers, ADL and transfers. Patient completed all tasks independently. Patient verbalize, I can do everything. I just don't feel good. Objective Patient Orientation Person,Place,Name,Age,Birthday ,Year Right Upper Extremity Gross ROM WFL Left Upper Extremity Gross ROM WFL Bed Mobility bed mobility - supine/sit Assist Level Independent Transfer Training Sit/Stand Transfer,Sit/Stand/ Step Transfer,Sit/Stand/Pivot Transfer Assist Level Independent Chair Transfer Ability Independent Chair Transfer Technique Sit to/from Ambulatory Chair Transfer Assistive Devices Rolling Walker Lower Body Dressing Ability Independent Rehab OT IP prob,goals,plan Problems Date of Evaluation: 09/20/23 Rehab Potential Rehab Potential Innapropriate for Skilled Therapy Discharge Plan OT Discharge Plan Patient appears to be at baseline. Independent with all ADLs and fx'l mobility. D/c to home after medical d/c. Eval Complexity Eval Charge Codes 00486 - Low Complexity PHYSICIAN CERTIFICATION: I certify the specified therapy services for Hussein Holcomb are required, authorized, and reviewed every 30 days.
--- NOTE | 2023-09-20 10:24 | HMH.PTEV ---
Physical Therapy Evaluation Rehab PT IP Evaluation Start: 09/20/23 07:28 Freq: ONCE Status: Active Protocol: Document 09/20/23 08:50 WALLY (Rec: 09/20/23 10:19 WALLY [id number]) Subjective/History History History Pt is a 72-year-old male with PMHx of coronary artery disease, HFrEF, COPD on 2 L nasal cannula at home, BPH, current smoker, who initially presented to [facility] emergency department for evaluation of shortness of breath. Past medical history: Abnormal electrocardiogram [ ECG] [EKG], Anxiety, Acute exacerbation of COPD, Atypical angina, BPH (benign prostatic hyperplasia), CAD in [place] artery, Cardiomyopathy, Cellulitis of right lower leg, CHF exacerbation, Congestive heart failure, COPD (chronic obstructive pulmonary disease) with acute bronchitis, COPD mixed type, Essential hypertension, Heart failure, HFrEF (heart failure with reduced ejection fraction), Hyperlipidemia, Lesion of right lung, Lung nodule, Mediastinal adenopathy, Neck pain, Obesity (BMI 30-39.9), Obesity (BMI 30.0-34.9), Pneumonia, Prostate enlargement, Respiratory failure, Shortness of Breath, SOB (shortness of breath) on exertion, Supplemental oxygen dependent, Tachycardia, Tobacco abuse, Volume overload Subjective Subjective Pt greeted sitting EOB. Pt visibly frustrated with request to demonstrate mobility but agreed with education and encouragement. Audible SOB noted. Pt reports the following subjective history: PLOF: Independent with ADLs and ambulation using rollator. No RICKY home. Lives with . On 2L of supplemental O2 at baseline. New diagnosis of cancer in past 12 No months? Rehab PT IP Eval Objective Appearance Patient Behavior Patient Baseline Patient Orientation Person,Place Speech Pattern Clear Ambulation Patient Able to Ambulate Yes Ambulation Observation Ambulation Distance (feet) 18 Ambulation Assistive Device Rolling Walker Ambulation Ability Independent Balance Ability to Arise Able, uses arms to help Sitting Balance Steady, safe Transfers Sit to Stand Bed Transfer Ability Independent Rehab PT IP prob,goals,plan Problems Date of Evaluation: 09/20/23 Other Pt Problem Impaired endurance and activity tolerance Rehab Potential Rehab Potential Innapropriate for Skilled Therapy Equipment Needs Assistive Devices Rolling / Wheeled Walker Discharge Plan PT Discharge Plan Pt is at baseline with ambulation, ADLs, and functional mobility. Pt safe to return home when deemed medically necessary. Eval Complexity Eval Charge Codes 25909 - Moderate Complexity PHYSICIAN CERTIFICATION: I certify the specified therapy services for Hussein Holcomb are required, authorized, and reviewed every 30 days.
[2023-09-20] MEDS: BUMETANIDE 1MG/4ML VIAL 2 MG IV ×2 (11:06→16:04)
[2023-09-20] MEDS: METOPROLOL TARTRATE 25MG TABLET 12.5 MG PO ×2 (11:07→20:41)
[2023-09-20 11:19] LABS: NT Pro Brain Natriuretic Pep. 1080 pg/mL (0-125)
--- NOTE | 2023-09-20 11:35 | EXP.ACUTE.PN ---
Subjective *Date: 09/20/23 *Time: 12:32 Interval history: Continues to be short of this. He had denies any chest pain, fever, nausea or vomiting. On 3 L. Tripoding at bedside. Medical Exam Vital signs and Labs for Last 24 Hours: Vital Signs Temp Pulse Pulse Resp BP BP Pulse Ox 09/20/23 11:20 09/20/23 09:00 09/20/23 08:39 100 H 09/20/23 08:25 09/20/23 08:00 97.8 F 100 H 18 112/58 L 97 09/20/23 06:00 102 H 09/20/23 06:00 102 H 09/20/23 06:00 92 L 09/20/23 04:00 97.7 F 102 H 19 102/52 L 96 09/20/23 04:00 100 H 09/20/23 03:00 09/20/23 01:00 09/20/23 00:00 97.8 F 114 H 26 H 102/61 L 95 09/20/23 00:00 115 H 09/19/23 23:00 09/19/23 23:22 113 H 09/19/23 22:02 97.6 F 58 L 22 114/55 L 95 09/19/23 21:43 98.4 F 110 H 24 97/54 L 09/19/23 20:39 115 H 96/53 L 95 09/19/23 20:31 111 H 103/41 L 96 09/19/23 20:27 109 H 89/50 L 96 09/19/23 20:00 109 H 98/50 L 96 09/19/23 19:00 108 H 90/55 L 97 09/19/23 18:54 107 H 95/42 L 96 09/19/23 20:50 113 H 09/19/23 20:50 113 H 09/19/23 20:50 95 09/19/23 18:31 122 H 61/45 L 92 L 09/19/23 17:42 98.4 F 121 H 24 94/53 L 95 O2 Del Method O2 Flow Rate 09/20/23 11:20 Room Air 09/20/23 09:00 Nasal Cannula 3 09/20/23 08:39 09/20/23 08:25 Nasal Cannula 2 09/20/23 08:00 Nasal Cannula 3 09/20/23 06:00 09/20/23 06:00 09/20/23 06:00 Nasal Cannula 3 09/20/23 04:00 09/20/23 04:00 09/20/23 03:00 Nasal Cannula 2 09/20/23 01:00 Nasal Cannula 2 09/20/23 00:00 Nasal Cannula 09/20/23 00:00 09/19/23 23:00 Nasal Cannula 2 09/19/23 23:22 09/19/23 22:02 Nasal Cannula 3 09/19/23 21:43 Nasal Cannula 3 09/19/23 20:39 3 09/19/23 20:31 3 09/19/23 20:27 3 09/19/23 20:00 3 09/19/23 19:00 3 09/19/23 18:54 09/19/23 20:50 09/19/23 20:50 09/19/23 20:50 Nasal Cannula 3 09/19/23 18:31 Nasal Cannula 09/19/23 17:42 Nasal Cannula 4 Intake and Output 09/19/23 09/20/23 09/20/23 23:59 07:59 15:59 Intake Total 1040 / 1750 710 / 1750 Output Total 1750 / 3050 1300 / 3050 Balance -710 / -1300 -590 / -1300 Intake: Intake, Oral Amount 360 / 1070 710 / 1070 Intake, Total IV Amount 680 / 680 Doxycycline Hyclate 100 mg In 0 250 / 250 .9 % Sodium Chloride 250 ml @ 166.667 mls/hr IV Q12H DOUG Rx#: [id number] KCl 20mEq/100ml 100 ml @ 50 mls 280 / 280 /hr IV Q2H DOUG Rx#:[id number] Levofloxacin/D5w 750 mg/150 ml 150 / 150 750 mg In 150 ml @ 100 mls/hr IV Q24H DOUG Rx#:[id number] Output: Output, Urine Amount 1750 / 3050 1300 / 3050 Other: Number of Unmeasured Voids 0 1 Weight 105.687 kg 108.363 kg Patient Weight 09/20/23 23:59 Weight 108.363 kg Laboratory Results - last 24 hr 09/19/23 18:10: WBC 8.2, RBC 4.66, Hgb 14.5, Hct 41.6 L, MCV 89.3, MCH 31.2, MCHC 34.9, RDW 12.3, Plt Count 219, MPV 8.6, Neut % (Auto) 82.8 H, Lymph % (Auto) 10.6, [place] % (Auto) 6.1, Eos % (Auto) 0.3, Baso % (Auto) 0.2, Neut # (Auto) 6.8, Lymph # (Auto) 0.9, [place] # (Auto) 0.5, Eos # (Auto) 0.0, Baso # (Auto) 0.0, Sodium 127 L, Potassium 3.4 L, Chloride 90 L, Carbon Dioxide 31 H, Anion Gap 9.4, BUN 13, Creatinine 0.80, Estimated Creat Clear 101, Estimated GFR 95, Est GFR ( Amer) 115, Glucose 126 H, Calcium 8.5, Total Bilirubin 0.9, AST 37, ALT 30, Alkaline Phosphatase 87, NT-Pro-B Natriuret Pep 861 H, Total Protein 6.5, Albumin 3.8, Globulin 2.7, Albumin/Globulin Ratio 1.4 09/19/23 19:10: Troponin I < 0.01 09/19/23 20:42: VBG pH 7.39, VBG pCO2 40.1, VBG pO2 40.0, VBG HCO3 23.7, VBG Total CO2 24.9, VBG O2 Saturation 77.9 H, VBG Base Excess -1.3 09/19/23 22:00: Troponin I < 0.01 09/20/23 02:10: Troponin I < 0.01 09/20/23 05:55: WBC 5.3 D, RBC 4.45 L, Hgb 13.8 L, Hct 39.9 L, MCV 89.8, MCH 31.0, MCHC 34.5, RDW 12.4, Plt Count 203, MPV 8.2, Neut % (Auto) 90.9 H, Lymph % (Auto) 7.2 L, [place] % (Auto) 1.2 L, Eos % (Auto) 0.2, Baso % (Auto) 0.4, Neut # (Auto) 4.8, Lymph # (Auto) 0.4 L, [place] # (Auto) 0.1, Eos # (Auto) 0.0, Baso # (Auto) 0.0, Total Counted 100, Neutrophils % (Manual) 90 H, Lymphocytes % (Manual) 6 L, Monocytes % (Manual) 4, Platelet Estimate Normal, RBC Morphology Normal, Sodium 127 L, Potassium 4.7 D, Chloride 93 L, Carbon Dioxide 27, Anion Gap 11.7, BUN 13, Creatinine 0.90, Estimated Creat Clear 104, Estimated GFR 83, Est GFR ( Amer) 101, Glucose 128 H, Calcium 8.3 L, Magnesium 1.7, Total Bilirubin 0.8, AST 31, ALT 25, Alkaline Phosphatase 82, NT-Pro-B Natriuret Pep 1080 H, Total Protein 6.4, Albumin 3.8, Globulin 2.6, Albumin/Globulin Ratio 1.5 I & O for Labs for Last 24 Hours: Intake & Output 09/17/23 09/18/23 09/19/23 09/20/23 23:59 23:59 23:59 23:59 Intake Total 1750 / 1750 Output Total 3050 / 3050 Balance -1300 / -1300 Weight 105.687 kg 108.363 kg Constitutional: Present mild distress, obese and chronically ill appearing Head: Present atraumatic and normocephalic Neck: Present normal inspection Respiratory: Present accessory muscle use, prolonged expiratory phase, crackles and diminished air movement; Absent rhonchi or wheezes Cardiac: Present Tachycardia GI: Present soft and normal bowel sounds; Absent distention or tenderness Extremities: Present normal inspection, full ROM and edema (2+ bilaterally.) Skin: Present intact; Absent erythema Neuro: Present Grossly Intact, alert, awake, oriented x 3 and moves all extremities Assessment and Plan *Assessment and plan (1) Acute on chronic HFrEF (heart failure with reduced ejection fraction): Status: Acute Category: Medical Code(s): I50.23 - Acute on chronic systolic (congestive) heart failure (2) Dyspnea: Status: Acute Qualifiers: Dyspnea type: shortness of breath Qualified Code(s): R06.02 - Shortness of breath Category: Medical Code(s): R06.00 - Dyspnea, unspecified (3) Pneumonia: Status: Acute Qualifiers: Laterality: bilateral Lung location: lower lobe of lung Pneumonia type: due to unspecified organism Qualified Code(s): J18.9 - Pneumonia, unspecified organism Category: Medical Code(s): J18.9 - Pneumonia, unspecified organism (4) Chronic hyponatremia: Status: Acute Category: Medical Code(s): E87.1 - Hypo-osmolality and hyponatremia (5) COPD mixed type: Status: Chronic Category: Medical Code(s): J44.9 - Chronic obstructive pulmonary disease, unspecified (6) BPH (benign prostatic hyperplasia): Status: Chronic Qualifiers: Lower urinary tract symptom presence: symptoms absent Qualified Code(s): N40.0 - Benign prostatic hyperplasia without lower urinary tract symptoms Category: Medical Code(s): N40.0 - Benign prostatic hyperplasia without lower urinary tract symptoms (7) Tobacco abuse: Status: Chronic Category: Medical Code(s): Z72.0 - Tobacco use (8) Obesity (BMI 30-39.9): Status: Chronic Category: Medical Code(s): E66.9 - Obesity, unspecified Plan 72-year-old obese male with PMHx of coronary artery disease, HFrEF, COPD on 2 L nasal cannula at home, BPH, current smoker, who presents emergency department for evaluation of shortness of breath. On arrival patient presented to be tachypneic , on respiratory distress with shortness of breath. Hemodynamically stable, tachycardic. Was placed on 4 L nasal cannula. X-ray was obtained. Concerning for worsening opacity on the right side. Lab are grossly unremarkable, except for some electrolyte disturbances like hyponatremia hypokalemia. BNP slightly elevated. Last time patient was discharged on Levaquin. ER started on IV Levaquin. Findings discussed with the ER for admission. Concern for worsening CHF exacerbation versus pneumonia. Pulmonology and cardiology consulted to assist with care. Patient clinically appears volume overloaded. Continues to require inpatient management. Plan as follows: -Worsening dyspnea, presented with recurrent bilateral lower lobe opacity: - Acute on chronic heart failure with reduced ejection fraction -Suspected pneumonia with COPD exacerbation Cardiology and pulmonology consulted to assist with care. Discussed case with pulmonology, will have further discussion with patient about workup including bronchoscopy which has been recommended multiple times over his previous admissions. Continue aggressive diuresis, Bumex 2 mg IV twice daily. Chest imaging personally reviewed, concerning for right lower lobe airspace disease versus effusion and pulmonary edema. Continue antibiotics for now including levofloxacin IV, renally dosed and doxycycline twice daily. DuoNebs every 6 hours scheduled. Monitor for improvement in oxygenation with diuresis. Goal saturation greater 90%, currently on 3 L. CBC, CMP, magnesium ordered for the morning. BNP elevated in the thousand this morning. Last echo done earlier this month showed grade 3 diastolic dysfunction and EF 15 to 20%. Has class IV NYHA heart failure. -Chronic hyponatremia, likely secondary to diuresis Hypokalemia: Potassium replaced at the ER. Potassium 4.7 this morning, sodium 127. 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 Not interested in quitting. -Obesity: Fluid overload and comorbidities were complicate all aspects of care. Lovenox for DVT prophylaxis. Protonix for GI bleed protection Full code. Plan extensively discussed with the patient.
[2023-09-20] MEDS: FLUTICASONE PROP 50MCG NASAL SPRAY 16GM 1 SPRAY NS (11:59)
--- NOTE | 2023-09-20 12:19 | EXP.CARD.CON ---
History of Present Illness History of Present Illness Consult date: 09/20/23 Requesting physician: Kyler Lovell Consult reason: congestive heart failure Chief complaint: SOA History of present illness: 72-year-old white male with history of CAD, HFrEF, EF 15 to 20%, COPD on 3 L at baseline, ongoing tobacco use. Presents to the hospital frequently with COPD exacerbation and heart failure exacerbation. He has previously refused cardiac workup here, he prefers to follow with Dr. Lino in [facility] but is not able to see them until November. He has been encouraged to have a bronchoscopy for atypical pneumonia in the past by pulmonology which patient declines. He is here today and states nobody here knows what they are doing and nobody can help him. He is very cantankerous with staff. Chest x-ray shows bibasilar pneumonia versus atelectasis, no proBNP on chart at this time. He has severe lower extremity edema shins bilaterally. [facility] Disclaimer: The information contained in this section may have been updated after the patient was seen, as this information can be updated by other users. Medical History (Updated 09/20/23 @ 14:53 by Savannah Huang MD) Abnormal electrocardiogram [ECG] [EKG] Acute and chronic respiratory failure with hypoxia Acute and chronic respiratory failure with hypoxia Acute exacerbation of chronic obstructive pulmonary disease Acute exacerbation of chronic obstructive pulmonary disease (COPD) Anxiety Atypical angina BPH (benign prostatic hyperplasia) CAD in [place] artery Cardiomyopathy Cellulitis of right lower leg CHF exacerbation Congestive heart failure COPD (chronic obstructive pulmonary disease) with acute bronchitis COPD mixed type Essential hypertension Heart failure HFrEF (heart failure with reduced ejection fraction) Hyperlipidemia Lesion of right lung Lung nodule Mediastinal adenopathy Neck pain Obesity (BMI 30-39.9) Obesity (BMI 30.0-34.9) Pneumonia Prostate enlargement Respiratory failure Shortness of Breath SOB (shortness of breath) on exertion Supplemental oxygen dependent Tachycardia Tobacco abuse Volume overload Family History Other No significant family history Social History Smoking Status: Current every day smoker tobacco type: cigarettes packs per day: 1 alcohol intake: never substance use type: denies use current occupational status: disabled Travel in the last 8 weeks: None household members: spouse housing: apartment caffeine: Yes Review of Systems Constitutional Constitutional: Reports fatigue and Reports weakness Eyes Eyes: Denies loss of vision ENT Ears, Nose, Mouth, and Throat: Denies hearing loss and Denies vertigo *Cardiovascular Cardiovascular: Denies chest pain, Reports dyspnea, Reports orthopnea and Denies syncope *Respiratory Respiratory: Denies cough and Reports dyspnea *Gastrointestinal Gastrointestinal: Denies change in stool character, Denies nausea and Denies vomiting *Genitourinary Genitourinary: Denies difficulty urinating *Musculoskeletal Musculoskeletal: Denies muscle weakness and Reports tingling Comments: Bilateral lower extremity edema Integumentary/Breasts Skin/Breast: Denies changing lesions *Neurologic Neurologic: Denies loss of vision, Denies syncope, Reports tingling, Denies vertigo and Reports weakness Endocrine Endocrine: Reports fatigue Exam Data for Last 24 hours Vital signs and Labs for Last 24 Hours: Temp Pulse Resp BP Pulse Ox O2 Del Method O2 Flow Rate 97.9 F 101 H 19 108/61 L 97 Nasal Cannula 3 09/20/23 11:49 09/20/23 11:49 09/20/23 11:49 09/20/23 11:49 09/20/23 11:49 09/20/23 11:49 09/20/23 11:49 Laboratory Results - last 24 hr 09/19/23 18:10: WBC 8.2, RBC 4.66, Hgb 14.5, Hct 41.6 L, MCV 89.3, MCH 31.2, MCHC 34.9, RDW 12.3, Plt Count 219, MPV 8.6, Neut % (Auto) 82.8 H, Lymph % (Auto) 10.6, [place] % (Auto) 6.1, Eos % (Auto) 0.3, Baso % (Auto) 0.2, Neut # (Auto) 6.8, Lymph # (Auto) 0.9, [place] # (Auto) 0.5, Eos # (Auto) 0.0, Baso # (Auto) 0.0, Sodium 127 L, Potassium 3.4 L, Chloride 90 L, Carbon Dioxide 31 H, Anion Gap 9.4, BUN 13, Creatinine 0.80, Estimated Creat Clear 101, Estimated GFR 95, Est GFR ( Amer) 115, Glucose 126 H, Calcium 8.5, Total Bilirubin 0.9, AST 37, ALT 30, Alkaline Phosphatase 87, NT-Pro-B Natriuret Pep 861 H, Total Protein 6.5, Albumin 3.8, Globulin 2.7, Albumin/Globulin Ratio 1.4 09/19/23 19:10: Troponin I < 0.01 09/19/23 20:42: VBG pH 7.39, VBG pCO2 40.1, VBG pO2 40.0, VBG HCO3 23.7, VBG Total CO2 24.9, VBG O2 Saturation 77.9 H, VBG Base Excess -1.3 09/19/23 22:00: Troponin I < 0.01 09/20/23 02:10: Troponin I < 0.01 09/20/23 05:55: WBC 5.3 D, RBC 4.45 L, Hgb 13.8 L, Hct 39.9 L, MCV 89.8, MCH 31.0, MCHC 34.5, RDW 12.4, Plt Count 203, MPV 8.2, Neut % (Auto) 90.9 H, Lymph % (Auto) 7.2 L, [place] % (Auto) 1.2 L, Eos % (Auto) 0.2, Baso % (Auto) 0.4, Neut # (Auto) 4.8, Lymph # (Auto) 0.4 L, [place] # (Auto) 0.1, Eos # (Auto) 0.0, Baso # (Auto) 0.0, Total Counted 100, Neutrophils % (Manual) 90 H, Lymphocytes % (Manual) 6 L, Monocytes % (Manual) 4, Platelet Estimate Normal, RBC Morphology Normal, Sodium 127 L, Potassium 4.7 D, Chloride 93 L, Carbon Dioxide 27, Anion Gap 11.7, BUN 13, Creatinine 0.90, Estimated Creat Clear 104, Estimated GFR 83, Est GFR ( Amer) 101, Glucose 128 H, Calcium 8.3 L, Magnesium 1.7, Total Bilirubin 0.8, AST 31, ALT 25, Alkaline Phosphatase 82, NT-Pro-B Natriuret Pep 1080 H, Total Protein 6.4, Albumin 3.8, Globulin 2.6, Albumin/Globulin Ratio 1.5 I & O for Last 24 hours: Intake & Output 09/17/23 09/18/23 09/19/23 09/20/23 23:59 23:59 23:59 23:59 Intake Total 2630 / 2630 Output Total 3650 / 3650 Balance -1020 / -1020 Weight 233 lb 238 lb 14.4 oz Constitutional Constitutional: no acute distress, obese and cooperative *Routine HEENT Exam Eye: Present PERRL *Routine Respiratory Exam Respiratory: Present accessory muscle use and CTA bilaterally; Absent wheezes or crackles Comments: Lungs are clear to auscultation but he is conversationally winded and sitting at bedside. *Routine Cardiovascular Exam Cardiovascular: Present RRR, Normal S1 and Normal S2; Absent murmur, gallop or rubs *Routine Abdominal Exam Abdominal: Present soft; Absent tenderness *Routine Extremities Exam Extremities: Present pulses intact; Absent cyanosis or edema Comments: 3+ bilateral lower extremity edema [place]. Also of note severe scarring due to prior injury left tibia. *Routine Skin Exam Skin: Present intact; Absent erythema or wounds *Routine Neurological Exam Neurological: Present alert and oriented X3 Routine Psychiatric Exam Psychiatric: Present cooperative Meds Home Medications and Allergies Home Medications Medication Instructions Recorded Confirmed Type tamsulosin 0.4 mg capsule 0.4 mg PO BID 09/20/17 09/19/23 History finasteride 5 mg tablet 5 mg PO DAILY 09/07/21 09/19/23 History albuterol sulfate 90 mcg/actuation 2 puff inhalation Q6H PRN 05/19/23 09/19/23 History aerosol inhaler Shortness Of Breath oxybutynin chloride 10 mg 10 mg PO DAILY 05/19/23 09/19/23 History tablet,extended release 24 hr sacubitril 24 mg-valsartan 26 mg 0.5 tab PO BID 05/19/23 09/19/23 History tablet (Entresto) budesonide 0.5 mg/2 mL suspension 0.5 mg inhalation BID PRN 09/06/23 09/19/23 History for nebulization Shortness Of Breath Or Wheezing lorazepam 0.5 mg tablet 0.5 mg PO BID PRN Anxiety 09/06/23 09/19/23 History empagliflozin 10 mg tablet 10 mg PO DAILY 30 days #30 tabs 09/07/23 09/19/23 Rx (Jardiance) fluticasone fur. 100 mcg-umeclid 1 inh inhalation DAILY 30 days #1 09/07/23 09/19/23 Rx 62.5 mcg-vilant 25 mcg ea inhalat.powder (Trelegy Ellipta) spironolactone 25 mg tablet 25 mg PO DAILY 30 days #30 tabs 09/07/23 09/19/23 Rx nystatin 100,000 unit/mL oral 10 ml PO QID PRN Thrush 09/20/23 09/20/23 History suspension New Prescriptions to Start Prescriptions: Allergies Allergy/AdvReac Type Severity Reaction Status Date / Time ceftriaxone [From Rocephin] Allergy Severe Hives Verified 05/18/23 23:28 pregabalin [From LYRICA] Allergy Unknown Verified 05/18/23 20:52 Assessment and Plan *Assessment and plan (1) Acute on chronic HFrEF (heart failure with reduced ejection fraction): Status: Acute Category: Medical Code(s): I50.23 - Acute on chronic systolic (congestive) heart failure (2) Acute and chronic respiratory failure with hypoxia: Status: Acute Category: Medical Code(s): J96.21 - Acute and chronic respiratory failure with hypoxia (3) Tobacco abuse: Status: Chronic Category: Medical Code(s): Z72.0 - Tobacco use Plan Acute on chronic HFrEF, NIDCM -Known diagnosis with EF 15% August of this year -Heart failure med therapy limited by hypotension -Continue diuresis with Bumex -Resume heart failure meds-Entresto Aldactone as BP will allow -he has declind LifeVest and not interested in ICD or CV intervention at this time Acute on chronic hypoxic respiratory failure -On 3 L/min at baseline, lungs are clear here but he has air hunger -Plans per pulmonology Nonobstructive CAD -Per heart cath here 06/18 -CCS = 0 -Add ASA
--- OUTSIDE RECORDS SUMMARY | 2023-09-20 12:45 | XMS_ITS | Clinical Summary ---
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 Name Role Phone Xena Schaefer Unavailable Unavailable Conditions or Problems Problem Name Problem Code Onset Date Status Entry Date Provider Comment Standard Description Annotate Lymphedema, right leg 439902509 (SNOMED CT) 09/17 Active 09/17 Nirav Encarnacion MD Lymphedema of lower extremity Coronary artery disease (CAD) 23328406 (SNOMED CT) 09/02 Active 09/02 Shantal L Coronary arteriosclerosi s Cellulitis of RLE 642923939 (SNOMED CT) 09/02 Active 09/02 Shantal L Cellulitis of lower limb 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 (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) 556536969 (SNOMED CT) 09/02 Active 09/02 Shantal L Benign hypertensive heart disease with congestive cardiac failure PERSONAL HX OF METHICILLIN RESIST STAPH AUREUS Z86.14 (ICD-10-CM ) 04/08 Resolved 04/08 Shantal L Personal history of Methicillin resistant Staphylococcus aureus infection COPD 75152955 (SNOMED CT) 04/08 Resolved 04/08 Shantal L Chronic obstructive lung disease PNEUMONIA 878627625 (SNOMED CT) 04/08 Resolved 04/08 Shantal L Pneumonia COPD 50188322 (SNOMED CT) 04/08 Removed 04/08 Judie Nordan Chronic obstructive lung disease PNEUMONIA 191246946 (SNOMED CT) 04/08 Removed 04/08 Judie Nordan Pneumonia PERSONAL HX OF METHICILLIN RESIST STAPH AUREUS Z86.14 (ICD-10-CM ) 04/08 Removed 04/08 Judie Herrera Personal history of Methicillin resistant Staphylococcus aureus infection Medications Medication Instructions Start Date Stop Date Generic Name NDC Provider CEFTRIAXONE SODIUM 2 GM SOLR 2g IV daily / [facility] [phone] CEFTRIAXONE SODIUM [id number] Ana Paula Plasencia AMOXICILLIN-PO T CLAVULANATE 875-125 MG TABS one po bid AMOXICILLIN-POT CLAVULANATE 07808834082 Nirav Encarnacion MD CEFTRIAXONE SODIUM 2 GM SOLR 2g IV daily / [facility] [phone] CEFTRIAXONE SODIUM 99512271109 Lea Velazquez DITROPAN XL 10 MG ORAL TABLET EXTENDED RELEASE 24 HOUR 1 tablet daily OXYBUTYNIN CHLORIDE 28993661450 Chetopa Jonas EC-NAPROXEN 500 MG TBEC 1 tablet twice daily with meals NAPROXEN 73109339852 Garza Jonas LISINOPRIL 20 MG TABS 1 tablet daily LISINOPRIL 63117362650 Garza Jonas FUROSEMIDE 20 MG TABS 1 tablet daily as needed FUROSEMIDE 13538179284 Garza Jonas PROSCAR 5 MG TABS 1 tablet daily FINASTERIDE 63540243343 Garza Jonas COREG 3.125 MG TABS 1 tablet twice daily CARVEDILOL 35588016980 Garza Jonas BREO ELLIPTA 200-25 MCG/ACT AEPB 1 puff daily FLUTICASONE FUROATE-VILANTERO L 76824157923 Garza Jonas ASPIRIN 81 81 MG CHEW 1 tablet daily ASPIRIN 64974456859 Garza Jonas ALPRAZOLAM 1 MG TABS 1 tablet every 8 hours as needed ALPRAZOLAM 62728794858 Garza Jonas TYLENOL EXTRA STRENGTH 500 MG TABS 1 tablet every 6 hours as needed ACETAMINOPHEN 18472805112 Chetopa Jonas PRAVACHOL 40 MG ORAL TABLET PRAVASTATIN SODIUM 42041407903 Chetopa Jonas TYLENOL 8 HOUR 650 MG CR-TABS ACETAMINOPHEN 24622622396 Chetopa Jonas ALDACTONE 25 MG TABS SPIRONOLACTONE 07977577581 Chetopa Jonas LASIX 40 MG TABS FUROSEMIDE 04372958916 Chetopa Jonas EQ NICOTINE 21 MG/24HR PT24 NICOTINE 10937307635 Chetopa Jonas METHADONE HCL 5 MG TABS METHADONE HCL 90592344267 Chetopa Jonas LISINOPRIL 5 MG TABS LISINOPRIL 01879043425 Chetopa Jonas ZYVOX 600 MG TABS LINEZOLID 41100241999 Chetopa Jonas DOXYCYCLINE HYCLATE 100 MG CAPS DOXYCYCLINE HYCLATE 36617043836 Chetopa Jonas BISOPROLOL FUMARATE 10 MG TABS BISOPROLOL FUMARATE 82616399742 Chetopa Jonas DUONEB SOLUTION IPRATROPIUM-ALBUT LINDA SOLN 21658848294 Chetopa Jonas PRAVACHOL 40 MG ORAL TABLET PRAVASTATIN SODIUM 04619067475 Blanca Encarnacion TYLENOL 8 HOUR 650 MG CR-TABS ACETAMINOPHEN 45504536156 Blanca Encarnacion ALDACTONE 25 MG TABS SPIRONOLACTONE 19802378466 Blanca Encarnacion LASIX 40 MG TABS FUROSEMIDE 64405952036 Blanca Encarnacion EQ NICOTINE 21 MG/24HR PT24 NICOTINE 18917047969 Blanca Encarnacion METHADONE HCL 5 MG TABS METHADONE HCL 99076311205 Blanca Encarnacion LISINOPRIL 5 MG TABS LISINOPRIL 79594592742 Blanca Encarnacion ZYVOX 600 MG TABS LINEZOLID 75216234225 Blanca Encarnacion DOXYCYCLINE HYCLATE 100 MG CAPS DOXYCYCLINE HYCLATE 42754836491 Blanca Encarnacion BISOPROLOL FUMARATE 10 MG TABS BISOPROLOL FUMARATE 46832738716 Blanca Encarnacion DUONEB SOLUTION IPRATROPIUM-ALBUT LINDA SOLN 30526464872 Blanca Encarnacion Medications Administered No information available. Allergies, Adverse Reactions, Alerts Allergy Name Reaction Description Start Date Severity Statu s Provider REE Moderate Active Blanca grullon Results Date Name Value Unit Range Flag Description Clinical Lists Update: Prelo ad HGBA1C 5.90 % Hemoglobin A1c/Hemoglobin, total in Blood - % Chart Maintenance: CMP, CRP, ESR BASOPHIL % 0.7 % Basophils/ 100 leukocytes in Blood by Manual count % EOS AUTO 0.9 % Eosinophil s/100 leukocytes in Blood by Automated count MONOCYTE BF 5.2 % monocytes as percent of body fluid leukocytes Chart Maintenance: CBC, CMP, CRP, CK, ESR - 09/17/2019 CPK 30 U/L Creatine fabrizio se [Enzymatic activity/volume] in Serum or Plasma ESR 100 mm/h Erythrocyte sedimentation rate by Westergren method LYMPHS % 16.3 % Lymphocytes/ 100 leukocytes in Blood by Automated count NEUTROP BF 75.6 % Neutrophil s/100 leukocytes in Body fluid PLATELETS 349 10*3/mm3 Platelets [#/volume] in Blood by Automated count HCT 43.2 % Hematocrit [V olume Fraction] of Blood by Automated count HGB 13.9 g/dL Hemoglobin [Mass/volume] in Blood RBC 4.76 10*6/mm3 Erythrocytes [#/volume] in Blood by Automated count WBC 9.1 10*3/mm3 Leukocytes [ #/volume] in Blood by Automated count BILI TOTAL 0.4 mg/dL Bilirubin. total [Mass/volume] in Serum or Plasma SGOT (AST) 10 U/L Aspartate aminotransferase [Enzymatic activity/volume] in Serum or Plasma SGPT (ALT) 12 U/L Alanine aminotransferase [Enzymatic activity/volume] in Serum or Plasma ALK PHOS 74 U/L Alkaline hawa sphatase [Enzymatic activity/volume] in Blood CREATININE 1.07 mg/dL Creatinine [Mass/volume] in Serum or Plasma BUN 12 mg/dL Urea nitrogen [Mass/volume] in Serum or Plasma CALCIUM 8.7 mg/dL Calcium [Mole s/volume] in Serum or Plasma POTASSIUM 4.3 mmol/L Potassium [Moles/volume] in Serum or Plasma SODIUM 142 mmol/L Sodium [Moles /volume] in Serum or Plasma GLUCOSE SER 99 mg/dL Glucose [ Mass/volume] in Serum or Plasma Chart Maintenance: labs 09/22 CRP 3.0 mg/dL C reactive pr otein [Mass/volume] in Serum or Plasma LYMPHOCY BF 18.6 % lymphocyt es as percent of body fluid leukocytes Office Visit: Room 1 ORALTOBACUSE Former Tobacco smoking status CIGARET SMKG yes Tobacco smoking status SMOK STATUS Current every day smoker Tobacco smoking status Clinical Lists Update MEDS REVIEW Done Documenta tion of current medications (procedure) Plan of Care Type Date Detail Pending order Discontinue IV a ntibiotics Pending order PICC Removal Pending order Stat Weekly Labs Pending order Continue IV anti biotics Pending order Continue IV anti biotics Pending order New IV antibioti c Pending order PICC Line Insert ion Pending order PICC Line Insert ion Pending Order exclud ed from report: Pending order PICC Line Insert ion Pending order X-Ray, Chest (PI CC Placement only) Procedures Code Procedure Name Date Entry Date CPT- stat weekly Stat Weekly Labs CPT-ca Continue IV antibiotics 2019 CPT-ca Continue IV antibiotics 2019 CPT-98651 PICC Line Insertion Vital Signs Date Name Value Unit Description BMI (Body Mass Index) 37.86 kg/m2 Bod y Mass Index (Ratio) Body Temperature 97.9 [degF] temperat ure E&M BP Diastolic 68 mm[Hg] blood pressu re, diastolic BP Systolic 124 mm[Hg] blood pressur e, systolic Heart Rate 90 /min pulse rate Respiratory Rate 16 /min respirat ory rate E&M Weight Measured 249 [lb_av] weight E& M Height 68 [in_us] height E&M Immunizations No information available. Advance Directives No information available.
--- NOTE | 2023-09-20 14:48 | EXP.PULM.CON ---
History of Present Illness History of present illness: Mr. Holcomb 72-year-old man well-known to pulmonary given his frequent hospital admissions recently, history of COPD, CHF, lung nodules along with worsening lymphadenopathy presented to the hospital worsening respiratory distress pulmonary was called for further evaluation and management of his noted lung nodules and lymphadenopathy. Upon admission patient found to have large left pleural effusion with no dense consolidation currently being diuresed. [facility] Disclaimer: The information contained in this section may have been updated after the patient was seen, as this information can be updated by other users. Medical History (Updated 09/20/23 @ 14:53 by Savannah Huang MD) Abnormal electrocardiogram [ECG] [EKG] Acute and chronic respiratory failure with hypoxia Acute and chronic respiratory failure with hypoxia Acute exacerbation of chronic obstructive pulmonary disease Acute exacerbation of chronic obstructive pulmonary disease (COPD) Anxiety Atypical angina BPH (benign prostatic hyperplasia) CAD in [place] artery Cardiomyopathy Cellulitis of right lower leg CHF exacerbation Congestive heart failure COPD (chronic obstructive pulmonary disease) with acute bronchitis COPD mixed type Essential hypertension Heart failure HFrEF (heart failure with reduced ejection fraction) Hyperlipidemia Lesion of right lung Lung nodule Mediastinal adenopathy Neck pain Obesity (BMI 30-39.9) Obesity (BMI 30.0-34.9) Pneumonia Prostate enlargement Respiratory failure Shortness of Breath SOB (shortness of breath) on exertion Supplemental oxygen dependent Tachycardia Tobacco abuse Volume overload Family History Other No significant family history Social History Smoking Status: Current every day smoker tobacco type: cigarettes packs per day: 1 alcohol intake: never substance use type: denies use current occupational status: disabled Travel in the last 8 weeks: None household members: spouse housing: apartment caffeine: Yes Review of Systems Constitutional Constitutional: Reports fatigue and Reports weakness Eyes Eyes: Denies itchy eyes and Denies loss of vision ENT Ears, Nose, Mouth, and Throat: Denies lip swelling, Denies throat swelling and Denies vertigo *Cardiovascular Cardiovascular: Reports dyspnea, Reports dyspnea on exertion, Reports leg edema, Reports orthopnea and Denies syncope *Respiratory Respiratory: Reports chest congestion, Reports cough, Reports dyspnea, Reports dyspnea on exertion, Denies excessive phlegm production and Denies wheezing *Gastrointestinal Gastrointestinal: Denies abdominal pain, Denies belching and Denies cramping *Musculoskeletal Musculoskeletal: Reports tingling *Neurologic Neurologic: Denies loss of vision, Denies syncope, Reports tingling, Denies vertigo and Reports weakness Psychiatric Psychiatric: Denies homicidal ideation and Denies suicidal ideation Endocrine Endocrine: Reports fatigue and Denies heat intolerance Hematologic/Lymphatic Hematologic/Lymphatic: Denies easy bleeding and Denies lymphadenopathy Allergic/Immunologic Allergic/Immunologic: Denies itchy eyes, Denies lip swelling, Denies throat swelling and Denies wheezing Pulmonology Exam Inpatient Vital signs and Labs for Last 24 Hours: Temp Pulse Resp BP Pulse Ox O2 Del Method O2 Flow Rate 97.9 F 101 H 19 108/61 L 97 Nasal Cannula 3 09/20/23 11:49 09/20/23 11:49 09/20/23 11:49 09/20/23 11:49 09/20/23 11:49 09/20/23 13:11 09/20/23 13:11 Laboratory Results - last 24 hr 09/19/23 18:10: WBC 8.2, RBC 4.66, Hgb 14.5, Hct 41.6 L, MCV 89.3, MCH 31.2, MCHC 34.9, RDW 12.3, Plt Count 219, MPV 8.6, Neut % (Auto) 82.8 H, Lymph % (Auto) 10.6, [place] % (Auto) 6.1, Eos % (Auto) 0.3, Baso % (Auto) 0.2, Neut # (Auto) 6.8, Lymph # (Auto) 0.9, [place] # (Auto) 0.5, Eos # (Auto) 0.0, Baso # (Auto) 0.0, Sodium 127 L, Potassium 3.4 L, Chloride 90 L, Carbon Dioxide 31 H, Anion Gap 9.4, BUN 13, Creatinine 0.80, Estimated Creat Clear 101, Estimated GFR 95, Est GFR ( Amer) 115, Glucose 126 H, Calcium 8.5, Total Bilirubin 0.9, AST 37, ALT 30, Alkaline Phosphatase 87, NT-Pro-B Natriuret Pep 861 H, Total Protein 6.5, Albumin 3.8, Globulin 2.7, Albumin/Globulin Ratio 1.4 09/19/23 19:10: Troponin I < 0.01 09/19/23 20:42: VBG pH 7.39, VBG pCO2 40.1, VBG pO2 40.0, VBG HCO3 23.7, VBG Total CO2 24.9, VBG O2 Saturation 77.9 H, VBG Base Excess -1.3 09/19/23 22:00: Troponin I < 0.01 09/20/23 02:10: Troponin I < 0.01 09/20/23 05:55: WBC 5.3 D, RBC 4.45 L, Hgb 13.8 L, Hct 39.9 L, MCV 89.8, MCH 31.0, MCHC 34.5, RDW 12.4, Plt Count 203, MPV 8.2, Neut % (Auto) 90.9 H, Lymph % (Auto) 7.2 L, [place] % (Auto) 1.2 L, Eos % (Auto) 0.2, Baso % (Auto) 0.4, Neut # (Auto) 4.8, Lymph # (Auto) 0.4 L, [place] # (Auto) 0.1, Eos # (Auto) 0.0, Baso # (Auto) 0.0, Total Counted 100, Neutrophils % (Manual) 90 H, Lymphocytes % (Manual) 6 L, Monocytes % (Manual) 4, Platelet Estimate Normal, RBC Morphology Normal, Sodium 127 L, Potassium 4.7 D, Chloride 93 L, Carbon Dioxide 27, Anion Gap 11.7, BUN 13, Creatinine 0.90, Estimated Creat Clear 104, Estimated GFR 83, Est GFR ( Amer) 101, Glucose 128 H, Calcium 8.3 L, Magnesium 1.7, Total Bilirubin 0.8, AST 31, ALT 25, Alkaline Phosphatase 82, NT-Pro-B Natriuret Pep 1080 H, Total Protein 6.4, Albumin 3.8, Globulin 2.6, Albumin/Globulin Ratio 1.5 I & O for Labs for Last 24 Hours: Intake & Output 09/17/23 09/18/23 09/19/23 09/20/23 23:59 23:59 23:59 23:59 Intake Total 2630 / 2630 Output Total 4150 / 4150 Balance -1520 / -1520 Weight 233 lb 238 lb 14.4 oz Constitutional: Present moderate distress Head: Present normocephalic and atraumatic ENT: Present normal exam, normal oropharynx and mucous membranes moist Neck: Present normal inspection and full ROM Respiratory: Present respiratory distress, crackles and able to speak in complete sentences; Absent prolonged expiratory phase, wheezes or diminished air movement Cardiac: Present S1/S2, Tachycardia and radial pulses present GI: Present soft and distention; Absent tenderness or guarding Skin: Present intact; Absent cyanosis or jaundice Neuro: Present alert, awake and oriented x 3 Extremities: Present normal inspection and edema; Absent clubbing or cyanosis Psychiatric: Present normal affect and cooperative Meds Home Medications and Allergies Home Medications Medication Instructions Recorded Confirmed Type tamsulosin 0.4 mg capsule 0.4 mg PO BID 09/20/17 09/19/23 History finasteride 5 mg tablet 5 mg PO DAILY 09/07/21 09/19/23 History albuterol sulfate 90 mcg/actuation 2 puff inhalation Q6H PRN 05/19/23 09/19/23 History aerosol inhaler Shortness Of Breath oxybutynin chloride 10 mg 10 mg PO DAILY 05/19/23 09/19/23 History tablet,extended release 24 hr sacubitril 24 mg-valsartan 26 mg 0.5 tab PO BID 05/19/23 09/19/23 History tablet (Entresto) budesonide 0.5 mg/2 mL suspension 0.5 mg inhalation BID PRN 09/06/23 09/19/23 History for nebulization Shortness Of Breath Or Wheezing lorazepam 0.5 mg tablet 0.5 mg PO BID PRN Anxiety 09/06/23 09/19/23 History empagliflozin 10 mg tablet 10 mg PO DAILY 30 days #30 tabs 09/07/23 09/19/23 Rx (Jardiance) fluticasone fur. 100 mcg-umeclid 1 inh inhalation DAILY 30 days #1 09/07/23 09/19/23 Rx 62.5 mcg-vilant 25 mcg ea inhalat.powder (Trelegy Ellipta) spironolactone 25 mg tablet 25 mg PO DAILY 30 days #30 tabs 09/07/23 09/19/23 Rx nystatin 100,000 unit/mL oral 10 ml PO QID PRN Thrush 09/20/23 09/20/23 History suspension New Prescriptions to Start Prescriptions: Allergies Allergy/AdvReac Type Severity Reaction Status Date / Time ceftriaxone [From Magda] Allergy Severe Hives Verified 05/18/23 23:28 pregabalin [From LYRICA] Allergy Unknown Verified 05/18/23 20:52 Results Laboratory Findings 09/20/23 05:55 09/20/23 05:55 Abnormal lab findings: Abnormal Labs 09/19/23 09/19/23 09/20/23 18:10 20:42 05:55 RBC 4.45 L Hgb 13.8 L Hct 41.6 L 39.9 L Neut % (Auto) 82.8 H 90.9 H Lymph % (Auto) 7.2 L [place] % (Auto) 1.2 L Lymph # (Auto) 0.4 L Neutrophils % (Manual) 90 H Lymphocytes % (Manual) 6 L VBG O2 Saturation 77.9 H Sodium 127 L 127 L Potassium 3.4 L Chloride 90 L 93 L Carbon Dioxide 31 H Glucose 126 H 128 H Calcium 8.3 L NT-Pro-B Natriuret Pep 861 H 1080 H Assessment and Plan *Assessment and plan (1) Adenopathy, hilar: Status: Resolved Category: Medical Code(s): R59.0 - Localized enlarged lymph nodes (2) Mediastinal adenopathy: Status: Acute Category: Medical Code(s): R59.0 - Localized enlarged lymph nodes (3) Lung nodule: Status: Acute Category: Medical Code(s): R91.1 - Solitary pulmonary nodule (4) COPD mixed type: Status: Chronic Category: Medical Code(s): J44.9 - Chronic obstructive pulmonary disease, unspecified Plan Mr. Holcomb 72-year-old man well-known to pulmonary given his frequent hospital admissions recently, history of COPD, CHF, lung nodules along with worsening lymphadenopathy presented to the hospital worsening respiratory distress pulmonary was called for further evaluation and management of his noted lung nodules and lymphadenopathy. Upon admission patient found to have large left pleural effusion with no dense consolidation currently being diuresed. No evidence of leukocytosis. No significant wheezing on auscultation. Chest x-ray no dense consolidation, continue to show prior pulmonary nodules along with hilar prominence likely from lymphadenopathy. I have again discussed in detail with the patient regarding the need to pursue lung biopsy/lymph node biopsy to determine if the etiology of the noted lung nodule lymphadenopathy. He expresses complete understanding however not willing to undergo procedure at this point of time. Patient at this point of time from my conversation appeared to be more acceptable to undergo CT-guided biopsy then EBUS FNA which did general anesthesia at this point of time. Will continue discussions and will consider scheduling CT-guided biopsy as an outpatient basis. He expresses complete understanding of the possible risk benefits morbidity and mortality associated with not getting a procedure done and he would still want some time to think about it. He did not have any questions at the end of the conversation again today. Will continue to follow. Plan: Discontinue doxycycline Continue home inhaler therapy including Trelegy 100 inhaler along with DuoNebs every 6 hours on as-needed basis Will continue ongoing discussions regarding need for biopsy for the noted abnormal lung findings and would like to be scheduled CT-guided biopsy as an outpatient basis
[2023-09-20] MEDS: PROMETHAZINE HCL 25MG/ML 1ML VIAL 25 MG IV (17:47)
--- NOTE | 2023-09-20 18:54 | PC.NURSE ---
Patient alert and oriented. On 2-3L O2. Morphine and tylenol for pain. Voiding via urinal. Phenergan for nausea. Patient's dyspnea improved from this morning. Patient's SO was vaping at bedside. Discussed hospital policy. Patient denies that he has been vaping with her
[2023-09-20] MEDS: SODIUM CHLORIDE 0.9% 10ML FLUSH SYRINGE 10 ML IV (20:41)
[2023-09-20] MEDS: LEVOFLOXACIN/D5W 750 MG/150 ML 750 MG/150 ML PIGGYBACK 100 MG IV (20:41)
[2023-09-21] VITALS (10 sets, daily range): BP systolic 88–158; BP diastolic 42–65; PULSE 86–115; RESP 17–22; TEMP 36.4–36.7; O2SAT 92–96; BMI 36.1
--- NOTE | 2023-09-21 04:00 | PC.NURSE ---
SITS UP AT THE BEDSIDE OFTEN. 02 AT 2LNC. SATING 95-96%. ST ON TELE. MEDICATED X1 AT 2325 WITH MORPHINE 2 MG IVP FOR CHRONIC NECK PAIN 06/05 ACCORDING TO PATIENT COMPLAINT. 2 + PITTING EDEMA PRESENT IN BLEs. HAS WHEEZES BILAT. NO COUGH NOTED.
[2023-09-21] MEDS: MORPHINE 2MG/ML SYRINGE 2 MG IV ×3 (04:50→22:43)
--- NOTE | 2023-09-21 04:53 | PC.NURSE ---
C/O LEG CRAMPS 03/05. MEDICATED WITH MORPHINE 2 MG IVP.
--- NOTE | 2023-09-21 05:47 | PC.NURSE ---
PATIENT SAYS HE NEEDS HIS ANXIETY MEDICINE. TAKES LORAZEPAM BID. NOTIFIED VIKAS Terrazas NP BY PHONE MESSAGE. AWITING RESPONSE.
--- NOTE | 2023-09-21 06:05 | PC.NURSE ---
spoke with VIKAS Terrazas NP . INSTRUCTED TO PASS ON TO DAYSHIFT TO GET LORAZEPAM ORDERED.
[2023-09-21 06:40] LABS: Basophils % 0.3 % (0.1-2.0); Eosinophils # 0.1 K/mm3 (0.0-0.4); Eosinophils % 0.5 % (0.1-12.0); Hematocrit 40.9 % (42.0-52.0); Hemoglobin 14.2 g/dL (14.1-18.0); Lymphocytes # 1.2 K/mm3 (0.7-4.5); Lymphocytes % 12.4 % (10-50); Mean Corpuscular HGB Conc 34.6 g/dL (31.8-35.4); Mean Corpuscular Hemoglobin 31.2 pg (27.0-31.2); Monocytes # 0.5 K/mm3 (0.1-1.0); Monocytes % 5.3 % (1.7-9.3); Neutrophils # 7.9 K/mm3 (1.8-7.8); Neutrophils % 81.4 % (37.0-80.0); Platelet Count 237 K/mm3 (142-424); Red Blood Count 4.54 M/mm3 (4.60-6.20); Red Cell Distribution Width 12.7 % (11.5-17.5); White Blood Count 9.7 K/mm3 (4.8-10.8)
[2023-09-21 06:46] LABS: Alanine Aminotransferase 28 U/L (12-78); Albumin Level 3.9 g/dl (3.5-5.0); Albumin/Globulin Ratio 1.6 (1.1-1.8); Alkaline Phosphatase 77 U/L (38-126); Anion Gap 11.2 mEq/L (5-15); Aspartate Amino Transferase 34 U/L (17-59); Bilirubin,Total 0.6 mg/dl (0.2-1.3); Blood Urea Nitrogen 22 mg/dl (9-20); Calcium 9.2 mg/dl (8.4-10.2); Carbon Dioxide 30 mmol/L (22.0-30.0); Chloride 95 mmol/L (98-107); Creatinine Clearance Estimated 94 mL/min (50-200); Estimated Glomerular Filt Rate 66 ml/min (>60); GFR (African American) 80 ML/MIN (>60); Globulin 2.5 g/dL (1.3-3.2); Glucose 126 mg/dl (74-100); Magnesium 1.8 mg/dl (1.6-2.3); Potassium 4.2 mmoL/L (3.5-5.1); Sodium 132 mmol/L (136-145); Total Protein,Serum 6.4 g/dl (6.3-8.2)
[2023-09-21] MEDS: FLUTICASONE/UMECLIDIN/VILANTER 100/62.5/25MCG INHALER 1 PUFF IH (06:59)
--- NOTE | 2023-09-21 07:21 | P.PN_ITS ---
Subjective *Date: 09/21/23 *Time: 13:47 Interval history: Patient is breathing more comfortable this morning. Down to 2 L which is his baseline. Has diuresed over 2-1/2 L negative fluid volume. Complaining of cramps today. Denies any chest pain, nausea, vomiting. Extensive intense dis cussion about treatment plan, patient expresses uncertainty about all aspects of plan. Not comfortable doing anything until he hears from cardiology is I am not a heart doctor . 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 Does not feel he is ready to discharge home until he is breathing better. Reassured that he is at his baseline oxygen. Reiterated that he does not have pneumonia at this time and that his condition is predominantly heart failure. Medical Exam Vital signs and Labs for Last 24 Hours: Vital Signs Temp Pulse Pulse Resp BP Pulse Ox O2 Del Method 09/21/23 07:00 95 Nasal Cannula 09/21/23 06:22 Nasal Cannula 09/21/23 04:00 97.7 F 90 18 95/48 L 95 Nasal Cannula 09/21/23 04:55 Nasal Cannula 09/21/23 04:00 86 09/21/23 02:41 Nasal Cannula 09/21/23 01:00 Nasal Cannula 09/21/23 00:00 98.0 F 104 H 20 99/53 L 95 Nasal Cannula 09/21/23 00:00 92 H 09/20/23 23:00 Nasal Cannula 09/20/23 21:00 Nasal Cannula 09/20/23 20:00 96 Nasal Cannula 09/20/23 20:00 108 H 09/20/23 20:00 98.3 F 109 H 20 101/56 L 96 Nasal Cannula 09/20/23 18:53 Nasal Cannula 09/20/23 16:00 110 H 09/20/23 12:00 100 H 09/20/23 17:15 Nasal Cannula 09/20/23 15:00 Nasal Cannula 09/20/23 13:11 Nasal Cannula 09/20/23 11:49 97.9 F 101 H 19 108/61 L 97 Nasal Cannula 09/20/23 11:20 Room Air 09/20/23 09:00 Nasal Cannula 09/20/23 08:39 100 H 09/20/23 08:25 Nasal Cannula 09/20/23 08:00 97.8 F 100 H 18 112/58 L 97 Nasal Cannula O2 Flow Rate 09/21/23 07:00 2 09/21/23 06:22 09/21/23 04:00 3 09/21/23 04:55 09/21/23 04:00 09/21/23 02:41 2 09/21/23 01:00 2 09/21/23 00:00 09/21/23 00:00 09/20/23 23:00 2 09/20/23 21:00 2 09/20/23 20:00 2 09/20/23 20:00 09/20/23 20:00 09/20/23 18:53 2 09/20/23 16:00 09/20/23 12:00 09/20/23 17:15 2 09/20/23 15:00 3 09/20/23 13:11 3 09/20/23 11:49 3 09/20/23 11:20 09/20/23 09:00 3 09/20/23 08:39 09/20/23 08:25 2 09/20/23 08:00 3 Intake and Output 09/20/23 09/20/23 09/21/23 15:59 23:59 07:59 Intake Total 2070 / 3970 470 / 3970 390 / 390 Output Total 3050 / 6150 1350 / 6150 1050 / 1050 Balance -980 / -2180 -880 / -2180 -660 / -660 Intake: Intake, Oral Amount 2070 / 3140 470 / 3140 240 / 240 Intake, Total IV Amount 150 / 150 Levofloxacin/D5w 750 mg/150 ml 150 / 150 750 mg In 150 ml @ 100 mls/hr IV Q24H [facility] Rx#:[id number] Output: Output, Urine Amount 3050 / 6150 1350 / 6150 1050 / 1050 Other: Number of Unmeasured Voids 1 0 0 Weight 108.363 kg Patient Weight 09/21/23 23:59 Weight 108.363 kg Laboratory Results - last 24 hr 09/20/23 05:55: Total Counted 100, Neutrophils % (Manual) 90 H, Lymphocytes % (Manual) 6 L, Monocytes % (Manual) 4, Platelet Estimate Normal, RBC Morphology Normal, NT-Pro-B Natriuret Pep 1080 H 09/21/23 05:50: WBC 9.7 D, RBC 4.54 L, Hgb 14.2, Hct 40.9 L, MCV 90.0, MCH 31.2, MCHC 34.6, RDW 12.7, Plt Count 237, MPV 9.0, Neut % (Auto) 81.4 H, Lymph % (Auto) 12.4, [place] % (Auto) 5.3, Eos % (Auto) 0.5, Baso % (Auto) 0.3, Neut # (Auto) 7.9 H, Lymph # (Auto) 1.2, [place] # (Auto) 0.5, Eos # (Auto) 0.1, Baso # (Auto) 0.0, Sodium 132 L, Potassium 4.2, Chloride 95 L, Carbon Dioxide 30, Anion Gap 11.2, BUN 22 H D, Creatinine 1.10 D, Estimated Creat Clear 94, Estimated GFR 66, Est GFR ( Amer) 80 D, Glucose 126 H, Calcium 9.2, Magnesium 1.8, Total Bilirubin 0.6, AST 34, ALT 28, Alkaline Phosphatase 77, Total Protein 6.4, Albumin 3.9, Globulin 2.5, Albumin/Globulin Ratio 1.6 I & O for Labs for Last 24 Hours: Intake & Output 09/18/23 09/19/23 09/20/23 09/21/23 23:59 23:59 23:59 23:59 Intake Total 3580 / 3970 390 / 390 Output Total 6150 / 6150 1050 / 1050 Balance -2570 / -2180 -660 / -660 Weight 105.687 kg 108.363 kg 108.363 kg Constitutional: Present mild distress, obese and chronically ill appearing Head: Present atraumatic and normocephalic Neck: Present normal inspection Respiratory: Present accessory muscle use, prolonged expiratory phase, crackles and diminished air movement; Absent rhonchi or wheezes Cardiac: Present Tachycardia GI: Present soft and normal bowel sounds; Absent distention or tenderness Extremities: Present normal inspection, full ROM and edema (2+ bilaterally.) Skin: Present intact; Absent erythema Neuro: Present Grossly Intact, alert, awake, oriented x 3 and moves all extremities Assessment and Plan *Assessment and plan (1) Acute on chronic HFrEF (heart failure with reduced ejection fraction): Status: Acute Category: Medical Code(s): I50.23 - Acute on chronic systolic (congestive) heart failure (2) Dyspnea: Status: Acute Qualifiers: Dyspnea type: shortness of breath Qualified Code(s): R06.02 - Shortness of breath Category: Medical Code(s): R06.00 - Dyspnea, unspecified (3) Pneumonia: Status: Resolved Qualifiers: Pneumonia type: due to unspecified organism Laterality: bilateral Lung location: lower lobe of lung Qualified Code(s): J18.9 - Pneumonia, unspecified organism Category: Medical Code(s): J18.9 - Pneumonia, unspecified organism (4) Chronic hyponatremia: Status: Acute Category: Medical Code(s): E87.1 - Hypo-osmolality and hyponatremia (5) COPD mixed type: Status: Chronic Category: Medical Code(s): J44.9 - Chronic obstructive pulmonary disease, unspecified (6) BPH (benign prostatic hyperplasia): Status: Chronic Qualifiers: Lower urinary tract symptom presence: symptoms absent Qualified Code(s): N40.0 - Benign prostatic hyperplasia without lower urinary tract symptoms Category: Medical Code(s): N40.0 - Benign prostatic hyperplasia without lower urinary tract symptoms (7) Tobacco abuse: Status: Chronic Category: Medical Code(s): Z72.0 - Tobacco use (8) Obesity (BMI 30-39.9): Status: Chronic Category: Medical Code(s): E66.9 - Obesity, unspecified Plan 72-year-old obese male with PMHx of coronary artery disease, HFrEF, COPD on 2 L nasal cannula at home, BPH, current smoker, who presents emergency department for evaluation of shortness of breath. On arrival patient presented to be tachypneic , on respiratory distress with shortness of breath. Hemodynamically stable, tachycardic. Was placed on 4 L nasal cannula. X-ray was obtained. Concerning for worsening opacity on the right side. Lab are grossly unremarkable, except for some electrolyte disturbances like hyponatremia hypokalemia. BNP slightly elevated. Last time patient was discharged on Levaquin. ER started on IV Levaquin. Findings discussed with the ER for admission. Concern for worsening CHF exacerbation versus pneumonia. Pulmonology and cardiology consulted to assist with care. Patient continues to appear volume overloaded. Seeing some improvement with diuresis. Continues to require inpatient management. Plan as follows: -Worsening dyspnea, presented with recurrent bilateral lower lobe opacity: - Acute on chronic heart failure with reduced ejection fraction -Suspected pneumonia with COPD exacerbation Cardiology and pulmonology consulted to assist with care. Discussed case with pulmonology, will have further discussion with patient about workup including bronchoscopy which has been recommended multiple times over his previous admissions. Continue aggressive diuresis, Bumex 2 mg IV twice daily. Discontinue antibiotics at this time. DuoNebs every 6 hours scheduled. Monitor for improvement in oxygenation with diuresis. Goal saturation greater 90%, currently on 2-3 L. Last echo done earlier this month showed grade 3 diastolic dysfunction and EF 15 to 20%. Has class IV NYHA heart failure. -Chronic hyponatremia, likely secondary to diuresis/hypervolemia Hypokalemia: Potassium stable this morning at 4.2. Continue with repletion given diuresis. Will replace magnesium, 1.8 this morning. Repeat CBC, CMP, magnesium ordered for the morning. -BPH: Continue finasteride and tamsulosin -current tobacco abuse: On nicotine patch. Not interested in quitting. -Obesity: Fluid overload and comorbidities were complicate all aspects of care. Lovenox for DVT prophylaxis. Protonix for GI bleed protection Full code. Plan extensively discussed with the patient.
--- NOTE | 2023-09-21 07:25 | SW/DCPLANNER ---
Addendum entered by Maru Guillen 09/24/23 10:49: Patient is not currently established w/ [facility] or [facility]. I attempted to contact patient regarding home health: no answer at this time. Addendum entered by Maru Guillen 09/24/23 08:05: Patient information/order has been faxed to [facility]. Original Note: I spoke w/ this patient yesterday regarding plans once medically stable for discharge. Patient is adamant to return back home once medically stable. PT/OT evaluated patient and stated that he is at his baseline to return back home. Patient stated you all set me up w/ home health but they do not do anything for me . I will continue to follow up w/ this patient and resume home health services w/ [facility]. Discharge date is unknown at this time.
[2023-09-21] MEDS: EMPAGLIFLOZIN 10MG TABLET 10 MG PO (08:05)
[2023-09-21] MEDS: FINASTERIDE 5MG TABLET 5 MG PO (08:05)
[2023-09-21] MEDS: METOPROLOL TARTRATE 25MG TABLET 12.5 MG PO ×2 (08:06→20:04)
[2023-09-21] MEDS: ASPIRIN EC 81MG TABLET 81 MG PO (08:06)
[2023-09-21] MEDS: BUMETANIDE 1MG/4ML VIAL 2 MG IV ×2 (08:07→16:35)
[2023-09-21] MEDS: ENOXAPARIN 40MG/0.4ML SYRINGE 40 MG SQ (08:07)
[2023-09-21] MEDS: TAMSULOSIN 0.4MG CAPSULE 0.400000000000000022 MG PO ×2 (08:07→20:05)
[2023-09-21] MEDS: OXYBUTYNIN 5MG TAB 5 MG PO ×2 (08:07→20:04)
[2023-09-21] MEDS: PANTOPRAZOLE 40MG TABLET 40 MG PO (08:07)
[2023-09-21] MEDS: FLUTICASONE PROP 50MCG NASAL SPRAY 16GM 1 SPRAY NS (08:10)
[2023-09-21] MEDS: MAGNESIUM OXIDE 400MG TABLET 400 MG PO ×2 (08:51→20:05)
--- NOTE | 2023-09-21 09:40 | P.PN_ITS ---
Subjective *Date: 09/21/23 *Time: 11:41 Interval history: No acute respiratory vents overnight. Patient denies any new respiratory complaints. Pulmonology Exam Inpatient Vital signs and Labs for Last 24 Hours: Temp Pulse Resp BP Pulse Ox O2 Del Method O2 Flow Rate 97.6 F 99 H 18 158/65 H 94 L Nasal Cannula 2 09/21/23 07:38 09/21/23 08:00 09/21/23 07:38 09/21/23 07:38 09/21/23 07:38 09/21/23 09:00 09/21/23 09:00 Laboratory Results - last 24 hr 09/20/23 05:55: NT-Pro-B Natriuret Pep 1080 H 09/21/23 05:50: WBC 9.7 D, RBC 4.54 L, Hgb 14.2, Hct 40.9 L, MCV 90.0, MCH 31.2, MCHC 34.6, RDW 12.7, Plt Count 237, MPV 9.0, Neut % (Auto) 81.4 H, Lymph % (Auto) 12.4, [place] % (Auto) 5.3, Eos % (Auto) 0.5, Baso % (Auto) 0.3, Neut # (Auto) 7.9 H, Lymph # (Auto) 1.2, [place] # (Auto) 0.5, Eos # (Auto) 0.1, Baso # (Auto) 0.0, Sodium 132 L, Potassium 4.2, Chloride 95 L, Carbon Dioxide 30, Anion Gap 11.2, BUN 22 H D, Creatinine 1.10 D, Estimated Creat Clear 94, Estimated GFR 66, Est GFR ( Amer) 80 D, Glucose 126 H, Calcium 9.2, Magnesium 1.8, Total Bilirubin 0.6, AST 34, ALT 28, Alkaline Phosphatase 77, Total Protein 6.4, Albumin 3.9, Globulin 2.5, Albumin/Globulin Ratio 1.6 I & O for Labs for Last 24 Hours: Intake & Output 09/18/23 09/19/23 09/20/23 09/21/23 23:59 23:59 23:59 23:59 Intake Total 3580 / 3970 630 / 630 Output Total 6150 / 6150 1250 / 1250 Balance -2570 / -2180 -620 / -620 Weight 233 lb 238 lb 14.4 oz 238 lb 14.4 oz Constitutional: Present moderate distress Head: Present normocephalic and atraumatic ENT: Present normal exam, normal oropharynx and mucous membranes moist Neck: Present normal inspection and full ROM Respiratory: Present respiratory distress, crackles and able to speak in complete sentences; Absent prolonged expiratory phase, wheezes or diminished air movement Cardiac: Present S1/S2, Tachycardia and radial pulses present GI: Present soft and distention; Absent tenderness or guarding Skin: Present intact; Absent cyanosis or jaundice Neuro: Present alert, awake and oriented x 3 Extremities: Present normal inspection and edema; Absent clubbing or cyanosis Psychiatric: Present normal affect and cooperative Assessment and Plan *Assessment and plan (1) Adenopathy, hilar: Status: Resolved Category: Medical Code(s): R59.0 - Localized enlarged lymph nodes (2) Mediastinal adenopathy: Status: Acute Category: Medical Code(s): R59.0 - Localized enlarged lymph nodes (3) Lung nodule: Status: Acute Category: Medical Code(s): R91.1 - Solitary pulmonary nodule (4) COPD mixed type: Status: Chronic Category: Medical Code(s): J44.9 - Chronic obstructive pulmonary disease, unspecified Plan Mr. Holcomb 72-year-old man well-known to pulmonary given his frequent hospital admissions recently, history of COPD, CHF, lung nodules along with worsening lymphadenopathy presented to the hospital worsening respiratory distress pulmonary was called for further evaluation and management of his noted lung nodules and lymphadenopathy. Upon admission patient found to have large left pleural effusion with no dense consolidation currently being diuresed. No evidence of leukocytosis. No significant wheezing on auscultation. Chest x- ray no dense consolidation, continue to show prior pulmonary nodules along with hilar prominence likely from lymphadenopathy. I have again discussed in detail with the patient regarding the need to pursue lung biopsy/lymph node biopsy to determine if the etiology of the noted lung nodule lymphadenopathy. He expresses complete understanding however not willing to undergo procedure at this point of time. Patient at this point of time from my conversation appeared to be more acceptable to undergo CT-guided biopsy then EBUS FNA which did general anesthesia at this point of time. Will continue discussions and will consider scheduling CT-guided biopsy as an outpatient basis. He expresses complete understanding of the possible risk benefits morbidity and mortality associated with not getting a procedure done and he would still want some time to think about it. He did not have any questions at the end of the conversation again today. Will continue to follow. Interval update: No acute respiratory vents overnight. Stable oxygen requirements. Afebrile. Hemodynamically stable. Slight increase in leukocytosis, closely monitor. Patient today agreed to undergo CT-guided biopsy, will schedule that as an outpatient basis Plan: Discontinue doxycycline Continue home inhaler therapy including Trelegy 100 inhaler along with DuoNebs every 6 hours on as-needed basis CT-guided biopsy of the right upper lobe nodule as an outpatient basis. # Thank you for involving pulmonary in this patient care. Will continue to follow.
[2023-09-21] MEDS: IPRATROPIUM/ALBUTEROL 3 ML NEB IH (10:15)
--- NOTE | 2023-09-21 11:15 | EXP.CARD.PN ---
Subjective Subjective Date: 09/21/23 Time: 11:15 Interval history: Diuresed overnight and breathing much easier. Clarifies now his insurance is no longer excepted at [facility] and he would like to establish with our office. We again reviewed possibility of an ICD which he warrants at this point but he states he is still undecided. Exam Data for Last 24 hours Vital signs and Labs for Last 24 Hours: Temp Pulse Resp BP Pulse Ox O2 Del Method O2 Flow Rate 97.6 F 99 H 18 158/65 H 94 L Nasal Cannula 2 09/21/23 07:38 09/21/23 08:00 09/21/23 07:38 09/21/23 07:38 09/21/23 07:38 09/21/23 09:00 09/21/23 09:00 Laboratory Results - last 24 hr 09/20/23 05:55: NT-Pro-B Natriuret Pep 1080 H 09/21/23 05:50: WBC 9.7 D, RBC 4.54 L, Hgb 14.2, Hct 40.9 L, MCV 90.0, MCH 31.2, MCHC 34.6, RDW 12.7, Plt Count 237, MPV 9.0, Neut % (Auto) 81.4 H, Lymph % (Auto) 12.4, [place] % (Auto) 5.3, Eos % (Auto) 0.5, Baso % (Auto) 0.3, Neut # (Auto) 7.9 H, Lymph # (Auto) 1.2, [place] # (Auto) 0.5, Eos # (Auto) 0.1, Baso # (Auto) 0.0, Sodium 132 L, Potassium 4.2, Chloride 95 L, Carbon Dioxide 30, Anion Gap 11.2, BUN 22 H D, Creatinine 1.10 D, Estimated Creat Clear 94, Estimated GFR 66, Est GFR ( Amer) 80 D, Glucose 126 H, Calcium 9.2, Magnesium 1.8, Total Bilirubin 0.6, AST 34, ALT 28, Alkaline Phosphatase 77, Total Protein 6.4, Albumin 3.9, Globulin 2.5, Albumin/Globulin Ratio 1.6 I & O for Last 24 hours: Intake & Output 09/18/23 09/19/23 09/20/23 09/21/23 23:59 23:59 23:59 23:59 Intake Total 3580 / 3970 630 / 630 Output Total 6150 / 6150 1950 / 1950 Balance -2570 / -2180 -1320 / -1320 Weight 233 lb 238 lb 14.4 oz 238 lb 14.4 oz Constitutional Constitutional: no acute distress, obese and cooperative *Routine HEENT Exam Eye: Present PERRL *Routine Respiratory Exam Respiratory: Present accessory muscle use and CTA bilaterally; Absent wheezes or crackles Comments: Lungs are clear to auscultation but he is conversationally winded and sitting at bedside. *Routine Cardiovascular Exam Cardiovascular: Present RRR, Normal S1 and Normal S2; Absent murmur, gallop or rubs *Routine Abdominal Exam Abdominal: Present soft; Absent tenderness *Routine Extremities Exam Extremities: Present pulses intact; Absent cyanosis or edema Comments: 3+ bilateral lower extremity edema [place] high. Also of note severe scarring due to prior injury left tibia. *Routine Skin Exam Skin: Present intact; Absent erythema or wounds *Routine Neurological Exam Neurological: Present alert and oriented X3 Routine Psychiatric Exam Psychiatric: Present cooperative Progress Note: A&P Assessment and plan (1) Adenopathy, hilar: Status: Resolved (2) Mediastinal adenopathy: Status: Acute (3) Lung nodule: Status: Acute (4) COPD mixed type: Status: Chronic Assessment and Plan Assessment and Plan for All Diagnoses:: Acute on chronic HFrEF, NIDCM -Known diagnosis with EF 15% August of this year -EF reportedly low for many years, patient routinely declining ICD at [facility] -Heart failure med therapy limited by hypotension -Continue diuresis with Bumex -Resume heart failure meds-Entresto Aldactone as BP will allow -he has declind LifeVest and not interested in ICD or CV intervention at this time. We discussed again risk of VT, VF. He would like to establish with our practice outpatient. Acute on chronic hypoxic respiratory failure -On 3 L/min at baseline, lungs are clear here but he has air hunger -Symptoms improving, further plans per pulmonology Nonobstructive CAD -Per heart cath here 06/18 -CCS = 0 -Add ASA 09/21: CV stable and improving. Resume home heart failure meds as tolerated. Outpatient follow-up in our office for reassessment and consideration again of ICD.
[2023-09-21] MEDS: SPIRONOLACTONE 25MG TABLET 25 MG PO (12:55)
[2023-09-21] MEDS: POTASSIUM CHLORIDE 20MEQ TAB 20 MEQ PO ×2 (12:55→20:05)
[2023-09-21] MEDS: MAGNESIUM SULFATE IN WATER 2 GM/50 ML PIGGYBACK IV (12:56)
[2023-09-21] MEDS: NICOTINE 21MG/24HR PATCH 21 MG TD (15:36)
[2023-09-21] MEDS: CALCIUM CARBONATE 500MG CHEWTAB 500 MG PO (18:26)
--- NOTE | 2023-09-21 18:48 | PC.NURSE ---
PATIENT HAS SPENT MOST OF THE SHIFT SITTING ON SIDE OF BED. MAG INFUSION THIS SHIFT; TOLERATED WELL. CONTINUES TO REQUIRE 2LNC FOR O2 SUPPORT. PRN BREATHING TREATMENT THIS MORNING FOR SOB AND WHEEZING NO COMPLAINTS AFTER ADMIN.
[2023-09-21] MEDS: ALBUTEROL-HFA 90MCG/PUFF INHALER 8GM 2 PUFF IH (19:24)
[2023-09-21] MEDS: LEVOFLOXACIN/D5W 750 MG/150 ML 750 MG/150 ML PIGGYBACK 100 MG IV (20:04)
[2023-09-21] MEDS: LORazepam 0.5MG TABLET 0.5 MG PO (20:04)
[2023-09-21] MEDS: SODIUM CHLORIDE 0.9% 10ML FLUSH SYRINGE 10 ML IV ×2 (20:05→22:43)
[2023-09-22] VITALS: BP 90/61; PULSE 106; PULSE 109; RESP 18; TEMP 37.3; O2SAT 97
[2023-09-22] MEDS: CALCIUM CARBONATE 500MG CHEWTAB 500 MG PO ×3 (00:15→12:31)
[2023-09-22 04:00] VITALS: BP 110/48; PULSE 102; RESP 18; TEMP 36.6; O2SAT 93; BMI 36.3
--- NOTE | 2023-09-22 04:52 | PC.NURSE ---
PATIENT WITH MULTIPLE REQUEST THROUGHOUT THE NIGHT. VITAL SIGNS STABLE. MEDICATED X 1 FOR NECK PAIN (MORPHINE). RECEIVED ATIVAN PO FOR NERVES. TUMS FOR INDIGESTION. ASSISTED TO STAND TO VOID. REQUESTING ICE WATER . ASKED FOR 02 TO BE INCREASED TO 3L HE FELT SOA. 02 SATS 94-96% ON 02. TELE SINUS TACHYCARDIA. CALLED OUT ONCE TO SEE WHY HE WAS STILL HERE AT [facility]. MUMBLING SPEECH, HARD TO UNDERSTAND AND ANGRY IF ASKED TO SPEAK CLEARLY AND LOUD ENOUGH TO UNDERSTAND.
[2023-09-22] MEDS: FLUTICASONE/UMECLIDIN/VILANTER 100/62.5/25MCG INHALER 1 PUFF IH (05:40)
[2023-09-22] MEDS: ALBUTEROL-HFA 90MCG/PUFF INHALER 8GM 2 PUFF IH (05:40)
[2023-09-22 05:41] VITALS: O2SAT 92
[2023-09-22] MEDS: MORPHINE 2MG/ML SYRINGE 2 MG IV ×2 (05:48→12:26)
[2023-09-22 06:52] LABS: Basophils % 0.3 % (0.1-2.0); Eosinophils # 0.1 K/mm3 (0.0-0.4); Hematocrit 39.4 % (42.0-52.0); Hemoglobin 13.6 g/dL (14.1-18.0); Lymphocytes # 1.2 K/mm3 (0.7-4.5); Lymphocytes % 12.2 % (10-50); Mean Corpuscular HGB Conc 34.5 g/dL (31.8-35.4); Mean Corpuscular Hemoglobin 31.1 pg (27.0-31.2); Mean Corpuscular Volume 90.1 fl (80-94); Mean Platelet Volume 8.2 fl (7.4-10.4); Monocytes # 0.7 K/mm3 (0.1-1.0); Monocytes % 6.8 % (1.7-9.3); Neutrophils # 7.8 K/mm3 (1.8-7.8); Neutrophils % 79.7 % (37.0-80.0); Platelet Count 240 K/mm3 (142-424); Red Blood Count 4.38 M/mm3 (4.60-6.20); Red Cell Distribution Width 12.5 % (11.5-17.5); White Blood Count 9.8 K/mm3 (4.8-10.8)
[2023-09-22 07:03] LABS: Alanine Aminotransferase 29 U/L (12-78); Albumin Level 3.8 g/dl (3.5-5.0); Albumin/Globulin Ratio 1.5 (1.1-1.8); Alkaline Phosphatase 79 U/L (38-126); Anion Gap 12.2 mEq/L (5-15); Aspartate Amino Transferase 34 U/L (17-59); Bilirubin,Total 0.7 mg/dl (0.2-1.3); Blood Urea Nitrogen 28 mg/dl (9-20); Calcium 8.9 mg/dl (8.4-10.2); Carbon Dioxide 31 mmol/L (22.0-30.0); Chloride 91 mmol/L (98-107); Creatinine Clearance Estimated 95 mL/min (50-200); Estimated Glomerular Filt Rate 66 ml/min (>60); GFR (African American) 80 ML/MIN (>60); Globulin 2.5 g/dL (1.3-3.2); Glucose 111 mg/dl (74-100); Potassium 4.2 mmoL/L (3.5-5.1); Sodium 130 mmol/L (136-145); Total Protein,Serum 6.3 g/dl (6.3-8.2)
[2023-09-22 07:24] LABS: Magnesium 2.2 mg/dl (1.6-2.3)
[2023-09-22] MEDS: PROMETHAZINE HCL 25MG/ML 1ML VIAL 25 MG IV (07:41)
[2023-09-22] MEDS: SODIUM CHLORIDE 0.9% 25ML BAG 25 ML IV (07:44)
[2023-09-22] MEDS: SPIRONOLACTONE 25MG TABLET 25 MG PO (07:47)
[2023-09-22] MEDS: POTASSIUM CHLORIDE 20MEQ TAB 20 MEQ PO (07:47)
[2023-09-22] MEDS: FINASTERIDE 5MG TABLET 5 MG PO (07:47)
[2023-09-22] MEDS: PANTOPRAZOLE 40MG TABLET 40 MG PO (07:47)
[2023-09-22] MEDS: EMPAGLIFLOZIN 10MG TABLET 10 MG PO (07:47)
[2023-09-22] MEDS: ASPIRIN EC 81MG TABLET 81 MG PO (07:47)
[2023-09-22] MEDS: MAGNESIUM OXIDE 400MG TABLET 400 MG PO (07:47)
[2023-09-22] MEDS: ENOXAPARIN 40MG/0.4ML SYRINGE 40 MG SQ (07:48)
[2023-09-22] MEDS: TAMSULOSIN 0.4MG CAPSULE 0.400000000000000022 MG PO (07:48)
[2023-09-22] MEDS: METOPROLOL TARTRATE 25MG TABLET 12.5 MG PO (07:48)
[2023-09-22] MEDS: OXYBUTYNIN 5MG TAB 5 MG PO (07:48)
[2023-09-22] MEDS: BUMETANIDE 1MG/4ML VIAL 2 MG IV (07:48)
[2023-09-22 08:00] VITALS: BP 103/54; PULSE 100; PULSE 104; RESP 21; TEMP 36.3; O2SAT 96
[2023-09-22] MEDS: LORazepam 0.5MG TABLET 0.5 MG PO (08:10)
[2023-09-22] MEDS: FLUTICASONE PROP 50MCG NASAL SPRAY 16GM 1 SPRAY NS (08:13)
--- NOTE | 2023-09-22 09:50 | EXP.ACUTE.PN ---
Subjective *Date: 09/22/23 *Time: 09:50 Interval history: Complaining of left shoulder and neck pain today. Feels quite weak. Did not sleep very well last night. On 2 L nasal cannula today. Afebrile. Denies any chest pain. Swelling still prominent legs. Tolerating p.o. intake. Medical Exam Vital signs and Labs for Last 24 Hours: Vital Signs Temp Pulse Pulse Resp BP Pulse Ox O2 Del Method 09/22/23 08:00 97.4 F L 104 H 21 103/54 L 96 Nasal Cannula 09/22/23 08:39 Nasal Cannula 09/22/23 07:50 Nasal Cannula 09/22/23 06:34 Nasal Cannula 09/22/23 05:00 Nasal Cannula 09/22/23 05:41 92 L Nasal Cannula 09/22/23 04:00 97.8 F 102 H 18 110/48 L 93 L Nasal Cannula 09/22/23 04:00 102 H 09/22/23 03:00 Nasal Cannula 09/22/23 00:00 99.1 F 109 H 18 90/61 L 97 Nasal Cannula 09/22/23 01:00 Nasal Cannula 09/22/23 00:00 106 H 09/21/23 23:00 Nasal Cannula 09/21/23 21:00 Nasal Cannula 09/21/23 20:00 96 Nasal Cannula 09/21/23 20:00 109 H 09/21/23 20:00 97.6 F 115 H 22 105/51 L 96 Nasal Cannula, BiPAP 09/21/23 19:25 09/21/23 19:00 Nasal Cannula 09/21/23 16:00 101 H 09/21/23 16:43 Nasal Cannula 09/21/23 15:00 Nasal Cannula 09/21/23 15:12 97.9 F 103 H 17 88/42 L 92 L Nasal Cannula 09/21/23 12:00 110 H 09/21/23 13:00 Nasal Cannula 09/21/23 11:00 Nasal Cannula 09/21/23 11:16 97.6 F 106 H 18 89/50 L 95 Nasal Cannula O2 Flow Rate 09/22/23 08:00 09/22/23 08:39 2 09/22/23 07:50 2 09/22/23 06:34 3 09/22/23 05:00 3 09/22/23 05:41 3 09/22/23 04:00 3 09/22/23 04:00 09/22/23 03:00 3 09/22/23 00:00 3 09/22/23 01:00 3 09/22/23 00:00 09/21/23 23:00 3 09/21/23 21:00 3 09/21/23 20:00 3 09/21/23 20:00 09/21/23 20:00 3 09/21/23 19:25 3 09/21/23 19:00 2 09/21/23 16:00 09/21/23 16:43 2 09/21/23 15:00 2 09/21/23 15:12 2 09/21/23 12:00 09/21/23 13:00 2 09/21/23 11:00 2 09/21/23 11:16 2 Intake and Output 09/21/23 09/22/23 09/22/23 23:59 07:59 15:59 Intake Total 240 / 1500 390 / 990 600 / 990 Output Total 1500 / 3975 325 / 525 200 / 525 Balance -1260 / -2475 65 / 465 400 / 465 Intake: Intake, Oral Amount 240 / 1200 240 / 840 600 / 840 Intake, Total IV Amount 150 / 150 Levofloxacin/D5w 750 mg/150 ml 150 / 150 750 mg In 150 ml @ 100 mls/hr IV Q24H COUNTS INCLUDE 234 BEDS AT THE [facility] Rx#:[id number] Output: Output, Urine Amount 1500 / 3975 325 / 525 200 / 525 Other: Number of Unmeasured Voids 0 Weight 108.6 kg Patient Weight 09/22/23 23:59 Weight 108.6 kg Laboratory Results - last 24 hr 09/22/23 06:12: WBC 9.8, RBC 4.38 L, Hgb 13.6 L, Hct 39.4 L, MCV 90.1, MCH 31.1, MCHC 34.5, RDW 12.5, Plt Count 240, MPV 8.2, Neut % (Auto) 79.7, Lymph % (Auto) 12.2, [place] % (Auto) 6.8, Eos % (Auto) 1.0, Baso % (Auto) 0.3, Neut # (Auto) 7.8, Lymph # (Auto) 1.2, [place] # (Auto) 0.7, Eos # (Auto) 0.1, Baso # (Auto) 0.0, Sodium 130 L, Potassium 4.2, Chloride 91 L, Carbon Dioxide 31 H, Anion Gap 12.2, BUN 28 H D, Creatinine 1.10, Estimated Creat Clear 95, Estimated GFR 66, Est GFR ( Amer) 80, Glucose 111 H, Calcium 8.9, Magnesium 2.2 D, Total Bilirubin 0.7, AST 34, ALT 29, Alkaline Phosphatase 79, Total Protein 6.3, Albumin 3.8, Globulin 2.5, Albumin/Globulin Ratio 1.5 I & O for Labs for Last 24 Hours: Intake & Output 09/19/23 09/20/23 09/21/23 09/22/23 23:59 23:59 23:59 23:59 Intake Total 3580 / 3970 1110 / 1500 990 / 990 Output Total 6150 / 6150 3850 / 3975 525 / 525 Balance -2570 / -2180 -2740 / -2475 465 / 465 Weight 105.687 kg 108.363 kg 108.3 kg 108.6 kg Constitutional: Present mild distress, obese and chronically ill appearing Head: Present atraumatic and normocephalic Neck: Present normal inspection Respiratory: Present accessory muscle use, prolonged expiratory phase, crackles and diminished air movement; Absent rhonchi or wheezes Cardiac: Present Tachycardia GI: Present soft and normal bowel sounds; Absent distention or tenderness Extremities: Present normal inspection, full ROM and edema (3+ bilaterally.) Skin: Present intact; Absent erythema Neuro: Present Grossly Intact, alert, awake, oriented x 3 and moves all extremities Assessment and Plan *Assessment and plan (1) Acute on chronic HFrEF (heart failure with reduced ejection fraction): Status: Acute Category: Medical Code(s): I50.23 - Acute on chronic systolic (congestive) heart failure (2) Dyspnea: Status: Acute Qualifiers: Dyspnea type: shortness of breath Qualified Code(s): R06.02 - Shortness of breath Category: Medical Code(s): R06.00 - Dyspnea, unspecified (3) Pneumonia: Status: Resolved Qualifiers: Pneumonia type: due to unspecified organism Laterality: bilateral Lung location: lower lobe of lung Qualified Code(s): J18.9 - Pneumonia, unspecified organism Category: Medical Code(s): J18.9 - Pneumonia, unspecified organism (4) Chronic hyponatremia: Status: Acute Category: Medical Code(s): E87.1 - Hypo-osmolality and hyponatremia (5) COPD mixed type: Status: Chronic Category: Medical Code(s): J44.9 - Chronic obstructive pulmonary disease, unspecified (6) BPH (benign prostatic hyperplasia): Status: Chronic Qualifiers: Lower urinary tract symptom presence: symptoms absent Qualified Code(s): N40.0 - Benign prostatic hyperplasia without lower urinary tract symptoms Category: Medical Code(s): N40.0 - Benign prostatic hyperplasia without lower urinary tract symptoms (7) Tobacco abuse: Status: Chronic Category: Medical Code(s): Z72.0 - Tobacco use (8) Obesity (BMI 30-39.9): Status: Chronic Category: Medical Code(s): E66.9 - Obesity, unspecified Plan 72-year-old obese male with PMHx of coronary artery disease, HFrEF, COPD on 2 L nasal cannula at home, BPH, current smoker, who presents emergency department for evaluation of shortness of breath. On arrival patient presented to be tachypneic , on respiratory distress with shortness of breath. Hemodynamically stable, tachycardic. Was placed on 4 L nasal cannula. X-ray was obtained. Concerning for worsening opacity on the right side. Lab are grossly unremarkable, except for some electrolyte disturbances like hyponatremia hypokalemia. BNP slightly elevated. Last time patient was discharged on Levaquin. ER started on IV Levaquin. Findings discussed with the ER for admission. Presentation consistent with CHF exacerbation. Pulmonology and cardiology consulted and assisting with care. Showing response to diuretics but patient continues to appear volume overloaded. Continues to require inpatient management. Plan as follows: -Worsening dyspnea, presented with recurrent bilateral lower lobe opacity: - Acute on chronic heart failure with reduced ejection fraction -COPD exacerbation Cardiology and pulmonology consulted to assist with care. Continue aggressive diuresis, Bumex 2 mg IV twice daily. Given normal white cell count 9.8, improved oxygenation with diuresis, no concern for pneumonia any longer. Discontinue antibiotics. Monitor for improvement in oxygenation with diuresis. Goal saturation greater 90%, currently on 2-3 L. Last echo done earlier this month showed grade 3 diastolic dysfunction and EF 15 to 20%. Has class IV NYHA heart failure. -Chronic hyponatremia, likely secondary to diuresis/hypervolemia Hypokalemia: Potassium stable this morning at 4.2. Continue with repletion given diuresis. Mg 2.2, repeat CBC, CMP, magnesium ordered for the morning. -BPH: Continue finasteride and tamsulosin -current tobacco abuse: On nicotine patch. Not interested in quitting. -Obesity: Fluid overload and comorbidities were complicate all aspects of care. Lovenox for DVT prophylaxis. Protonix for GI bleed protection Full code.
[2023-09-22 12:00] VITALS: BP 121/61; PULSE 110; PULSE 89; RESP 18; O2SAT 96
--- NOTE | 2023-09-22 14:26 | P.DS_ITS ---
General Admission date:: 09/19/23 Discharge date: 09/22/23 HPI HPI HPI: This is 72-year-old obese male with PMHx of coronary artery disease, HFrEF, COPD on 2 L nasal cannula at home, BPH, current smoker, who presents emergency department for evaluation of shortness of breath. Patient stated that he is been having dame symptoms since April 2023. Patient stated This is a same pneumonia, I has not been able to cure, I come to hospital, they kept me for couple days and send me home . Patient has been admitted multiples time in the last three to four months. Today he reported that in the last 24 hours is a cutely worsened. Admitted for management. Hospital Course Hospital Course Hospital Course: 72-year-old obese male with PMHx of coronary artery disease, HFrEF, COPD on 2 L nasal cannula at home, BPH, current smoker, who presents emergency department for evaluation of shortness of breath. On arrival patient presented to be tachypneic , on respiratory distress with shortness of breath. Hemodynamically stable, tachycardic. Was placed on 4 L nasal cannula. X-ray was obtained. Concerning for worsening opacity on the right side. Lab are grossly unremarkable, except for some electrolyte disturbances like hyponatremia hypokalemia. BNP slightly elevated. Last time patient was discharged on Le vaquin. ER started on IV Levaquin. Findings discussed with the ER for admission. Presentation consistent with CHF exacerbation. Pulmonology and cardiology consulted and assisting with care. Showing response to diuretics, patient stable to discharge home to continue diuresis at home. On baseline oxygen. In no respiratory distress. Patient requesting to go home. Discharged in stable condition. Problems addressed as follows: -Worsening dyspnea, presented with recurrent bilateral lower lobe opacity: - Acute on chronic heart failure with reduced ejection fraction -COPD exacerbation Cardiology and pulmonology consulted to assist with care. Patient initiated on aggressive diuresis with Bumex 2 mg twice daily. Diuresed well during admission. Over 5 L of negative fluid balance. Continue Bumex at discharge. Will supplement potassium as well. This appears to be a big concern to the patient as he does not like the diuretic stripping his potassium and causing him to have cramping. Continue potassium daily as ordered. Given normal white cell count 9.8, improved oxygenation with diuresis, no concern for pneumonia any longer. Discontinued antibiotics. Patient on 2 L nasal cannula oxygen which is his baseline. Last echo done earlier this month showed grade 3 diastolic dysfunction and EF 15 to 20%. Has class IV NYHA heart failure. Extensive discussion with patient on a daily basis about his heart failure and his underlying shortness of breath is a culprit of the severity of his heart failure and volume overload. Patient continues to express concern that he has had pneumonia that is never been treated effectively. There were multiple attempts to schedule him for bronchoscopy, he continues to say I will think about it . He wants something to help him not be short of breath however does not appear to have great insight (even though he states he does) that his heart failure is the cause of his shortness of breath and is not going to resolve. He uses the same rationale that he will think about it when discussing a defibrillator. 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 Strong concern about patient's ability to see improvement given his poor grasp of severity of his lung disease and heart disease and there impact on his symptoms and daily q uality of life. Chronic hyponatremia, likely secondary to diuresis/hypervolemia Hypokalemia: Potassium has done well with supplementation. Potassium stable this morning at 4.2. Continue with repletion given diuresis. Mg 2.2. -BPH: Continue finasteride and tamsulosin -current tobacco abuse: On nicotine patch. Not interested in quitting. Nicotine patch not prescribed at discharge as patient states he will not quit smoking. -Obesity: Fluid overload and comorbidities were complicate all aspects of care. Spent 30 minutes in discharge counseling, documentation, chart review, and direct care with patient. Exam Data for Last 24 hours Vital signs and Labs for Last 24 Hours: Temp Pulse Resp BP Pulse Ox O2 Del Method O2 Flow Rate 97.4 F L 89 18 121/61 96 Nasal Cannula 2 09/22/23 08:00 09/22/23 12:00 09/22/23 12:00 09/22/23 12:00 09/22/23 12:00 09/22/23 13:00 09/22/23 13:00 Laboratory Results - last 24 hr 09/22/23 06:12: WBC 9.8, RBC 4.38 L, Hgb 13.6 L, Hct 39.4 L, MCV 90.1, MCH 31.1, MCHC 34.5, RDW 12.5, Plt Count 240, MPV 8.2, Neut % (Auto) 79.7, Lymph % (Auto) 12.2, [place] % (Auto) 6.8, Eos % (Auto) 1.0, Baso % (Auto) 0.3, Neut # (Auto) 7.8, Lymph # (Auto) 1.2, [place] # (Auto) 0.7, Eos # (Auto) 0.1, Baso # (Auto) 0.0, Sodium 130 L, Potassium 4.2, Chloride 91 L, Carbon Dioxide 31 H, Anion Gap 12.2, BUN 28 H D, Creatinine 1.10, Estimated Creat Clear 95, Estimated GFR 66, Est GFR ( Amer) 80, Glucose 111 H, Calcium 8.9, Magnesium 2.2 D, Total Bilirubin 0.7, AST 34, ALT 29, Alkaline Phosphatase 79, Total Protein 6.3, Albumin 3.8, Globulin 2.5, Albumin/Globulin Ratio 1.5 I & O for Last 24 hours: Intake & Output 09/19/23 09/20/23 09/21/23 09/22/23 23:59 23:59 23:59 23:59 Intake Total 3580 / 3970 1110 / 1500 1590 / 1590 Output Total 6150 / 6150 3850 / 3975 1825 / 1825 Balance -2570 / -2180 -2740 / -2475 -235 / -235 Weight 105.687 kg 108.363 kg 108.3 kg 108.6 kg Constitutional Constitutional: no acute distress, obese and chronically ill appearing *Routine HEENT Exam Head: Present normocephalic Eye: Present EOMI and PERRL ENT: Present mucous membranes moist *Routine Neck Exam Neck: Present supple; Absent lymphadenopathy *Routine Respiratory Exam Respiratory: Present prolonged expiratory phase and normal respiratory effort; Absent rhonchi, wheezes or crackles *Routine Cardiovascular Exam Cardiovascular: Present RRR *Routine Abdominal Exam Abdominal: Present soft and normoactive bowel sounds; Absent tenderness *Routine Rectal Exam Patient deferred: visual exam *Routine Exam Patient deferred: penile exam *Routine Extremities Exam Extremities: Present edema (2-3+ in BLE, scaring of legs); Absent cyanosis or clubbing *Routine Skin Exam Skin: Present warm; Absent rash *Routine Neurological Exam Neurological: Present alert, oriented X3 and moving all extremities; Absent altered mental status Routine Psychiatric Exam Psychiatric: Present normal affect, normal thought process and agitated; Absent good insight or good judgment Results Data Completed and Pending Labs on day of discharge: Labs from last 24 hours 09/22/23 06:12 WBC 9.8 RBC 4.38 L Hgb 13.6 L Hct 39.4 L MCV 90.1 MCH 31.1 MCHC 34.5 RDW 12.5 Plt Count 240 MPV 8.2 Neut % (Auto) 79.7 Lymph % (Auto) 12.2 [place] % (Auto) 6.8 Eos % (Auto) 1.0 Baso % (Auto) 0.3 Neut # (Auto) 7.8 Lymph # (Auto) 1.2 [place] # (Auto) 0.7 Eos # (Auto) 0.1 Baso # (Auto) 0.0 Sodium 130 L Potassium 4.2 Chloride 91 L Carbon Dioxide 31 H Anion Gap 12.2 BUN 28 H D Creatinine 1.10 Estimated Creat Clear 95 Estimated GFR 66 Est GFR ( Amer) 80 Glucose 111 H Calcium 8.9 Magnesium 2.2 D Total Bilirubin 0.7 AST 34 ALT 29 Alkaline Phosphatase 79 Total Protein 6.3 Albumin 3.8 Globulin 2.5 Albumin/Globulin Ratio 1.5 DS: Diagnosis Discharge Diagnosis (1) Acute on chronic HFrEF (heart failure with reduced ejection fraction): Status: Acute Code(s): I50.23 - Acute on chronic systolic (congestive) heart failure (2) Dyspnea: Status: Acute Code(s): R06.00 - Dyspnea, unspecified Qualifiers: Dyspnea type: shortness of breath Qualified Code(s): R06.02 - Shortness of breath (3) Pneumonia: Status: Resolved Code(s): J18.9 - Pneumonia, unspecified organism Qualifiers: Laterality: bilateral Lung location: lower lobe of lung Pneumonia type: due to unspecified organism Qualified Code(s): J18.9 - Pneumonia, unspecified organism (4) Chronic hyponatremia: Status: Acute Code(s): E87.1 - Hypo-osmolality and hyponatremia (5) COPD mixed type: Status: Chronic Code(s): J44.9 - Chronic obstructive pulmonary disease, unspecified (6) BPH (benign prostatic hyperplasia): Status: Chronic Code(s): N40.0 - Benign prostatic hyperplasia without lower urinary tract symptoms Qualifiers: Lower urinary tract symptom presence: symptoms absent Qualified Code(s): N40.0 - Benign prostatic hyperplasia without lower urinary tract symptoms (7) Tobacco abuse: Status: Chronic Code(s): Z72.0 - Tobacco use (8) Obesity (BMI 30-39.9): Status: Chronic Code(s): E66.9 - Obesity, unspecified Meds Home Medications and Allergies Home Medications Medication Instructions Recorded Confirmed Type tamsulosin 0.4 mg capsule 0.4 mg PO BID 09/20/17 09/19/23 History finasteride 5 mg tablet 5 mg PO DAILY 09/07/21 09/19/23 History albuterol sulfate 90 mcg/actuation 2 puff inhalation Q6H PRN 05/19/23 09/19/23 History aerosol inhaler Shortness Of Breath oxybutynin chloride 10 mg 10 mg PO DAILY 05/19/23 09/19/23 History tablet,extended release 24 hr sacubitril 24 mg-valsartan 26 mg 0.5 tab PO BID 05/19/23 09/19/23 History tablet (Entresto) budesonide 0.5 mg/2 mL suspension 0.5 mg inhalation BID PRN 09/06/23 09/19/23 History for nebulization Shortness Of Breath Or Wheezing lorazepam 0.5 mg tablet 0.5 mg PO BID PRN Anxiety 09/06/23 09/19/23 History empagliflozin 10 mg tablet 10 mg PO DAILY 30 days #30 tabs 09/07/23 09/19/23 Rx (Jardiance) fluticasone fur. 100 mcg-umeclid 1 inh inhalation DAILY 30 days #1 09/07/23 09/19/23 Rx 62.5 mcg-vilant 25 mcg ea inhalat.powder (Trelegy Ellipta) spironolactone 25 mg tablet 25 mg PO DAILY 30 days #30 tabs 09/07/23 09/19/23 Rx nystatin 100,000 unit/mL oral 10 ml PO QID PRN Thrush 09/20/23 09/20/23 History suspension bumetanide 2 mg tablet 2 mg PO BIDL 30 days #60 tabs 09/22/23 Rx metoprolol tartrate 25 mg tablet 12.5 mg PO BID 30 days #30 tabs 09/22/23 Rx potassium chloride 20 mEq 20 meq PO BID 30 days #60 tabs 09/22/23 Rx tablet,extended release(part/cryst) (Klor-Con M) New Prescriptions to Start Prescriptions: maheshmetnicolede Kyler Lovell metoprolol tartrate Kyler Lovell potassium chloride [Klor-Con M20] Kyler Lovell Allergies Allergy/AdvReac Type Severity Reaction Status Date / Time ceftriaxone [From Rocephin] Allergy Severe Hives Verified 05/18/23 23:28 pregabalin [From LYRICA] Allergy Unknown Verified 05/18/23 20:52 Discharge Plan Disposition Patient Disposition: Home, Self-Care Condition: Fair Discharge Order Discharge Orders: Discharge Order (Routine); Ordered 09/22/23 Ordered By: Kyler Lovell Follow up Plan Follow up with: Savannah Huang MD [Physician] - Enter time for follow up Tadeo Moore MD [Primary Care Provider] - Enter time for follow up Reinaldo Rowland MD [Staff Physician] - Enter time for follow up Prescriptions/Medication Reconciliation: New potassium chloride [Klor-Con M20] 20 mEq Tablet,Er Particles/Crystals 20 meq PO BID 30 Days Qty: 60 0RF metoprolol tartrate 25 mg Tablet 12.5 mg PO BID 30 Days Qty: 30 0RF bumetanide 2 mg tablet 2 mg PO BIDL 30 Days Qty: 60 0RF Continued tamsulosin 0.4 mg capsule,extended release 24hr 0.4 mg PO BID finasteride 5 MG tablet 5 mg PO DAILY lorazepam 0.5 mg tablet 0.5 mg PO BID PRN (Reason: Anxiety) budesonide 0.5 mg/2 mL suspension for nebulization 0.5 mg inhalation BID PRN (Reason: Shortness Of Breath Or Wheezing) spironolactone 25 mg Tablet 25 mg PO DAILY 30 Days Qty: 30 0RF Jardiance 10 mg Tablet 10 mg PO DAILY 30 Days Qty: 30 0RF Trelegy Ellipta 100-62.5-25 mcg Blister With Device 1 inh inhalation DAILY 30 Days Qty: 1 0RF oxybutynin chloride 10 mg tablet extended release 24hr 10 mg PO DAILY albuterol sulfate 90 mcg/actuation HFA aerosol inhaler 2 puff INHALATION Q6H PRN (Reason: Shortness Of Breath) Entresto 24-26 mg tablet 0.5 tab PO BID nystatin 100,000 unit/mL suspension 10 ml PO QID PRN (Reason: Thrush ) Rx Instructions: Swish and swallow Problem Reconciliation Problems Reviewed?: Yes Patient Discharge Instructions ACTIVITY: Continue current activity DIET: continue same diet Patient Instructions: DI for Chronic Obstructive Pulmonary Disease, DI for Pneumonia -- Adult, DI for Shortness of Breath Providers Primary Care Provider: Tadeo Moore Admit Provider: Kyler Lovell Attending Provider: Kyler Lovell
[2023-09-22] MEDS: KETOROLAC 30MG/ML VIAL 15 MG IV (14:56)
--- NOTE | 2023-09-25 11:16 | CARE MANAGER ---
Attempted to contact patient x2 related to hospital discharge. Unable to leave . FERNANDO Lin
== END 2023-09-22 15:29 | disposition home or self-care (01) | DRG 291 ==
LOC: ER 17:52 → 2ND 21:43
PROVIDERS: Nurse Practitioner Family; Physician Assistant; Admitting Provider Internal Medicine Adolescent Medicine; Emergency Provider Emergency Medicine; PCP Internal Medicine Adolescent Medicine; Visit Provider Internal Medicine Adolescent Medicine
DX: I11.0 Hypertensive heart disease with heart failure (principal); I50.23 Acute on chronic systolic (congestive) heart failure; J96.21 Acute and chronic respiratory failure with hypoxia; E87.1 Hypo-osmolality and hyponatremia; J44.1 Chronic obstructive pulmonary disease with (acute) exacerbation; J44.0 Chronic obstructive pulmonary disease with (acute) lower respiratory infection; I42.9 Cardiomyopathy, unspecified; N40.0 Benign prostatic hyperplasia without lower urinary tract symptoms; E66.9 Obesity, unspecified; Z99.81 Dependence on supplemental oxygen; Z68.36 Body mass index [BMI] 36.0-36.9, adult; I25.10 Atherosclerotic heart disease of native coronary artery without angina pectoris; F41.9 Anxiety disorder, unspecified; F17.210 Nicotine dependence, cigarettes, uncomplicated
CPT/HCPCS: 36415; 71045; 80053; 82803; 83735; 83880; 84484; 85007; 85025; 93005; 94640; 97162; 97165; 99285; J1956; J3475

== ENCOUNTER 2023-10-07 20:03 | Inpatient (IN) | payer MEDICARE, SELFPAY ==
[2023-10-07] VITALS (7 sets, daily range): BP systolic 77–155; BP diastolic 41–95; PULSE 77–112; RESP 22–35; TEMP 36.7–36.9; O2SAT 92–96; BMI 34.2
--- NOTE | 2023-10-07 20:16 | ECG_ITS ---
APPROVED REPORT Exam: Resting ECG HR:97 bpm ECG Measurements Heart Rate 97 AXES AL 153 P 39 QRSd 124 QRS -28 QT 345 T 92 QTc 400 Conclusion SINUS RHYTHM MODERATE INTRAVENTRICULAR CONDUCTION DELAY [105+ ms QRS DURATION, 80+ ms Q/S IN V1/V2, NO Q AND 60+ ms R IN I/aVL/V5/V6] NONSPECIFIC ST & T-WAVE ABNORMALITY ABNORMAL ECG UNCONFIRMED REPORT Electronically signed by : Tadeo Moore MD 10/08/2023 17:57:51
--- NOTE | 2023-10-07 20:18 | XR_ITS ---
PROCEDURE INFORMATION: Exam: XR Chest Exam date and time: 10/07/2023 8:21 PM Age: 72 years old Clinical indication: Shortness of breath; Additional info: SOB TECHNIQUE: Imaging protocol: Radiologic exam of the chest. Views: 1 view. COMPARISON: CR XR CHEST PORTABLE 09/19/2023 6:46 PM FINDINGS: Lungs: See Pleural spaces finding. Pleural spaces: Moderate right pleural effusion. Right basilar subsegmental atelectasis. Heart/Mediastinum: Unremarkable. No cardiomegaly. Bones/joints: Unremarkable. IMPRESSION: Right pleural effusion.
--- NOTE | 2023-10-07 20:19 | HMH.EDCP ---
Discharge Plan Disposition Patient Disposition: Admitted Chief Complaint: Shortness of Breath/Dyspnea Prescriptions Prescriptions: No Action tamsulosin 0.4 mg capsule,extended release 24hr 0.4 mg PO BID finasteride 5 MG tablet 5 mg PO DAILY lorazepam 0.5 mg tablet 0.5 mg PO BID PRN (Reason: Anxiety) budesonide 0.5 mg/2 mL suspension for nebulization 0.5 mg inhalation BID PRN (Reason: Shortness Of Breath Or Wheezing) spironolactone 25 mg Tablet 25 mg PO DAILY 30 Days Qty: 30 0RF Jardiance 10 mg Tablet 10 mg PO DAILY 30 Days Qty: 30 0RF Trelegy Ellipta 100-62.5-25 mcg Blister With Device 1 inh inhalation DAILY 30 Days Qty: 1 0RF oxybutynin chloride 10 mg tablet extended release 24hr 10 mg PO DAILY albuterol sulfate 90 mcg/actuation HFA aerosol inhaler 2 puff INHALATION Q6H PRN (Reason: Shortness Of Breath) Entresto 24-26 mg tablet 0.5 tab PO BID nystatin 100,000 unit/mL suspension 10 ml PO QID PRN (Reason: Thrush ) Rx Instructions: Swish and swallow potassium chloride [Klor-Con M20] 20 mEq Tablet,Er Particles/Crystals 20 meq PO BID 30 Days Qty: 60 0RF metoprolol tartrate 25 mg Tablet 12.5 mg PO BID 30 Days Qty: 30 0RF bumetanide 2 mg tablet 2 mg PO BIDL 30 Days Qty: 60 0RF Referrals Follow up/Referrals: Tadeo Moore MD [Primary Care Provider] - See instructions Clinical Impressions Clinical Impression: HFrEF (heart failure with reduced ejection fraction), Acute respiratory distress Discharge ED Provider: Bronson Gonzalez General Chief Complaint: Shortness of Breath/Dyspnea Stated Complaint: SOA Time Seen by Provider: 10/07/23 20:06 Mode of Arrival: Family Vehicle Source of Information: Patient Limitations: No Limitations Description of Symptoms (Recalled from ER Triage Doc. by RN): 72 yo male presents with shortness of air. States he has noticed an increase in symptoms over the last few days. PMH: CHF, COPD. 2+ pedal edema noted bilaterally. Mentions a decrease in UOP over last few days. Denies angina. I'm smothering . Afebrile. History of Present Illness HPI narrative: Patient is a 72-year-old male with past medical history of end-stage heart failure, COPD who presents to the emergency department for evaluation of shortness of breath. Onset was acute, over the last few days. I remember this patient, I saw him previously, there was concerns for pneumonia however ultimately once he was admitted to the hospital patient has an ejection fraction of approximately 15%, patient was diuresed to baseline oxygen requirement and was deemed appropriate for outpatient management at that time. Over the last 4 days patient has had slightly decreased urine output however is still making urine, states he has been compliant with his medication. Please see discharge summary for full details. He feels as if he is smothering. No other acute complaints at this time. Patient is on 2 L nasal cannula at baseline. Related Data Home Medications Medication Instructions Recorded Confirmed tamsulosin 0.4 mg capsule 0.4 mg PO BID 09/20/17 09/19/23 finasteride 5 mg tablet 5 mg PO DAILY 09/07/21 09/19/23 albuterol sulfate 90 mcg/actuation 2 puff inhalation Q6H PRN 05/19/23 09/19/23 aerosol inhaler Shortness Of Breath oxybutynin chloride 10 mg 10 mg PO DAILY 05/19/23 09/19/23 tablet,extended release 24 hr sacubitril 24 mg-valsartan 26 mg 0.5 tab PO BID 05/19/23 09/19/23 tablet (Entresto) budesonide 0.5 mg/2 mL suspension 0.5 mg inhalation BID PRN 09/06/23 09/19/23 for nebulization Shortness Of Breath Or Wheezing lorazepam 0.5 mg tablet 0.5 mg PO BID PRN Anxiety 09/06/23 09/19/23 nystatin 100,000 unit/mL oral 10 ml PO QID PRN Thrush 09/20/23 09/20/23 suspension Previous Rx's Medication Instructions Recorded empagliflozin 10 mg tablet 10 mg PO DAILY 30 days #30 tabs 09/07/23 (Jardiance) fluticasone fur. 100 mcg-umeclid 1 inh inhalation DAILY 30 days #1 09/07/23 62.5 mcg-vilant 25 mcg ea inhalat.powder (Trelegy Ellipta) spironolactone 25 mg tablet 25 mg PO DAILY 30 days #30 tabs 09/07/23 bumetanide 2 mg tablet 2 mg PO BIDL 30 days #60 tabs 09/22/23 metoprolol tartrate 25 mg tablet 12.5 mg PO BID 30 days #30 tabs 09/22/23 potassium chloride 20 mEq 20 meq PO BID 30 days #60 tabs 09/22/23 tablet,extended release(part/cryst) (Klor-Con M) Allergies Allergy/AdvReac Type Severity Reaction Status Date / Time ceftriaxone [From Rocephin] Allergy Severe Hives Verified 05/18/23 23:28 pregabalin [From LYRICA] Allergy Unknown Verified 05/18/23 20:52 [facility] Disclaimer: The information contained in this section may have been updated after the patient was seen, as this information can be updated by other users. Medical History (Updated 10/07/23 @ 21:53 by Bronson Gonzalez MD) Abnormal electrocardiogram [ECG] [EKG] Acute and chronic respiratory failure with hypoxia Acute and chronic respiratory failure with hypoxia Acute exacerbation of chronic obstructive pulmonary disease Acute exacerbation of chronic obstructive pulmonary disease (COPD) Anxiety Atypical angina BPH (benign prostatic hyperplasia) CAD in [place] artery Cardiomyopathy Cellulitis of right lower leg CHF exacerbation Congestive heart failure COPD (chronic obstructive pulmonary disease) with acute bronchitis COPD mixed type Essential hypertension Heart failure HFrEF (heart failure with reduced ejection fraction) Hyperlipidemia Lesion of right lung Lung nodule Mediastinal adenopathy Neck pain Obesity (BMI 30-39.9) Obesity (BMI 30.0-34.9) Pneumonia Prostate enlargement Respiratory failure Shortness of Breath SOB (shortness of breath) on exertion Supplemental oxygen dependent Tachycardia Tobacco abuse Volume overload Family History Other No significant family history Social History Smoking Status: Former smoker tobacco type: cigarettes packs per day: 1 alcohol intake: never substance use type: denies use current occupational status: disabled Travel in the last 8 weeks: None household members: spouse housing: apartment caffeine: Yes ROS Obtained: Yes Systems reviewed as appropriate & no additional complaints except as documented Physical Exam General General appearance: alert and in distress Head Head exam: atraumatic and normocephalic Eye Eye exam: Present PERRL and EOMI ENT ENT exam: Present mucous membranes moist Neck Neck exam: Present normal inspection Chest Chest inspection: Present normal inspection and symmetric chest wall rise Respiratory Respiratory exam: Present normal lung sounds bilaterally, respiratory distress and other (Significant tachypnea) Cardiovascular Cardiovascular exam: Present regular rate and normal rhythm Abdominal Exam Abdominal exam: Present soft; Absent tenderness Extremities Exam Extremities exam: Present other (Pitting edema bilateral lower extremities) Neurological Exam Neurological exam: Present alert Psychiatric Psychiatric exam: Present normal affect Skin Skin exam: Present warm and dry HEART Score HEART Score HEART Score assessment performed?: Yes History (anamnesis): Slightly suspicious ECG: Non-specific disturbance Age: >65 years Risk factors: Atherosclerosis history Troponin: </= normal limit HEART Score: 5 Critical Care Critical Care Time Critical Care Time: Yes Attestation: On 10/07/23, the high probability of a clinically significant, sudden or life threatening deterioration of the following system(s) required my full and direct attention, intervention and personal management. The time I documented below is in addition to time spent performing reported procedures but includes the following listed in this critical care notation. Total Time Total Critical Care Time: 35 Medical Decision Making Evin Inquiry Pt receiving controlled substance: No Vital Signs Vital Signs: 10/07/23 20:13 10/07/23 20:31 10/07/23 21:01 Temperature 98.5 F Temperature Source Oral Pulse Rate 100 H 77 Pulse Rate [Right Brachial] 112 H Respiratory Rate 35 H Blood Pressure 101/52 L 105/62 L Blood Pressure [Right Arm] 155/95 H Blood Pressure Mean [Right Arm] 115 Blood Pressure Source [Right Arm] Automatic Cuff Blood Pressure Position [Right Arm] Sitting 02 Sat by Pulse Oximetry 92 L 93 L 94 L Oxygen Delivery Method Nasal Cannula Nasal Cannula Oxygen Flow Rate (LPM) 2 2 Lab Data Labs: Lab Results 10/07/23 20:37: WBC 9.2, RBC 4.34 L, Hgb 13.6 L, Hct 39.5 L, MCV 91.1, MCH 31.3 H, MCHC 34.4, RDW 12.4, Plt Count 241, MPV 9.0, Neut % (Auto) 81.1 H, Lymph % (Auto) 11.8, [place] % (Auto) 5.4, Eos % (Auto) 1.5, Baso % (Auto) 0.3, Neut # (Auto) 7.5, Lymph # (Auto) 1.1, [place] # (Auto) 0.5, Eos # (Auto) 0.1, Baso # (Auto) 0.0, Sodium 133 L, Potassium 4.4, Chloride 99, Carbon Dioxide 28, Anion Gap 10.4, BUN 25 H, Creatinine 1.30 H, Estimated Creat Clear 75, Estimated GFR 54 L, Est GFR ( Amer) 66, Glucose 104 H, Calcium 8.9, Total Bilirubin 0.7, AST 70 H, ALT 60, Alkaline Phosphatase 165 H, Troponin I < 0.01, NT-Pro-B Natriuret Pep 977 H, Total Protein 7.0, Albumin 3.9, Globulin 3.1, Albumin/Globulin Ratio 1.3 10/07/23 20:37 10/07/23 20:37 Response Orders (Tests/Meds): ED MEDICATIONS Discontinued Medications Generic Name Dose Route Start Last Admin Trade Name Freq PRN Reason Stop Dose Admin Bumetanide 2 mg 10/07/23 20:16 10/07/23 20:35 Bumetanide 1mg/4ml Vial IV 10/07/23 20:17 2 mg ONCE ONE Administration ORDERS Category Date Time Status CXR --portable [XR chest portable] Stat Exams 10/07/23 20:18 Completed POCUS Point of Care (ER Only) Stat Exams 10/07/23 20:17 Taken BNP [Brain Natriuretic Peptide] Stat Lab 10/07/23 20:37 Completed CBC w/Auto Diff [Complete Blood Count Auto Diff] Stat Lab 10/07/23 20:37 Completed CMP [Comprehensive Metabolic Panel] Stat Lab 10/07/23 20:37 Completed Trop I [Troponin I] Stat Lab 10/07/23 20:37 Completed Troponin I Q3H Lab 10/07/23 23:30 Ordered Troponin I Q3H Lab 10/08/23 02:30 Ordered EKG Request [ECG Request] Stat Y 10/07/23 20:16 Ordered ECG Data Tracing #1: ECG Narrative: Independently interpreted by me, rate is 97, rhythm is regular, no ST elevation in anatomical contiguous leads, QTc 400. MDM Narrative Medical Decision Narrative: In summary patient is a 72-year-old male with past medical history described above presents emergency department for evaluation of shortness of breath. Patient is hemodynamically stable upon arrival, significant tachypnea, at baseline oxygen requirement. Differential diagnosis includes worsening heart failure, atypical ACS, among others. Workup will be conducted with hematologic labs, chest x-ray, EKG, BNP, troponin. Initial interventions include IV Bumex 2 mg. Patient is afebrile, is moving air well and I doubt infectious source or COPD exacerbation. Workup reviewed by me, hematologic labs remarkable for persistent hyponatremia, no critical electrolyte abnormalities, no EMY per rifle criteria, elevated BNP although improved from prior. Chest x-ray informally interpreted by me, worsening right sided pleural effusion. Upon repeat evaluation patient did have approximately 400 cc of urine output however was head-bobbing with respiratory rate between 25 and 35 times a minute. Patient is unsafe to be discharged home in this amount of respiratory distress although given his poor insight to his health condition is going to be difficult to manage. Discussion was had over placement of defibrillator for which he seems amenable however this was similar previously. Patient will benefit from diuresis regardless and cardiology evaluation in the morning. The case was discussed with hospital medicine who admitted the patient to their service for continued evaluation at this time.
[2023-10-07] MEDS: BUMETANIDE 1MG/4ML VIAL 2 MG IV (20:35)
[2023-10-07 20:46] LABS: Basophils % 0.3 % (0.1-2.0); Eosinophils # 0.1 K/mm3 (0.0-0.4); Eosinophils % 1.5 % (0.1-12.0); Hematocrit 39.5 % (42.0-52.0); Hemoglobin 13.6 g/dL (14.1-18.0); Lymphocytes # 1.1 K/mm3 (0.7-4.5); Lymphocytes % 11.8 % (10-50); Mean Corpuscular HGB Conc 34.4 g/dL (31.8-35.4); Mean Corpuscular Hemoglobin 31.3 pg (27.0-31.2); Mean Corpuscular Volume 91.1 fl (80-94); Monocytes # 0.5 K/mm3 (0.1-1.0); Monocytes % 5.4 % (1.7-9.3); Neutrophils # 7.5 K/mm3 (1.8-7.8); Neutrophils % 81.1 % (37.0-80.0); Platelet Count 241 K/mm3 (142-424); Red Blood Count 4.34 M/mm3 (4.60-6.20); Red Cell Distribution Width 12.4 % (11.5-17.5); White Blood Count 9.2 K/mm3 (4.8-10.8)
[2023-10-07 20:52] LABS: Chloride 99 mmol/L (98-107); Sodium 133 mmol/L (136-145)
[2023-10-07 20:53] LABS: Potassium 4.4 mmoL/L (3.5-5.1)
[2023-10-07 20:55] LABS: Alanine Aminotransferase 60 U/L (12-78); Alkaline Phosphatase 165 U/L (38-126); Aspartate Amino Transferase 70 U/L (17-59); Bilirubin,Total 0.7 mg/dl (0.2-1.3); Blood Urea Nitrogen 25 mg/dl (9-20); Creatinine Clearance Estimated 75 mL/min (50-200); Estimated Glomerular Filt Rate 54 ml/min (>60); GFR (African American) 66 ML/MIN (>60)
[2023-10-07 20:56] LABS: Albumin Level 3.9 g/dl (3.5-5.0); Albumin/Globulin Ratio 1.3 (1.1-1.8); Anion Gap 10.4 mEq/L (5-15); Calcium 8.9 mg/dl (8.4-10.2); Carbon Dioxide 28 mmol/L (22.0-30.0); Globulin 3.1 g/dL (1.3-3.2); Glucose 104 mg/dl (74-100)
[2023-10-07 21:05] LABS: NT Pro Brain Natriuretic Pep. 977 pg/mL (0-125)
[2023-10-07 21:20] LABS: Troponin I < 0.01 ng/ml (0.00-0.034)
--- NOTE | 2023-10-07 21:48 | EXP.HP ---
History of Present Illness *Admission Date: 10/07/23 *Reason for visit:: SOB *History of present illness: This is a well known 72-year-old male obese with comorbidities including of end-stage heart failure, COPD who recently was discharged. Patient bounced back to the ED for worsened shortness of breath. Patient has an ejection fraction of approximately 15%, and has been admitted multiples time. Consulted and evaluated with Pulmonology and Cardiology. Most of the time patient has been refusing aggressive interventions. In the past has had refused bronchoscopy and defibrillator implant. However, does not want to consider hospice care either. On last admission patient was diuresed to his baseline oxygen requirement and was deemed appropriate for outpatient management at that time. Over the last 4 days patient has had slightly decreased urine output however is still making urine, states he has been compliant with his medication. Please see discharge summary for full details. He feels as if he is smothering this time. Reported been told by his cardiology that he would not tolerate a bronchoscopy. No other acute complaints at this time. Patient is on 2 L nasal cannula at baseline. Readmitted for management. [facility] Disclaimer: The information contained in this section may have been updated after the patient was seen, as this information can be updated by other users. Medical History (Updated 10/08/23 @ 16:15 by Savannah Huang MD) Abnormal electrocardiogram [ECG] [EKG] Acute and chronic respiratory failure with hypoxia Acute and chronic respiratory failure with hypoxia Acute exacerbation of chronic obstructive pulmonary disease Acute exacerbation of chronic obstructive pulmonary disease (COPD) Anxiety Atypical angina BPH (benign prostatic hyperplasia) CAD in [place] artery Cardiomyopathy Cellulitis of right lower leg CHF exacerbation Chronic respiratory failure with hypoxia Congestive heart failure COPD (chronic obstructive pulmonary disease) with acute bronchitis COPD mixed type Essential hypertension Heart failure HFrEF (heart failure with reduced ejection fraction) Hyperlipidemia Lesion of right lung Lung nodule Neck pain Obesity (BMI 30-39.9) Obesity (BMI 30.0-34.9) Pleural effusion on right Pneumonia Prostate enlargement Respiratory failure Shortness of Breath SOB (shortness of breath) on exertion Supplemental oxygen dependent Tachycardia Tobacco abuse Volume overload Family History Other No significant family history Social History Smoking Status: Former smoker tobacco type: cigarettes packs per day: 1 alcohol intake: never substance use type: denies use current occupational status: disabled Travel in the last 8 weeks: None household members: spouse housing: apartment caffeine: Yes Review of Systems Review of Systems Review of systems:: pertinent systems reviewed and negative unless documented below Meds Home Medications and Allergies Home Medications Medication Instructions Recorded Confirmed Type tamsulosin 0.4 mg capsule 0.4 mg PO BID 09/20/17 10/08/23 History finasteride 5 mg tablet 5 mg PO DAILY 09/07/21 10/08/23 History albuterol sulfate 90 mcg/actuation 2 puff inhalation Q6HP PRN 05/19/23 10/08/23 History aerosol inhaler Shortness Of Breath oxybutynin chloride 10 mg 10 mg PO DAILY 05/19/23 10/08/23 History tablet,extended release 24 hr sacubitril 24 mg-valsartan 26 mg 0.5 tab PO BID 05/19/23 10/08/23 History tablet (Entresto) budesonide 0.5 mg/2 mL suspension 0.5 mg inhalation BIDP PRN 09/06/23 10/08/23 History for nebulization Shortness Of Breath Or Wheezing lorazepam 0.5 mg tablet 0.5 mg PO BIDP PRN Anxiety 09/06/23 10/08/23 History empagliflozin 10 mg tablet 10 mg PO DAILY 30 days #30 tabs 09/07/23 10/08/23 Rx (Jardiance) fluticasone fur. 100 mcg-umeclid 1 inh inhalation DAILY 30 days #1 09/07/23 10/08/23 Rx 62.5 mcg-vilant 25 mcg ea inhalat.powder (Trelegy Ellipta) spironolactone 25 mg tablet 25 mg PO DAILY 30 days #30 tabs 09/07/23 10/08/23 Rx bumetanide 2 mg tablet 2 mg PO BIDL 30 days #60 tabs 09/22/23 10/08/23 Rx metoprolol tartrate 25 mg tablet 12.5 mg PO BID 30 days #30 tabs 09/22/23 10/08/23 Rx potassium chloride 20 mEq 20 meq PO BID 30 days #60 tabs 09/22/23 10/08/23 Rx tablet,extended release(part/cryst) (Klor-Con M) New Prescriptions to Start Prescriptions: Allergies Allergy/AdvReac Type Severity Reaction Status Date / Time ceftriaxone [From Rocephin] Allergy Severe Hives Verified 05/18/23 23:28 pregabalin [From LYRICA] Allergy Unknown Verified 05/18/23 20:52 Exam Data for Last 24 hours Vital signs and Labs for Last 24 Hours: Temp Pulse Resp BP Pulse Ox O2 Del Method O2 Flow Rate 98.5 F 107 H 24 100/60 L 95 Nasal Cannula 2 10/07/23 20:13 10/07/23 21:45 10/07/23 21:45 10/07/23 21:45 10/07/23 21:45 10/07/23 21:45 10/07/23 21:45 Laboratory Results - last 24 hr 10/07/23 20:37: WBC 9.2, RBC 4.34 L, Hgb 13.6 L, Hct 39.5 L, MCV 91.1, MCH 31.3 H, MCHC 34.4, RDW 12.4, Plt Count 241, MPV 9.0, Neut % (Auto) 81.1 H, Lymph % (Auto) 11.8, [place] % (Auto) 5.4, Eos % (Auto) 1.5, Baso % (Auto) 0.3, Neut # (Auto) 7.5, Lymph # (Auto) 1.1, [place] # (Auto) 0.5, Eos # (Auto) 0.1, Baso # (Auto) 0.0, Sodium 133 L, Potassium 4.4, Chloride 99, Carbon Dioxide 28, Anion Gap 10.4, BUN 25 H, Creatinine 1.30 H, Estimated Creat Clear 75, Estimated GFR 54 L, Est GFR ( Amer) 66, Glucose 104 H, Calcium 8.9, Total Bilirubin 0.7, AST 70 H, ALT 60, Alkaline Phosphatase 165 H, Troponin I < 0.01, NT-Pro-B Natriuret Pep 977 H, Total Protein 7.0, Albumin 3.9, Globulin 3.1, Albumin/Globulin Ratio 1.3 I & O for Last 24 hours: Intake & Output 10/04/23 10/05/23 10/06/23 10/07/23 23:59 23:59 23:59 23:59 Output Total 500 / 500 Balance -500 / -500 Weight 102.058 kg Constitutional Constitutional: mild distress, obese, chronically ill appearing and cooperative *Routine HEENT Exam Head: Present normocephalic and atraumatic Eye: Present EOMI, PERRL and normal accommodation ENT: Present mucous membranes moist *Routine Neck Exam Neck: Present supple, full ROM and trachea midline *Routine Respiratory Exam Respiratory: Present accessory muscle use, prolonged expiratory phase, rhonchi, wheezes and symmetric chest movement; Absent crackles or able to speak in complete sentences *Routine Cardiovascular Exam Cardiovascular: Present Normal S1, Normal S2 and tachycardia *Routine Abdominal Exam Abdominal: Present soft and normoactive bowel sounds; Absent organomegaly *Routine Rectal Exam Rectal:: deferred *Routine Genitalia Exam Genitalia:: deferred *Routine Extremities Exam Extremities: Present clubbing, edema (2-3+ bilateral lower extremities to knees), full ROM and pulses intact; Absent cyanosis *Routine Skin Exam Skin: Present intact, dry and warm *Routine Neurological Exam Neurological: Present alert, oriented X3, normal reflexes, moving all extremities and normal speech Routine Psychiatric Exam Psychiatric: Present normal thought process, cooperative, good judgment and anxious H&P: Result Imaging and Cardiology EKG: Status: image reviewed by me and Preliminary report Chest x-ray: Status: image reviewed by me, Preliminary report and final report Assessment and Plan *Assessment and plan (1) Pleural effusion: Status: Acute Category: Medical Code(s): J90 - Pleural effusion, not elsewhere classified (2) Acute on chronic HFrEF (heart failure with reduced ejection fraction): Status: Acute Category: Medical Code(s): I50.23 - Acute on chronic systolic (congestive) heart failure (3) Dyspnea: Status: Acute Qualifiers: Dyspnea type: shortness of breath Qualified Code(s): R06.02 - Shortness of breath Category: Medical Code(s): R06.00 - Dyspnea, unspecified (4) Hypotension: Status: Acute Qualifiers: Hypotension type: unspecified hypotension type Qualified Code(s): I95.9 - Hypotension, unspecified Category: Medical Code(s): I95.9 - Hypotension, unspecified (5) Chronic hyponatremia: Status: Acute Category: Medical Code(s): E87.1 - Hypo-osmolality and hyponatremia (6) COPD mixed type: Status: Chronic Category: Medical Code(s): J44.9 - Chronic obstructive pulmonary disease, unspecified (7) BPH (benign prostatic hyperplasia): Status: Chronic Qualifiers: Lower urinary tract symptom presence: symptoms absent Qualified Code(s): N40.0 - Benign prostatic hyperplasia without lower urinary tract symptoms Category: Medical Code(s): N40.0 - Benign prostatic hyperplasia without lower urinary tract symptoms (8) Tobacco abuse: Status: Chronic Category: Medical Code(s): Z72.0 - Tobacco use (9) Obesity (BMI 30-39.9): Status: Chronic Category: Medical Code(s): E66.9 - Obesity, unspecified Plan 72-year-old male obese with comorbidities including of end-stage heart failure, COPD who recently was discharged. Patient bounced back to the ED for worsened shortness of breath. Patient has an ejection fraction of approximately 15%, and has been admitted multiples time. On arrival patient presented tachypnic, on the rates of 25-30. per ER. Work up are about the same on last admission. little increase on his creatinine. remains on 2L. Diuresis initiated 20mg on bumex IV. became hypotensive after. CXR showed worsened right pleural effusion. Discussed with ER about findings and needs of readmission. Due to patient instability and risk of deterioration , including , we agreed for supervised diuresis and management. Plan as follow: -Worsening right pleural effusion seen in the end stage heart failure. Ejection fraction 15%. Versus acute on chronic heart failure exacerbation: Dyspnea Admit patient for control and manage diuresis. Dispo MedSurg Bumex IV 2 mg IV push given at ER Monitor for renal function. strict in and out Daily weight Cardiology consult. Patient concerned and reconsidering the needs of the defibrillator Monitor for O2 saturation. Currently on 2 L Vital signs -Hypotension: Secondary to diuresis. Will continue to monitor Hold hypertensive medications. We need to reassess diuresis regimen Chronic hyponatremia secondary to above Continue monitor Repeat labs the morning -COPD does not seem to be exacerbated DuoNeb every 6 Resume home regimen Nicotine patch for tobacco dependence Obesity with comorbidity. Associated with fluid overload Daily weight Lovenox for DVT prophylaxis. On Protonix Patient would like to remain full code. Discussion at length about options of treatments, versus hospice and palliative care. Patient will like to consider. Rounded on patient after nurse practitioner. Personally examined and interviewed patient. Agree with exam findings and care plan as documented.
--- NOTE | 2023-10-07 23:11 | PC.NURSE ---
report called to FERNANDO Rodriguez
[2023-10-07] MEDS: ACETAMINOPHEN 325MG TAB 650 MG PO (23:54)
[2023-10-08] VITALS (11 sets, daily range): BP systolic 66–103; BP diastolic 29–54; PULSE 104–122; RESP 17–30; TEMP 36.2–36.6; O2SAT 93–96; BMI 34.1
[2023-10-08 00:25] LABS: Troponin I < 0.01 ng/ml (0.00-0.034)
--- NOTE | 2023-10-08 03:00 | PC.NURSE ---
Pt continues to ask for pain medicine, recheck pt BP, due to BP, cannot give the pain medicine requested.
[2023-10-08 03:11] LABS: Troponin I < 0.01 ng/ml (0.00-0.034)
[2023-10-08] MEDS: AEROCHAMBER/OPTIHALER 1 UNIT MC (03:40)
[2023-10-08] MEDS: ALBUTEROL-HFA 90MCG/PUFF INHALER 8GM 2 PUFF IH ×3 (03:40→14:07)
--- NOTE | 2023-10-08 03:52 | PC.NURSE ---
Notified COURTNEY De Anda that patient's blood pressures have been reading 60's/70's systolic via NIBP and manual BP. Patient has NAD, mentation is WNL. No new orders per [employer]. Documenting RN and primary RN BCollins verified this interaction of patient and provider.
--- NOTE | 2023-10-08 03:57 | PC.NURSE ---
0400 vital signs 72/41 with automatic cuff. Manual BP taken by this RN, results 74/46. Pt is alert and oriented. Pt only complains of back pain that is chronic.
[2023-10-08 06:12] LABS: Basophils % 0.3 % (0.1-2.0); Eosinophils # 0.1 K/mm3 (0.0-0.4); Eosinophils % 0.9 % (0.1-12.0); Lymphocytes # 1.2 K/mm3 (0.7-4.5); Lymphocytes % 13.8 % (10-50); Mean Corpuscular Hemoglobin 30.8 pg (27.0-31.2); Mean Corpuscular Volume 87.8 fl (80-94); Mean Platelet Volume 8.7 fl (7.4-10.4); Monocytes # 0.4 K/mm3 (0.1-1.0); Monocytes % 4.7 % (1.7-9.3); Neutrophils # 6.8 K/mm3 (1.8-7.8); Neutrophils % 80.3 % (37.0-80.0); Platelet Count 207 K/mm3 (142-424); Red Blood Count 4.22 M/mm3 (4.60-6.20); Red Cell Distribution Width 12.5 % (11.5-17.5); White Blood Count 8.5 K/mm3 (4.8-10.8)
--- NOTE | 2023-10-08 06:53 | PC.NURSE ---
Since arriving to floor, pt BP has been low, [employer] aware, no new orders received. Pt requested pain medicine, due to low BP could only give tylenol. Resituated, applied heat as needed for comfort. Pt has rested intermittently. Pt refused to wear any monitoring device. Uses urinal. Remains on baseline 2L NC, O2 sat >90%. 3+ pitting edema to BLE, trace edema to BUE. Lung sounds diminished.
--- NOTE | 2023-10-08 07:58 | HMH.PHAINT1 ---
Pharmacy Intervention Comments: MEDICATION RECONCILIATION COMPLETED ON PATIENT USING EXTERNAL FILL HISTORY FROM PHARMACY AND DISCHARGE SUMMARY FROM PREVIOUS ADMISSION. -FEI COWAN, NIXOND
--- NOTE | 2023-10-08 08:05 | HMH.ITSTN ---
PATIENTS BLOOD PRESSURE IS NOT STABLE ENOUGH TO COME DOWN AT THIS TIME
[2023-10-08] MEDS: ACETAMINOPHEN 325MG TAB 650 MG PO ×3 (08:49→20:55)
[2023-10-08] MEDS: FLUTICASONE/UMECLIDIN/VILANTER 100/62.5/25MCG INHALER 1 PUFF IH (08:52)
[2023-10-08] MEDS: TAMSULOSIN 0.4MG CAPSULE 0.400000000000000022 MG PO ×2 (08:53→20:56)
[2023-10-08] MEDS: FINASTERIDE 5MG TABLET 5 MG PO (08:53)
[2023-10-08] MEDS: ENOXAPARIN 40MG/0.4ML SYRINGE 40 MG SQ (08:53)
[2023-10-08] MEDS: POTASSIUM CHLORIDE 20MEQ TAB 20 MEQ PO ×2 (08:53→20:55)
[2023-10-08] MEDS: OXYBUTYNIN 5MG TAB 5 MG PO ×2 (08:53→20:55)
[2023-10-08] MEDS: PANTOPRAZOLE 40MG TABLET 40 MG PO (08:53)
[2023-10-08 09:31] LABS: Chloride 101 mmol/L (98-107); Potassium 4.2 mmoL/L (3.5-5.1); Sodium 131 mmol/L (136-145)
[2023-10-08 09:33] LABS: Blood Urea Nitrogen 26 mg/dl (9-20); Creatinine Clearance Estimated 70 mL/min (50-200); Estimated Glomerular Filt Rate 50 ml/min (>60); GFR (African American) 60 ML/MIN (>60)
[2023-10-08 09:34] LABS: Alanine Aminotransferase 56 U/L (12-78); Albumin Level 3.6 g/dl (3.5-5.0); Albumin/Globulin Ratio 1.2 (1.1-1.8); Alkaline Phosphatase 144 U/L (38-126); Anion Gap 8.2 mEq/L (5-15); Aspartate Amino Transferase 62 U/L (17-59); Bilirubin,Total 0.7 mg/dl (0.2-1.3); Calcium 8.6 mg/dl (8.4-10.2); Carbon Dioxide 26 mmol/L (22.0-30.0); Globulin 2.9 g/dL (1.3-3.2); Glucose 91 mg/dl (74-100); Magnesium 2.2 mg/dl (1.6-2.3); Total Protein,Serum 6.5 g/dl (6.3-8.2)
--- NOTE | 2023-10-08 10:14 | P.CONS_ITS ---
History of Present Illness History of present illness: Mr. Hopper is a 72-year-old male history of COPD, CHF lung nodule lymphadenopathy presented to the hospital with worsening respiratory distress. [facility] Disclaimer: The information contained in this section may have been updated after the patient was seen, as this information can be updated by other users. Medical History (Updated 10/08/23 @ 16:15 by Savannah Huang MD) Abnormal electrocardiogram [ECG] [EKG] Acute and chronic respiratory failure with hypoxia Acute and chronic respiratory failure with hypoxia Acute exacerbation of chronic obstructive pulmonary disease Acute exacerbation of chronic obstructive pulmonary disease (COPD) Anxiety Atypical angina BPH (benign prostatic hyperplasia) CAD in [place] artery Cardiomyopathy Cellulitis of right lower leg CHF exacerbation Chronic respiratory failure with hypoxia Congestive heart failure COPD (chronic obstructive pulmonary disease) with acute bronchitis COPD mixed type Essential hypertension Heart failure HFrEF (heart failure with reduced ejection fraction) Hyperlipidemia Lesion of right lung Lung nodule Neck pain Obesity (BMI 30-39.9) Obesity (BMI 30.0-34.9) Pleural effusion on right Pneumonia Prostate enlargement Respiratory failure Shortness of Breath SOB (shortness of breath) on exertion Supplemental oxygen dependent Tachycardia Tobacco abuse Volume overload Family History Other No significant family history Social History Smoking Status: Former smoker tobacco type: cigarettes packs per day: 1 alcohol intake: never substance use type: denies use current occupational status: disabled Travel in the last 8 weeks: None household members: spouse housing: apartment caffeine: Yes Review of Systems Constitutional Constitutional: Reports fatigue and Reports weakness Eyes Eyes: Denies itchy eyes and Denies loss of vision ENT Ears, Nose, Mouth, and Throat: Denies lip swelling, Denies throat swelling and Denies vertigo *Cardiovascular Cardiovascular: Reports dyspnea, Reports dyspnea on exertion, Reports leg edema and Denies syncope *Respiratory Respiratory: Reports chest congestion, Reports cough, Reports dyspnea, Reports dyspnea on exertion, Denies excessive phlegm production and Denies wheezing *Gastrointestinal Gastrointestinal: Denies abdominal pain, Denies belching and Denies cramping *Musculoskeletal Musculoskeletal: Reports tingling *Neurologic Neurologic: Denies loss of vision, Denies syncope, Reports tingling, Denies ve rtigo and Reports weakness Psychiatric Psychiatric: Denies homicidal ideation and Denies suicidal ideation Endocrine Endocrine: Reports fatigue and Denies heat intolerance Hematologic/Lymphatic Hematologic/Lymphatic: Denies easy bleeding and Denies lymphadenopathy Allergic/Immunologic Allergic/Immunologic: Denies itchy eyes, Denies lip swelling, Denies throat swelling and Denies wheezing Pulmonology Exam Inpatient Vital signs and Labs for Last 24 Hours: Temp Pulse Resp BP Pulse Ox O2 Del Method O2 Flow Rate 97.8 F 107 H 25 H 89/53 L 95 Nasal Cannula 1.5 10/08/23 08:00 10/08/23 08:00 10/08/23 08:00 10/08/23 08:00 10/08/23 08:00 10/08/23 08:00 10/08/23 08:00 Laboratory Results - last 24 hr 10/07/23 20:37: WBC 9.2, RBC 4.34 L, Hgb 13.6 L, Hct 39.5 L, MCV 91.1, MCH 31.3 H, MCHC 34.4, RDW 12.4, Plt Count 241, MPV 9.0, Neut % (Auto) 81.1 H, Lymph % (Auto) 11.8, [place] % (Auto) 5.4, Eos % (Auto) 1.5, Baso % (Auto) 0.3, Neut # (Auto) 7.5, Lymph # (Auto) 1.1, [place] # (Auto) 0.5, Eos # (Auto) 0.1, Baso # (Auto) 0.0, Sodium 133 L, Potassium 4.4, Chloride 99, Carbon Dioxide 28, Anion Gap 10.4, BUN 25 H, Creatinine 1.30 H, Estimated Creat Clear 75, Estimated GFR 54 L, Est GFR ( Amer) 66, Glucose 104 H, Calcium 8.9, Total Bilirubin 0.7, AST 70 H, ALT 60, Alkaline Phosphatase 165 H, Troponin I < 0.01, NT-Pro-B Natriuret Pep 977 H, Total Protein 7.0, Albumin 3.9, Globulin 3.1, Albumin/Globulin Ratio 1.3 10/07/23 23:45: Troponin I < 0.01 10/08/23 02:30: Troponin I < 0.01 10/08/23 05:56: WBC 8.5, RBC 4.22 L, Hgb 13.0 L, Hct 37.0 L, MCV 87.8, MCH 30.8, MCHC 35.0, RDW 12.5, Plt Count 207, MPV 8.7, Neut % (Auto) 80.3 H, Lymph % (Auto) 13.8, [place] % (Auto) 4.7, Eos % (Auto) 0.9, Baso % (Auto) 0.3, Neut # (Auto) 6.8, Lymph # (Auto) 1.2, [place] # (Auto) 0.4, Eos # (Auto) 0.1, Baso # (Auto) 0.0 I & O for Labs for Last 24 Hours: Intake & Output 10/05/23 10/06/23 10/07/23 10/08/23 23:59 23:59 23:59 23:59 Intake Total 240 / 240 250 / 250 Output Total 500 / 500 1125 / 1125 Balance -260 / -260 -875 / -875 Weight 225 lb 225 lb 0.06 oz Constitutional: Present moderate distress Head: Present normocephalic and atraumatic ENT: Present normal exam, normal oropharynx and mucous membranes moist Neck: Present normal inspection and full ROM Respiratory: Present respiratory distress, crackles and able to speak in complete sentences; Absent prolonged expiratory phase, wheezes or diminished air movement Cardiac: Present S1/S2, Tachycardia and radial pulses present GI: Present soft and distention; Absent tenderness or guarding Skin: Present intact; Absent cyanosis or jaundice Neuro: Present alert, awake and oriented x 3 Extremities: Present normal inspection and edema; Absent clubbing or cyanosis Psychiatric: Present normal affect and cooperative Meds Home Medications and Allergies Home Medications Medication Instructions Recorded Confirmed Type tamsulosin 0.4 mg capsule 0.4 mg PO BID 09/20/17 10/08/23 History finasteride 5 mg tablet 5 mg PO DAILY 09/07/21 10/08/23 History albuterol sulfate 90 mcg/actuation 2 puff inhalation Q6HP PRN 05/19/23 10/08/23 History aerosol inhaler Shortness Of Breath oxybutynin chloride 10 mg 10 mg PO DAILY 05/19/23 10/08/23 History tablet,extended release 24 hr sacubitril 24 mg-valsartan 26 mg 0.5 tab PO BID 05/19/23 10/08/23 History tablet (Entresto) budesonide 0.5 mg/2 mL suspension 0.5 mg inhalation BIDP PRN 09/06/23 10/08/23 History for nebulization Shortness Of Breath Or Wheezing lorazepam 0.5 mg tablet 0.5 mg PO BIDP PRN Anxiety 09/06/23 10/08/23 History empagliflozin 10 mg tablet 10 mg PO DAILY 30 days #30 tabs 09/07/23 10/08/23 Rx (Jardiance) fluticasone fur. 100 mcg-umeclid 1 inh inhalation DAILY 30 days #1 09/07/23 10/08/23 Rx 62.5 mcg-vilant 25 mcg ea inhalat.powder (Trelegy Ellipta) spironolactone 25 mg tablet 25 mg PO DAILY 30 days #30 tabs 24 10/08/23 Rx bumetanide 2 mg tablet 2 mg PO BIDL 30 days #60 tabs 09/22/23 10/08/23 Rx metoprolol tartrate 25 mg tablet 12.5 mg PO BID 30 days #30 tabs 09/22/23 10/08/23 Rx potassium chloride 20 mEq 20 meq PO BID 30 days #60 tabs 09/22/23 10/08/23 Rx tablet,extended release(part/cryst) (Kerri Allen) New Prescriptions to Start Prescriptions: Allergies Allergy/AdvReac Type Severity Reaction Status Date / Time ceftriaxone [From Rocephin] Allergy Severe Hives Verified 05/18/23 23:28 pregabalin [From LYRICA] Allergy Unknown Verified 05/18/23 20:52 Results Laboratory Findings 10/08/23 05:56 10/08/23 05:56 Abnormal lab findings: Abnormal Labs 10/07/23 10/08/23 20:37 05:56 RBC 4.34 L 4.22 L Hgb 13.6 L 13.0 L Hct 39.5 L 37.0 L MCH 31.3 H Neut % (Auto) 81.1 H 80.3 H Sodium 133 L BUN 25 H Creatinine 1.30 H Estimated GFR 54 L Glucose 104 H AST 70 H Alkaline Phosphatase 165 H NT-Pro-B Natriuret Pep 977 H Assessment and Plan *Assessment and plan (1) COPD mixed type: Status: Chronic Category: Medical Code(s): J44.9 - Chronic obstructive pulmonary disease, unspecified (2) SOB (shortness of breath) on exertion: Status: Acute Category: Medical Code(s): R06.02 - Shortness of breath (3) Pleural effusion on right: Status: Acute Category: Medical Code(s): J90 - Pleural effusion, not elsewhere classified (4) Chronic respiratory failure with hypoxia: Status: Acute Category: Medical Code(s): J96.11 - Chronic respiratory failure with hypoxia (5) Lung nodule: Status: Acute Category: Medical Code(s): R91.1 - Solitary pulmonary nodule (6) Adenopathy, hilar: Status: Resolved Category: Medical Code(s): R59.0 - Localized enlarged lymph nodes (7) Mediastinal adenopathy: Status: Acute Category: Medical Code(s): R59.0 - Localized enlarged lymph nodes Plan Mr. Holcomb is a 72-year-old male history of COPD, CHF rEF 15% - 20%, pulmonary nodules and worsening lymphadenopathy recently seen in the hospital for heart failure exacerbation presented for worsening respiratory and found to be having right pleural effusion and pulmonary was called for further evaluation and management. Patient today complains of worsening respiratory distress but denies any worsening cough or any productive phlegm. Admits minimal wheezing. The noted effusion is new on her chest x-ray from his most recent hospital admission on 09/19/2023. Chest x-ray on this admission relatively stable compared to that x-ray. No effusion present on his hospital admission from 09/05/2023. No other dense consolidation or airspace disease noted on his x-ray from this admission. Afebrile. No evidence of leukocytosis. On examination patient does not appear to be in any respiratory distress. On 2 L nasal cannula saturating 97%. Weaned to 1 L patient is not happy with weaning his oxygen despite his saturations were at 97%. Reiterated and reassured. Patient still have not underwent his CT-guided biopsy. Will try to reschedule that. Plan: -Agree with not initiating antibiotics from pulmonary standpoint patient -Continue Trelegy 100 inhaler along with DuoNebs every 6 hours on as-needed basis -Continue oxygen supplementation only as needed to maintain O2 saturations goal of 90% above -Icentve spirometry out of bed to chair, PT OT. # Will schedule outpatient CT-guided biopsy for the noted lung nodule. Will hold off on performing thoracentesis at this point of time as patient on baseline respiratory status and baseline oxygen requirements.
[2023-10-08] MEDS: ONDANSETRON 4MG/2ML VIAL 4 MG IV (10:40)
--- NOTE | 2023-10-08 12:50 | HMH.ITSTN ---
PATIENT STILL HYPOTENSIVE AND UNABLE TO COME DOWN AT THIS TIME. NURSING WILL CALL WHEN HES READY TO COME DOWN.
[2023-10-08] MEDS: ALUMINUM/MAGNESIUM/SIMETHICONE 30ML UDC 30 ML PO (14:27)
[2023-10-08] MEDS: NYSTATIN SUSP 500,000 UNITS/5ML UDC 500000 UNIT PO ×3 (14:28→20:55)
[2023-10-08] MEDS: BUMETANIDE 1MG/4ML VIAL 2 MG IV (14:29)
--- NOTE | 2023-10-08 15:00 | P.PN_ITS ---
Subjective *Date: 10/08/23 *Time: 18:29 Interval history: Complaining of generalized fatigue, dyspnea, weakness. Did not sleep very well last night. On 2 L nasal cannula today. Afebrile. Denies any chest pain. Swelling still prominent legs. Tolerating p.o. intake. Having heartburn. Medical Exam Vital signs and Labs for Last 24 Hours: Vital Signs Temp Pulse Pulse Resp BP BP Pulse Ox 10/08/23 11:59 97.2 F L 106 H 25 H 82/46 L 95 10/08/23 08:00 97.8 F 107 H 25 H 89/53 L 95 10/07/23 23:45 10/08/23 06:45 10/08/23 04:00 97.5 F L 104 H 17 72/41 L 93 L 10/08/23 05:00 10/08/23 03:55 72/41 L 10/08/23 03:20 67/36 L 10/08/23 04:00 74/46 L 10/08/23 02:50 67/38 L 10/08/23 02:45 66/29 L 10/08/23 03:00 10/08/23 00:51 10/07/23 23:12 98.1 F 106 H 24 96/52 L 10/07/23 23:00 95 H 22 77/41 L 93 L 10/07/23 22:20 101 H 22 90/52 L 96 10/07/23 21:45 107 H 24 100/60 L 95 10/07/23 21:01 77 105/62 L 94 L 10/07/23 20:31 100 H 101/52 L 93 L 10/07/23 20:13 98.5 F 112 H 35 H 155/95 H 92 L O2 Del Method O2 Flow Rate 10/08/23 11:59 Nasal Cannula 1 10/08/23 08:00 Nasal Cannula 1.5 10/07/23 23:45 Nasal Cannula 2 10/08/23 06:45 Nasal Cannula 2 10/08/23 04:00 Nasal Cannula 10/08/23 05:00 Nasal Cannula 2 10/08/23 03:55 10/08/23 03:20 10/08/23 04:00 10/08/23 02:50 10/08/23 02:45 10/08/23 03:00 Nasal Cannula 2 10/08/23 00:51 Nasal Cannula 2 10/07/23 23:12 Nasal Cannula 2 10/07/23 23:00 Nasal Cannula 2 10/07/23 22:20 Nasal Cannula 3 10/07/23 21:45 Nasal Cannula 2 10/07/23 21:01 Nasal Cannula 2 10/07/23 20:31 10/07/23 20:13 Nasal Cannula 2 Intake and Output 10/07/23 10/08/23 10/08/23 23:59 07:59 15:59 Intake Total 240 / 240 520 / 520 Output Total 500 / 500 1000 / 1225 225 / 1225 Balance -260 / -260 -1000 / -705 295 / -705 Intake: Intake, Oral Amount 240 / 240 520 / 520 Output: Output, Urine Amount 500 / 500 1000 / 1225 225 / 1225 Other: Number of Unmeasured Voids 0 0 Weight 102.058 kg 102.06 kg Patient Weight 10/08/23 23:59 Weight 102.06 kg Laboratory Results - last 24 hr 10/07/23 20:37: WBC 9.2, RBC 4.34 L, Hgb 13.6 L, Hct 39.5 L, MCV 91.1, MCH 31.3 H, MCHC 34.4, RDW 12.4, Plt Count 241, MPV 9.0, Neut % (Auto) 81.1 H, Lymph % (Auto) 11.8, [place] % (Auto) 5.4, Eos % (Auto) 1.5, Baso % (Auto) 0.3, Neut # (Auto) 7.5, Lymph # (Auto) 1.1, [place] # (Auto) 0.5, Eos # (Auto) 0.1, Baso # (Auto) 0.0, Sodium 133 L, Potassium 4.4, Chloride 99, Carbon Dioxide 28, Anion Gap 10.4, BUN 25 H, Creatinine 1.30 H, Estimated Creat Clear 75, Estimated GFR 54 L, Est GFR ( Amer) 66, Glucose 104 H, Calcium 8.9, Total Bilirubin 0.7, AST 70 H, ALT 60, Alkaline Phosphatase 165 H, Troponin I < 0.01, NT-Pro-B Natriuret Pep 977 H, Total Protein 7.0, Albumin 3.9, Globulin 3.1, Albumin/Globulin Ratio 1.3 10/07/23 23:45: Troponin I < 0.01 10/08/23 02:30: Troponin I < 0.01 10/08/23 05:56: WBC 8.5, RBC 4.22 L, Hgb 13.0 L, Hct 37.0 L, MCV 87.8, MCH 30.8, MCHC 35.0, RDW 12.5, Plt Count 207, MPV 8.7, Neut % (Auto) 80.3 H, Lymph % (Auto) 13.8, [place] % (Auto) 4.7, Eos % (Auto) 0.9, Baso % (Auto) 0.3, Neut # (Auto) 6.8, Lymph # (Auto) 1.2, [place] # (Auto) 0.4, Eos # (Auto) 0.1, Baso # (Auto) 0.0, Sodium 131 L, Potassium 4.2, Chloride 101, Carbon Dioxide 26, Anion Gap 8.2, BUN 26 H, Creatinine 1.40 H, Estimated Creat Clear 70, Estimated GFR 50 L, Est GFR ( Amer) 60, Glucose 91, Calcium 8.6, Magnesium 2.2, Total Bilirubin 0.7, AST 62 H, ALT 56, Alkaline Phosphatase 144 H, Total Protein 6.5, Albumin 3.6, Globulin 2.9, Albumin/Globulin Ratio 1.2 I & O for Labs for Last 24 Hours: Intake & Output 10/05/23 10/06/23 10/07/23 10/08/23 23:59 23:59 23:59 23:59 Intake Total 240 / 240 520 / 520 Output Total 500 / 500 1225 / 1225 Balance -260 / -260 -705 / -705 Weight 102.058 kg 102.06 kg Constitutional: Present mild distress, obese and chronically ill appearing Head: Present atraumatic and normocephalic Neck: Present normal inspection Respiratory: Present accessory muscle use, prolonged expiratory phase, crackles and diminished air movement; Absent rhonchi or wheezes Cardiac: Present Tachycardia GI: Present soft and normal bowel sounds; Absent distention or tenderness Extremities: Present normal inspection, full ROM and edema (3+ bilaterally. Though improved from previous admission, wrinkling of skin) Skin: Present intact; Absent erythema Neuro: Present Grossly Intact, alert, awake, oriented x 3 and moves all extremities Assessment and Plan *Assessment and plan (1) Pleural effusion: Status: Acute Category: Medical Code(s): J90 - Pleural effusion, not elsewhere classified (2) Acute on chronic HFrEF (heart failure with reduced ejection fraction): Status: Acute Category: Medical Code(s): I50.23 - Acute on chronic systolic (congestive) heart failure (3) Dyspnea: Status: Acute Qualifiers: Dyspnea type: shortness of breath Qualified Code(s): R06.02 - Shortness of breath Category: Medical Code(s): R06.00 - Dyspnea, unspecified (4) Hypotension: Status: Acute Qualifiers: Hypotension type: unspecified hypotension type Qualified Code(s): I95.9 - Hypotension, unspecified Category: Medical Code(s): I95.9 - Hypotension, unspecified (5) Chronic hyponatremia: Status: Acute Category: Medical Code(s): E87.1 - Hypo-osmolality and hyponatremia (6) COPD mixed type: Status: Chronic Category: Medical Code(s): J44.9 - Chronic obstructive pulmonary disease, unspecified (7) BPH (benign prostatic hyperplasia): Status: Chronic Qualifiers: Lower urinary tract symptom presence: symptoms absent Qualified Code(s): N40.0 - Benign prostatic hyperplasia without lower urinary tract symptoms Category: Medical Code(s): N40.0 - Benign prostatic hyperplasia without lower urinary tract symptoms (8) Tobacco abuse: Status: Chronic Category: Medical Code(s): Z72.0 - Tobacco use (9) Obesity (BMI 30-39.9): Status: Chronic Category: Medical Code(s): E66.9 - Obesity, unspecified Plan 72-year-old male obese with comorbidities including of end-stage heart failure, COPD who recently was discharged. Patient bounced back to the ED for worsened shortness of breath. Patient has an ejection fraction of approximately 15%, and has been admitted multiples time. On arrival patient presented tachypnic, on the rates of 25-30. per ER. Work up are about the same on last admission. little increase on his creatinine. remains on 2L. Diuresis initiated 20mg on bumex IV. became hypotensive after. CXR showed worsened right pleural effusion. Discussed with ER about findings and needs of readmission. Due to patient instability and risk of deterioration , including , we agreed for supervised diuresis and management. Pulmonary and cardiology assisting with care. Plan as follows: -Worsening right pleural effusion seen in the end stage heart failure. NYHA class IV -Acute on chronic systolic heart failure with a EF of 15 to 20% Continue diuresis with Bumex 2 mg twice daily. Cardiology consulted and discussed AICD placement with patient. States again that he will consider device. Has been contemplating placement of AICD for at least 6 months with refusal in the past. Severe heart failure with a EF of 15 to 20%. Concerned that patient does not have good understanding of his progressive diseases with NYHA class IV heart failure, emphysema, and chronic kidney disease. Very poor insight to his medical conditions. Acute on chronic hypoxemic respiratory failure COPD exacerbation Pulmonology consulted, appreciate their recommendations. Will continue to hold on antibiotics at this point. No signs of infection with normal white cell count of 8.5. Continue Trelegy 100 inhaler and DuoNebs. Increase to every 4 hours scheduled. Continue supplemental oxygen for goal sats greater 90%. Currently on 2 L. Pulmonology and cardiology assisting Chronic hyponatremia secondary to above repeat CBC, CMP, magnesium ordered for the morning; EMY: Creatinine 1.4 this morning. Patient diuresing well. Will continue to diuresis given patient's volume overload and heart failure with effusions. Allow for permissive bump in creatinine as long as he continues to have good urine output. Nicotine patch for tobacco dependence Obesity with comorbidity. Associated with fluid overload Daily weight Lovenox for DVT prophylaxis. On Protonix Patient would like to remain full code. Discussion at length about options of treatments, versus hospice and palliative care. Patient will like to consider.
--- NOTE | 2023-10-08 15:23 | P.CONCA_ITS ---
History of Present Illness History of Present Illness Consult date: 10/08/23 Requesting physician: Kyler Lovell Consult reason: shortness of breath Chief complaint: soa and LE edema History of present illness: 72-year-old white male with past medical history of nonischemic cardiomyopathy with an ejection fraction of 15 to 20% presented to emergency department with complaints of worsening shortness of breath and lower extremity edema. Of note patient was recently hospitalized for heart failure exacerbation and was diuresed to baseline oxygen requirement prior to discharge home. Patient reports over the last 4 days he has had decreased urine output, lower extremity edema and worsening shortness of breath despite taking medications. Patient underwent a left heart catheterization in May 2023 which was medical management only and since has been treated for nonischemic cardiomyopathy. Echo from August 2023 shows an estimated EF of 15 to 20% with a dilated right ventricle with mild decreased function. Previously patient has has refused an AICD as well as bronchoscopy during admissions. Patient states he is now considering an AICD.. Chest x-ray on arrival shows a right-sided pleural effusion. Patient was given an initial dose of Bumex 2 mg IV x 1 last night and has diuresed over 1 L. Home medications are currently on hold due to hypotension. [facility] Disclaimer: The information contained in this section may have been updated after the patient was seen, as this information can be updated by other users. Medical History (Updated 10/08/23 @ 05:02 by Joni DeA nda APRN) Abnormal electrocardiogram [ECG] [EKG] Acute and chronic respiratory failure with hypoxia Acute and chronic respiratory failure with hypoxia Acute exacerbation of chronic obstructive pulmonary disease Acute exacerbation of chronic obstructive pulmonary disease (COPD) Anxiety Atypical angina BPH (benign prostatic hyperplasia) CAD in [place] artery Cardiomyopathy Cellulitis of right lower leg CHF exacerbation Congestive heart failure COPD (chronic obstructive pulmonary disease) with acute bronchitis COPD mixed type Essential hypertension Heart failure HFrEF (heart failure with reduced ejection fraction) Hyperlipidemia Lesion of right lung Lung nodule Mediastinal adenopathy Neck pain Obesity (BMI 30-39.9) Obesity (BMI 30.0-34.9) Pneumonia Prostate enlargement Respiratory failure Shortness of Breath SOB (shortness of breath) on exertion Supplemental oxygen dependent Tachycardia Tobacco abuse Volume overload Family History Other No significant family history Social History (Reviewed 10/08/23 @ 00:46 by LANI Cristina Smoking Status: Former smoker tobacco type: cigarettes packs per day: 1 alcohol intake: never substance use type: denies use current occupational status: disabled Travel in the last 8 weeks: None household members: spouse housing: apartment caffeine: Yes Review of Systems Review of Systems Review of systems:: pertinent systems reviewed and negative unless documented below *Cardiovascular Cardiovascular: Reports dyspnea *Respiratory Respiratory: Reports dyspnea *Musculoskeletal Comments: Bilateral lower extremity edema Exam Data for Last 24 hours Vital signs and Labs for Last 24 Hours: Temp Pulse Resp BP Pulse Ox O2 Del Method O2 Flow Rate 97.2 F L 106 H 25 H 82/46 L 95 Nasal Cannula 1 10/08/23 11:59 10/08/23 11:59 10/08/23 11:59 10/08/23 11:59 10/08/23 11:59 10/08/23 11:59 10/08/23 11:59 Laboratory Results - last 24 hr 10/07/23 20:37: WBC 9.2, RBC 4.34 L, Hgb 13.6 L, Hct 39.5 L, MCV 91.1, MCH 31.3 H, MCHC 34.4, RDW 12.4, Plt Count 241, MPV 9.0, Neut % (Auto) 81.1 H, Lymph % (Auto) 11.8, [place] % (Auto) 5.4, Eos % (Auto) 1.5, Baso % (Auto) 0.3, Neut # (Auto) 7.5, Lymph # (Auto) 1.1, [place] # (Auto) 0.5, Eos # (Auto) 0.1, Baso # (Auto) 0.0, Sodium 133 L, Potassium 4.4, Chloride 99, Carbon Dioxide 28, Anion Gap 10.4, BUN 25 H, Creatinine 1.30 H, Estimated Creat Clear 75, Estimated GFR 54 L, Est GFR ( Amer) 66, Glucose 104 H, Calcium 8.9, Total Bilirubin 0.7, AST 70 H, ALT 60, Alkaline Phosphatase 165 H, Troponin I < 0.01, NT-Pro-B Natriuret Pep 977 H, Total Protein 7.0, Albumin 3.9, Globulin 3.1, Albumin/Globulin Ratio 1.3 10/07/23 23:45: Troponin I < 0.01 02/12/24 02:30: Troponin I < 0.01 10/08/23 05:56: WBC 8.5, RBC 4.22 L, Hgb 13.0 L, Hct 37.0 L, MCV 87.8, MCH 30.8, MCHC 35.0, RDW 12.5, Plt Count 207, MPV 8.7, Neut % (Auto) 80.3 H, Lymph % (Auto) 13.8, [place] % (Auto) 4.7, Eos % (Auto) 0.9, Baso % (Auto) 0.3, Neut # (Auto) 6.8, Lymph # (Auto) 1.2, [place] # (Auto) 0.4, Eos # (Auto) 0.1, Baso # (Auto) 0.0, Sodium 131 L, Potassium 4.2, Chloride 101, Carbon Dioxide 26, Anion Gap 8.2, BUN 26 H, Creatinine 1.40 H, Estimated Creat Clear 70, Estimated GFR 50 L, Est GFR ( Amer) 60, Glucose 91, Calcium 8.6, Magnesium 2.2, Total Bilirubin 0.7, AST 62 H, ALT 56, Alkaline Phosphatase 144 H, Total Protein 6.5, Albumin 3.6, Globulin 2.9, Albumin/Globulin Ratio 1.2 I & O for Last 24 hours: Intake & Output 10/05/23 10/06/23 10/07/23 10/08/23 23:59 23:59 23:59 23:59 Intake Total 240 / 240 520 / 520 Output Total 500 / 500 1225 / 1225 Balance -260 / -260 -705 / -705 Weight 225 lb 225 lb 0.06 oz Constitutional Constitutional: no acute distress *Routine Respiratory Exam Respiratory: Present CTA bilaterally and symmetric chest movement *Routine Cardiovascular Exam Cardiovascular: Present RRR, Normal S1 and Normal S2 *Routine Abdominal Exam Abdominal: Present soft and normoactive bowel sounds; Absent tenderness *Routine Extremities Exam Extremities: Present edema, full ROM and normal capillary refill *Routine Skin Exam Skin: Present intact, dry and warm Detailed Neck Exam: Thyroids Thyroid: Absent bruit Meds Home Medications and Allergies Home Medications Medication Instructions Recorded Confirmed Type tamsulosin 0.4 mg capsule 0.4 mg PO BID 09/20/17 10/08/23 History finasteride 5 mg tablet 5 mg PO DAILY 09/07/21 10/08/23 History albuterol sulfate 90 mcg/actuation 2 puff inhalation Q6HP PRN 05/19/23 10/08/23 History aerosol inhaler Shortness Of Breath oxybutynin chloride 10 mg 10 mg PO DAILY 05/19/23 10/08/23 History tablet,extended release 24 hr sacubitril 24 mg-valsartan 26 mg 0.5 tab PO BID 05/19/23 10/08/23 History tablet (Entresto) budesonide 0.5 mg/2 mL suspension 0.5 mg inhalation BIDP PRN 09/06/23 10/08/23 History for nebulization Shortness Of Breath Or Wheezing lorazepam 0.5 mg tablet 0.5 mg PO BIDP PRN Anxiety 09/06/23 10/08/23 History empagliflozin 10 mg tablet 10 mg PO DAILY 30 days #30 tabs 09/07/23 10/08/23 Rx (Jardiance) fluticasone fur. 100 mcg-umeclid 1 inh inhalation DAILY 30 days #1 09/07/23 10/08/23 Rx 62.5 mcg-vilant 25 mcg ea inhalat.powder (Trelegy Ellipta) spironolactone 25 mg tablet 25 mg PO DAILY 30 days #30 tabs 09/07/23 10/08/23 Rx bumetanide 2 mg tablet 2 mg PO BIDL 30 days #60 tabs 09/22/23 10/08/23 Rx metoprolol tartrate 25 mg tablet 12.5 mg PO BID 30 days #30 tabs 09/22/23 10/08/23 Rx potassium chloride 20 mEq 20 meq PO BID 30 days #60 tabs 09/22/23 10/08/23 Rx tablet,extended release(part/cryst) (Klor-Con M) New Prescriptions to Start Prescriptions: Allergies Allergy/AdvReac Type Severity Reaction Status Date / Time ceftriaxone [From Rocephin] Allergy Severe Hives Verified 05/18/23 23:28 pregabalin [From LYRICA] Allergy Unknown Verified 05/18/23 20:52 Assessment and Plan *Assessment and plan (1) Hypotension: Status: Acute Qualifiers: Hypotension type: unspecified hypotension type Qualified Code(s): I95.9 - Hypotension, unspecified Category: Medical Code(s): I95.9 - Hypotension, unspecified (2) Acute respiratory distress: Status: Acute Category: Medical Code(s): R06.03 - Acute respiratory distress (3) Pleural effusion: Status: Acute Category: Medical Code(s): J90 - Pleural effusion, not elsewhere classified (4) Acute on chronic HFrEF (heart failure with reduced ejection fraction): Status: Acute Category: Medical Code(s): I50.23 - Acute on chronic systolic (congestive) heart failure (5) Tobacco abuse: Status: Chronic Category: Medical Code(s): Z72.0 - Tobacco use Plan Acute on chronic HFrEF of 15-20% Nonischemic cardiomyopathy Volume overload Right-sided pleural effusion -Medical management heart cath 05/2023 -EF of 15 to 20% noted on echocardiogram from August 2023. Patient previously refused AICD -Questionable medication adherence -Blood pressure currently too low for Entresto or beta-titi, both on hold. Will hold Aldactone and Jardiance until after diuresis -Continue diuresis with Bumex 2 mg IV twice daily -Dr Rowland discussed risk versus benefits of AICD placement with patient. Patient will consider placement once has been fully diuresed. Hypotension -Patient remains hypotensive at this point. Per Dr. Rowland will continue with diuresis as above. -Will repeat lactic and liver enzymes this afternoon to monitor for cardiogenic shock. EMY -Creatinine up to 1.4, baseline 1.9-1.1 -Continue to monitor 10/08/2023: Will continue to diurese patient with Bumex 2 mg IV twice daily. Once patient has been diuresed we will consider placement of AICD for nonisch emic cardiomyopathy with an ejection fraction of 15 to 20%.
[2023-10-08 15:48] LABS: Alanine Aminotransferase 63 U/L (12-78); Alkaline Phosphatase 152 U/L (38-126); Aspartate Amino Transferase 69 U/L (17-59); Bilirubin,Direct 0.1 mg/dl (0.0-0.4); Bilirubin,Indirect 0.8 mg/dL (0.0-0.9); Bilirubin,Total 0.9 mg/dl (0.2-1.3); Bilirubin,Unconjugated 0.7 mg/dL (0.0-1.1); Lactic Acid 1.4 mmol/L (0.7-2.1)
[2023-10-08 15:49] LABS: Albumin Level 3.9 g/dl (3.5-5.0); Total Protein,Serum 6.9 g/dl (6.3-8.2)
--- NOTE | 2023-10-08 16:02 | HMH.ITSTN ---
RN CALLED AND SAID PT WAS READY FOR CT, BUT PT THEN STATED HE COULDNT LAY FLAT AT THIS TIME. WILL CALL BACK LATER
[2023-10-08] MEDS: BELLADONNA ALKALOIDS 60 ML ML PO (18:31)
[2023-10-08] MEDS: IPRATROPIUM/ALBUTEROL 3 ML NEB IH ×2 (18:44→21:17)
--- NOTE | 2023-10-08 20:24 | PC.NURSE ---
called ICU at 8:23 pm and nurse said patient will not lay flat and will refuse , patients blood pressure still not good and said they will wait until 10-09-23 and try again when more people are here for transport.
[2023-10-09] VITALS (7 sets, daily range): BP systolic 92–116; BP diastolic 40–51; PULSE 90–116; RESP 17–18; TEMP 36.4–37; O2SAT 1–94; BMI 34.1
[2023-10-09] MEDS: ACETAMINOPHEN 325MG TAB 650 MG PO ×3 (00:34→23:03)
[2023-10-09] MEDS: NAPROXEN 500MG TABLET 250 MG PO ×2 (00:55→13:49)
[2023-10-09] MEDS: ONDANSETRON 4MG/2ML VIAL 4 MG IV (01:37)
[2023-10-09] MEDS: ALUMINUM/MAGNESIUM/SIMETHICONE 30ML UDC 30 ML PO ×3 (02:48→18:53)
--- NOTE | 2023-10-09 04:45 | PC.NURSE ---
Pt has not rested through the night. Pt has complained of pain several times this shift, treated per oct as allowed. Pt has complained of nausea, treated per oct. Pt has complained of dyspepsia, treated per oct. Pt has sit on the side of the bed most of the night. Pt is on 1L NC, O2 sat 90%. Lung sounds diminished. Bowel sounds active. 3+ pitting edema to BLE. Call light in reach.
[2023-10-09] MEDS: FLUTICASONE/UMECLIDIN/VILANTER 100/62.5/25MCG INHALER 1 PUFF IH (06:19)
[2023-10-09] MEDS: BUDESONIDE 0.5MG/2ML NEB 0.5 MG IH (06:19)
[2023-10-09] MEDS: IPRATROPIUM/ALBUTEROL 3 ML NEB IH (06:19)
[2023-10-09 06:51] LABS: Basophils % 0.2 % (0.1-2.0); Eosinophils % 0.5 % (0.1-12.0); Hematocrit 38.2 % (42.0-52.0); Hemoglobin 13.4 g/dL (14.1-18.0); Lymphocytes # 0.9 K/mm3 (0.7-4.5); Lymphocytes % 10.7 % (10-50); Mean Corpuscular Volume 88.6 fl (80-94); Monocytes # 0.5 K/mm3 (0.1-1.0); Monocytes % 5.8 % (1.7-9.3); Neutrophils # 7.2 K/mm3 (1.8-7.8); Neutrophils % 82.8 % (37.0-80.0); Platelet Count 228 K/mm3 (142-424); Red Blood Count 4.31 M/mm3 (4.60-6.20); Red Cell Distribution Width 12.3 % (11.5-17.5); White Blood Count 8.7 K/mm3 (4.8-10.8)
[2023-10-09 06:55] LABS: Chloride 100 mmol/L (98-107); Potassium 4.9 mmoL/L (3.5-5.1); Sodium 132 mmol/L (136-145)
[2023-10-09 06:57] LABS: Alanine Aminotransferase 60 U/L (12-78); Aspartate Amino Transferase 68 U/L (17-59); Blood Urea Nitrogen 34 mg/dl (9-20); Creatinine Clearance Estimated 47 mL/min (50-200); Estimated Glomerular Filt Rate 31 ml/min (>60); GFR (African American) 38 ML/MIN (>60)
[2023-10-09 06:58] LABS: Albumin Level 3.9 g/dl (3.5-5.0); Albumin/Globulin Ratio 1.3 (1.1-1.8); Alkaline Phosphatase 151 U/L (38-126); Anion Gap 10.9 mEq/L (5-15); Bilirubin,Total 0.9 mg/dl (0.2-1.3); Calcium 9.1 mg/dl (8.4-10.2); Carbon Dioxide 26 mmol/L (22.0-30.0); Glucose 95 mg/dl (74-100); Magnesium 2.4 mg/dl (1.6-2.3); Total Protein,Serum 6.9 g/dl (6.3-8.2)
[2023-10-09] MEDS: CALCIUM CARBONATE 500MG CHEWTAB 1000 MG PO ×2 (07:41→21:07)
[2023-10-09] MEDS: POTASSIUM CHLORIDE 20MEQ TAB 20 MEQ PO ×2 (08:12→21:06)
[2023-10-09] MEDS: TAMSULOSIN 0.4MG CAPSULE 0.400000000000000022 MG PO ×2 (08:12→21:06)
[2023-10-09] MEDS: OXYBUTYNIN 5MG TAB 5 MG PO ×2 (08:12→21:06)
[2023-10-09] MEDS: PANTOPRAZOLE 40MG TABLET 40 MG PO (08:12)
[2023-10-09] MEDS: FINASTERIDE 5MG TABLET 5 MG PO (08:12)
[2023-10-09] MEDS: ENOXAPARIN 40MG/0.4ML SYRINGE 40 MG SQ (08:13)
[2023-10-09] MEDS: NYSTATIN SUSP 500,000 UNITS/5ML UDC 500000 UNIT PO ×4 (08:13→21:06)
[2023-10-09] MEDS: BUMETANIDE 1MG/4ML VIAL 2 MG IV (08:28)
--- NOTE | 2023-10-09 10:08 | EXP.PULM.PN ---
Subjective *Date: 10/09/23 *Time: 11:34 Interval history: No acute respiratory vents overnight. Patient denies any new respiratory complaints. Pulmonology Exam Inpatient Vital signs and Labs for Last 24 Hours: Temp Pulse Resp BP Pulse Ox O2 Del Method O2 Flow Rate 97.6 F 112 H 17 109/50 L 93 L Nasal Cannula 1 10/09/23 08:00 10/09/23 08:00 10/09/23 08:00 10/09/23 08:00 10/09/23 08:00 10/09/23 09:00 10/09/23 09:00 Laboratory Results - last 24 hr 10/08/23 05:56: Sodium 131 L, Potassium 4.2, Chloride 101, Carbon Dioxide 26, Anion Gap 8.2, BUN 26 H, Creatinine 1.40 H, Estimated Creat Clear 70, Estimated GFR 50 L, Est GFR ( Amer) 60, Glucose 91, Calcium 8.6, Magnesium 2.2, Total Bilirubin 0.7, AST 62 H, ALT 56, Alkaline Phosphatase 144 H, Total Protein 6.5, Albumin 3.6, Globulin 2.9, Albumin/Globulin Ratio 1.2 10/08/23 15:15: Lactate 1.4, Total Bilirubin 0.9, Direct Bilirubin 0.1, Conjugated Bilirubin 0.0, Indirect Bilirubin 0.8, Unconjugated Bilirubin 0.7, AST 69 H, ALT 63, Alkaline Phosphatase 152 H, Total Protein 6.9, Albumin 3.9 10/09/23 05:26: WBC 8.7, RBC 4.31 L, Hgb 13.4 L, Hct 38.2 L, MCV 88.6, MCH 31.0, MCHC 35.0, RDW 12.3, Plt Count 228, MPV 9.0, Neut % (Auto) 82.8 H, Lymph % (Auto) 10.7, [place] % (Auto) 5.8, Eos % (Auto) 0.5, Baso % (Auto) 0.2, Neut # (Auto) 7.2, Lymph # (Auto) 0.9, [place] # (Auto) 0.5, Eos # (Auto) 0.0, Baso # (Auto) 0.0, Sodium 132 L, Potassium 4.9, Chloride 100, Carbon Dioxide 26, Anion Gap 10.9, BUN 34 H D, Creatinine 2.10 H D, Estimated Creat Clear 47, Estimated GFR 31 L, Est GFR ( Amer) 38 L D, Glucose 95, Calcium 9.1, Magnesium 2.4 H, Total Bilirubin 0.9, AST 68 H, ALT 60, Alkaline Phosphatase 151 H, Total Protein 6.9, Albumin 3.9, Globulin 3.0, Albumin/Globulin Ratio 1.3 I & O for Labs for Last 24 Hours: Intake & Output 10/06/23 10/07/23 10/08/23 10/09/23 23:59 23:59 23:59 23:59 Intake Total 240 / 240 520 / 1020 500 / 500 Output Total 500 / 500 1924 / 2024 700 / 700 Balance -260 / -260 -1405 / -1005 -200 / -200 Weight 225 lb 225 lb 0.06 oz 225 lb 0.413 oz Constitutional: Present moderate distress Head: Present normocephalic and atraumatic ENT: Present normal exam, normal oropharynx and mucous membranes moist Neck: Present normal inspection and full ROM Respiratory: Present respiratory distress and able to speak in complete sentences; Absent prolonged expiratory phase, wheezes or diminished air movement Cardiac: Present S1/S2, Tachycardia and radial pulses present GI: Present soft and distention; Absent tenderness or guarding Skin: Present intact; Absent cyanosis or jaundice Neuro: Present alert, awake and oriented x 3 Extremities: Present normal inspection and edema; Absent clubbing or cyanosis Psychiatric: Present normal affect and cooperative Assessment and Plan *Assessment and plan (1) COPD mixed type: Status: Chronic Category: Medical Code(s): J44.9 - Chronic obstructive pulmonary disease, unspecified (2) SOB (shortness of breath) on exertion: Status: Acute Category: Medical Code(s): R06.02 - Shortness of breath (3) Pleural effusion on right: Status: Acute Category: Medical Code(s): J90 - Pleural effusion, not elsewhere classified (4) Chronic respiratory failure with hypoxia: Status: Acute Category: Medical Code(s): J96.11 - Chronic respiratory failure with hypoxia (5) Lung nodule: Status: Acute Category: Medical Code(s): R91.1 - Solitary pulmonary nodule (6) Adenopathy, hilar: Status: Resolved Category: Medical Code(s): R59.0 - Localized enlarged lymph nodes (7) Mediastinal adenopathy: Status: Acute Category: Medical Code(s): R59.0 - Localized enlarged lymph nodes Plan Mr. Holcomb is a 72-year-old male history of COPD, CHF rEF 15% - 20%, pulmonary nodules and worsening lymphadenopathy recently seen in the hospital for heart failure exacerbation presented for worsening respiratory and found to be having right pleural effusion and pulmonary was called for further evaluation and management. Patient today complains of worsening respiratory distress but denies any worsening cough or any productive phlegm. Admits minimal wheezing. The noted effusion is new on her chest x-ray from his most recent hospital admission on 09/19/2023. Chest x-ray on this admission relatively stable compared to that x-ray. No effusion present on his hospital admission from 09/05/2023. No other dense consolidation or airspace disease noted on his x-ray from this admission. Afebrile. No evidence of leukocytosis. On initial examination patient does not appear to be in any respiratory distress. On 2 L nasal cannula saturating 97%. Weaned to 1 L patient is not happy with weaning his oxygen despite his saturations were at 97%. Reiterated and reassured. Patient still have not underwent his CT-guided biopsy. Will try to reschedule that. Interval update: No acute respiratory events overnight. Plan: -Agree with not initiating antibiotics from pulmonary standpoint patient -Continue Trelegy 100 inhaler along with DuoNebs every 6 hours on as-needed basis -Continue oxygen supplementation only as needed to maintain O2 saturations goal of 90% above -Icentve spirometry out of bed to chair, PT OT. # Will schedule outpatient CT-guided biopsy for the noted lung nodule. Will hold off on performing thoracentesis at this point of time as patient on baseline respiratory status and baseline oxygen requirements.
--- NOTE | 2023-10-09 11:19 | EXP.CARD.PN ---
Subjective Subjective Date: 10/09/23 Time: 08:00 Principal diagnosis: SOA, right pleural effusion Interval history: vitals stable, oxygen requirements weaned down to 1 L, patient is diuresing. Exam Data for Last 24 hours Vital signs and Labs for Last 24 Hours: Temp Pulse Resp BP Pulse Ox O2 Del Method O2 Flow Rate 97.6 F 112 H 17 109/50 L 93 L Nasal Cannula 1 10/09/23 08:00 10/09/23 08:00 10/09/23 08:00 10/09/23 08:00 10/09/23 08:00 10/09/23 09:00 10/09/23 09:00 Laboratory Results - last 24 hr 10/08/23 15:15: Lactate 1.4, Total Bilirubin 0.9, Direct Bilirubin 0.1, Conjugated Bilirubin 0.0, Indirect Bilirubin 0.8, Unconjugated Bilirubin 0.7, AST 69 H, ALT 63, Alkaline Phosphatase 152 H, Total Protein 6.9, Albumin 3.9 10/09/23 05:26: WBC 8.7, RBC 4.31 L, Hgb 13.4 L, Hct 38.2 L, MCV 88.6, MCH 31.0, MCHC 35.0, RDW 12.3, Plt Count 228, MPV 9.0, Neut % (Auto) 82.8 H, Lymph % (Auto) 10.7, [place] % (Auto) 5.8, Eos % (Auto) 0.5, Baso % (Auto) 0.2, Neut # (Auto) 7.2, Lymph # (Auto) 0.9, [place] # (Auto) 0.5, Eos # (Auto) 0.0, Baso # (Auto) 0.0, Sodium 132 L, Potassium 4.9, Chloride 100, Carbon Dioxide 26, Anion Gap 10.9, BUN 34 H D, Creatinine 2.10 H D, Estimated Creat Clear 47, Estimated GFR 31 L, Est GFR ( Amer) 38 L D, Glucose 95, Calcium 9.1, Magnesium 2.4 H, Total Bilirubin 0.9, AST 68 H, ALT 60, Alkaline Phosphatase 151 H, Total Protein 6.9, Albumin 3.9, Globulin 3.0, Albumin/Globulin Ratio 1.3 I & O for Last 24 hours: Intake & Output 02/06/1910/07/23 10/08/23 10/09/23 23:59 23:59 23:59 23:59 Intake Total 240 / 240 520 / 1020 500 / 500 Output Total 500 / 500 1924 700 / 700 Balance -260 / -260 -1405 / -1005 -200 / -200 Weight 225 lb 225 lb 0.06 oz 225 lb 0.413 oz Constitutional Constitutional: no acute distress *Routine Respiratory Exam Respiratory: Present symmetric chest movement *Routine Cardiovascular Exam Cardiovascular: Present RRR, Normal S1 and Normal S2 *Routine Abdominal Exam Abdominal: Present soft and normoactive bowel sounds; Absent tenderness *Routine Extremities Exam Extremities: Present edema, full ROM and normal capillary refill *Routine Skin Exam Skin: Present intact, dry and warm Detailed Neck Exam: Thyroids Thyroid: Absent bruit Progress Note: A&P Assessment and plan (1) Pleural effusion: Status: Acute (2) Acute on chronic HFrEF (heart failure with reduced ejection fraction): Status: Acute (3) Dyspnea: Status: Acute (4) Hypotension: Status: Acute (5) Chronic hyponatremia: Status: Acute (6) COPD mixed type: Status: Chronic (7) BPH (benign prostatic hyperplasia): Status: Chronic (8) Tobacco abuse: Status: Chronic (9) Obesity (BMI 30-39.9): Status: Chronic Assessment and Plan Assessment and Plan for All Diagnoses:: Acute on chronic HFrEF of 15-20% NYHA III Nonischemic cardiomyopathy Volume overload Right-sided pleural effusion -Medical management heart cath 05/2023 -EF of 15 to 20% noted on echocardiogram from August 2023. Patient previously refused AICD -Questionable medication adherence -Blood pressure currently too low for Entresto or beta-titi, both on hold. Will hold Aldactone and Jardiance until after diuresis -Continue diuresis with Bumex 2 mg IV twice daily -Dr Rowland discussed risk versus benefits of AICD placement with patient. Patient will consider placement once has been fully diuresed. 10/09/2023 update: Patient is diuresing, oxygen requirement has decreased. Will transition patient to oral Bumex. CAD -Medical managment 05/2023 -Continue aspirin 81 mg daily. Beta-titi currently on hold due to hypotension CHF exacerbation. Holding statin currently due to slightly elevated AST. Hypotension-stable -Patient remains hypotensive at this point. Per Dr. Rowland will continue with diuresis as above. EMY -Creatinine up to 2.10, baseline 1.9-1.1 -Continue to monitor 10/09/2023: Will transition patient to oral Bumex and repeat chest x-ray. Cardiac meds Aspirin 81 mg p.o. daily Bumex 2 mg oral twice daily Entresto 24/26 mg p.o. twice daily on hold Jardiance 10 mg p.o. daily on hold Metoprolol 12.5 mg p.o. twice daily on hold Aldactone 25 mg p.o. daily on hold Statin currently on hold
--- NOTE | 2023-10-09 11:35 | XR_ITS ---
FINAL REPORT CLINICAL HISTORY: right pleural effusion COMPARISON: 10/07/2023 FINDINGS: A single portable view of the chest was obtained. The heart size and pulmonary vascularity are within normal limits. The mediastinum is within normal limits. Bibasilar atelectasis or pneumonia is stable. There is a stable moderate right pleural effusion. The bony thorax is intact. IMPRESSION: Stable bibasilar atelectasis or pneumonia and stable moderate right pleural effusion. Reviewed, Interpreted and Dictated by Hank Salomon III, MD Transcribed by Angela Valdez Authenticated and . [facility]
[2023-10-09] MEDS: ASPIRIN EC 81MG TABLET 81 MG PO (11:54)
--- NOTE | 2023-10-09 12:23 | EXP.ACUTE.PN ---
Subjective *Date: 10/09/23 *Time: 22:23 Interval history: Patient feeling no better. Clinically no worsening of condition. Afebrile. Sputum stable. Oxygen requirement stable. Discussed his goals for improvement. Patient states he wants to breathe more comfortably. Explained that his symptoms are related to his heart failure and his bad COPD. He may not be able to achieve any further improvement as this has been his complaint at every one of his previous admissions. Discussed potential for hospice, asked his thoughts. He said he wanted to think about it. Still refusing to lay down or prop his legs up as he is most comfortable sitting at the edge of the bed Medical Exam Vital signs and Labs for Last 24 Hours: Vital Signs Temp Pulse Pulse Resp BP Pulse Ox O2 Del Method 10/09/23 20:00 1 L Nasal Cannula 10/09/23 18:25 Nasal Cannula 10/09/23 15:08 98.4 F 112 H 18 92/50 L 94 L Nasal Cannula 10/09/23 13:00 Nasal Cannula 10/09/23 11:00 Nasal Cannula 10/09/23 12:00 97.9 F 116 H 17 116/40 L 91 L Nasal Cannula 10/09/23 09:00 Nasal Cannula 10/09/23 08:00 Nasal Cannula 10/09/23 08:00 97.6 F 112 H 17 109/50 L 93 L Nasal Cannula 10/09/23 06:55 Nasal Cannula 10/09/23 06:15 113 H 10/09/23 06:15 114 H 10/09/23 06:15 Nasal Cannula 10/09/23 04:53 Nasal Cannula 10/09/23 04:00 98.6 F 113 H 17 93/51 L 94 L Nasal Cannula 10/09/23 02:53 Nasal Cannula 10/09/23 00:47 Nasal Cannula 10/09/23 00:00 98.6 F 90 17 93/49 L 94 L Nasal Cannula 10/08/23 23:00 Nasal Cannula O2 Flow Rate 10/09/23 20:00 10/09/23 18:25 1 10/09/23 15:08 1 10/09/23 13:00 1 10/09/23 11:00 1 10/09/23 12:00 1 10/09/23 09:00 1 10/09/23 08:00 1 10/09/23 08:00 1 10/09/23 06:55 1 10/09/23 06:15 10/09/23 06:15 10/09/23 06:15 1 10/09/23 04:53 1 10/09/23 04:00 2 10/09/23 02:53 2 10/09/23 00:47 2 10/09/23 00:00 2 10/08/23 23:00 2 Intake and Output 10/09/23 10/09/23 10/09/23 07:59 15:59 23:59 Intake Total 500 / 740 240 / 740 Output Total 700 / 1500 300 / 1500 500 / 1500 Balance -200 / -760 -300 / -760 -260 / -760 Intake: Intake, Oral Amount 500 / 740 240 / 740 Output: Output, Urine Amount 700 / 1500 300 / 1500 500 / 1500 Other: Number of Unmeasured Voids 0 1 0 Weight 102.07 kg Patient Weight 10/09/23 23:59 Weight 102.07 kg Laboratory Results - last 24 hr 10/09/23 05:26: WBC 8.7, RBC 4.31 L, Hgb 13.4 L, Hct 38.2 L, MCV 88.6, MCH 31.0, MCHC 35.0, RDW 12.3, Plt Count 228, MPV 9.0, Neut % (Auto) 82.8 H, Lymph % (Auto) 10.7, [place] % (Auto) 5.8, Eos % (Auto) 0.5, Baso % (Auto) 0.2, Neut # (Auto) 7.2, Lymph # (Auto) 0.9, [place] # (Auto) 0.5, Eos # (Auto) 0.0, Baso # (Auto) 0.0, Sodium 132 L, Potassium 4.9, Chloride 100, Carbon Dioxide 26, Anion Gap 10.9, BUN 34 H D, Creatinine 2.10 H D, Estimated Creat Clear 47, Estimated GFR 31 L, Est GFR ( Amer) 38 L D, Glucose 95, Calcium 9.1, Magnesium 2.4 H, Total Bilirubin 0.9, AST 68 H, ALT 60, Alkaline Phosphatase 151 H, Total Protein 6.9, Albumin 3.9, Globulin 3.0, Albumin/Globulin Ratio 1.3 10/09/23 18:20: Sodium 130 L, Potassium 5.4 H, Chloride 98, Carbon Dioxide 28, Anion Gap 9.4, BUN 37 H, Creatinine 1.90 H, Estimated Creat Clear 51, Estimated GFR 35 L, Est GFR ( Amer) 42 L, Glucose 116 H D, Calcium 9.0 I & O for Labs for Last 24 Hours: Intake & Output 10/06/23 10/07/23 10/08/23 10/09/23 23:59 23:59 23:59 23:59 Intake Total 240 / 240 520 / 1020 740 / 740 Output Total 500 / 500 1924 / 2024 1500 / 1500 Balance -260 / -260 -1405 / -1005 -760 / -760 Weight 102.058 kg 102.06 kg 102.07 kg Constitutional: Present mild distress, obese and chronically ill appearing Head: Present atraumatic and normocephalic Neck: Present normal inspection Respiratory: Present accessory muscle use, prolonged expiratory phase, crackles and diminished air movement; Absent rhonchi or wheezes Cardiac: Present Tachycardia GI: Present soft and normal bowel sounds; Absent distention or tenderness Extremities: Present normal inspection, full ROM and edema (3+ bilaterally. Though improved from previous admission, wrinkling of skin) Skin: Present intact; Absent erythema Neuro: Present Grossly Intact, alert, awake, oriented x 3 and moves all extremities Assessment and Plan *Assessment and plan (1) Pleural effusion: Status: Acute Category: Medical Code(s): J90 - Pleural effusion, not elsewhere classified (2) Acute on chronic HFrEF (heart failure with reduced ejection fraction): Status: Acute Category: Medical Code(s): I50.23 - Acute on chronic systolic (congestive) heart failure (3) Dyspnea: Status: Acute Qualifiers: Dyspnea type: shortness of breath Qualified Code(s): R06.02 - Shortness of breath Category: Medical Code(s): R06.00 - Dyspnea, unspecified (4) Hypotension: Status: Acute Qualifiers: Hypotension type: unspecified hypotension type Qualified Code(s): I95.9 - Hypotension, unspecified Category: Medical Code(s): I95.9 - Hypotension, unspecified (5) Chronic hyponatremia: Status: Acute Category: Medical Code(s): E87.1 - Hypo-osmolality and hyponatremia (6) COPD mixed type: Status: Chronic Category: Medical Code(s): J44.9 - Chronic obstructive pulmonary disease, unspecified (7) BPH (benign prostatic hyperplasia): Status: Chronic Qualifiers: Lower urinary tract symptom presence: symptoms absent Qualified Code(s): N40.0 - Benign prostatic hyperplasia without lower urinary tract symptoms Category: Medical Code(s): N40.0 - Benign prostatic hyperplasia without lower urinary tract symptoms (8) Tobacco abuse: Status: Chronic Category: Medical Code(s): Z72.0 - Tobacco use (9) Obesity (BMI 30-39.9): Status: Chronic Category: Medical Code(s): E66.9 - Obesity, unspecified Plan 72-year-old male obese with comorbidities including of end-stage heart failure, COPD who recently was discharged. Patient bounced back to the ED for worsened shortness of breath. Patient has an ejection fraction of approximately 15%, and has been admitted multiples time. On arrival patient presented tachypnic, on the rates of 25-30. per ER. Work up are about the same on last admission. little increase on his creatinine. remains on 2L. Diuresis initiated 20mg on bumex IV. became hypotensive after. CXR showed worsened right pleural effusion. Discussed with ER about findings and needs of readmission. Due to patient instability and risk of deterioration , including , we agreed for supervised diuresis and management. Pulmonary and cardiology assisting with care. Responding to diuresis, -2.5 L since admission.. Plan as follows: -Worsening right pleural effusion seen in the end stage heart failure. NYHA class IV -Acute on chronic systolic heart failure with a EF of 15 to 20% Continue diuresis with Bumex 2 mg twice daily. Cardiology and pulmonology both consulted. Discussed case with both providers today. Continue with diuresis. Blood pressure too soft for Entresto or beta-titi. Will discuss AICD when stable as an outpatient. Severe heart failure with a EF of 15 to 20%. Concerned that patient does not have good understanding of his progressive diseases with NYHA class IV heart failure, emphysema, and chronic kidney disease. Very poor insight to his medical conditions. Acute on chronic hypoxemic respiratory failure COPD exacerbation Pulmonology consulted, appreciate their recommendations. Will continue to hold on antibiotics at this point. No signs of infection with normal white cell count of 8.5. Continue Trelegy 100 inhaler and DuoNebs. Increase to every 4 hours scheduled. Continue supplemental oxygen for goal sats greater 90%. Currently on 2 L. Pulmonology and cardiology assisting Chronic hyponatremia secondary to above repeat CBC, CMP, magnesium ordered for the morning; EMY: Creatinine 2.1, improved from 2.2 yesterday. Patient diuresing well. Will continue to diuresis given patient's volume overload and heart failure with effusions. Allow for permissive bump in creatinine as long as he continues to have good urine output. Nicotine patch for tobacco dependence Obesity with comorbidity. Associated with fluid overload Daily weight Lovenox for DVT prophylaxis. On Protonix Patient would like to remain full code. Discussion at length about options of treatments, versus hospice and palliative care. Patient will like to consider.
--- NOTE | 2023-10-09 12:54 | HMH.ITSTN ---
SPOKE WITH ICU STAFF, DUE TO PATIENT STILL HAVING DIFFICULTY BREATHING WHEN LAYING SUPINE AND INCREASE ANXIETY WE ARE GOING TO CONTINUE TO POSTPONE CT CHEST FOR NOW.
[2023-10-09] MEDS: BUMETANIDE 1 MG TABLET 2 MG PO (17:31)
[2023-10-09] MEDS: MORPHINE 2MG/ML SYRINGE 2 MG IV ×2 (17:32→23:03)
--- NOTE | 2023-10-09 18:09 | PC.NURSE ---
patient transferred from SCU this shift. Patient has had c/o pain in neck and shoulder. Patient a&ox4 and is tolerating PO diuresis.
[2023-10-09 18:42] LABS: Chloride 98 mmol/L (98-107)
[2023-10-09 18:43] LABS: Potassium 5.4 mmoL/L (3.5-5.1); Sodium 130 mmol/L (136-145)
[2023-10-09 18:46] LABS: Anion Gap 9.4 mEq/L (5-15); Blood Urea Nitrogen 37 mg/dl (9-20); Carbon Dioxide 28 mmol/L (22.0-30.0); Creatinine Clearance Estimated 51 mL/min (50-200); Estimated Glomerular Filt Rate 35 ml/min (>60); GFR (African American) 42 ML/MIN (>60); Glucose 116 mg/dl (74-100)
[2023-10-10] VITALS (7 sets, daily range): BP systolic 90–101; BP diastolic 48–61; PULSE 62–116; RESP 16–20; TEMP 36.4–36.8; O2SAT 92–94
[2023-10-10] MEDS: FLUTICASONE/UMECLIDIN/VILANTER 100/62.5/25MCG INHALER 1 PUFF IH (06:21)
[2023-10-10 08:23] LABS: Basophils % 0.1 % (0.1-2.0); Eosinophils % 0.4 % (0.1-12.0); Hematocrit 41.1 % (42.0-52.0); Hemoglobin 13.9 g/dL (14.1-18.0); Lymphocytes # 0.9 K/mm3 (0.7-4.5); Lymphocytes % 9.5 % (10-50); Mean Corpuscular HGB Conc 33.7 g/dL (31.8-35.4); Mean Corpuscular Hemoglobin 30.4 pg (27.0-31.2); Mean Corpuscular Volume 90.2 fl (80-94); Mean Platelet Volume 8.6 fl (7.4-10.4); Monocytes # 0.3 K/mm3 (0.1-1.0); Monocytes % 3.4 % (1.7-9.3); Neutrophils % 86.4 % (37.0-80.0); Platelet Count 263 K/mm3 (142-424); Red Blood Count 4.55 M/mm3 (4.60-6.20); Red Cell Distribution Width 12.4 % (11.5-17.5); White Blood Count 9.3 K/mm3 (4.8-10.8)
[2023-10-10 08:31] LABS: MANUAL DIFFERENTIAL MANUAL DIFFERENTIAL (MANUAL DIFF)
[2023-10-10 08:40] LABS: Chloride 96 mmol/L (98-107); Potassium 5.2 mmoL/L (3.5-5.1); Sodium 131 mmol/L (136-145)
[2023-10-10 08:43] LABS: Alanine Aminotransferase 66 U/L (12-78); Albumin Level 4.2 g/dl (3.5-5.0); Albumin/Globulin Ratio 1.4 (1.1-1.8); Alkaline Phosphatase 138 U/L (38-126); Anion Gap 10.2 mEq/L (5-15); Aspartate Amino Transferase 71 U/L (17-59); Bilirubin,Total 0.9 mg/dl (0.2-1.3); Blood Urea Nitrogen 45 mg/dl (9-20); Calcium 9.4 mg/dl (8.4-10.2); Carbon Dioxide 30 mmol/L (22.0-30.0); Creatinine Clearance Estimated 49 mL/min (50-200); Estimated Glomerular Filt Rate 33 ml/min (>60); GFR (African American) 40 ML/MIN (>60); Glucose 116 mg/dl (74-100); Total Protein,Serum 7.2 g/dl (6.3-8.2)
[2023-10-10 08:57] LABS: Magnesium 2.6 mg/dl (1.6-2.3)
--- NOTE | 2023-10-10 09:08 | EXP.CARD.PN ---
Subjective Subjective Date: 10/10/23 Time: 08:30 Principal diagnosis: SOA, right pleural effusion Interval history: Patient reports soa is improving. Oxygen requirements improving. LE edema still present, patient refuses to elevate legs. Patient requesting to go home. Morning labs reviewed. Exam Data for Last 24 hours Vital signs and Labs for Last 24 Hours: Temp Pulse Resp BP Pulse Ox O2 Del Method O2 Flow Rate 98.2 F 62 16 90/48 L 92 L Nasal Cannula 2 10/10/23 08:00 10/10/23 08:00 10/10/23 08:00 10/10/23 08:00 10/10/23 08:00 10/10/23 08:00 10/10/23 08:00 Laboratory Results - last 24 hr 10/09/23 18:20: Sodium 130 L, Potassium 5.4 H, Chloride 98, Carbon Dioxide 28, Anion Gap 9.4, BUN 37 H, Creatinine 1.90 H, Estimated Creat Clear 51, Estimated GFR 35 L, Est GFR ( Amer) 42 L, Glucose 116 H D, Calcium 9.0 10/10/23 08:15: WBC 9.3, RBC 4.55 L, Hgb 13.9 L, Hct 41.1 L, MCV 90.2, MCH 30.4, MCHC 33.7, RDW 12.4, Plt Count 263, MPV 8.6, Neut % (Auto) 86.4 H, Lymph % (Auto) 9.5 L, [place] % (Auto) 3.4, Eos % (Auto) 0.4, Baso % (Auto) 0.1, Neut # (Auto) 8.0 H, Lymph # (Auto) 0.9, [place] # (Auto) 0.3, Eos # (Auto) 0.0, Baso # (Auto) 0.0 I & O for Last 24 hours: Intake & Output 10/07/23 10/08/23 10/09/23 10/10/23 23:59 23:59 23:59 23:59 Intake Total 240 / 240 520 / 1020 740 / 740 270 / 270 Output Total 500 / 500 1925 / 2025 1500 / 1500 550 / 550 Balance -260 / -260 -1405 / -1005 -760 / -760 -280 / -280 Weight 225 lb 225 lb 0.06 oz 225 lb 0.413 oz Constitutional Constitutional: no acute distress *Routine Respiratory Exam Respiratory: Present symmetric chest movement *Routine Cardiovascular Exam Cardiovascular: Present RRR, Normal S1 and Normal S2 *Routine Abdominal Exam Abdominal: Present soft and normoactive bowel sounds; Absent tenderness *Routine Extremities Exam Extremities: Present edema, full ROM and normal capillary refill *Routine Skin Exam Skin: Present intact, dry and warm Detailed Neck Exam: Thyroids Thyroid: Absent bruit Progress Note: A&P Assessment and plan (1) Pleural effusion: Status: Acute (2) Acute on chronic HFrEF (heart failure with reduced ejection fraction): Status: Acute (3) Dyspnea: Status: Acute (4) Hypotension: Status: Acute (5) Chronic hyponatremia: Status: Acute (6) COPD mixed type: Status: Chronic (7) BPH (benign prostatic hyperplasia): Status: Chronic (8) Tobacco abuse: Status: Chronic (9) Obesity (BMI 30-39.9): Status: Chronic Assessment and Plan Assessment and Plan for All Diagnoses:: Acute on chronic HFrEF of 15-20% NYHA III Nonischemic cardiomyopathy Volume overload Right-sided pleural effusion -Medical management heart cath 05/2023 -EF of 15 to 20% noted on echocardiogram from August 2023. Patient previously refused AICD -Questionable medication adherence -Blood pressure currently too low for Entresto or beta-titi, both on hold. Will hold Aldactone and Jardiance until after diuresis -Continue diuresis with Bumex 2 mg IV twice daily -Dr Rowland discussed risk versus benefits of AICD placement with patient. Patient will consider placement once has been fully diuresed on oupatient basis. -Historically refuses lifevest, declined again. 10/10/2023 update: Patient is near baseline from respiratory status standpoint, tolerating oral bumex well. BP remains low. chest xray stable. Resume entresto and aldactone as BP will allow. continue to hold bb. restart jardiance. CAD -Medical managment 05/2023 -Continue aspirin 81 mg daily. Beta-titi currently on hold due to hypotension CHF exacerbation. Holding statin currently due to slightly elevated AST. Hypotension-stable -Patient remains hypotensive but asymptomatic. Per Dr. Rowland will continue with diuresis as above. EMY -Creatinine up to 2 baseline 1.9-1.1 -Continue to monitor 10/10/2023: Patient is requesting to go home. Patient is at baseline from a respiratory status. Recommend patient continue Bumex 2mg oral BID and restart Jardiance 10mg daily. We will continue to hold entresto and aldactone until BP improves. Patient needs cardiac office follow up next week. Discuss placement of AICD at follow up. Patient is considering going home with hospice and is still unclear on what he would like his treatment goals to be at this time. Cardiac meds Aspirin 81 mg p.o. daily Bumex 2 mg oral twice daily Entresto 24/26 mg p.o. twice daily on hold Jardiance 10 mg p.o. daily Metoprolol 12.5 mg p.o. twice daily on hold Aldactone 25 mg p.o. daily on hold Statin currently on hold
[2023-10-10] MEDS: MORPHINE 2MG/ML SYRINGE 2 MG IV ×3 (09:12→22:00)
[2023-10-10] MEDS: NYSTATIN SUSP 500,000 UNITS/5ML UDC 500000 UNIT PO (09:13)
[2023-10-10] MEDS: PANTOPRAZOLE 40MG TABLET 40 MG PO (09:13)
[2023-10-10] MEDS: ASPIRIN EC 81MG TABLET 81 MG PO (09:13)
[2023-10-10] MEDS: NAPROXEN 500MG TABLET 250 MG PO (09:15)
[2023-10-10] MEDS: OXYBUTYNIN 5MG TAB 5 MG PO ×2 (09:15→21:50)
[2023-10-10] MEDS: TAMSULOSIN 0.4MG CAPSULE 0.400000000000000022 MG PO ×2 (09:15→21:50)
[2023-10-10] MEDS: FINASTERIDE 5MG TABLET 5 MG PO (09:15)
[2023-10-10] MEDS: BUMETANIDE 1 MG TABLET 2 MG PO ×2 (09:15→16:10)
[2023-10-10] MEDS: ENOXAPARIN 40MG/0.4ML SYRINGE 40 MG SQ (09:16)
[2023-10-10] MEDS: ACETAMINOPHEN 325MG TAB 650 MG PO ×2 (09:29→22:00)
[2023-10-10] MEDS: CALCIUM CARBONATE 500MG CHEWTAB 1000 MG PO ×2 (09:32→22:01)
--- NOTE | 2023-10-10 09:53 | P.PN_ITS ---
Subjective *Date: 10/10/23 *Time: 11:11 Interval history: No acute respiratory events overnight. Patient denies any new respiratory complaints. Pulmonology Exam Inpatient Vital signs and Labs for Last 24 Hours: Temp Pulse Resp BP Pulse Ox O2 Del Method O2 Flow Rate 98.2 F 62 16 90/48 L 92 L Nasal Cannula 2 10/10/23 08:00 10/10/23 08:00 10/10/23 08:00 10/10/23 08:00 10/10/23 08:00 10/10/23 08:00 10/10/23 08:00 Laboratory Results - last 24 hr 10/09/23 18:20: Sodium 130 L, Potassium 5.4 H, Chloride 98, Carbon Dioxide 28, Anion Gap 9.4, BUN 37 H, Creatinine 1.90 H, Estimated Creat Clear 51, Estimated GFR 35 L, Est GFR ( Amer) 42 L, Glucose 116 H D, Calcium 9.0 10/10/23 08:15: WBC 9.3, RBC 4.55 L, Hgb 13.9 L, Hct 41.1 L, MCV 90.2, MCH 30.4, MCHC 33.7, RDW 12.4, Plt Count 263, MPV 8.6, Neut % (Auto) 86.4 H, Lymph % (Auto) 9.5 L, [place] % (Auto) 3.4, Eos % (Auto) 0.4, Baso % (Auto) 0.1, Neut # (Auto) 8.0 H, Lymph # (Auto) 0.9, [place] # (Auto) 0.3, Eos # (Auto) 0.0, Baso # (Auto) 0.0, Sodium 131 L, Potassium 5.2 H, Chloride 96 L, Carbon Dioxide 30, Anion Gap 10.2, BUN 45 H, Creatinine 2.00 H, Estimated Creat Clear 49, Estimated GFR 33 L, Est GFR ( Amer) 40 L, Glucose 116 H, Calcium 9.4, Magnesium 2.6 H, Total Bilirubin 0.9, AST 71 H, ALT 66, Alkaline Phosphatase 138 H, Total Protein 7.2, Albumin 4.2, Globulin 3.0, Albumin/Globulin Ratio 1.4 I & O for Labs for Last 24 Hours: Intake & Output 10/07/23 10/08/23 10/09/2310/10/24 23:59 23:59 23:59 23:59 Intake Total 240 / 240 520 / 1020 740 / 740 270 / 270 Output Total 500 / 500 1924 1500 / 1500 550 / 550 Balance -260 / -260 -1405 / -1005 -760 / -760 -280 / -280 Weight 225 lb 225 lb 0.06 oz 225 lb 0.413 oz Constitutional: Present moderate distress Head: Present normocephalic and atraumatic ENT: Present normal exam, normal oropharynx and mucous membranes moist Neck: Present normal inspection and full ROM Respiratory: Present respiratory distress and able to speak in complete sentences; Absent prolonged expiratory phase, wheezes or diminished air movement Cardiac: Present S1/S2, Tachycardia and radial pulses present GI: Present soft and distention; Absent tenderness or guarding Skin: Present intact; Absent cyanosis or jaundice Neuro: Present alert, awake and oriented x 3 Extremities: Present normal inspection and edema; Absent clubbing or cyanosis Psychiatric: Present normal affect and cooperative Assessment and Plan *Assessment and plan (1) COPD mixed type: Status: Chronic Category: Medical Code(s): J44.9 - Chronic obstructive pulmonary disease, unspecified (2) SOB (shortness of breath) on exertion: Status: Acute Category: Medical Code(s): R06.02 - Shortness of breath (3) Pleural effusion on right: Status: Acute Category: Medical Code(s): J90 - Pleural effusion, not elsewhere classified (4) Chronic respiratory failure with hypoxia: Status: Acute Category: Medical Code(s): J96.11 - Chronic respiratory failure with hypoxia (5) Lung nodule: Status: Acute Category: Medical Code(s): R91.1 - Solitary pulmonary nodule (6) Adenopathy, hilar: Status: Resolved Category: Medical Code(s): R59.0 - Localized enlarged lymph nodes (7) Mediastinal adenopathy: Status: Acute Category: Medical Code(s): R59.0 - Localized enlarged lymph nodes Plan Mr. Holcomb is a 72-year-old male history of COPD, CHF rEF 15% - 20%, pulmonary nodules and worsening lymphadenopathy recently seen in the hospital for heart failure exacerbation presented for worsening respiratory and found to be having right pleural effusion and pulmonary was called for further evaluation and management. Patient today complains of worsening respiratory distress but denies any worsening cough or any productive phlegm. Admits minimal wheezing. The noted effusion is new on her chest x-ray from his most recent hospital admission on 09/19/2023. Chest x-ray on this admission relatively stable compared to that x-ray. No effusion present on his hospital admission from 09/05/2023. No other dense consolidation or airspace disease noted on his x-ray from this admission. Afebrile. No evidence of leukocytosis. On initial examination patient does not appear to be in any respiratory distress. On 2 L nasal cannula saturating 97%. Weaned to 1 L patient is not happy with weaning his oxygen despite his saturations were at 97%. Reiterated and reassured. Patient still have not underwent his CT-guided biopsy. Will try to reschedule that. Interval update: Patient denies any new respiratory complaints today. Chest x-ray continues with stable right-sided effusion. Discussed with him the possibility of performing thoracentesis, he is not willing to pursue that at this point of time we will continue to monitor. Plan: -Agree with not initiating antibiotics from pulmonary standpoint patient -Continue Trelegy 100 inhaler along with DuoNebs every 6 hours on as-needed basis -Continue oxygen supplementation only as needed to maintain O2 saturations goal of 90% above -Incentive spirometry out of bed to chair, PT OT. # Will schedule outpatient CT-guided biopsy for the noted lung nodule. Will hold off on performing thoracentesis at this point of time as patient on baseline respiratory status and baseline oxygen requirements.
[2023-10-10 10:10] LABS: Lymphocytes % 10 % (10-50); Monocytes % 4 % (2-9); Neutrophils % 85 % (42-76); Total Cells Counted 100
[2023-10-10 10:11] LABS: Platelet Estimate Normal; RBC Morphology Normal
[2023-10-10] MEDS: ARTIFICIAL TEARS SOLN 15ML BOTTLE OP ×2 (14:44→22:18)
--- NOTE | 2023-10-10 15:23 | PC.NURSE ---
VS stable. Patient on 1LNC. Morphine given prn for pain with relief noted. Lung sounds diminished in bases, clear in upper lobes.
--- OUTSIDE RECORDS SUMMARY | 2023-10-10 16:20 | XMS_ITS | Clinical Summary ---
Author Name Unknown Address [address] [place] [address] Phone Organization [facility] Address [address] [place] [address] Phone Care Team Providers Care Line Construction Superintendent Name Role Phone Xena Schaefer Unavailable Unavailable Conditions or Problems Problem Name Problem Code Onset Date Status Entry Date Provider Comment Standard Description Annotate Lymphedema, right leg 915440356 (SNOMED CT) 09/17 Active 09/17 Nirav Encarnacion MD Lymphedema of lower extremity Coronary artery disease (CAD) 01952296 (SNOMED CT) 09/02 Active 09/02 Shantal L Coronary arteriosclerosi s Cellulitis of RLE 173960576 (SNOMED CT) 09/02 Active 09/02 Shantal L Cellulitis of lower limb 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 (I50.22) 101527836 (SNOMED CT) 09/02 Active 09/02 Shantal L Benign hypertensive heart disease with congestive cardiac failure PERSONAL HX OF METHICILLIN RESIST STAPH AUREUS Z86.14 (ICD-10-CM ) 04/08 Resolved 04/08 Shantal L Personal history of Methicillin resistant Staphylococcus aureus infection COPD 00975374 (SNOMED CT) 04/08 Resolved 04/08 Shantal L Chronic obstructive lung disease PNEUMONIA 678416813 (SNOMED CT) 04/08 Resolved 04/08 Shantal L Pneumonia COPD 04410929 (SNOMED CT) 04/08 Removed 04/08 Judie Nordan Chronic obstructive lung disease PNEUMONIA 530513223 (SNOMED CT) 04/08 Removed 04/08 Judie Nordan Pneumonia PERSONAL HX OF METHICILLIN RESIST STAPH AUREUS Z86.14 (ICD-10-CM ) 04/08 Removed 04/08 Judie Herrera Personal history of Methicillin resistant Staphylococcus aureus infection Medications Medication Instructions Start Date Stop Date Generic Name NDC Provider CEFTRIAXONE SODIUM 2 GM SOLR 2g IV daily / [facility] [phone] CEFTRIAXONE SODIUM [id number] Ana Paula Plasencia AMOXICILLIN-PO T CLAVULANATE 875-125 MG TABS one po bid AMOXICILLIN-POT CLAVULANATE [id number] Nirav Encarnacion MD CEFTRIAXONE SODIUM 2 GM SOLR 2g IV daily / [facility] [phone] CEFTRIAXONE SODIUM 13704859165 Lea Velazquez DITROPAN XL 10 MG ORAL TABLET EXTENDED RELEASE 24 HOUR 1 tablet daily OXYBUTYNIN CHLORIDE 94978068718 [place] Jonas EC-NAPROXEN 500 MG TBEC 1 tablet twice daily with meals NAPROXEN 80958446918 Garza Jonas LISINOPRIL 20 MG TABS 1 tablet daily LISINOPRIL 75848298824 Garza Jonas FUROSEMIDE 20 MG TABS 1 tablet daily as needed FUROSEMIDE 94750774984 Garza Jonas PROSCAR 5 MG TABS 1 tablet daily FINASTERIDE 00502026998 Garza Jonas COREG 3.125 MG TABS 1 tablet twice daily CARVEDILOL 56017415450 Garza Jonas BREO ELLIPTA 200-25 MCG/ACT AEPB 1 puff daily FLUTICASONE FUROATE-VILANTERO L 69870292959 Garza Jonas ASPIRIN 81 81 MG CHEW 1 tablet daily ASPIRIN 59800877561 Garza Jonas ALPRAZOLAM 1 MG TABS 1 tablet every 8 hours as needed ALPRAZOLAM 47664126479 Garza Jonas TYLENOL EXTRA STRENGTH 500 MG TABS 1 tablet every 6 hours as needed ACETAMINOPHEN 43280368758 [place] Jon[place] PRAVACHOL 40 MG ORAL TABLET PRAVASTATIN SODIUM 89695355741 [place] Jon[place] TYLENOL 8 HOUR 650 MG CR-TABS ACETAMINOPHEN 24973432363 [place] ALDACTONE 25 MG TABS SPIRONOLACTONE 78784379107 [place] LASIX 40 MG TABS FUROSEMIDE 27084286774 [place] EQ NICOTINE 21 MG/24HR PT24 NICOTINE 30849815609 [place] METHADONE HCL 5 MG TABS METHADONE HCL 21011266156 [place] LISINOPRIL 5 MG TABS LISINOPRIL 73762984348 [place] ZYVOX 600 MG TABS LINEZOLID 54623383980 [place] DOXYCYCLINE HYCLATE 100 MG CAPS DOXYCYCLINE HYCLATE 33277319154 [place] BISOPROLOL FUMARATE 10 MG TABS BISOPROLOL FUMARATE 19704622899 [place] DUONEB SOLUTION IPRATROPIUM-ALBUT LINDA SOLN 96560259994 [place] PRAVACHOL 40 MG ORAL TABLET PRAVASTATIN SODIUM 52457444860 Blanca Encarnacion TYLENOL 8 HOUR 650 MG CR-TABS ACETAMINOPHEN 65197955592 Blanca Encarnacion ALDACTONE 25 MG TABS SPIRONOLACTONE 07666554446 Blanca Encarnacion LASIX 40 MG TABS FUROSEMIDE 30297704217 Blanca Encarnacion EQ NICOTINE 21 MG/24HR PT24 NICOTINE 73520275212 Blanca Encarnacion METHADONE HCL 5 MG TABS METHADONE HCL 41368385782 Blanca Encarnacion LISINOPRIL 5 MG TABS LISINOPRIL 37148901015 Blanca Encarnacion ZYVOX 600 MG TABS LINEZOLID 54529124552 Blanca Encarnacion DOXYCYCLINE HYCLATE 100 MG CAPS DOXYCYCLINE HYCLATE 15062868953 Blanca Encarnacion BISOPROLOL FUMARATE 10 MG TABS BISOPROLOL FUMARATE 25891199617 Blanca Encarnacion DUONEB SOLUTION IPRATROPIUM-ALBUT LINDA SOLN [id number] Blanca Encarnacion Medications Administered No information available. [...] antibiotics 2019 CPT-ca Continue IV antibiotics 2019 CPT-30177 PICC Line Insertion Vital Signs Date Name [...]
--- NOTE | 2023-10-10 16:44 | P.PN_ITS ---
Subjective *Date: 10/10/23 *Time: 16:44 Interval history: Patient is seen and evaluated at bedside, reviewed patient chart, discussed POC with patient, please see same date H&P for further recommendations Exam Data for Last 24 hours Vital signs and Labs for Last 24 Hours: Temp Pulse Resp BP Pulse Ox O2 Del Method O2 Flow Rate 97.6 F 110 H 20 94/54 L 92 L Nasal Cannula 1 10/10/23 15:58 10/10/23 15:58 10/10/23 15:58 10/10/23 15:58 10/10/23 15:58 10/10/23 16:00 10/10/23 16:00 Laboratory Results - last 24 hr 10/09/23 18:20: Sodium 130 L, Potassium 5.4 H, Chloride 98, Carbon Dioxide 28, Anion Gap 9.4, BUN 37 H, Creatinine 1.90 H, Estimated Creat Clear 51, Estimated GFR 35 L, Est GFR ( Amer) 42 L, Glucose 116 H D, Calcium 9.0 10/10/23 08:15: WBC 9.3, RBC 4.55 L, Hgb 13.9 L, Hct 41.1 L, MCV 90.2, MCH 30.4, MCHC 33.7, RDW 12.4, Plt Count 263, MPV 8.6, Neut % (Auto) 86.4 H, Lymph % (Auto) 9.5 L, Buchanan % (Auto) 3.4, Eos % (Auto) 0.4, Baso % (Auto) 0.1, Neut # (Auto) 8.0 H, Lymph # (Auto) 0.9, Buchanan # (Auto) 0.3, Eos # (Auto) 0.0, Baso # (Auto) 0.0, Total Counted 100, Neutrophils % (Manual) 85 H, Band Neutrophils % 1.0, Lymphocytes % (Manual) 10, Monocytes % (Manual) 4, Platelet Estimate Normal, RBC Morphology Normal, Sodium 131 L, Potassium 5.2 H, Chloride 96 L, Carbon Dioxide 30, Anion Gap 10.2, BUN 45 H, Creatinine 2.00 H, Estimated Creat Clear 49, Estimated GFR 33 L, Est GFR ( Amer) 40 L, Glucose 116 H, Calcium 9.4, Magnesium 2.6 H, Total Bilirubin 0.9, AST 71 H, ALT 66, Alkaline Phosphatase 138 H, Total Protein 7.2, Albumin 4.2, Globulin 3.0, Albumin/Globulin Ratio 1.4 I & O for Last 24 hours: Intake & Output 10/07/23 10/08/23 10/09/23 10/10/23 23:59 23:59 23:59 23:59 Intake Total 240 / 240 520 / 1020 740 / 740 780 / 780 Output Total 500 / 500 1925 / 2025 1500 / 1500 1250 / 1250 Balance -260 / -260 -1405 / -1005 -760 / -760 -470 / -470 Weight 102.058 kg 102.06 kg 102.07 kg Constitutional Constitutional: no acute distress *Routine HEENT Exam Head: Present normocephalic Eye: Present EOMI and PERRL ENT: Present mucous membranes moist *Routine Neck Exam Neck: Present supple; Absent lymphadenopathy *Routine Respiratory Exam Respiratory: Present CTA bilaterally *Routine Cardiovascular Exam Cardiovascular: Present RRR *Routine Abdominal Exam Abdominal: Present soft and normoactive bowel sounds; Absent tenderness *Routine Extremities Exam Extremities: Absent cyanosis, clubbing or edema *Routine Skin Exam Skin: Present warm; Absent rash *Routine Neurological Exam Neurological: Present alert and oriented X3 Assessment and Plan *Assessment and plan (1) Pleural effusion: Status: Acute Category: Medical Code(s): J90 - Pleural effusion, not elsewhere classified (2) Acute on chronic HFrEF (heart failure with reduced ejection fraction): Status: Acute Category: Medical Code(s): I50.23 - Acute on chronic systolic (congestive) heart failure (3) Dyspnea: Status: Acute Qualifiers: Dyspnea type: shortness of breath Qualified Code(s): R06.02 - Shortness of breath Category: Medical Code(s): R06.00 - Dyspnea, unspecified (4) Hypotension: Status: Acute Qualifiers: Hypotension type: unspecified hypotension type Qualified Code(s): I95.9 - Hypotension, unspecified Category: Medical Code(s): I95.9 - Hypotension, unspecified (5) Chronic hyponatremia: Status: Acute Category: Medical Code(s): E87.1 - Hypo-osmolality and hyponatremia (6) COPD mixed type: Status: Chronic Category: Medical Code(s): J44.9 - Chronic obstructive pulmonary disease, unspecified (7) BPH (benign prostatic hyperplasia): Status: Chronic Qualifiers: Lower urinary tract symptom presence: symptoms absent Qualified Code(s): N40.0 - Benign prostatic hyperplasia without lower urinary tract symptoms Category: Medical Code(s): N40.0 - Benign prostatic hyperplasia without lower urinary tract symptoms (8) Tobacco abuse: Status: Chronic Category: Medical Code(s): Z72.0 - Tobacco use (9) Obesity (BMI 30-39.9): Status: Chronic Category: Medical Code(s): E66.9 - Obesity, unspecified Plan 72-year-old male obese with comorbidities including of end-stage heart failure, COPD who recently was discharged. Patient bounced back to the ED for worsened s hortness of breath. Patient has an ejection fraction of approximately 15%, and has been admitted multiples time. - right pleural effusion seen in the end stage heart failure. NYHA class IV -Acute on chronic systolic heart failure with a EF of 15 to 20% Continue diuresis with Bumex 2 mg twice daily. Cardiology and pulmonology both consulted. Discussed case with both providers today. Continue with diuresis. Blood pressure too soft for Entresto or beta-titi. Will discuss AICD when stable as an outpatient. Severe heart failure with a EF of 15 to 20%. Concerne d that patient does not have good understanding of his progressive diseases with NYHA class IV heart failure, emphysema, and chronic kidney disease. Very poor insight to his medical conditions. Acute on chronic hypoxemic respiratory failure - improving COPD exacerbation Pulmonology consulted, appreciate their recommendations. Will continue to hold on antibiotics at this point. No signs of infection with normal white cell count of 8.5. Continue Trelegy 100 inhaler and DuoNebs. Increase to every 4 hours scheduled. Continue supplemental oxygen for goal sats greater 90%. Currently on 2 L. Pulmonology and cardiology assisting Chronic hyponatremia secondary to above repeat CBC, CMP, magnesium ordered for the morning; EMY: Creatinine 2.1, improved from 2.2 yesterday. Patient diuresing well. Will continue to diuresis given patient's volume overload and heart failure with effusions. Allow for permissive bump in creatinine as long as he continues to have good urine output. Nicotine patch for tobacco dependence Obesity with comorbidity. Associated with fluid overload Daily weight Lovenox for DVT prophylaxis. On Protonix Patient would like to remain full code. Discussion at length about options of treatments, versus hospice and palliative care. Patient will like to consider. Cr worse today, monitor, likely DC tomorrow if Cr is better
[2023-10-10] MEDS: ONDANSETRON 4MG/2ML VIAL 4 MG IV (17:12)
--- OUTSIDE RECORDS SUMMARY | 2023-10-10 17:13 | XMS_ITS | Clinical Summary ---
Author Name Unknown Address [address] [place] [address] Phone Organization [facility] Address [address] [place] [address] Phone Care Team Providers Care Counterintelligence Specialist Name Role Phone Xena Schaefer Unavailable Unavailable Conditions or Problems Problem Name Problem Code Onset Date Status Entry Date Provider Comment Standard Description Annotate Lymphedema, right leg 047617879 (SNOMED CT) 09/17 Active 09/17 Nirav Encanracion MD Lymphedema of lower extremity Coronary artery disease (CAD) 20485118 (SNOMED CT) 09/02 Active 09/02 Shantal L Coronary arteriosclerosi s Cellulitis of RLE 033702037 (SNOMED CT) 09/02 Active 09/02 Shantal L Cellulitis of lower limb 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 (I50.22) 370195347 (SNOMED CT) 09/02 Active 09/02 Shantal L Benign hypertensive heart disease with congestive cardiac failure PERSONAL HX OF METHICILLIN RESIST STAPH AUREUS Z86.14 (ICD-10-CM ) 04/08 Resolved 04/08 Shantal L Personal history of Methicillin resistant Staphylococcus aureus infection COPD 86866727 (SNOMED CT) 04/08 Resolved 04/08 Shantal L Chronic obstructive lung disease PNEUMONIA 679554124 (SNOMED CT) 04/08 Resolved 04/08 Shantal L Pneumonia COPD 35041412 (SNOMED CT) 04/08 Removed 04/08 Judie Nordan Chronic obstructive lung disease PNEUMONIA 682623623 (SNOMED CT) 04/08 Removed 04/08 Judie Nordan Pneumonia PERSONAL HX OF METHICILLIN RESIST STAPH AUREUS Z86.14 (ICD-10-CM ) 04/08 Removed 04/08 Judie Herrera Personal history of Methicillin resistant Staphylococcus aureus infection Medications Medication Instructions Start Date Stop Date Generic Name NDC Provider CEFTRIAXONE SODIUM 2 GM SOLR 2g IV daily / [facility] [phone] CEFTRIAXONE SODIUM [id number] Ana Paula Plasencia AMOXICILLIN-PO T CLAVULANATE 875-125 MG TABS one po bid AMOXICILLIN-POT CLAVULANATE 82020784731 Nirav Encarnacion MD CEFTRIAXONE SODIUM 2 GM SOLR 2g IV daily / [facility] [phone] CEFTRIAXONE SODIUM 06030292602 Lea Velazquez DITROPAN XL 10 MG ORAL TABLET EXTENDED RELEASE 24 HOUR 1 tablet daily OXYBUTYNIN CHLORIDE 76598133296 Howard Jonas EC-NAPROXEN 500 MG TBEC 1 tablet twice daily with meals NAPROXEN 53128927109 Garza Jonas LISINOPRIL 20 MG TABS 1 tablet daily LISINOPRIL 23055382343 Garza Jonas FUROSEMIDE 20 MG TABS 1 tablet daily as needed FUROSEMIDE 65062595895 Garza Jonas PROSCAR 5 MG TABS 1 tablet daily FINASTERIDE 10000429294 Garza Jonas COREG 3.125 MG TABS 1 tablet twice daily CARVEDILOL 24270218086 Garza Jonas BREO ELLIPTA 200-25 MCG/ACT AEPB 1 puff daily FLUTICASONE FUROATE-VILANTERO L 04113187276 Garza Jonas ASPIRIN 81 81 MG CHEW 1 tablet daily ASPIRIN 53159308038 Garza Jonas ALPRAZOLAM 1 MG TABS 1 tablet every 8 hours as needed ALPRAZOLAM 61105928787 Garza Jonas TYLENOL EXTRA STRENGTH 500 MG TABS 1 tablet every 6 hours as needed ACETAMINOPHEN 78252302628 Howard Jonas PRAVACHOL 40 MG ORAL TABLET PRAVASTATIN SODIUM 48711339889 Howard Jonas TYLENOL 8 HOUR 650 MG CR-TABS ACETAMINOPHEN 16057954829 Howard Jonas ALDACTONE 25 MG TABS SPIRONOLACTONE 31771432342 Howard Jonas LASIX 40 MG TABS FUROSEMIDE 53085641724 Howard Jonas EQ NICOTINE 21 MG/24HR PT24 NICOTINE 36869163580 Howard Jonas METHADONE HCL 5 MG TABS METHADONE HCL 34552672482 Howard Jonas LISINOPRIL 5 MG TABS LISINOPRIL 86428502151 Howard Jonas ZYVOX 600 MG TABS LINEZOLID 85465129934 Howard Jonas DOXYCYCLINE HYCLATE 100 MG CAPS DOXYCYCLINE HYCLATE 99073695050 Howard Jonas BISOPROLOL FUMARATE 10 MG TABS BISOPROLOL FUMARATE 54925877245 Howard Jonas DUONEB SOLUTION IPRATROPIUM-ALBUT LINDA SOLN 14856628265 Howard Jonas PRAVACHOL 40 MG ORAL TABLET PRAVASTATIN SODIUM 21033179288 Blanca Encarnacion TYLENOL 8 HOUR 650 MG CR-TABS ACETAMINOPHEN 53291237238 Blanca Encarnacion ALDACTONE 25 MG TABS SPIRONOLACTONE 31531713092 Blanca Encarnacion LASIX 40 MG TABS FUROSEMIDE 44195854192 Blanca Encarnacion EQ NICOTINE 21 MG/24HR PT24 NICOTINE 52458947125 Blanca Encarnacion METHADONE HCL 5 MG TABS METHADONE HCL 16982325166 Blanca Encarnacion LISINOPRIL 5 MG TABS LISINOPRIL 67333070790 Blanca Encarnacion ZYVOX 600 MG TABS LINEZOLID 29155811589 Blanca Encarnacion DOXYCYCLINE HYCLATE 100 MG CAPS DOXYCYCLINE HYCLATE 60859169647 Blanca Encarnacion BISOPROLOL FUMARATE 10 MG TABS BISOPROLOL FUMARATE 11944406205 Blanca Encarnacion DUONEB SOLUTION IPRATROPIUM-ALBUT LINDA SOLN 04753627202 Blanca Encarnacion Medications Administered No information available. [...] antibiotics 2019 CPT-ca Continue IV antibiotics 2019 CPT-33722 PICC Line Insertion Vital Signs Date Name [...]
[2023-10-11] VITALS: BP 106/65; PULSE 107; RESP 18; TEMP 36.5; O2SAT 92
[2023-10-11] MEDS: MORPHINE 2MG/ML SYRINGE 2 MG IV ×3 (00:02→10:38)
[2023-10-11 04:00] VITALS: BP 103/59; PULSE 103; RESP 16; TEMP 36.6; O2SAT 90; BMI 34.0
[2023-10-11] MEDS: FLUTICASONE/UMECLIDIN/VILANTER 100/62.5/25MCG INHALER 1 PUFF IH (06:00)
[2023-10-11] MEDS: ALBUTEROL-HFA 90MCG/PUFF INHALER 8GM 2 PUFF IH (06:00)
[2023-10-11 06:40] LABS: Chloride 93 mmol/L (98-107); Potassium 5.1 mmoL/L (3.5-5.1); Sodium 129 mmol/L (136-145)
[2023-10-11 06:42] LABS: Alanine Aminotransferase 74 U/L (12-78); Aspartate Amino Transferase 72 U/L (17-59); Blood Urea Nitrogen 54 mg/dl (9-20); Creatinine Clearance Estimated 54 mL/min (50-200); Estimated Glomerular Filt Rate 37 ml/min (>60); GFR (African American) 45 ML/MIN (>60)
[2023-10-11 06:43] LABS: Albumin/Globulin Ratio 1.3 (1.1-1.8); Alkaline Phosphatase 142 U/L (38-126); Anion Gap 7.1 mEq/L (5-15); Bilirubin,Total 0.9 mg/dl (0.2-1.3); Calcium 9.5 mg/dl (8.4-10.2); Carbon Dioxide 34 mmol/L (22.0-30.0); Globulin 3.1 g/dL (1.3-3.2); Glucose 110 mg/dl (74-100); Total Protein,Serum 7.1 g/dl (6.3-8.2)
[2023-10-11 07:54] VITALS: BP 87/51; PULSE 111; RESP 18; TEMP 36.6; O2SAT 92
[2023-10-11] MEDS: BUMETANIDE 1 MG TABLET 2 MG PO (07:56)
[2023-10-11] MEDS: TAMSULOSIN 0.4MG CAPSULE 0.400000000000000022 MG PO (07:56)
[2023-10-11] MEDS: ASPIRIN EC 81MG TABLET 81 MG PO (07:56)
[2023-10-11] MEDS: ACETAMINOPHEN 325MG TAB 650 MG PO (07:57)
[2023-10-11] MEDS: OXYBUTYNIN 5MG TAB 5 MG PO (07:57)
[2023-10-11] MEDS: PANTOPRAZOLE 40MG TABLET 40 MG PO (07:57)
[2023-10-11] MEDS: NAPROXEN 500MG TABLET 250 MG PO (07:57)
[2023-10-11] MEDS: FINASTERIDE 5MG TABLET 5 MG PO (07:57)
[2023-10-11] MEDS: EMPAGLIFLOZIN 10MG TABLET 10 MG PO (07:58)
[2023-10-11] MEDS: CALCIUM CARBONATE 500MG CHEWTAB 1000 MG PO (07:58)
[2023-10-11] MEDS: ENOXAPARIN 40MG/0.4ML SYRINGE 40 MG SQ (07:58)
--- NOTE | 2023-10-11 09:25 | DIET.NUTRFU ---
RD spoke to patient this AM, verified he has not had a BM since admit on 10/07. He is on morphine which may cause constipation. At home he has the same issue and drinks prune juice, requesting some for lunch tray. Appetite is good consuming 75% at most meals. Will review with provider during rounds.
--- NOTE | 2023-10-11 09:56 | P.PN_ITS ---
Subjective *Date: 10/11/23 *Time: 12:03 Interval history: No acute respiratory events overnight. Patient denies any new respiratory complaints. Pulmonology Exam Inpatient Vital signs and Labs for Last 24 Hours: Temp Pulse Resp BP Pulse Ox O2 Del Method O2 Flow Rate 97.8 F 111 H 18 87/51 L 92 L Nasal Cannula 1 10/11/23 07:54 10/11/23 07:54 10/11/23 07:54 10/11/23 07:54 10/11/23 07:54 10/11/23 09:00 10/11/23 09:00 Laboratory Results - last 24 hr 10/10/23 08:15: Total Counted 100, Neutrophils % (Manual) 85 H, Band Neutrophils % 1.0, Lymphocytes % (Manual) 10, Monocytes % (Manual) 4, Platelet Estimate Normal, RBC Morphology Normal 10/11/23 06:13: Sodium 129 L, Potassium 5.1, Chloride 93 L, Carbon Dioxide 34 H, Anion Gap 7.1, BUN 54 H, Creatinine 1.80 H, Estimated Creat Clear 54, Estimated GFR 37 L, Est GFR ( Amer) 45 L, Glucose 110 H, Calcium 9.5, Total Bilirubin 0.9, AST 72 H, ALT 74, Alkaline Phosphatase 142 H, Total Protein 7.1, Albumin 4.0, Globulin 3.1, Albumin/Globulin Ratio 1.3 I & O for Labs for Last 24 Hours: Intake & Output 10/08/23 10/09/23 10/10/23 10/11/23 23:59 23:59 23:59 23:59 Intake Total 520 / 1020 740 / 740 1020 / 1260 720 / 720 Output Total 1924 / 2024 1500 / 1500 1830 / 1830 250 / 250 Balance -1405 / -1005 -760 / -760 -810 / -570 470 / 470 Weight 225 lb 0.06 oz 225 lb 0.413 oz 224 lb 13.944 oz Constitutional: Present moderate distress Head: Present normocephalic and atraumatic ENT: Present normal exam, normal oropharynx and mucous membranes moist Neck: Present normal inspection and full ROM Respiratory: Present respiratory distress and able to speak in complete sentences; Absent prolonged expiratory phase, wheezes or diminished air movement Cardiac: Present S1/S2, Tachycardia and radial pulses present GI: Present soft and distention; Absent tenderness or guarding Skin: Present intact; Absent cyanosis or jaundice Neuro: Present alert, awake and oriented x 3 Extremities: Present normal inspection and edema; Absent clubbing or cyanosis Psychiatric: Present normal affect and cooperative Assessment and Plan *Assessment and plan (1) COPD mixed type: Status: Chronic Category: Medical Code(s): J44.9 - Chronic obstructive pulmonary disease, unspecified (2) SOB (shortness of breath) on exertion: Status: Acute Category: Medical Code(s): R06.02 - Shortness of breath (3) Pleural effusion on right: Status: Acute Category: Medical Code(s): J90 - Pleural effusion, not elsewhere classified (4) Chronic respiratory failure with hypoxia: Status: Acute Category: Medical Code(s): J96.11 - Chronic respiratory failure with hypoxia (5) Lung nodule: Status: Acute Category: Medical Code(s): R91.1 - Solitary pulmonary nodule (6) Adenopathy, hilar: Status: Resolved Category: Medical Code(s): R59.0 - Localized enlarged lymph nodes (7) Mediastinal adenopathy: Status: Acute Category: Medical Code(s): R59.0 - Localized enlarged lymph nodes Plan Mr. Holcomb is a 72-year-old male history of COPD, CHF rEF 15% - 20%, pulmonary nodules and worsening lymphadenopathy recently seen in the hospital for heart failure exacerbation presented for worsening respiratory and found to be having right pleural effusion and pulmonary was called for further evaluation and management. Patient today complains of worsening respiratory distress but denies any worsening cough or any productive phlegm. Admits minimal wheezing. The noted effusion is new on her chest x-ray from his most recent hospital admission on 09/19/2023. Chest x-ray on this admission relatively stable compared to that x-ray. No effusion present on his hospital admission from 09/05/2023. No other dense consolidation or airspace disease noted on his x-ray from this admission. Afebrile. No evidence of leukocytosis. On initial examination patient does not appear to be in any respiratory distress. On 2 L nasal cannula saturating 97%. Weaned to 1 L patient is not happy with weaning his oxygen despite his saturations were at 97%. Reiterated and reassured. Discussed again today regarding the need for possible outpatient thoracentesis and CT-guided biopsy. Patient refused. Discussed with the patient that he need to make some decisions on his medical issues at this point of time to improve overall outcomes and survival. Patient expresses complete understanding. Interval update: No acute respiratory events overnight. Stable oxygen requirements. Plan: -Agree with not initiating antibiotics from pulmonary standpoint patient -Continue Trelegy 100 inhaler along with DuoNebs every 6 hours on as-needed b asis -Continue oxygen supplementation only as needed to maintain O2 saturations goal of 90% above -Incentive spirometry out of bed to chair, PT OT. # Thank you for involving pulmonary in this patient care. Will continue to follow.
--- NOTE | 2023-10-11 11:19 | P.DS_ITS ---
General Admission date:: 10/07/23 Discharge date: 10/11/23 HPI HPI HPI: This is a well known 72-year-old male obese with comorbidities including of end- stage heart failure, COPD who recently was discharged. Patient bounced back to the ED for worsened shortness of breath. Patient has an ejection fraction of approximately 15%, and has been admitted multiples time. Consulted and evaluated with Pulmonology and Cardiology. Most of the time patient has been refusing aggressive interventions. In the past has had refused bronchoscopy and defibrillator implant. However, does not want to consider hospice care either. On last admission patient was diuresed to his baseline oxygen requirement and was deemed appropriate for outpatient management at that time. Over the last 4 days patient has had slightly decreased urine output however is still making urine, states he has been compliant with his medication. Please see discharge summary for full details. He feels as if he is smothering this time. Reported been told by his cardiology that he would not tolerate a bronchoscopy. No other acute complaints at this time. Patient is on 2 L nasal cannula at baseline. Readmitted for management. Hospital Course Hospital Course Hospital Course: Patient was seen and evaluated at the bedside on the day of discharge. Patient wishes to be discharged. All patient questions were answered and patient was given time to ask questions. Patient was discharged in stable condition. Patient understands that she can return to ER in case of any sudden changes in health. Total time spent on DC - 38 mins 72-year-old male obese with comorbidities including of end-stage heart failure, COPD who recently was discharged. Patient bounced back to the ED for worsened shortness of breath. Patient has an ejection fraction of approximately 15%, and has been admitted multiples time. Right pleural effusion seen in the end stage heart failure. NYHA class IV - Improvement Acute on chronic systolic heart failure with a EF of 15 to 20% - stable continue Bumex at DC Acute on chronic hypoxemic respiratory failure - improved COPD exacerbation - stable, improved EMY : improving, f/u with PCP as OP Nicotine patch for tobacco dependence Obesity with comorbidity. Associated with fluid overload Daily weight Lovenox for DVT prophylaxis On Protonix Exam Data for Last 24 hours Vital signs and Labs for Last 24 Hours: Temp Pulse Resp BP Pulse Ox O2 Del Method O2 Flow Rate 97.8 F 111 H 18 87/51 L 92 L Nasal Cannula 1 10/11/23 07:54 10/11/23 07:54 10/11/23 07:54 10/11/23 07:54 10/11/23 07:54 10/11/23 09:00 10/11/23 09:00 Laboratory Results - last 24 hr 10/11/23 06:13: Sodium 129 L, Potassium 5.1, Chloride 93 L, Carbon Dioxide 34 H, Anion Gap 7.1, BUN 54 H, Creatinine 1.80 H, Estimated Creat Clear 54, Estimated GFR 37 L, Est GFR ( Amer) 45 L, Glucose 110 H, Calcium 9.5, Total Bilirubin 0.9, AST 72 H, ALT 74, Alkaline Phosphatase 142 H, Total Protein 7.1, Albumin 4.0, Globulin 3.1, Albumin/Globulin Ratio 1.3 I & O for Last 24 hours: Intake & Output 10/08/23 10/09/23 10/10/23 10/11/23 23:59 23:59 23:59 23:59 Intake Total 520 / 1020 740 / 740 1020 / 1260 720 / 720 Output Total 1925 / 2025 1500 / 1500 1830 / 1830 250 / 250 Balance -1405 / -1005 -760 / -760 -810 / -570 470 / 470 Weight 102.06 kg 102.07 kg 102 kg Constitutional Constitutional: no acute distress *Routine HEENT Exam Head: Present normocephalic Eye: Present EOMI and PERRL ENT: Present mucous membranes moist *Routine Neck Exam Neck: Present supple; Absent lymphadenopathy *Routine Respiratory Exam Respiratory: Present CTA bilaterally *Routine Cardiovascular Exam Cardiovascular: Present RRR *Routine Abdominal Exam Abdominal: Present soft and normoactive bowel sounds; Absent tenderness *Routine Extremities Exam Extremities: Absent cyanosis, clubbing or edema *Routine Skin Exam Skin: Present warm; Absent rash *Routine Neurological Exam Neurological: Present alert and oriented X3 Results Data Completed and Pending Labs on day of discharge: Labs from last 24 hours 10/11/23 06:13 Sodium 129 L Potassium 5.1 Chloride 93 L Carbon Dioxide 34 H Anion Gap 7.1 BUN 54 H Creatinine 1.80 H Estimated Creat Clear 54 Estimated GFR 37 L Est GFR ( Amer) 45 L Glucose 110 H Calcium 9.5 Total Bilirubin 0.9 AST 72 H ALT 74 Alkaline Phosphatase 142 H Total Protein 7.1 Albumin 4.0 Globulin 3.1 Albumin/Globulin Ratio 1.3 DS: Diagnosis Discharge Diagnosis (1) COPD mixed type: Status: Chronic Code(s): J44.9 - Chronic obstructive pulmonary disease, unspecified (2) SOB (shortness of breath) on exertion: Status: Acute Code(s): R06.02 - Shortness of breath (3) Pleural effusion on right: Status: Acute Code(s): J90 - Pleural effusion, not elsewhere classified (4) Chronic respiratory failure with hypoxia: Status: Acute Code(s): J96.11 - Chronic respiratory failure with hypoxia (5) Lung nodule: Status: Acute Code(s): R91.1 - Solitary pulmonary nodule (6) Adenopathy, hilar: Status: Resolved Code(s): R59.0 - Localized enlarged lymph nodes (7) Mediastinal adenopathy: Status: Acute Code(s): R59.0 - Localized enlarged lymph nodes Meds Home Medications and Allergies Home Medications Medication Instructions Recorded Confirmed Type tamsulosin 0.4 mg capsule 0.4 mg PO BID 09/20/17 10/08/23 History finasteride 5 mg tablet 5 mg PO DAILY 09/07/21 10/08/23 History albuterol sulfate 90 mcg/actuation 2 puff inhalation Q6HP PRN 05/19/23 10/08/23 History aerosol inhaler Shortness Of Breath oxybutynin chloride 10 mg 10 mg PO DAILY 05/19/23 10/08/23 History tablet,extended release 24 hr sacubitril 24 mg-valsartan 26 mg 0.5 tab PO BID 05/19/23 10/08/23 History tablet (Entresto) budesonide 0.5 mg/2 mL suspension 0.5 mg inhalation BIDP PRN 09/06/23 10/08/23 History for nebulization Shortness Of Breath Or Wheezing lorazepam 0.5 mg tablet 0.5 mg PO BIDP PRN Anxiety 09/06/23 10/08/23 History empagliflozin 10 mg tablet 10 mg PO DAILY 30 days #30 tabs 09/07/23 10/08/23 Rx (Jardiance) fluticasone fur. 100 mcg-umeclid 1 inh inhalation DAILY 30 days #1 09/07/23 10/08/23 Rx 62.5 mcg-vilant 25 mcg ea inhalat.powder (Trelegy Ellipta) spironolactone 25 mg tablet 25 mg PO DAILY 30 days #30 tabs 09/07/23 10/08/23 Rx bumetanide 2 mg tablet 2 mg PO BIDL 30 days #60 tabs 09/22/23 10/08/23 Rx metoprolol tartrate 25 mg tablet 12.5 mg PO BID 30 days #30 tabs 09/22/23 10/08/23 Rx potassium chloride 20 mEq 20 meq PO BID 30 days #60 tabs 09/22/23 10/08/23 Rx tablet,extended release(part/cryst) (Klor-Con M) New Prescriptions to Start Prescriptions: Allergies Allergy/AdvReac Type Severity Reaction Status Date / Time ceftriaxone [From Rocephin] Allergy Severe Hives Verified 05/18/23 23:28 pregabalin [From LYRICA] Allergy Unknown Verified 05/18/23 20:52 Discharge Plan Disposition Patient Disposition: Home, Self-Care Condition: Good Discharge Order Discharge Orders: Discharge Order (Routine); Ordered 10/11/23 Ordered By: Scar Lion Follow up Plan Follow up with: Deyvi Linder MD [Staff Physician] - 10/25/23 9:15 am Tadeo Moore MD [Primary Care Provider] - 10/17/23 2:15 pm Prescriptions/Medication Reconciliation: Continued tamsulosin 0.4 mg capsule,extended release 24hr 0.4 mg PO BID finasteride 5 MG tablet 5 mg PO DAILY lorazepam 0.5 mg tablet 0.5 mg PO BIDP PRN (Reason: Anxiety) budesonide 0.5 mg/2 mL suspension for nebulization 0.5 mg inhalation BIDP PRN (Reason: Shortness Of Breath Or Wheezing) spironolactone 25 mg Tablet 25 mg PO DAILY 30 Days Qty: 30 0RF Jardiance 10 mg Tablet 10 mg PO DAILY 30 Days Qty: 30 0RF Trelegy Ellipta 100-62.5-25 mcg Blister With Device 1 inh inhalation DAILY 30 Days Qty: 1 0RF oxybutynin chloride 10 mg tablet extended release 24hr 10 mg PO DAILY albuterol sulfate 90 mcg/actuation HFA aerosol inhaler 2 puff INHALATION Q6HP PRN (Reason: Shortness Of Breath) Entresto 24-26 mg tablet 0.5 tab PO BID potassium chloride [Klor-Con M20] 20 mEq Tablet,Er Particles/Crystals 20 meq PO BID 30 Days Qty: 60 0RF metoprolol tartrate 25 mg Tablet 12.5 mg PO BID 30 Days Qty: 30 0RF bumetanide 2 mg tablet 2 mg PO BIDL 30 Days Qty: 60 0RF Problem Reconciliation Problems Reviewed?: Yes Patient Discharge Instructions ACTIVITY: Ambulate as tolerated DIET: continue same diet Patient Instructions: DI for Heart Failure, DI for Hypotension Providers Primary Care Provider: Tadeo Moore Admit Provider: Kyler Lovell Attending Provider: Kyler Lovell
--- NOTE | 2023-10-12 12:29 | CARE MANAGER ---
Contacted patient related to hospital discharge. Patient states he is still having problems with his breathing. He states his Oxygen level is good but feels like breathing is worse. Discussed his medications and to resume them as previously directed. Discussed follow up appointments. Patient shared that he called Hospice and they were coming to see him on Sunday. He denies other questions or concerns. FERNANDO Lin
== END 2023-10-11 13:35 | disposition home or self-care (01) | DRG 291 ==
LOC: ER 21:53 → 2ND 22:09 → ICU 10-08 02:15 → 2ND 10-10 17:12
PROVIDERS: Nurse Practitioner; Nurse Practitioner Family; Admitting Provider Internal Medicine Adolescent Medicine; Emergency Provider Emergency Medicine; PCP Internal Medicine Adolescent Medicine; Visit Provider Internal Medicine Adolescent Medicine
DX: I11.0 Hypertensive heart disease with heart failure (principal); I50.23 Acute on chronic systolic (congestive) heart failure; E87.1 Hypo-osmolality and hyponatremia; J96.11 Chronic respiratory failure with hypoxia; I25.811 Atherosclerosis of native coronary artery of transplanted heart without angina pectoris; J44.1 Chronic obstructive pulmonary disease with (acute) exacerbation; R91.1 Solitary pulmonary nodule; R59.0 Localized enlarged lymph nodes; I95.9 Hypotension, unspecified; N40.0 Benign prostatic hyperplasia without lower urinary tract symptoms; Z72.0 Tobacco use; E66.9 Obesity, unspecified; Z68.34 Body mass index [BMI] 34.0-34.9, adult; I42.8 Other cardiomyopathies; I50.84 End stage heart failure
CPT/HCPCS: 36415; 71045; 80048; 80053; 80076; 83605; 83735; 83880; 84484; 85007; 85025; 93005; 94640; 99291; J2405

== ENCOUNTER 2023-10-23 04:59 | Emergency (ER) | payer MEDICARE, SELFPAY ==
[2023-10-23] MEDS: EPINEPHrine 0.1 MG/ML 10ML SYRINGE (CRASH CART) 1 MG IV ×6 (04:59→06:53)
--- NOTE | 2023-10-23 05:01 | ECG_ITS ---
APPROVED REPORT Exam: Resting ECG HR:150 bpm ECG Measurements Heart Rate 150 AXES QRSd 137 QRS 89 QT 320 T 55 QTc 406 Conclusion ATRIAL FLUTTER/TACHYCARDIA WITH RAPID VENTRICULAR RESPONSE INDETERMINATE AXIS INTRAVENTRICULAR CONDUCTION DELAY [130+ ms QRS DURATION] CRITICAL TEST RESULT INTERPRETATION BASED ON A DEFAULT AGE OF 41 YEARS UNCONFIRMED REPORT Electronically signed by : Tadeo Moore MD 10/23/2023 19:03:12
[2023-10-23 05:05] VITALS: BP 104/49; PULSE 142; RESP 18; O2SAT 85
[2023-10-23 05:40] VITALS: BP 218/54; PULSE 145; RESP 19; O2SAT 95
[2023-10-23 05:55] VITALS: BP 91/48; PULSE 123; RESP 22; O2SAT 98
--- NOTE | 2023-10-23 06:09 | PC.NURSE ---
0456 Patient arrived * EMS called for fall, angela catheter pulled out and bleeding. EMS arrived to patient in PEA unknown down, CPR started at 0430 by EMS. Arrived with IO to L tibia, 3 rounds of EPI given, Narcan 2mg given as had stated patient was just given 7.5mg of morphine at home. No return of spontaneous circulation during transport. High quality CPR in progress on arrival. LMA in place. 0457 EPI 1 mg IO administered. 0458 FSBG 121 0459 Pulse noted at pulse check. Epi drip ordered at this time by Dr. Seo. 0500 20G Left shoulder, unable to obtain labs. 0501 EKG obtained, sinus tach read by Dr. Seo, EKG sent to Dr. Linder at this time. 0504 16F Angela catheter inserted with urine return. 0504 EPI 1mg IVP per Dr. Seo at this time. End tidal CO2 decreasing. 0504 Response from Niyah, no stemi at this time, consider PE. 0505 LMA removed, replaced with 7.5 ET tube, 24 @ lip, color change CO2 detector noted. 0508 PE TPA ordered by Dr. Seo, pharmacy notified for dosing. Estimated weight 100kg. 0513 EPI drip started at 10 mcg/min per Dr. Seo 0516 EPI drip increased to 20 mcg/min per Dr. Seo. 0517 EPI drip increased to 30 mcg/min per Dr. Seo. 0519 No pulse noted at this time. PEA. High quality CPR resumed. 0519 EPI 1mg IV Push administered, EPI drip stopped. 0521 Pulse noted at pulse check. Rhythm noted to be Sinus Tach. 0521 EPI drip restarted at 30 mcg/min. 0522 TPA Bolus 9mg started 0523 TPA remaining dose to infuse over 2 hours started. 0526 Triple lumen central line placed right femoral by Dr. Seo. 0528 No pulse noted at this time. High quality CPR restarted. 0528 EPI 1mg IVP, EPI dripped stopped at this time. 0530 Pulse noted at pulse check. Sinus Tach. 0531 EPI drip restarted at 30mcg/min per Dr. Seo. 0534 No pulse noted at this time. PEA. High quality CPR restarted at this time. 0534 EPI 1mg IVP, EPI drip stopped at this time. 0537 EPI 1mg IVP 0538 Pulse noted at pulse check. Sinus Tach. 0540 Spouse brought to bedside at this time. 0541 Left radial arterial line placed by Dr. Seo. 0546 Norepinepherine drip started at 30mcg/min per Dr. Seo at this time. 0547 Dr Seo discussing goals of care and prognosis at this time with . Spouse has expressed that she believes that she does not wish to put her through more pain, but wishes to speak with his brother. 0551 Dr. Seo, Sammie and Luz at bedside with spouse, discussing definitive care at this time. Spouse has decided to withdraw vasopressors and thrombolytics and understood the roles these medications were performing in maintaining life. Spouse also verbalized that she wishes to cease assisted ventilation at this time as well. Patient's spouse verbalizes understanding that these actions will ultimately lead to cardiac for the patient. 0558 EPI drip and Norepinephrine drips stopped at this time per Dr. Seo. 0559 Bedside POC ultrasound performed by Dr. Seo at this time for purpose of explanation to . 0601 Ventilator stopped at this time. Patient extubated at this time per 's request. [address] Time of declared by Dr. Seo.
--- NOTE | 2023-10-23 06:14 | HMH.EDGENADL ---
Discharge Plan Disposition Patient Disposition: Prescriptions Prescriptions: No Action tamsulosin 0.4 mg capsule,extended release 24hr 0.4 mg PO BID finasteride 5 MG tablet 5 mg PO DAILY lorazepam 0.5 mg tablet 0.5 mg PO BIDP PRN (Reason: Anxiety) budesonide 0.5 mg/2 mL suspension for nebulization 0.5 mg inhalation BIDP PRN (Reason: Shortness Of Breath Or Wheezing) spironolactone 25 mg Tablet 25 mg PO DAILY 30 Days Qty: 30 0RF Jardiance 10 mg Tablet 10 mg PO DAILY 30 Days Qty: 30 0RF Trelegy Ellipta 100-62.5-25 mcg Blister With Device 1 inh inhalation DAILY 30 Days Qty: 1 0RF oxybutynin chloride 10 mg tablet extended release 24hr 10 mg PO DAILY albuterol sulfate 90 mcg/actuation HFA aerosol inhaler 2 puff INHALATION Q6HP PRN (Reason: Shortness Of Breath) Entresto 24-26 mg tablet 0.5 tab PO BID potassium chloride [Klor-Con M20] 20 mEq Tablet,Er Particles/Crystals 20 meq PO BID 30 Days Qty: 60 0RF metoprolol tartrate 25 mg Tablet 12.5 mg PO BID 30 Days Qty: 30 0RF bumetanide 2 mg tablet 2 mg PO BIDL 30 Days Qty: 60 0RF Referrals Follow up/Referrals: Provider,Referral, MD [Primary Care Provider] - See instructions Clinical Impressions Clinical Impression: Pulmonary embolism, Cardiac arrest, Acute hypoxic respiratory failure Discharge ED Provider: Hayde Seo Adult HPI General Stated complaint: CARDIAC ARREST Time Seen by Provider: 10/23/23 04:59 Mode of Arrival: EMS History of Present Illness HPI narrative: 72-year-old male with history of severe COPD who later reported went on hospice 2 days ago presented to the ER in cardiac arrest. EMS was reportedly called after patient tried to get out of bed and collapsed, ripping out his Montesinos catheter as he felt. They found him unresponsive. He was in PEA arrest. They placed a left IO and started compressions. Patient received multiple doses of epinephrine prior to arrival in the ED without having a pulse back. He did not get any shocks. Related Data Home Medications Medication Instructions Recorded Confirmed tamsulosin 0.4 mg capsule 0.4 mg PO BID 09/20/17 10/08/23 finasteride 5 mg tablet 5 mg PO DAILY 09/07/21 10/08/23 albuterol sulfate 90 mcg/actuation 2 puff inhalation Q6HP PRN 05/19/23 10/08/23 aerosol inhaler Shortness Of Breath oxybutynin chloride 10 mg 10 mg PO DAILY 05/19/23 10/08/23 tablet,extended release 24 hr sacubitril 24 mg-valsartan 26 mg 0.5 tab PO BID 05/19/23 10/08/23 tablet (Entresto) budesonide 0.5 mg/2 mL suspension 0.5 mg inhalation BIDP PRN 09/06/23 10/08/23 for nebulization Shortness Of Breath Or Wheezing lorazepam 0.5 mg tablet 0.5 mg PO BIDP PRN Anxiety 09/06/23 10/08/23 Previous Rx's Medication Instructions Recorded empagliflozin 10 mg tablet 10 mg PO DAILY 30 days #30 tabs 09/07/23 (Jardiance) fluticasone fur. 100 mcg-umeclid 1 inh inhalation DAILY 30 days #1 09/07/23 62.5 mcg-vilant 25 mcg ea inhalat.powder (Trelegy Ellipta) spironolactone 25 mg tablet 25 mg PO DAILY 30 days #30 tabs 09/07/23 bumetanide 2 mg tablet 2 mg PO BIDL 30 days #60 tabs 09/22/23 metoprolol tartrate 25 mg tablet 12.5 mg PO BID 30 days #30 tabs 09/22/23 potassium chloride 20 mEq 20 meq PO BID 30 days #60 tabs 09/22/23 tablet,extended release(part/cryst) (Klor-Con M) Allergies Allergy/AdvReac Type Severity Reaction Status Date / Time ceftriaxone [From Rocephin] Allergy Severe Hives Verified 05/18/23 23:28 pregabalin [From LYRICA] Allergy Unknown Verified 05/18/23 20:52 [facility] Disclaimer: The information contained in this section may have been updated after the patient was seen, as this information can be updated by other users. Medical History (Updated 10/23/23 @ 06:50 by Hayde Seo MD) Abnormal electrocardiogram [ECG] [EKG] Acute and chronic respiratory failure with hypoxia Acute and chronic respiratory failure with hypoxia Acute exacerbation of chronic obstructive pulmonary disease Acute exacerbation of chronic obstructive pulmonary disease (COPD) Acute on chronic HFrEF (heart failure with reduced ejection fraction) Acute respiratory distress Anxiety Atypical angina BPH (benign prostatic hyperplasia) CAD in [place] artery Cardiomyopathy Cellulitis of right lower leg CHF exacerbation Chronic hyponatremia Chronic respiratory failure with hypoxia Congestive heart failure COPD (chronic obstructive pulmonary disease) with acute bronchitis COPD mixed type Dyspnea Essential hypertension Heart failure HFrEF (heart failure with reduced ejection fraction) Hyperlipidemia Hypotension Lesion of right lung Lung nodule Mediastinal adenopathy Neck pain Obesity (BMI 30-39.9) Obesity (BMI 30.0-34.9) Pleural effusion Pleural effusion on right Pneumonia Prostate enlargement Respiratory failure Shortness of Breath SOB (shortness of breath) on exertion Supplemental oxygen dependent Tachycardia Tobacco abuse Volume overload Family History Other No significant family history Social History Smoking Status: Former smoker tobacco type: cigarettes packs per day: 1 alcohol intake: never substance use type: denies use current occupational status: disabled Travel in the last 8 weeks: None household members: spouse housing: apartment caffeine: Yes ROS Obtained: Yes unobtainable due to mental status Physical Exam General General appearance: obtunded Comment: Pale, cold Head Head exam: atraumatic and normocephalic Eye Eye exam: Present normal appearance and other (Nonreactive pupils fixed at 6 mm) ENT ENT exam: Present mucous membranes dry and other (LMA in place on EMS arrival) Neck Neck exam: Present normal inspection Chest Chest inspection: Present normal inspection Respiratory Respiratory exam: Present other (Diminished breath sounds throughout but air movement is present with mechanical ventilation, no spontaneous respiratory drive) Cardiovascular Cardiovascular exam: Present other (Pulseless on arrival) Abdominal Exam Abdominal exam: Present soft; Absent distention exam: Present other (Blood clot at urethral meatus after patient reportedly ripped out his own catheter when he collapsed) Extremities Exam Extremities exam: Present cyanosis Neurological Exam Neurological exam: Present other (Nonreactive pupils, GCS 3 T) Skin Skin exam: Present pallor and other (Cool on arrival) Medical Decision Making Medical Records Medical records reviewed: Yes I reviewed the patient's medical records. MR Comment: Most recent cardiology note demonstrates patient was continuing twice daily Bumex, he was already considering hospice at that time Evin Inquiry Pt receiving controlled substance: No Vital Signs: 10/23/23 04:59 Oxygen Flow Rate (LPM) 10 Orders (Tests/Meds): ED MEDICATIONS Generic Name Dose Route Start Last Admin Trade Name Freq PRN Reason Stop Dose Admin Sodium Chloride 3 ml 10/23/23 05:53 Sodium Chloride 3% 15ml Neb IH 11/22/23 05:52 ONCE PRN INDUCE SPUTUM COLLECTION Discontinued Medications Generic Name Dose Route Start Last Admin Trade Name Freq PRN Reason Stop Dose Admin Alteplase, Recombinant 100 mg 10/23/23 05:15 Alteplase Recombinant 100mg Vial IV 10/23/23 05:16 DIRECTED ONE ORDERS Category Date Time Status Sputum Culture & Gram Stain Stat Micro 10/23/23 05:30 Received Medical Decision Narrative: In summary, 72-year-old male presented to the ED in cardiac arrest. Patient was not a DNR so full code measures were started until family arrived. Differential diagnosis on arrival included respiratory arrest, PE, ACS, electrolyte abnormality. We continued compressions until first dose of code dose epinephrine was administered. Fingerstick glucose 121. He was placed on the ZOLL and first pulse check was performed. Patient had a pulse and was tachycardic. I ordered epinephrine drip. EKG was obtained and personally interpreted which demonstrates sinus tachycardia with wide QRS, indeterminate axis but by my determination is normal, no STEMI. Patient became gradually bradycardic as we were waiting for epinephrine drip to arrive, he received an additional code dose epinephrine in order to not lose a pulse. EKG was sent to the STEMI phone, cardiology did not think it was a STEMI but likely PE which I agree with. At this point patient had a stable pulse and I exchanged his LMA for an endotracheal tube. I ordered tPA and spoke with Dr. Linder on the phone who stated they do not take these patients to the [facility] given he was still unstable. He agreed with my plan for thrombolytics. Epinephrine drip was then started but shortly thereafter patient became progressively bradycardic and lost a pulse again. He received code dose epinephrine and CPR was resumed. Patient regained a pulse and was tachycardic, epi drip restarted, tPA was then administered. Right femoral central line was placed and secured, see procedure note for details. Patient again became bradycardic and lost pulses despite maximum dose epinephrine drip. CPR was started again and we regained pulses. Left radial arterial line was secured, see procedure note for details. Norepinephrine was also started. At this point arrived to the ED and was brought to bedside to discuss ongoing care and goals of care. At bedside after discussion with of patient's current care, medications, and clinical picture, she stated she wanted no more CPR or other aggressive interventions. With RN Sammie and Luz at bedside, I discussed with are ongoing care, she stated patient would not want to live on machines and that she wanted the life-sustaining medications to be stopped. We discussed that he was on medications that were keeping his heart beating and blood pressure up as well as medications that were attempting to break up what was believed to be a blood clot in the lungs. Patient was never stable enough to complete labs or go to scan to confirm diagnoses. She verbalized that she knew stopping those medications would cause him to and repeated that she wanted those medications stopped. She also stated she wanted the ventilator turned off and tube removed. At her request ventilator was stopped and endotracheal tube was removed. Patient's arterial line went flat shortly after medications were stopped. He was pronounced at 0612. Patient's brother who his had contacted prior to deciding to stop life-sustaining care presented to bedside after patient had passed and stated that he was glad we had stopped and that he never would have wanted any of those things done anyways. Procedures Intubation Mallampati Score:: Class IV Time out performed: No sedative: none paralytic: other (None) Laryngoscope: other (S4 video assisted laryngoscope) ET Tube Size: 7.5 ET Tube Uncuffed: No Tube Secured Depth (cm): 24 Tube Secured Location: lips Tube Placement Confirmation: visualized tube passing through cords, equal breath sounds bilaterally, no breath sounds over epigastrium and confirmation by capnometry Patient Tolerated Procedure: well Intubation Complications: none Central Line Placement Right Femoral: Time Out Performed: No (Emergent situation) Patient Placed on Monitor/Pulse Ox: Yes Central Line Prep: Chlorhexidine scrub Ultrasound Used for Placement: Yes Central Line Lumen Inserted: triple Post Procedure: sutured in place, good blood return, all ports aspirated, flushed, capped and sterile dressing applied Patient Tolerated Procedure: well Complications: none Additional Comments: 7 [place] triple-lumen placed in right fem for additional IV access and continued aggressive medication intervention Limited Ultrasound Indication:: Cardiac arrest Findings:: Right ventricle greater than or equal to size of left heart Disclaimer: Limited Cardiac Ultrasound Indication: Cardiac arrest Identified cardiac views: Apical four-chamber Findings: Right ventricle greater than or equal to size of left heart, right heart strain, no pericardial effusion or tamponade present Impression: Right heart strain Images saved to permanent archive The study was technically adequate CPT: 17938 This study was performed by me, and I personally interpreted all images/videos. Based on my clinical judgement, these images were adequate and did not necessitate further imaging. Miscellaneous Procedure Procedure Performed: Arterial line placement Indication: Cardiac arrest, vasopressors, need for continuous pressure monitoring Emergent situation No anesthetic as patient was unresponsive Area cleaned with chlorhexidine Location: Left radial Procedure was performed under ultrasound guidance with Seldinger technique. Placement confirmed with pulsatile flow, good waveform confirmed. Line was sutured in place and covered with sterile dressing Critical Care Critical Care Time Critical Care Time: Yes Attestation: On 10/23/23, the high probability of a clinically significant, sudden or life threatening deterioration of the following system(s) (cardiac, pulmonary, neurologic) required my full and direct attention, intervention and personal management. The time I documented below is in addition to time spent performing reported procedures but includes the following listed in this critical care notation. Total Time Total Critical Care Time: 62
--- NOTE | 2023-10-23 06:17 | PC.NURSE ---
Sammie contacted the [facility] about the pt. CR
--- NOTE | 2023-10-23 06:31 | PC.NURSE ---
Hospice notified of . RN spoke with MariannRN with [facility].
--- NOTE | 2023-10-23 06:33 | PC.NURSE ---
contact [facility] and spoke with Sylvain gibbs was ruled out
[2023-10-23 06:42] VITALS: BMI 34.5
[2023-10-23] MEDS: ALTEPLASE RECOMBINANT 100MG VIAL 100 MG IV (06:45)
[2023-10-23] MEDS: EPINEPHrine 5 MG in 0.9 % SODIUM CHLORIDE 250 ML 12.2400000000000002 MG IV (06:49)
[2023-10-23] MEDS: NOREPINEPHRINE BITARTRATE/D5W 8 MG/250 ML PLAST..BAG 15 MG IV (06:51)
--- NOTE | 2023-10-23 07:29 | P.DN_ITS ---
Pronouncement Note Date and Time of Date of : 10/23/23 Time of : 06:12 PCOD Preliminary cause of : Pulmonary embolism Contributing Factors (1) Acute hypoxic respiratory failure: Additional Data Confirmation of : no pulse, no respirations, no heart sounds and pupils fixed and dilated Family: at bedside Attending/PCP notified?: Yes Attending physician: Hayde Seo MD Was code activated?: Yes (Patient presented as cardiac arrest from EMS) Autopsy requested?: No glove examiner notified?: Yes Organ bank notified?: Yes Advance directives: No
[2023-10-23 08:31] VITALS: BP 0/0; PULSE 0; RESP 0; TEMP -17.7; TEMP 0
== END 2023-10-23 08:29 | disposition expired ==
PROVIDERS: Emergency Provider Emergency Medicine
DX: J96.01 Acute respiratory failure with hypoxia (principal); I46.9 Cardiac arrest, cause unspecified; I26.99 Other pulmonary embolism without acute cor pulmonale; J44.9 Chronic obstructive pulmonary disease, unspecified; I11.0 Hypertensive heart disease with heart failure; I50.23 Acute on chronic systolic (congestive) heart failure; I25.119 Atherosclerotic heart disease of native coronary artery with unspecified angina pectoris; I42.9 Cardiomyopathy, unspecified
CPT/HCPCS: 31500; 36556; 87070; 87205; 92950; 93005; 94002; 99291; C1751; J2997